=== PATIENT | male | born 1965 | race Caucasian/White ===

== ENCOUNTER → 2025-04-14 | Outpatient (CLI) | payer OTHER, SELFPAY ==
--- NOTE | 2025-04-14 15:53 | MRI_ITS ---
PROCEDURE: SPINE CERVICAL (ROUTINE) 04/14/2025 REASON FOR EXAM: CERVICAL MYELOPATHY TECHNIQUE: Multiplanar and multisequence images were obtained without IV contrast administration. FINDINGS: Normal cervical vertebral body height without compression deformity. No Chiari deformity. Markedly diminished marrow signal throughout the entirety of the C4 and C5 vertebral bodies. Although this could be reactive, the degree of sclerosis or marrow change is striking. C2-3 exhibits mild spinal stenosis with left-sided facet arthrosis contributing to severe left C3 foraminal narrowing. At C3-4 mild canal narrowing and moderate to severe sbma-sioomrt-hyio-right foraminal stenosis. At C4-5 there is severe canal narrowing with cord flattening and questionable early myelomalacia. Severe bilateral neural foraminal narrowing At C5-6 moderate to severe spinal stenosis with cord flattening and severe bilateral neural foraminal narrowing. At C6-7 broad-based protrusion with moderate spinal stenosis abutting the ventral cord. Severe scqd-bizkqih-fhgh-right C7 foraminal stenosis. C7-T1 is unremarkable. MRI/Spine Cervical (Routine) IMPRESSION: 1. Severe canal narrowing at C4-5 with moderate to severe canal narrowing at C5 -6 and moderate spinal stenosis at C6-7. 2. Severe kfjz-scksbos-odzg-right C4, severe bilateral C5, bilateral C6 and sev ere uffc-vpkwlef-ptwp-right C7 foraminal stenosis. 3. Prominent sclerosis involving the C4 and C5 vertebral bodies. Possibly reac tive. No history of primary neoplasm supplied Reading [facility]
== END | disposition home or self-care (01) ==
PROVIDERS: PCP Family Medicine; Referring Provider Orthopaedic Surgery Orthopaedic Surgery of the Spine; Visit Provider Orthopaedic Surgery Orthopaedic Surgery of the Spine
DX: G95.9 Disease of spinal cord, unspecified (principal)
CPT/HCPCS: 72141

== ENCOUNTER 2025-06-09 15:25 | Observation (INO) | payer OTHER, SELFPAY ==
[2025-06-08 16:25] LABS: Magnesium 2.0 mg/dL (1.5-2.2)
[2025-06-08 16:38] LABS: HIV Nonreactive (Nonreactive); Hepatitis C Antibody Nonreactive (Nonreactive)
[2025-06-09] VITALS (13 sets, daily range): BP systolic 105–150; BP diastolic 67–89; PULSE 65–77; RESP 11–18; TEMP 36.1–37; O2SAT 96–100; BMI 35.2
--- NOTE | 2025-06-09 10:04 | PCM.PRE.AN2 ---
ASA Classification* ASA Classification ASA Classification: 2 Assessment & Plan Anesthesia* Anesthesia Assessment Anesthesia Assessment: Discussed sedation and/or anesthesia options, risks, benefits, and alternatives with patient/parents/legal guardian/POA. Questions invited. The patient/parents/legal guardian/POA seems to understand and agrees to proceed with anesthesia plan. Reviewed the physical assessment, medical history, allergy history and patient home medications list prior to surgery/procedure/anesthetic and documented any changes. Performed airway and anesthesia risk assessments. Anesthesia Type Anesthesia Type: General Anesthesia Focused Assessment* Airway Assessment Mouth opens: >3 cm Mallampati Score: III Labs Anesthesia Preop lab: CBC CHEMISTRY Magnesium 2.0 mg/dL (1.5-2.2) 06/08/25 15:12 06/08/25 POC Glucose 139 mg/dL (74-106) H 06/09/25 10:18 06/09/25 COAG Pre-Assessment Diagnosis/Proposed Procedure Planned Operative Procedure(s): (N/A) Anterior Cervical Fusion C4-5 and C5-6 Anesthesia History Anesthesia History - hospitality aide: Anesthesia History - hospitality aide Hx Hospitalization No 05/25/25 13:24 Any Problems With Anesthesia No 05/25/25 13:24 Cholinesterase deficiency No 05/25/25 13:24 You/Your Family Experience No 05/25/25 13:24 fever (hyperthermia) with Relationship Recent Exposure to Contagious Disease Does patient have nerve No 05/25/25 13:24 stimulator Patient instructed to have device shut off --Does patient have Pacemaker or ICD? When Was Last Pacemaker Check QUESTION #4 FULL TEXT: You/Your Family Experience fever (hyperthermia) with Anesthesia Any additional information?: No Last Oral Intake Last Oral intake: Last Oral Intake NPO since Meds taken in AM with sips of water? Meds patient instructed to take am of surgery Any additional information?: No PONV PONV - hospitality aide: PONV - hospitality aide Female No 05/25/25 13:24 HX of Motion Sickness No 05/25/25 13:24 HX of N/V After Surgery No 05/25/25 13:24 Non-Smoker No 05/25/25 13:24 Duration of Surgery greater Yes 05/25/25 13:24 than 60 minutes Number of Risk Factors 1 05/25/25 13:24 PONV Score Low Risk 05/25/25 13:24 Any additional information?: No Height & Weight Height & Weight: Anesthesia: Height & Weight Height 5 ft 9 in 06/08/25 15:34 Weight: 102.058 kg 06/08/25 15:34 Respiratory Assessment Respiratory Assessment - hospitality aide: Respiratory Tract Infection Hx - hospitality aide Hx Respiratory Tract Infection No 05/25/25 13:24 STOP Sleep Apnea STOP Sleep Apnea - hospitality aide: STOP Sleep Apnea - hospitality aide Hx Hypertension Yes: PER PT, CONTROLLED ON 05/25/25 13:24 MEDS Hx Sleep Apnea No 05/25/25 13:24 CPAP BIPAP Do you snore loudly (louder No 05/25/25 13:24 than talking or can be heard Do you often feel tired/ No 05/25/25 13:24 fatigued/ sleepy during daytime? Has anyone observed you stop Yes 05/25/25 13:24 breathing during sleep? STOP Results Positive 05/25/25 13:24 QUESTION #5 FULL TEXT : Do you snore loudly (louder than talking or can be heard through closed doors)? 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 Specify any problems Hx of Preganancy in last 3 N/A 05/25/25 13:24 Months Nurse Filling Out Transfusion MGRIFFITH 05/25/25 13:24 & Questions: Date: 05/25/25 05/25/25 13:24 Time: 13:27 05/25/25 13:24 Patient unable to answer at this time (ie. confused, unrespo Any additional information?: No /Reproduction History /Reproductive History - hospitality aide: /Reproductive Hx- hospitality aide Hx Now No 05/25/25 13:24 Gestational Age (in weeks): EDC: Hx Hx Para Hx Section SAB Any additional information?: No Active Medications Active Medications: Current Medications Generic Name Dose Route Start Last Admin Trade Name Freq PRN Reason Stop Dose Admin Acetaminophen 1,000 mg 06/09/25 11:30 Acetaminophen 500 Mg Tablet PO 06/09/25 11:31 PREOP ONE Dexamethasone Sodium Phosphate 8 mg 06/09/25 11:30 Dexamethasone 10 Mg/Ml Vial IV 06/09/25 11:31 INTRAOP ONE Dexamethasone Sodium Phosphate 4 mg 06/09/25 11:30 Dexamethasone 4 Mg/Ml Vial IV 06/09/25 11:31 POSTOP ONE Cefazolin Sodium 2 gm/ Sodium 110 mls @ 150 mls/hr 06/09/25 11:30 Chloride IV 06/09/25 12:13 INTRAOP ONE Tranexamic Acid 1,000 mg/ 110 mls @ 440 mls/hr 06/09/25 11:30 Sodium Chloride IV 06/09/25 11:44 INTRAOP ONE Tranexamic Acid 1,000 mg/ 110 mls @ 440 mls/hr 06/09/25 11:30 Sodium Chloride IV 06/09/25 11:44 INTRAOP ONE Magnesium Sulfate 1 gm/ 102 mls @ 408 mls/hr 06/09/25 11:30 Dextrose IV 06/09/25 11:44 PREOP ONE Lactated Ringer's 1,000 mls @ 15 mls/hr 06/09/25 10:00 IV .Q48H COUNT INCLUDES THE [facility] Insulin Human Lispro 1 - 6 unit 06/09/25 11:30 Insulin Lispro 100 Unit/Ml Insuln.Pen SC 06/09/25 17:00 Q4H PRN PRN BG>/= 180, SEE PROTOCOL Protocol PFSH Medical History Wears partial dentures Alcohol use Diabetes Arthritis High cholesterol Dietary restriction Smoker Hypertension Cervical stenosis of spine Right shoulder pain Home Medications Medication Instructions Recorded Last Taken Type atenolol 50 mg tablet 50 mg PO QDAY 02/03/25 06/09/25 History lisinopril 10 mg tablet 10 mg PO QDAY 02/03/25 06/07/25 History lovastatin 40 mg tablet 80 mg PO QHS 02/03/25 06/07/25 History meloxicam 15 mg tablet 15 mg PO QDAY 02/03/25 06/07/25 History semaglutide 0.25 mg or 0.5 mg (2 0.5 mg subcut QWEEK 02/03/25 05/29/25 History mg/3 mL) subcutaneous pen injector (Ozempic) methocarbamol 500 mg tablet 500 mg PO TID PRN pain/spasms #30 05/13/25 06/08/25 Rx tabs metformin 500 mg tablet 500 mg PO DAILY 06/09/25 06/07/25 History Allergy/AdvReac Type Severity Reaction Status Date / Time No Known Allergies Allergy Verified 06/09/25 10:19 Surgical History History of colonoscopy History of lumbar laminectomy History of hernia surgery Social History household members: significant other Smoking Status: Current every day smoker tobacco type: cigarettes alcohol intake: current Review of Systems (Anesthesia) ROS Narrative System reviewed and no additional complaints, except as documented.
[2025-06-09] MEDS: Magnesium 1 GM over 15 mins IV (10:33)
[2025-06-09] MEDS: Lactated Ringers 1,000 ML 15 ML IV (10:33)
--- NOTE | 2025-06-09 10:55 | PRE.ANES_ITS ---
ASA Classification* ASA Classification ASA Classification: 2 Assessment & Plan Anesthesia* Anesthesia Assessment Anesthesia Assessment: Discussed sedation and/or anesthesia options, risks, benefits, and alternatives with patient/parents/legal guardian/POA. Questions invited. The patient/parents/legal guardian/POA seems to understand and agrees to proceed with anesthesia plan. Reviewed the physical assessment, medical history, allergy history and patient home medications list prior to surgery/procedure/anesthetic and documented any changes. Performed airway and anesthesia risk assessments. Anesthesia Type Anesthesia Type: General (Intubation with video laryngoscope in consideration of loose upper bridge) History Source History Obtained from:: Patient and Chart Anesthesia Focused Assessment* Temperature: 97.1 F Pulse Rate: 69 Blood Pressure: 147/87 Respiratory Rate: 18 Pulse Ox: 100 Oxygen Delivery Method: Room Air Airway Assessment Mouth opens: >3 cm Mallampati Score: I (Opens well//tonsillar pillars and uvula easily seen) Teeth Condition: Loose and Missing (Loose upper bridge//missing lower dentition) Neck Range of motion (ROM): Limited ROM Labs Anesthesia Preop lab: CBC CHEMISTRY Magnesium 2.0 mg/dL (1.5-2.2) 06/08/25 15:12 06/08/25 COAG Pre-Assessment Diagnosis/Proposed Procedure Planned Operative Procedure(s): (N/A) Anterior Cervical Fusion C4-5 and C5-6 Anesthesia History Anesthesia History - rehabilitation liaison: Anesthesia History - rehabilitation liaison Hx Hospitalization No 05/25/25 13:24 Any Problems With Anesthesia No 05/25/25 13:24 Cholinesterase deficiency No 05/25/25 13:24 You/Your Family Experience No 05/25/25 13:24 fever (hyperthermia) with Relationship Recent Exposure to Contagious No 06/09/25 10:24 Disease Does patient have nerve No 05/25/25 13:24 stimulator Patient instructed to have device shut off --Does patient have Pacemaker No 06/09/25 10:24 or ICD? When Was Last Pacemaker Check QUESTION #4 FULL TEXT: You/Your Family Experience fever (hyperthermia) with Anesthesia Last Oral Intake Last Oral intake: Last Oral Intake NPO since 08:00 06/09/25 10:24 Meds taken in AM with sips of Yes 06/09/25 10:24 water? Meds patient instructed to atenolol 06/09/25 10:24 take am of surgery PONV PONV - rehabilitation liaison: PONV - rehabilitation liaison Female No 05/25/25 13:24 HX of Motion Sickness No 05/25/25 13:24 HX of N/V After Surgery No 05/25/25 13:24 Non-Smoker No 05/25/25 13:24 Duration of Surgery greater Yes 05/25/25 13:24 than 60 minutes Number of Risk Factors 1 05/25/25 13:24 PONV Score Low Risk 05/25/25 13:24 Height & Weight Height & Weight: Anesthesia: Height & Weight Height 5 ft 9 in 06/09/25 10:24 Weight: 108.3 kg 06/09/25 10:24 Body Mass Index (BMI) 35.2 06/09/25 10:24 Respiratory Assessment Respiratory Assessment - rehabilitation liaison: Respiratory Tract Infection Hx - rehabilitation liaison Hx Respiratory Tract Infection No 05/25/25 13:24 STOP Sleep Apnea STOP Sleep Apnea - rehabilitation liaison: STOP Sleep Apnea - rehabilitation liaison Hx Hypertension Yes: PER PT, CONTROLLED ON 05/25/25 13:24 MEDS Hx Sleep Apnea No 05/25/25 13:24 CPAP BIPAP Do you snore loudly (louder No 05/25/25 13:24 than talking or can be heard Do you often feel tired/ No 05/25/25 13:24 fatigued/ sleepy during daytime? Has anyone observed you stop Yes 05/25/25 13:24 breathing during sleep? STOP Results Positive 05/25/25 13:24 QUESTION #5 FULL TEXT : Do you snore loudly (louder than talking or can be heard through closed doors)? 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 Specify any problems Hx of Preganancy in last 3 N/A 05/25/25 13:24 Months Nurse Filling Out Transfusion MGRIFFITH 05/25/25 13:24 & Questions: Date: 05/25/25 05/25/25 13:24 Time: 13:27 05/25/25 13:24 Patient unable to answer at this time (ie. confused, unrespo /Reproduction History /Reproductive History - rehabilitation liaison: /Reproductive Hx- rehabilitation liaison Hx Now No 05/25/25 13:24 Gestational Age (in weeks): EDC: Hx Hx Para Hx Section SAB Active Medications Active Medications: Current Medications Generic Name Dose Route Start Last Admin Trade Name Freq PRN Reason Stop Dose Admin Acetaminophen 1,000 mg 06/09/25 11:30 06/09/25 10:33 Acetaminophen 500 Mg Tablet PO 06/09/25 11:31 1,000 mg PREOP ONE Administration Dexamethasone Sodium Phosphate 8 mg 06/09/25 11:30 Dexamethasone 10 Mg/Ml Vial IV 06/09/25 11:31 INTRAOP ONE Dexamethasone Sodium Phosphate 4 mg 06/09/25 11:30 Dexamethasone 4 Mg/Ml Vial IV 06/09/25 11:31 POSTOP ONE Cefazolin Sodium 2 gm/ Sodium 110 mls @ 150 mls/hr 06/09/25 11:30 Chloride IV 06/09/25 12:13 INTRAOP ONE Tranexamic Acid 1,000 mg/ 110 mls @ 440 mls/hr 06/09/25 11:30 Sodium Chloride IV 06/09/25 11:44 INTRAOP ONE Tranexamic Acid 1,000 mg/ 110 mls @ 440 mls/hr 06/09/25 11:30 Sodium Chloride IV 06/09/25 11:44 INTRAOP ONE Magnesium Sulfate 1 gm/ 102 mls @ 408 mls/hr 06/09/25 11:30 06/09/25 10:33 Dextrose IV 06/09/25 11:44 408 mls/hr PREOP ONE Administration Lactated Ringer's 1,000 mls @ 15 mls/hr 06/09/25 10:00 06/09/25 10:33 IV 15 mls/hr .Q48H SVETLANA Administration Insulin Human Lispro 1 - 6 unit 06/09/25 11:30 Insulin Lispro 100 Unit/Ml Insuln.Pen SC 06/09/25 17:00 Q4H PRN PRN BG>/= 180, SEE PROTOCOL Protocol PFSH Medical History Wears partial dentures Alcohol use Diabetes Arthritis High cholesterol Dietary restriction Smoker Hypertension Cervical stenosis of spine Right shoulder pain Home Medications Medication Instructions Recorded Last Taken Type atenolol 50 mg tablet 50 mg PO QDAY 02/03/2506/09 History lisinopril 10 mg tablet 10 mg PO QDAY 02/03/2506/07 History lovastatin 40 mg tablet 80 mg PO QHS 02/03/25 History meloxicam 15 mg tablet 15 mg PO QDAY 02/03/2506/07 History semaglutide 0.25 mg or 0.5 mg (2 0.5 mg subcut QWEEK 0 02/03/25 05/29/25 History mg/3 mL) subcutaneous pen injector (Ozempic) methocarbamol 500 mg tablet 500 mg PO TID PRN pain/spa sms #30 05/13/25 06/08/25 Rx tabs metformin 500 mg tablet 500 mg PO DAILY 06/09/25 History Allergy/AdvReac Type Severity Reaction Status Date / Time No Known Allergies Allergy Verified 06/09/25 10:19 Surgical History History of colonoscopy History of lumbar laminectomy History of hernia surgery Social History household members: significant other Smoking Status: Current every day smoker alcohol intake: current Review of Systems (Anesthesia) ROS Narrative System reviewed and no additional complaints, except as documented.
--- NOTE | 2025-06-09 11:00 | RAD_ITS ---
PROCEDURE: CERV SPINE 2 OR 3 VIEWS 06/09/2025 REASON FOR EXAM: ERAS, ANTERIOR CERVICAL FUSION C4-5 AND C5-6 TECHNIQUE: CERV SPINE 2 OR 3 VIEWS COMPARISON: 06/10/2025. FINDINGS: Intraoperative fluoroscopy for anterior cervical fusion of C4-5 and C5-6 was performed. See procedure report for full details. RAD/Cerv Spine 2 or 3 Views IMPRESSION: As above. Reading Location: [id number]
--- NOTE | 2025-06-09 12:04 | PCM.HP.BLA ---
History and Physical Date of Admission: 06/09/25 MR#: [id number] Acct: [id number] Name: NINA WEST Rep #: [id number] : 1965 Provider: Dr. Baron Buenrostro MD Age/Sex: 60/M Location: [facility] [place] Status: Signed Intake Vital Signs 04/23/2515:18 Height 5 ft 9 in Weight: 225 lb BMI 33.2 Intake Visit Reasons: cervical spine Chief Complaint: Preop Accompanied by: Is patient in pain?: No Allergies No Known Allergies Allergy (Verified 05/29/25 08:05) Medications Medication Instructions Recorded Confirmed Type atenolol 50 mg tablet 50 mg PO QDAY 02/03/25 05/29/25 History lisinopril 10 mg tablet 10 mg PO QDAY 02/03/25 05/29/25 History lovastatin 40 mg tablet 80 mg PO QHS 02/03/25 05/29/25 History meloxicam 15 mg tablet 15 mg PO QDAY 02/03/25 05/29/25 History semaglutide 0.25 mg or 0.5 mg (2 0.5 mg subcut QWEEK 02/03/25 05/29/25 History mg/3 mL) subcutaneous pen injector (Ozempic) methocarbamol 500 mg tablet 500 mg PO TID PRN pain/spasms #30 05/13/25 05/29/25 Rx tabs PFSH Medical History Wears partial dentures Alcohol use Diabetes Arthritis High cholesterol Dietary restriction Smoker Hypertension Cervical stenosis of spine Right shoulder pain Surgical History History of colonoscopy History of lumbar laminectomy History of hernia surgery Social History household members: significant other Smoking Status: Current every day smoker tobacco type: cigarettes alcohol intake: current HPI cervical spine Details: This documentation accurately reflects the service provided and the decisions made by me, Dr. Baron Buenrostro MD 05/29/25 0800. Part of today’s visit was documented by Migdalia Kaplan RN, acting as scribe. NINA WEST is a 60 year old M here today for preoperative appointment for anterior cervical fusion C4-C5, C5-C6. He states his pain has not been as bad lately as he has been off of work. He takes the Methocarbamol as needed. The patient is a 60-year-old male presenting with cervical spinal stenosis and associated symptoms. The patient reports a history of cervical spinal stenosis diagnosed in 2011, which initially presented with difficulty in buttoning shirts and tying shoes, progressing to an inability to walk, necessitating surgical intervention with a laminectomy. Post-surgery, the patient experienced some improvement, but symptoms have progressively worsened over the years. Currently, the patient experiences neck pain radiating to both shoulders and arms, with associated weakness in both upper extremities, more pronounced on the left side. The patient reports difficulty lifting objects, with pain and aching in the hands, and occasional dropping of items, predominantly with the right hand. The patient has a history of diabetes mellitus, with an A1c level of 6.2 as of May 13, and reports smoking occasionally, particularly when drinking. The patient acknowledges the impact of smoking on healing and plans to abstain from smoking and drinking one week prior to surgery. - Musculoskeletal: Reports neck pain radiating to shoulders and arms, weakness in upper extremities, difficulty lifting objects, and occasional dropping of items. - Neurological: Denies changes in handwriting or balance issues, reports occasional morning imbalance. - Endocrine: Reports diabetes mellitus with A1c of 6.2. - Respiratory: Denies COPD or breathing issues. Attestation: Documentation on this patient encounter was supported using ambient scribe technology/ voice AI technology. The patient consented to recording for the purpose of documenting the encounter. Provider reviewed content of the generated note prior to signature. 04/23/25: NINA WEST is a 60 year old M here today for cervical spine MRI review. Patient would like to go over the MRI results to see what the next step is. He denies any recent injections, or physical therapy. Patient states that he doesn't have any pain today, just feels weakness. He had a laminectomy surgery at [facility] in 2012. Hx of diabetes, last a1c was 5.7. No heart or lung issues. No blood thinners. HPI from 02/26/25: NINA WEST is a 59 year old M here today for cervical spine pain. Patient states the neck has been bothering him for a long time. He thought it was his shoulder acting up but now thinking it is coming from the neck. He notes that he does have cervical stenosis. He denies any numbness/tingling down the arms but does get it down the right leg. He feels like his legs are weak. He denies any balance issues. He states he does have dexterity issues and he has trouble gripping or picking things up. He has had injections in the neck but it has been several years. He denies any physical therapy or surgery. He denies taking any pain medication. Ortho Exam General General: Yes no acute distress Neurologic: Yes alert and Yes oriented x3 Psychologic: Yes reasonable and appropriate Spine SPINE TESTING CERVICAL THORACIC LUMBAR Musculoskeletal Strength 0=absent - 5=normal Details: Examination neck shows midline paraspinal tenderness in lower cervical region. Neurologic evaluation of upper extremity shows 4+ power right management advisor strength, 4- power bilateral biceps, all other muscle power normal shows normal sensations in all dermatomes. Leatha's is positive. Romberg's is positive. Tandem gait shows mild imbalance. There is no hyperreflexia lower extremities. Coding Level of Care Code Off vis,est,level 4 Diagnoses Cervical myelopathy G95.9 Time Spent (min) 35 Assessment and Plan Assessment and Plan (1) Cervical myelopathy: Status: Acute Plan Again reviewed prior cervical x-rays which show C4-5 and C5-6 severe disc height loss with disc degeneration with retrolisthesis both of these levels. C3-4 shows subtle spondylolisthesis but seems stable on flexion-extension views. Reviewed cervical MRI from April 14, 2025 which showed C4-5 severe canal narrowing with severe bilateral neuroforaminal narrowing, C5-6 moderate to severe spinal stenosis with severe bilateral neuroforaminal. C6-7 broad-based disc protrusion which results in moderate spinal stenosis. 1. Cervical spinal stenosis - Surgical intervention planned to address spinal cord compression and improve function. - The surgery will involve a two-level decompression from C4 to C6. - Post-operative care includes wearing a collar, physical therapy, and gradual weaning off the collar. 2. Diabetes mellitus - Maintain good glycemic control with an A1c target below 7.0. - Patient advised to quit smoking to enhance healing post-surgery. - Follow pre-operative instructions, including abstaining from smoking and drinking one week prior to surgery. - Maintain good blood sugar control and monitor A1c levels. - Wear the collar as instructed post-surgery and attend all follow-up appointments. - Begin physical therapy as directed after surgery. Explained imaging findings in detail. Patient has developed cervical myelopathy due to cord compression most severe C4-6. C3-4 and C6-7 also show stenosis but do not show any active movement on flexion-extension views. Discussed natural history of cervical myelopathy which is typically that of progression. I recommend surgical intervention in the form of C4-6 ACDF. Discussed this procedure in detail and explained the risks, benefits and alternatives. The risks of surgery include but are not limited to infection, bleeding, injury to nerves and vessels, hematoma formation, dysphagia, dysphonia, recurrent laryngeal nerve injury, Verna syndrome, DVT, pulmonary embolism, pneumonia, atelectasis, cardiopulmonary event, pseudoarthrosis, hardware failure, adjacent segment degeneration, need for further surgery, nerve root injury, spinal cord injury. Answered all questions to the patient’s satisfaction. Patient understands and agrees to proceed with surgery. Consent was signed.
--- NOTE | 2025-06-09 15:18 | PCM.OPRPT ---
Procedures Musculoskeletal [id number]: Other Procedure See Report Operative Report (Standard) Operative Information Date of Procedure: 06/09/25 Pre-Operative Diagnosis: C4-6 disc degeneration with stenosis, cord compression, myelopathy Post-Operative Diagnosis: Same Surgery/Procedure Performed: C4-6 ACDF bonding molder: Yes Clinical Orthoptist: Kristin Noguera Tasks completed by resident care assistant: Closing, Removing tissue, Implanting device, Hemostasis: Electrocautery and Retracting Type of Anesthesia: General RN Documented Start/Stop Times: Operation Date: 06/09/25 12:00 Case Time Into Pre-Op 06/09/25 09:54 Out of Pre-Op 06/09/25 12:09 Anesthesia Start 06/09/25 12:15 Into Room 06/09/25 12:15 Procedure Start 06/09/25 12:48 Procedure End 06/09/25 15:17 Procedure Start Time: 12:48 Procedure Stop Time: 15:17 Select all DRAINS/GRAFTS/IMPLANTS that apply: Drains Drain details: South , Graft Graft details: Structural allograft corticocancellous strut and Implanted device Implanted device details: Medtronic [place] Elite plate instrumentation Estimated Blood Loss: 30 cc Specimen collected: No Description of surgery: Preoperative diagnosis: C4-6 disc degeneration with stenosis, myelopathy Postoperative diagnosis: Same Name of procedure: C4-6 anterior cervical discectomy and fusion with plate instrumentation - Anterior cervical fusion C4-5, CPT code 59198 - Anterior plate instrumentation C4-6, CPT code 53523/59 - Anterior cervical fusion C5-6, CPT code 13376/51 -C4-5 structural allograft bone with DBX, CPT code 41859 - C5-6 structural allograft bone with DBX, CPT code 01843 Attending surgeon: Baron Buenrostro M.D. Anesthesia: Gen. endotracheal Estimated blood loss: 30 mL Complications: None Instrumentation used: Medtronic [place] Elite plate, LASR corticocancellous block Indications: The patient is a pleasant 60-year-old gentleman who presented with neck pain, progressive difficulty with balance and dexterity. MRI showed multilevel cervical disc degeneration, C4-6 severe stenosis with cord compression. In order to halt the progression of myelopathy, the patient requested surgical treatment. All risks and benefits of the procedure were explained to the patient. The risks include but are not limited to infection, bleeding, injury to nerves and vessels, vertebral artery injury, spinal cord injury, paralysis, vocal cord paralysis, injury to esophagus, pseudoarthrosis, need for further procedures, adjacent segment degeneration. Procedure: The patient was identified in the preoperative suite using unique patient identifiers. Skin was marked consent was taken and all questions were answered. The patient was then brought back to the operative room and a timeout was performed. General endotracheal anesthesia was given. Intraoperative neuro monitoring leads were applied. The patient was carefully positioned supine on a regular OR table. A lateral view with a C-arm was done to identify the level and to define the incision. The anterior neck was then prepped and draped in the usual fashion. A final timeout was then performed. A transverse skin incision was taken to the left of midline. Subcutaneous tissue was then divided with Bovie. Platysma was identified and cut along the incision with scissors. The fascial interval between the sternocleidomastoid and the larynx was developed. Omohyoid was identified and retracted. The esophagus with the larynx was retracted medially to reach the prevertebral fascia. Marker x-ray was performed with bent spinal needle and disc space and levels were confirmed. Longus coli muscle was elevated on both sides at and above and below C4-6 discs. Self-retaining retractors were then placed. Severe large anterior osteophytes were noticed at both levels. There is were removed piecemeal using a rongeur. A long handle knife was then used to perform annulotomy at C4-5. Disc fragments were removed with the pituitary. [place] pins were placed in C4 and C5 for disc distraction. Curettes and bur was utilized to remove cartilage from the endplates. Discectomy was performed laterally up to the uncovertebral joints. Posterior osteophytes were thinned down with the bur and adequate decompression in the central and foraminal areas were performed and PLL was thinned out. Once the disc space was prepared, trials of various sizes were utilized. Thorough irrigation was given. 6 mm LASR cortical cancellous allograft bone large footprint was then fashioned in such a way that concavities were burred out inferiorly and superiorly and half cc of DBX (demineralized bone matrix) was squeezed into the cancellous portion. The graft was then inserted into the C4-5 disc space. The retractors were then repositioned and the procedure was repeated for C5-6 disc with complete discectomy. Graft size was 5 mm at with large footprint at C5-6. The grafts were found to be in good apposition with good pullout strength. A 42 mm Medtronic [place] Elite plate was then contoured to higher lordosis, and fixed to C4-6 with 17 mm screws. A lateral x-ray was then taken to check the length of the screws. Both AP and lateral x-rays showed good positioning of plate and screws. The locking mechanism over the screw heads was then turned. Thorough irrigation was again given. Hemostasis was achieved. A [place] drain was then inserted. Closure was done with 3-0 Vicryl for the platysma and subcutaneous tissue layers and 4-0 Monocryl for the skin. Closure was done around the drain. Steri-Strips were applied and dressing was done with 4 x 4 gauze and Tegaderm. A cervical collar was then applied. The patient was then woken up from anesthesia extubated and taken to PACU in stable condition. From here, the patient will be transitioned to the floor. Intraoperative neuro monitoring was performed throughout this procedure. Motor evoked potentials were run periodically. All potentials remained at baseline throughout the procedure. I was present for the entire surgery and performed the surgery myself. Child Monitor Kristin Noguera PA-C. My physician molding line assistant was a vital part of this case. They were important in appropriate retraction during the case, and protection of soft tissues during the procedure. Their intimate knowledge of the case and my steps aided in safe and expedient completion of the procedure as well as appropriate position of the patient during the surgery. They were also vital in assisting with closure under my direct supervision. Surgical Findings: See operative note Complications Complications: No
--- NOTE | 2025-06-09 15:28 | PCM.POST.ANE ---
Anesthesia: Postop Eval I Current Vital Signs Temperature: 97 F Pulse Rate: 77 Blood Pressure: 121/71 Respiratory Rate: 16 Pulse Ox: 97 Oxygen Delivery Method: Nasal Cannula Oxygen Flow Rate (L/min): 3 Assessment Airway patent: Yes Spontaneous unlabored respirations: Yes Mental status: Awake and Calm nausea: No Vomiting: No Anesthesia Complication: No Fluid Hydration Crystalloid volume administer (ml): 1,000 Total IV fluid infused: 1,000 Progress Note Anesthesia document: Postop Eval 1 completed: Yes
[2025-06-09] MEDS: Cefazolin 2 GM in 0.9% Normal Saline (100mL Bag) 100 ML IV (17:37)
[2025-06-09] MEDS: Ensure Surgery 237 ML LIQUID PO (17:51)
[2025-06-09] MEDS: HYDROcodone Bitartrate/Apap 5/325 Tablet PO (20:16)
--- NOTE | 2025-06-09 20:43 | PCM.CONS.GEN ---
Assessment & Plan Assessment/Plan (1) Type 2 diabetes mellitus: PLAN: Plan #Type 2 diabetes mellitus -Glucose checks and sliding scale insulin -Can resume home metformin on discharge #Hypertension - Continue home antihypertensives, if patient develops soft blood pressure with pain medication may need to hold these to allow room for pain control however presently postoperatively blood pressure 138/89 pulse 66. # C4-6 disc degeneration with stenosis, cord compression, myelopathy - Status post C4-[address] Buenrostro 06/09/2025 -Postoperative/pain management per primary #DVT ppx: Timing and agent at the discretion of primary Jessica Michele MD Time spent in the patient's overall evaluation, decision-making process, review of diagnostic data, adjustment of management, discussion with other providers, nursing and ancillary staff involved in patient's care documentation, 15 Minutes HPI Consult Data Date of Consult: 06/09/25 HPI Narrative Reason for Consultation: Medical management HPI Narrative: NINA WEST, is a 60-year-old male history of hypertension and diabetes presented [facility] 06/09/2025 for C4-6 ACDF secondary to C4-6 disc degeneration with stenosis, cord compression, myelopathy with Dr. Buenrostro. Hospitalist consulted for postoperative medical management. Patient evaluated at bedside. He reports overall feeling well, some pain in the back of his neck but no significant incision pain. Has been up moving around. No new acute complaints [facility] Medical History Wears partial dentures Alcohol use Diabetes Arthritis High cholesterol Dietary restriction Smoker Hypertension Cervical stenosis of spine Right shoulder pain Home Medications Medication Instructions Recorded Last Taken Type atenolol 50 mg tablet 50 mg PO QDAY 02/03/25 06/09/25 History lisinopril 10 mg tablet 10 mg PO QDAY 02/03/25 06/07/25 History lovastatin 40 mg tablet 80 mg PO QHS 02/03/25 06/07/25 History meloxicam 15 mg tablet 15 mg PO QDAY 02/03/25 06/07/25 History semaglutide 0.25 mg or 0.5 mg (2 0.5 mg subcut QWEEK 02/03/25 05/29/25 History mg/3 mL) subcutaneous pen injector (Ozempic) methocarbamol 500 mg tablet 500 mg PO TID PRN pain/spasms #30 05/13/25 06/08/25 Rx tabs metformin 500 mg tablet 500 mg PO DAILY 06/09/25 06/07/25 History Allergy/AdvReac Type Severity Reaction Status Date / Time No Known Allergies Allergy Verified 06/09/25 10:19 Surgical History History of colonoscopy History of lumbar laminectomy History of hernia surgery Social History household members: significant other Smoking Status: Current every day smoker tobacco type: cigarettes alcohol intake: current ROS ROS Narrative Patient with some pain in the back of his neck but otherwise ROS reviewed and is negative Physical Exam Narrative General: Alert, oriented, no apparent distress HEENT: Atraumatic, normocephalic Eyes: extraocular movements grossly intact Neck: Patient in cervical collar Respiratory: normal respiratory effort, no overt wheezes or rhonchi appreciated Cardiovascular: no edema appreciated, regular rate and rhythm GI: nondistended Extremities: Moving all extremities Neuro: No overt focal neurological deficits Psych: Cooperative Lab / Micro Data Labs: Laboratory Results - last 24 hr 06/09/25 10:18: POC Glucose 139 H 06/09/25 15:16: POC Glucose 159 H Micro: Microbiology 06/08/25 15:12 Swab (Method) Nasal Screen MRSA/MSSA - Final Charges/Coding Visit Charges Office Visits / Consults: 47027 OV L2 Est 10min
--- OUTSIDE RECORDS SUMMARY | 2025-06-09 21:29 | XMS RPT_ITS | CCD ---
Author Organization [facility] Inform ion Partnership [facility] Care Team Providers Care Pharmaceutical Sales Specialist Name Role Phone [employer] Unavailable Unavailable NO REFERRING DR Unavailable Unavailable LUCAS TAYLOR Unavailable Unavailable SpoDuarte soto Unavailable Unavailable PROVIDER, UNKNOWN Unavailable Unavailable Duarte Abreu Unavailable Unavailable Cecelia Fox DO Primary Care Provider [phone] Cecelia Fox DO Primary Care Provider Cecelia Fox DO Primary Care Provider [phone] Jason Morocho MD Primary Care Provider RASHAWN PICKERING, DR KAUR Attending Linnea MOROCHO MD, DR KAUR Primary Care Unavailanastacia FOX DO, DR GERARDO Attending Cecelia FOX DO, DR GERARDO Primary Care Unavailsaida MOROCHO MD, DR KAUR Primary Care Physician [phone] RASHAWN PICKERING, DR KAUR Primary Care UnavailSOURAV Watson DO Attending Unavailable RASHAWN PICKERING, DR KAUR Attending Linnea MOROCHO MD, DR KAUR Primary Care UnavailRoby Villa MD Attending Provider Dr. Saleem Christine MD Attending Provider Dr. Baron Buenrostro MD Attending Provider Dr. aJson Morocho MD Primary Care Provider Dr. Jason Morocho MD Referring Provider Dr. Baron Buenrostro MD Referring Provider Kristin Lopes Attending Provider Baron Buenrostro Attending Unavailable Jason Morocho Primary Care Unavailable Rashawn, Jason Referring Unavailable Emmett, Saleem Attending Unavailable Rashawn, Jason Primary Care Unavailable Baron Buenrostro Attending Unavailable Porter, Baron Referring Unavailable Rashawn, Jason Primary Care Unavailable Roby Gore Attending Unavailable Roby Gore Referring Unavailable Rashawn, Jason Primary Care Unavailable Rashawn, Jason Primary Care Unavailable Kristin Noguera Attending Unavailable Rashawn, Jason Referring Unavailable Rashawn, Jason Primary Care Unavailable Baron Buenrostro Attending Unavailable Rashawn, Jason Referring Unavailable Roby Goer Attending Unavailable Emmett, Saleem Attending Unavailable Rashawn, Jason Primary Care Unavailable Buenrostro, Baron Attending Unavailable Buenrostro, Baron Referring Unavailable RASHAWN, JASON Attending Unavailable RASHAWN, JASON Primary Care Unavailable RASHAWN, JASON Attending Unavailable RASHAWN, JASON Primary Care Unavailable RASHAWN, JASON Primary Care Unavailable LE ERIC Attending Unavailable RASHAWN, JASON Primary Care Unavailable RASHAWN, JASON Attending Unavailable RASHAWN, JASON Primary Care Unavailable DON FELDMAN Admitting Unavailable DON FELDMAN Attending Unavailable RASHAWN, JASON Primary Care Unavailable Medications Current Medications Medication Drug Class(es) Dates Sig (Normalized) Sig (Original) acetaminophen 325 mg / HYDROcodone bitartrate 5 mg oral tablet (1 source) Opioid Agonist Start: 11-27-2024 End: 11-30-2024 [place] 325- 5 mg oral tablet Dose = 1 tab(s), Oral, q6h, PRN for pain, May take 1-2 tablets / dose, X 3 day(s), # 12 tab(s), 0 Refill(s), Back pain, 101.7 Start Date: 11/27/24 Stop Date: 11/30/24 Status: Ordered Quantity: 12.0 Unit: tab(s) Repeat number: 1 Indication: Dorsalgia, unspecified [id number] 200 actuat albuterol 0.09 mg/actuat metered dose inhaler (20 sources) beta2-Adrenergic Agonist Start: 10-04-2024 take 2 puff(s) by inhalation every four to six hours albuterol 108 (90 Base) MCG/ACT inhaler TAKE 2 PUFFS (INHALATION) EVERY 4 TO 6 HOURS (SHORTNESS OF BREATH OR WHEEZING) FOR 30 DAYS OR COUGH 10/04/2024 Active Start: 10-28-2020 End: 09-03-2023 albuterol 108 (90 Base) MCG/ ACT inhaler Inhale 2 puffs. 0 10/28/2020 09/03/2023 Discontinued (Therapy completed) atenolol 50 mg oral tablet (20 sources) beta-Adrenergic Desi Start: 09-06-2022 End: 02-19-2025 take 1 tablet by mouth once daily atenolol (Tenormin) 50 MG tablet Take 1 tablet (50 mg) by mouth daily. 90 tablet 1 02/19/2025 Active Blood Glucose Monitoring Suppl (True Metrix Go Glucose Meter) w/Device kit (20 sources) Start: 08-16-2022 Blood Glucose Monitoring Suppl (True Metrix Go Glucose Meter) w/Device kit use as directed 08/16/2022 Active Start: 08-16-2022 Blood Glucose Monitoring Suppl (True Metrix Go Glucose Meter) w/Device kit use as directed 0 08/16/2022 Active lisinopril 10 mg oral tablet (20 sources) Angiotensin Converting Enzyme Inhibitor Start: 03-01-2023 End: 02-19-2025 take 1 tablet by mouth once daily lisinopril 10 MG tablet TAKE 1 TABLET (10 MG) BY MOUTH DAILY. 90 tablet 1 02/19/2025 Active lovastatin 40 mg oral tablet (20 sources) HMG-CoA Reductase Inhibitor Start: 02-03-2025 take 2 tablets by mouth once daily lovastatin (Mevacor) 40 MG tablet TAKE 2 TABLETS BY MOUTH NIGHTLY. 60 tablet 05/13/2025 Active Start: 11-27-2024 lovastatin 40 mg oral tablet Dose : 40 mg = 1 tab(s), Oral, qDay, # 90 tab(s), 0 Refill(s) Start Date: 11/27/24 Status: Ordered Quantity: 90.0 Unit: tab(s) Repeat number: 1 Start: 11-15-2022 End: 10-09-2024 take 2 tablets by mouth at bedtime Lovastatin 40 mg tablet Active 80 mg PO AT BEDTIME February 03, 2025 12:00am meloxicam 15 mg oral tablet (20 sources) Nonsteroidal Anti-inflammatory Drug Start: 03-10-2024 End: 10-01-2024 take 1 tablet by mouth once daily Meloxicam 15 mg tablet Active 15 mg PO daily February 03, 2025 12:00am Start: 03-09-2023 End: 09-06-2023 take 1 tablet by mouth once daily meloxicam (Mobic) 15 MG tablet take 1 tablet by mouth daily 90 tablet 1 09/06/2023 Active Start: 08-28-2022 take 1 tablet by le th in the morning meloxicam (Mobic) 15 MG tablet Take 15 mg by mouth in the morning. 0 08/28/2022 Active metFORMIN hydrochloride 1000 mg oral tablet (20 sources) Biguanide Start: 04-07-2024 End: 02-19-2025 take 1 tablet by mouth once daily at breakfast metFORMIN (Glucophage) 1000 MG tablet Take 1 tablet (1,000 mg) by mouth daily (with breakfast). 90 tablet 1 02/19/2025 Active Start: 10-24-2022 End: 04-07-2024 take 1 tablet by mouth in the morning metFORMIN (Glucophage) 1000 MG tablet Take 1 tablet (1,000 mg) by mouth in the morning and 1 tablet (1,000 mg) in the evening. Take with meals. 120 tablet 1 04/07/2024 Active methocarbamol 500 mg oral tablet (1 source) Muscle Relaxant Start: 05-13-2025 take 1 tablet by mouth three times daily as needed for pain Methocarbamol 500 mg tablet Active 500 mg PO THREE TIMES A DAY as needed for pain/spasms 30 0 May 13, 2025 12:00am Ozempic, 0.25 or 0.5 MG/DOSE, 2 MG/3ML solution pen-injector (1 source) Start: 10-17-2023 inject 0.25 mg by subcutaneous injection every week Ozempic, 0.25 or 0.5 MG/DOSE, 2 MG/3ML solution pen-injector Indications: Type 2 diabetes mellitus without complication, without long-term current use of insulin (CMS/HCC) ([facility]) INJECT 0.25 MG UNDER THE SKIN ONCE WEEKLY 3 mL 0 10/17/2023 Active Semaglutide (3 sources) Start: 02-03-2025 Semaglutide (Ozempic) 0.25 mg or 0.5 mg (2 mg/3 mL) pen injector Active 0.5 mg SC EVERY WEEK February 03, 2025 12:00am semaglutide (Ozempic, 0.25 or 0.5 MG/DOSE,) 2 MG/3ML solution pen-injector (20 sources) Start: 05-29-2025 inject 0.5 mg by subcutaneous injection every week semaglutide (Ozempic, 0.25 or 0.5 MG/DOSE,) 2 MG/3ML solution pen-injector Indications: Type 2 diabetes mellitus without complication, without long-term current use of insulin (HCC) Inject 0.5 mg under the skin 1 (one) time per week. 3 mL 1 05/29/2025 Active Start: 01-30-2025 End: 05-28-2025 inject 0.5 mg by subcutaneous injection every week semaglutide (Ozempic, 0.25 or 0.5 MG/DOSE,) 2 MG/3ML solution pen-injector Indications: Type 2 diabetes mellitus without complication, without long-term current use of insulin (HCC) Inject 0.5 mg under the skin 1 (one) time per week. 3 mL 1 01/30/2025 05/28/2025 Discontinued (Reorder) Start: 01-30-2025 inject 0.5 mg by sub cutaneous injection every week semaglutide (Ozempic, 0.25 or 0.5 MG/DOSE,) 2 MG/3ML solution pen-injector Indications: Type 2 diabetes mellitus without complication, without long-term current use of insulin (HCC) Inject 0.5 mg under the skin 1 (one) time per week. 3 mL 1 01/30/2025 Active Start: 11-03-2024 inject 0.5 mg by sub cutaneous injection every week semaglutide (Ozempic, 0.25 or 0.5 MG/DOSE,) 2 MG/3ML solution pen-injector Indications: Type 2 diabetes mellitus without complication, without long-term current use of insulin (CMS/HCC) (HCC) Inject 0.5 mg under the skin 1 (one) time per week. 3 mL 1 11/03/2024 Active Start: 10-01-2024 inject 0.5 mg by sub cutaneous injection every week semaglutide (Ozempic, 0.25 or 0.5 MG/DOSE,) 2 MG/3ML solution pen-injector Indications: Type 2 diabetes mellitus without complication, without long-term current use of insulin (CMS/HCC) (HCC) Inject 0.5 mg under the skin 1 (one) time per week. 3 mL 1 10/01/2024 Active Start: 09-05-2024 End: 09-30-2024 inject 0.5 mg by subcutaneous injection every week semaglutide (Ozempic, 0.25 or 0.5 MG/DOSE,) 2 MG/3ML solution pen-injector Indications: Type 2 diabetes mellitus without complication, without long-term current use of insulin (CMS/HCC) (HCC) Inject 0.5 mg under the skin 1 (one) time per week. 3 mL 1 09/05/2024 09/30/2024 Discontinued (Reorder) Start: 09-05-2024 inject 0.5 mg by sub cutaneous injection every week semaglutide (Ozempic, 0.25 or 0.5 MG/DOSE,) 2 MG/3ML solution pen-injector Indications: Type 2 diabetes mellitus without complication, without long-term current use of insulin (CMS/HCC) (HCC) Inject 0.5 mg under the skin 1 (one) time per week. 3 mL 1 09/05/2024 Active Start: 07-11-2024 End: 09-04-2024 inject 0.5 mg by subcutaneous injection every week semaglutide (Ozempic, 0.25 or 0.5 MG/DOSE,) 2 MG/3ML solution pen-injector Indications: Type 2 diabetes mellitus without complication, without long-term current use of insulin (CMS/HCC) (HCC) Inject 0.5 mg under the skin 1 (one) time per week. 3 mL 1 07/11/2024 09/04/2024 Discontinued (Reorder) Start: 07-11-2024 inject 0.5 mg by sub cutaneous injection every week semaglutide (Ozempic, 0.25 or 0.5 MG/DOSE,) 2 MG/3ML solution pen-injector Indications: Type 2 diabetes mellitus without complication, without long-term current use of insulin (CMS/HCC) (HCC) Inject 0.5 mg under the skin 1 (one) time per week. 3 mL 1 07/11/2024 Active Start: 06-16-2024 End: 07-11-2024 inject 0.5 mg by subcutaneous injection every week semaglutide (Ozempic, 0.25 or 0.5 MG/DOSE,) 2 MG/3ML solution pen-injector Indications: Type 2 diabetes mellitus without complication, without long-term current use of insulin (CMS/HCC) (HCC) Inject 0.5 mg under the skin 1 (one) time per week. 3 mL 1 06/16/2024 07/11/2024 Discontinued (Reorder) Start: 06-16-2024 inject 0.5 mg by sub cutaneous injection every week semaglutide (Ozempic, 0.25 or 0.5 MG/DOSE,) 2 MG/3ML solution pen-injector Indications: Type 2 diabetes mellitus without complication, without long-term current use of insulin (CMS/HCC) (HCC) Inject 0.5 mg under the skin 1 (one) time per week. 3 mL 1 06/16/2024 Active Start: 05-13-2024 End: 06-14-2024 inject 0.5 mg by subcutaneous injection every week semaglutide (Ozempic, 0.25 or 0.5 MG/DOSE,) 2 MG/3ML solution pen-injector Indications: Type 2 diabetes mellitus without complication, without long-term current use of insulin (CMS/HCC) (HCC) Inject 0.5 mg under the skin 1 (one) time per week. 3 mL 1 05/13/2024 06/14/2024 Discontinued (Reorder) Start: 05-13-2024 inject 0.5 mg by sub cutaneous injection every week semaglutide (Ozempic, 0.25 or 0.5 MG/DOSE,) 2 MG/3ML solution pen-injector Indications: Type 2 diabetes mellitus without complication, without long-term current use of insulin (CMS/HCC) (HCC) Inject 0.5 mg under the skin 1 (one) time per week. 3 mL 1 05/13/2024 Active Start: 03-28-2024 End: 05-13-2024 inject 0.5 mg by subcutaneous injection every week semaglutide (Ozempic, 0.25 or 0.5 MG/DOSE,) 2 MG/3ML solution pen-injector Indications: Type 2 diabetes mellitus without complication, without long-term current use of insulin (CMS/HCC) (HCC) Inject 0.5 mg under the skin 1 (one) time per week. 3 mL 1 03/28/2024 05/13/2024 Discontinued (Reorder) Start: 03-28-2024 inject 0.5 mg by sub cutaneous injection every week semaglutide (Ozempic, 0.25 or 0.5 MG/DOSE,) 2 MG/3ML solution pen-injector Indications: Type 2 diabetes mellitus without complication, without long-term current use of insulin (CMS/HCC) (HCC) Inject 0.5 mg under the skin 1 (one) time per week. 3 mL 1 03/28/2024 Active Start: 02-07-2024 End: 03-28-2024 inject 0.5 mg by subcutaneous injection every week semaglutide (Ozempic, 0.25 or 0.5 MG/DOSE,) 2 MG/3ML solution pen-injector Indications: Type 2 diabetes mellitus without complication, without long-term current use of insulin (CMS/HCC) (HCC) Inject 0.5 mg under the skin 1 (one) time per week. 3 mL 1 02/07/2024 03/28/2024 Discontinued (Reorder) Start: 02-07-2024 inject 0.5 mg by sub cutaneous injection every week semaglutide (Ozempic, 0.25 or 0.5 MG/DOSE,) 2 MG/3ML solution pen-injector Indications: Type 2 diabetes mellitus without complication, without long-term current use of insulin (CMS/HCC) (HCC) Inject 0.5 mg under the skin 1 (one) time per week. 3 mL 1 02/07/2024 Active Start: 01-30-2024 End: 02-07-2024 inject 0.25 mg by subcutaneous injection every week semaglutide (Ozempic, 0.25 or 0.5 MG/DOSE,) 2 MG/3ML solution pen-injector Indications: Type 2 diabetes mellitus without complication, without long-term current use of insulin (CMS/HCC) (HCC) INJECT 0.25 MG UNDER THE SKIN ONCE WEEKLY 3 mL 1 01/30/2024 02/07/2024 Discontinued (Reorder) Start: 01-30-2024 inject 0.25 mg by warren bcutaneous injection every week semaglutide (Ozempic, 0.25 or 0.5 MG/DOSE,) 2 MG/3ML solution pen-injector Indications: Type 2 diabetes mellitus without complication, without long-term current use of insulin (CMS/HCC) ([facility]) INJECT 0.25 MG UNDER THE SKIN ONCE WEEKLY 3 mL 1 01/30/2024 Active Start: 01-22-2024 End: 01-29-2024 inject 0.25 mg by subcutaneous injection every week semaglutide (Ozempic, 0.25 or 0.5 MG/DOSE,) 2 MG/3ML solution pen-injector Indications: Type 2 diabetes mellitus without complication, without long-term current use of insulin (CMS/HCC) ([facility]) INJECT 0.25 MG UNDER THE SKIN ONCE WEEKLY 3 mL 1 01/22/2024 01/29/2024 Discontinued (Reorder) Start: 12-28-2023 inject 0.25 mg by warren bcutaneous injection every week semaglutide (Ozempic, 0.25 or 0.5 MG/DOSE,) 2 MG/3ML solution pen-injector Indications: Type 2 diabetes mellitus without complication, without long-term current use of insulin (CMS/HCC) ([facility]) INJECT 0.25 MG UNDER THE SKIN ONCE WEEKLY 3 mL 0 12/28/2023 Active Start: 12-21-2023 End: 12-28-2023 inject 0.25 mg by subcutaneous injection every week semaglutide (Ozempic, 0.25 or 0.5 MG/DOSE,) 2 MG/3ML solution pen-injector Indications: Type 2 diabetes mellitus without complication, without long-term current use of insulin (CMS/HCC) ([facility]) INJECT 0.25 MG UNDER THE SKIN ONCE WEEKLY 3 mL 0 12/21/2023 12/28/2023 Discontinued (Reorder) Start: 12-21-2023 inject 0.25 mg by warren bcutaneous injection every week semaglutide (Ozempic, 0.25 or 0.5 MG/DOSE,) 2 MG/3ML solution pen-injector Indications: Type 2 diabetes mellitus without complication, without long-term current use of insulin (CMS/HCC) ([facility]) INJECT 0.25 MG UNDER THE SKIN ONCE WEEKLY 3 mL 0 12/21/2023 Active sildenafil 100 mg oral tablet (20 sources) Phosphodiesterase 5 Inhibitor Start: 01-30-2025 take 1 tablet by mouth every twenty-four hours as needed sildenafil (Viagra) 100 MG tablet Take 1 tablet (100 mg) by mouth Daily as needed for erectile dysfunction. 10 tablet 2 01/30/2025 Active Start: 10-22-2024 take 1 tablet by le th every twenty-four hours as needed sildenafil (Viagra) 100 MG tablet Take 1 tablet (100 mg) by mouth Daily as needed for erectile dysfunction. 10 tablet 2 10/22/2024 Active Start: 02-23-2022 End: 11-21-2023 take 1 tablet by mouth every twenty-four hours as needed sildenafil (Viagra) 100 MG tablet Take 1 tablet (100 mg) by mouth Daily as needed for erectile dysfunction. 10 tablet 2 11/21/2023 Active Completed/Discontinued Medications Medication Drug Class(es) Dates Sig (Normalized) Sig (Original) 0.25 MG, 0.5 MG Dose 3 ML semaglutide 0.68 MG/ML Pen Injector [Ozempic] (2 sources) Start: 11-27-2024 inject 0.5 mg by subcutaneous injection every week Ozempic 2 mg/3 mL (0.25 mg or 0.5 mg dose) subcutaneous solution Dose : 0.25 mg =, Subcutaneous, qWeek, rotate injection sites, # 1 EA, 0 Refill(s) Start Date: 11/27/24 Status: Ordered Quantity: 1.0 Unit: EA Repeat number: 1 calcium chloride 0.0014 meq/ml / potassium chloride 0.004 meq/ml / sodium chloride 0.103 meq/ml / sodium lactate 0.028 meq/ml injectable solution (5 sources) Start: 08-05-2024 End: 08-05-2024 take 50 mL intravenously every hour 50 mL/hr, IntraVENous, Continuous, Starting on Sun08/05/24 at 0645, Preprocedure, Upon admission to sameday - please start iv if patient does not have iv access. Start: 01-29-2024 End: 01-29-2024 lactated Ringer's (LR) infus ion cyclobenzaprine hydrochloride 10 mg oral tablet (8 sources) Muscle Relaxant Start: 11-27-2024 End: 05-13-2025 take 1 tablet by mouth three times daily cyclobenzaprine (Flexeril) 10 MG tablet Take 1 tablet (10 mg) by mouth 3 times daily for 7 days. 21 tablet 04/29/2025 05/13/2025 Discontinued (Therapy completed) 0.5 ml dulaglutide 1.5 mg/ml auto-injector (20 sources) GLP-1 Receptor Agonist Start: 04-23-2023 End: 09-05-2023 inject 0.75 mg by subcutaneous injection every week dulaglutide (Trulicity) 0.75 MG/0.5ML solution pen-injector Inject 0.75 mg under the skin 1 (one) time per week. 4 each 3 04/23/2023 09/05/2023 Discontinued Start: 01-29-2023 End: 04-21-2023 inject 0.75 mg by subcutaneous injection every week dulaglutide (Trulicity) 0.75 MG/0.5ML solution pen-injector Inject 0.75 mg under the skin 1 (one) time per week. 4 each 2 02/26/2023 04/21/2023 Discontinued (Reorder) Start: 09-27-2022 End: 01-27-2023 inject 0.75 mg by subcutaneous injection every week dulaglutide (Trulicity) 0.75 MG/0.5ML solution pen-injector Inject 0.75 mg under the skin 1 (one) time per week. 4 each 11 12/27/2022 01/27/2023 Discontinued (Reorder) lidocaine 0.05 mg/mg medicated patch (7 sources) Antiarrhythmic, Amide Local Anesthetic Start: 11-27-2024 End: 05-13-2025 lidocaine (Lidoderm) 5 % patch APPLY 1 PATCH(ES) TOPICAL DAILY REMOVE PATCH AFTER 12 HRS 11/27/2024 05/13/2025 Discontinued (Therapy completed) Start: 01-29-2024 End: 01-29-2024 lidocaine PF (Xylocaine) 2 % injection methylPREDNISolone 4 mg oral tablet (6 sources) Corticosteroid Start: 12-11-2024 End: 05-13-2025 methylPREDNISolone (Medrol Dospak) 4 MG tablets Take as directed on package. 21 tablet 12/11/2024 05/13/2025 Discontinued (Therapy completed) 2 ml ondansetron 2 mg/ml injection (2 sources) Serotonin-3 Receptor Antagonist Start: 08-05-2024 End: 08-05-2024 4 mg, IntraVENous, Once PRN, nausea, vomiting, Starting on Sun08/05/24 at 0638, For 1 dose, Preprocedure 20 ml propofol 10 mg/ml injection (1 source) General Anesthetic Start: 01-29-2024 End: 01-29-2024 Propofol (Diprivan) injection semaglutide (Ozempic) 2 MG/3ML solution pen-injector (1 source) Start: 09-13-2023 End: 10-17-2023 inject 0.25 mg by subcutaneous injection every week semaglutide (Ozempic) 2 MG/3ML solution pen-injector Indications: Type 2 diabetes mellitus without complication, without long-term current use of insulin (CMS/HCC) (HCC) Inject 0.25 mg under the skin 1 (one) time per week. 3 mL 0 09/13/2023 10/17/2023 Discontinued Semaglutide-Weight Management (Wegovy) 0.25 MG/0.5ML solution auto-injector (4 sources) Start: 09-05-2023 End: 09-13-2023 Semaglutide-Weight Management (Wegovy) 0.25 MG/0.5ML solution auto-injector Inject 0.5 mL (0.25 mg) under the skin every 7 days. 2 mL 0 09/05/2023 09/13/2023 Discontinued (Cost of medication) Start: 09-05-2023 Semaglutide-We ight Management (Wegovy) 0.25 MG/0.5ML solution auto-injector Inject 0.5 mL (0.25 mg) under the skin every 7 days. 2 mL 0 09/05/2023 Active 5 ml sodium chloride 9 mg/ml injection (6 sources) Start: 08-05-2024 End: 08-05-2024 10 mL, IntraVENous, Every 12 hours scheduled (2 times per day), First dose on Sun08/05/24 at 0900, Preprocedure Start: 08-05-2024 End: 08-05-2024 take 100 mL intravenously every hour as needed, then take 20 mL intravenously every hour as needed 5-250 mL/hr, IntraVENous, PRN, if patient receiving piggyback infusions and maintenance fluids are not ordered OR KVO fluids to protect IV site / prevent frequent line interruptions/ long duration, Starting on Sun08/05/24 at 0638, Preprocedure, For piggyback infusion, administer at same rate as piggyback for a total of 25 mL. Enter 25 mL into dose field and piggyback rate into rate field of order. If piggyback is infusing at a rate less than 100 mL/hr, enter 25 mL into dose field and 100 mL/hr into rate field of order. For KVO fluids, enter rate of 20 mL/hr or less into rate field of order. Start: 08-05-2024 End: 08-05-2024 take 10 mL intravenously once as needed 10 mL, IntraVENous, PRN, line care, Starting on Sun08/05/24 at 0638, Preprocedure, After every IV line use Problems Active Problems Problem Classification Problem Date Documented Date Episodic/Chronic Diabetes mellitus with complications (1 source) Hyperglycemia due to type 2 diabetes mellitus; Translations: [Type 2 diabetes mellitus with hyperglycemia] 02-23-2023 Chronic Diabetes mellitus without complication (20 sources) Other specified diabetes mellitus without complications; Translations: [Type 2 diabetes mellitus without complication] Onset: 08-04-2017 07-27-2023 Chronic Disorders of lipid metabolism (20 sources) Hypercholesterolemia; Translations: [Pure hypercholesterolemia, unspecified] Onset: 04-20-2015 09-04-2022 Chronic Essential hypertension (20 sources) Hypertensive disorder; Translations: [Essential (primary) hypertension] Onset: 04-20-2015 09-04-2022 Chronic Nutritional deficiencies (2 sources) Vitamin D deficiency, unspecified; Translations: [Vitamin D deficiency, unspecified] Onset: 08-04-2017 Chronic Other nervous system disorders (7 sources) Cervical myelopathy; Translations: [Disease of spinal cord, unspecified] 02-27-2025 Chronic Other nervous system disorders (1 source) Disease of spinal cord, unspecified; Translations: [Disease of spinal cord, unspecified] Onset: 04-21-2025 Chronic Other screening for suspected conditions (not mental disorders or infectious disease) (8 sources) Patient encounter status; Translations: [Encounter for screening for malignant neoplasm of colon] Onset: 05-13-2025 09-03-2023 Episodic Spondylosis; intervertebral disc disorders; other back problems (20 sources) Displacement of cervical intervertebral disc; Translations: [Other cervical disc displacement, unspecified cervical region] Onset: 04-20-2015 09-04-2022 Chronic Spondylosis; intervertebral disc disorders; other back problems (20 sources) Backache; Translations: [Dorsalgia, unspecified] Onset: 11-27-2024 Episodic Thyroid disorders (2 sources) Hypothyroidism, unspecified; Translations: [Hypothyroidism, unspecified] Onset: 08-04-2017 Chronic Unclassified (1 source) Unknown / UNK(Unknown) Onset: 08-10-2017 Unclassified (2 sources) Pure hypercholesterolemia, unspecified; Translations: [Pure hypercholesterolemia, unspecified] Onset: 08-04-2017 Unclassified (7 sources) Spinal stenosis of cervical region; Translations: [M48.02 - Spinal stenosis, cervical region] Unclassified (2 sources) Tingling; Translations: [Tingling] Onset: 01-14-2025 Unclassified (2 sources) Hand Problem; Translations: [Hand Problem] Onset: 01-14-2025 Unclassified (2 sources) Blood Pressure Check; Translations: [Blood Pressure Check] Onset: 01-07-2025 Unclassified (1 source) Low back pain, unspecified; Translations: [Low back pain, unspecified] Onset: 12-11-2024 Past or Other Problems Problem Classification Problem Date Documented Da te Episodic/Chronic Diabetes mellitus without complication (20 sources) Prediabetes; Translations: [Prediabetes] Onset: 10-22-2018 Resolved: 09-03-2023 09-04-2022 Episodic Malaise and fatigue (3 sources) Fatigue; Translations: [Other fatigue] Onset: 08-03-2023 07-27-2023 Episodic Other and unspecified benign neoplasm (20 sources) History of polyp of colon; Translations: [Personal history of colonic polyps] Onset: 06-12-2024 06-12-2024 Episodic Other and unspecified benign neoplasm (2 sources) Personal history of colonic polyps; Translations: [Personal history of colonic polyps] Onset: 06-17-2024 Episodic Other connective tissue disease (8 sources) Nontraumatic complete rupture of rotator cuff of right shoulder; Translations: [Complete rotator cuff tear or rupture of right shoulder, not specified as traumatic] Onset: 12-11-2024 12-11-2024 Episodic Other connective tissue disease (11 sources) Adhesive capsulitis of right shoulder; Translations: [Adhesive capsulitis of right shoulder] Onset: 12-11-2024 12-11-2024 Episodic Other connective tissue disease (2 sources) Complete rotator cuff tear or rupture of right shoulder, not specified as traumatic; Translations: [Complete rotator cuff tear or rupture of right shoulder, not specified as traumatic] Onset: 12-11-2024 Episodic Other connective tissue disease (1 source) Adhesive capsulitis of right shoulder; Translations: [Adhesive capsulitis of right shoulder] Onset: 12-11-2024 Episodic Other nervous system disorders (8 sources) Numbness of lower limb ; Translations: [Anesthesia of skin] Onset: 01-14-2025 01-14-2025 Episodic Other nervous system disorders (8 sources) Numbness of hand; Translations: [Anesthesia of skin] Onset: 01-14-2025 01-14-2025 Episodic Other nervous system disorders (2 sources) Numbness; Translations: [Numbness] Onset: 01-14-2025 Episodic Other non-traumatic joint disorders (8 sources) Pain in right shoulder; Translations: [Right shoulder pain] Onset: 02-03-2025 02-03-2025 Episodic Other non-traumatic joint disorders (2 sources) Shoulder pain; Translations: [Shoulder Pain] Onset: 01-14-2025 Episodic Sprains and strains (20 sources) Sprain of medial collateral ligament of left knee, initial encounter; Translations: [Sprain of medial collateral ligament of knee] Onset: 09-03-2023 09-03-2023 Episodic Unclassified (1 source) LAC ON LEFT ARM Onset: 08-10-2017 Unclassified (1 source) Low back pain, unspecified; Translations: [Low back pain, unspecified] Onset: 12-11-2024 Results Test Name Value Interpretation Reference Range Facility 36on 06-08-2025 36 Rx sent. Follow up a s scheduled. [facility] 36on 05-29-2025 36 Reviewed chart. Refi ll appropriate. RX sent. [facility] 36 Prescription Request : Next scheduled appointment: 06/16/25 Last date of refill on this medication 01/30/25 [facility] Orthopedic Visit Reporton Orthopedic Visit Report [facility] [address] [place] [address] OFFICE VISIT Date of Service: 05/29/25 MR#: [id number] Acct: [id number] Name: NINA WILSON Rep #: [id number] : 1965 Provider: Dr. Baron Buenrostro MD Age/Sex: 60/M Location: [facility] Status: Signed Intake Vital Signs 04/23/25 15:18 Height 5 ft 9 in Weight: 225 lb BMI 33.2 Intake Visit Reasons: cervical spine Chief Complaint: Preop Accompanied by: Is patient in pain?: No Allergies No Known Allergies Allergy (Verified 05/29/25 08:05) Medications ???Medication ???Instructions ???Recorded ???Confirmed ???Type atenolol 50 mg tablet 50 mg PO QDAY 02/03/25 05/29/25 Hi story lisinopril 10 mg tablet 10 mg PO QDAY 02/03/25 05/29/25 Hi story lovastatin 40 mg tablet 80 mg PO QHS 02/03/25 05/29/25 His tory meloxicam 15 mg tablet 15 mg PO QDAY 02/03/25 05/29/25 Hi story semaglutide 0.25 mg or 0.5 mg (2 0.5 mg subcut QWEEK 02/03/2505/29 History mg/3 mL) subcutaneous pen injector (Ozempic) methocarbamol 500 mg tablet 500 mg PO TID PRN pain/spasms #30 05/13/25 05/29/25 Rx tabs PFSH Medical History Wears partial dentures Alcohol use Diabetes Arthritis High cholesterol Dietary restriction Smoker Hypertension Cervical stenosis of spine Right shoulder pain Surgical History History of colonoscopy History of lumbar laminectomy History of hernia surgery Social History household members: significant other Smoking Status: Current every day smoker tobacco type: cigarettes alcohol intake: current HPI cervical spine Details: This documentation accurately reflects the service provided and the decisions made by me, Dr. Baron Buenrostro MD 05/29/25 0800. Part of today???s visit was documented by Migdalia Kaplan RN, acting as scribe. NINA WILSON is a 60 year old M here today for preoperative appointment for anterior cervical fusion C4-C5, C5-C6. He states his pain has not been as bad lately as he has been off of work. He takes the Methocarbamol as needed. The patient is a 60-year-old male presenting with cervical spinal stenosis and associated symptoms. The patient reports a history of cervical spinal stenosis diagnosed in 2011, which initially presented with difficulty in buttoning shirts and tying shoes, progressing to an inability to walk, necessitating surgical intervention with a laminectomy. Post-surgery, the patient experienced some improvement, but symptoms have progressively worsened over the years. Currently, the patient experiences neck pain radiating to both shoulders and arms, with associated weakness in both upper extremities, more pronounced on the left side. The patient reports difficulty lifting objects, with pain and aching in the hands, and occasional dropping of items, predominantly with the right hand. The patient has a history of diabetes mellitus, with an A1c level of 6.2 as of May 13, and reports smoking occasionally, particularly when drinking. The patient acknowledges the impact of smoking on healing and plans to abstain from smoking and drinking one week prior to surgery. - Musculoskeletal: Reports neck pain radiating to shoulders and arms, weakness in upper extremities, difficulty lifting objects, and occasional dropping of items. - Neurological: Denies changes in handwriting or balance issues, reports occasional morning imbalance. - Endocrine: Reports diabetes mellitus with A1c of 6.2. - Respiratory: Denies COPD or breathing issues. Attestation: Documentation on this patient encounter was supported using ambient scribe technology/ voice AI technology. The patient consented to recording for the purpose of documenting the encounter. Provider reviewed content of the generated note prior to signature. 04/23/25: NINA WILSON is a 60 year old M here today for cervical spine MRI review. Patient would like to go over the MRI results to see what the next step is. He denies any recent injections, or physical therapy. Patient states that he doesn't have any pain today, just feels weakness. He had a laminectomy surgery at [facility] in 2012. Hx of diabetes, last a1c was 5.7. No heart or lung issues. No blood thinners. HPI from 02/26/25: NINA IWLSON is a 59 year old M here today for cervical spine pain. Patient states the neck has been bothering him for a long time. He thought it was his shoulder acting up but now thinking it is coming from the neck. He notes that he does have cervical stenosis. He denies any numbness/tingling down the arms but does get it down the right leg. He feels like his legs are weak. He denies any po (more content not included)... [facility] 36on 05-25-2025 36 Noted. Agree with recommendation. [facility] 36 S: Patient spoke walker [facility] nurse regarding congestion. B: Onset of symptoms/concern pt is on a vacation in [place], [place]. Onset these past two days. A: has not been treating the symptoms. R: Directed to Urgent Care. Patient understands care advice. No further needs at this time. Patient instructed to call back with new or worsening symptoms. Reason for Disposition General information question, no triage required and triager able to answer question Protocols used: Information Only Call - No [id number] [facility] 36on 05-13-2025 36 Notified, no further questions. [facility] 36 Rx sent. Follow up a s scheduled. [facility] 36 Prescription Request : LOVASTATIN 40 MG TABLET Last medication check: none Last physical exam: 02/07/24 Next scheduled appointment: 05/13/25 Last date of refill on this medication 10/10/24 ( qty 180 refill 1) [facility] ECG 12 leadon 05-13-2025 [facility] Office Visiton 05-13-2025 Follow-up visit [id number] Nina Wilson 1965 M Date Provider Department Center 05/13/2025 [id number] MOROCHO [facility] Family History Problem Relation Age of Onset No Known Problems Daughter Heart failure Mother Emphysema Mother Arthritis Mother Hypertension Mother No Known Problems Sister No Known Problems Sister Family Status - Relation Status Age at Daughter Alive Mother Sister Alive Sister Alive Level of Service:21262 [place] PERIODIC PREVENTIVE MED EST PATIENT 40-64YRS Reason for Visit and Comments: Forms/questionnaires [708] - Patient is scheduled to undergo surgery on 06/17/25, patient needs surgery clearance forms completed prior [facility] Progress Noteon 05-13-2025 Progress Note Controlled, continue lovastatin 80 mg nightly Normal [facility] Progress Note Controlled, continue metformin 1000 mg daily and Ozempic 0.5 mg weekly. Normal [facility] Progress Note Scheduled for cervic al fusion, PAT being done today. Normal [facility] Progress Note Controlled, continue lisinopril 10 mg daily, atenolol 50 mg daily Normal [facility] Progress Note Uncontrolled, contin ues to have pain, scheduled for surgery anterior cervical fusion Normal [facility] Progress Note 05/13/2025 Nina Wilson (: 1965) is a 60 y.o. male , Established patient, here for evaluation of the following chief complaint(s): Forms/questionnaires (Patient is scheduled to undergo surgery on 06/17/25, patient needs surgery clearance forms completed prior ) ASSESSMENT/PLAN: 1. Annual physical exam 2. Pre-op examination Comments: EKG normal sinus rhythm. Patient will be cleared at low to moderate risk for this moderate risk surgery unless labs are abnormal Orders: - CBC auto differential - ECG 12 lead 3. Herniated cervical disc Assessment & Plan: Scheduled for cervical fusion, PAT being done today. 4. Cervical spinal stenosis Assessment & Plan: Uncontrolled, continues to have pain, scheduled for surgery anterior cervical fusion 5. Primary hypertension Assessment & Plan: Controlled, continue lisinopril 10 mg daily, atenolol 50 mg daily 6. Hypercholesterolemia Assessment & Plan: Controlled, continue lovastatin 80 mg nightly Orders: - Lipid panel 7. Type 2 diabetes mellitus without complication, without long-term current use of insulin (HCC) Assessment & Plan: Controlled, continue metformin 1000 mg daily and Ozempic 0.5 mg weekly. Orders: - Comprehensive metabolic panel - Hemoglobin A1c 8. Screening for prostate cancer - PSA Total (Screening) Follow up in about 6 months (around 11/12/2025). SUBJECTIVE/OBJECTIVE: HPI -Nina comes in today for an annual exam, he needs fasting lab work but he also needs preop clearance for anterior cervical disc fusion. He is having pain down his arms and in his neck his MRI showed a herniated cervical disc and he is scheduled for surgery in May. He also needs follow-up on his diabetes he has not had an A1c for 3 months, he needs fasting blood work for his cholesterol and he is here for follow-up on his hypertension. He says he has no complaints today, see ROS. Review of Systems Constitutional: Negative for activity change, appetite change, chills, fever and unexpected weight change. HENT: Negative for ear pain and sore throat. Respiratory: Negative for shortness of breath. Cardiovascular: Negative for chest pain and palpitations. Gastrointestinal: Negative for abdominal pain, blood in stool, constipation and diarrhea. Genitourinary: Negative for dysuria, frequency, hematuria and urgency. Musculoskeletal: Negative for arthralgias and back pain. Skin: Negative. Neurological: Negative for weakness and numbness. Psychiatric/Behavioral: Negative for dysphoric mood. The patient is not nervous/anxious. Vitals: 05/13/25 1259 BP: 122/71 Pulse: 76 SpO2: 95% Weight: 230 lb (104 kg) Height: 5' 9" (1.753 m) Physical Exam Vitals and nursing note reviewed. Constitutional: General: He is not in acute distress. Appearance: Normal appearance. He is obese. HENT: Right Ear: Tympanic membrane, ear canal and external ear normal. Left Ear: Tympanic membrane, ear canal and external ear normal. Mouth/Throat: Mouth: Mucous membranes are moist. Pharynx: Oropharynx is clear. Eyes: Extraocular Movements: Extraocular movements intact. Conjunctiva/sclera: Conjunctivae normal. Pupils: Pupils are equal, round, and reactive to light. Neck: Thyroid: No thyromegaly. Vascular: No carotid bruit. Cardiovascular: Rate and Rhythm: Normal rate and regular rhythm. Heart sounds: Normal heart sounds. No murmur heard. Pulmonary: Effort: Pulmonary effort is normal. Breath sounds: Normal breath sounds. Abdominal: General: Bowel sounds are normal. Palpations: Abdomen is soft. Tenderness: There is no abdominal tenderness. Musculoskeletal: General: Normal range of motion. Cervical back: Neck supple. Lymphadenopathy: Cervical: No cervical adenopathy. Skin: General: Skin is warm and dry. Neurological: General: No focal deficit present. Mental Status: He is alert and oriented to person, place, and time. Psychiatric: Mood and Affect: Mood normal. An electronic signature was used to authenticate this note. Jason Morocho MD 05/13/2025 1:52 PM [facility] 36on 05-12-2025 36 No, we will not be a ble to do a cortisone injection, they would not want cortisone in his system within 6 weeks of his surgery. Also he is not scheduled for that at that time. He really needs to talk with his surgeon about getting pain meds until he can have his surgery. [facility] 36 Name of caller: Davis nicole Contact phone number: [phone] Relationship to Patient: patient Provider: Dr. Morocho Practice: [facility] Chief Complaint/Reason for Call: Pt states he has surgery scheduled for his neck on 06/17/25 but he is in pain and would like to know if he can get a cortisone shot at his 05/13/25 appt. Pt declined triage and is requesting a call back to discuss. Please advise Best time of day caller can be reached: Any AM Patient advised that office/PCP has 24-48 business hours to return their call: No [place] [address]52on 05-01-2025 36 Called pt and sched him for surgical clearance [place] 82352on 04-30-2025 36 Yes I just reviewed it and it looks like they are recommending's cervical fusion [facility] 36 Name of caller: Davis nicole Contact phone number: [phone] Relationship to Patient: patient Provider: Dr. Morocho Practice: [facility] Chief Complaint/Reason for Call: Patient called in asking if Dr. Morocho had gotten any messages from [facility]. Patient is requesting a call back if Dr. Morocho has heard back from them. Please advise. Best time of day caller can be reached: Any Patient advised that office/PCP has 24-48 business hours to return their call: No [facility] 36on 04-29-2025 36 Prescription Request : cyclobenzaprine (Flexeril) 10 MG tablet Last medication check: none Last physical exam: none Next scheduled appointment: 06/16/25 Last date of refill on this medication 11/27/24 - no qty or refills listed [facility] Orthopedic Visit Reporton Orthopedic Visit Report [facility] [address] [place] [address] [place] [address] OFFICE VISIT Date of Service: 04/23/25 MR#: [id number] Acct: [id number] Name: NINA WILSON Rep #: [id number] : 1965 Provider: GREGOR Bland Age/Sex: 60/M Location: [facility] Status: Signed Intake Vital Signs 02/26/25 15:14 04/23/25 15:18 Height 5 ft 9 in 5 ft 9 in Weight: 228 lb 8 oz 225 lb BMI 33.7 33.2 Intake Visit Reasons: CERVICAL SPINE Chief Complaint: Cervical Spine MRI review Accompanied by: Self Is patient in pain?: No Allergies No Known Allergies Allergy (Unverified 04/23/25 15:21) Medications ???Medication ???Instructions ???Recorded ???Confirmed ???Type atenolol 50 mg tablet 50 mg PO QDAY 02/03/25 04/23/25 Hi story lisinopril 10 mg tablet 10 mg PO QDAY 02/03/25 04/23/25 Hi story lovastatin 40 mg tablet 80 mg PO QHS 02/03/25 04/23/25 His tory meloxicam 15 mg tablet 15 mg PO QDAY 02/03/25 04/23/25 Hi story semaglutide 0.25 mg or 0.5 mg (2 0.5 mg subcut QWEEK 02/03/2504/23 History mg/3 mL) subcutaneous pen injector (Ozempic) Have you fallen in the past year?: No PFSH Medical History Cervical stenosis of spine Right shoulder pain Surgical History History of lumbar laminectomy History of hernia surgery Social History household members: significant other Smoking Status: Current every day smoker alcohol intake: current HPI CERVICAL SPINE Details: This documentation accurately reflects the service provided and the decisions made by , GREGOR Bland 04/23/25 1518. Part of today???s visit was documented by Robert Hall MA, acting as scribe. NINA WILSON is a 60 year old M here today for cervical spine MRI review. Patient would like to go over the MRI results to see what the next step is. He denies any recent injections, or physical therapy. Patient states that he doesn't have any pain today, just feels weakness. He had a laminectomy surgery at [facility] in 2012. Hx of diabetes, last a1c was 5.7. No heart or lung issues. No blood thinners. HPI from 02/26/25: NINA WILSON is a 59 year old M here today for cervical spine pain. Patient states the neck has been bothering him for a long time. He thought it was his shoulder acting up but now thinking it is coming from the neck. He notes that he does have cervical stenosis. He denies any numbness/tingling down the arms but does get it down the right leg. He feels like his legs are weak. He denies any balance issues. He states he does have dexterity issues and he has trouble gripping or picking things up. He has had injections in the neck but it has been several years. He denies any physical therapy or surgery. He denies taking any pain medication. Ortho Exam General General: Yes no acute distress Neurologic: Yes alert and Yes oriented x3 Spine SPINE TESTING CERVICAL THORACIC LUMBAR Musculoskeletal Strength 0=absent - 5=normal Details: Examination neck shows midline paraspinal tenderness in lower cervical region. Neurologic evaluation of upper extremity shows 4+ power right hole digger strength, 4- power bilateral biceps, all other muscle power normal shows normal sensations in all dermatomes. Leatha's is positive. Romberg's is positive. Tandem gait shows mild imbalance. There is no hyperreflexia lower extremities. Coding Level of Care Code Off vis,est,level 3 Diagnoses Cervical myelopathy G95.9 Assessment and Plan Assessment and Plan (1) Cervical myelopathy: Status: Acute Plan Again reviewed prior cervical x-rays which show C4-5 and C5-6 severe disc height loss with disc degeneration with retrolisthesis both of these levels. C3-4 shows subtle spondylolisthesis but seems stable on flexion-extension views. Reviewed cervical MRI from April 14, 2025 which showed C4-5 severe canal narrowing with severe bilateral neuroforaminal narrowing, C5-6 moderate to severe spinal stenosis with severe bilateral neuroforaminal. C6-7 broad-based disc protrusion which results in moderate spinal stenosis. Explained imaging findings in detail. Reviewed the MRI results with Dr. Buenrostro. At this time due to the patient's ongoing neck pain and right sided arm weakness which was seen today on physical examination resulting in decreased strength in the bilateral biceps and triceps discussed options today which includes a C4-6 fusion. The patient also reports that he has been dropping things out of his hand which has made it difficult for him to complete his job. Explained the progressive nature of cervical myelopathy. Explained the C4-6 fusion procedure in detail. (more content not included)... Normal [facility] Magnetic resonance imaging r eportOrdered By: Juan David Salazar on 04-14-2025 Study report [facility] Imaging Services [address] [place], [place] [id number] Spine Cervical (Routine) MR#: [id number] Acct: [id number] Name: NINA WILSON Rep #: [id number] : 1965 M 60 From: Jie Salazar MD PCP: Dr. Jason Morocho MD Status: REG CLI Study:Spine Cervical (Routine) Date of Exam: 04/14/25 Exam# [id number] Ordering Dr: Tristin Buenrostro MD PROCEDURE: SPINE CERVICAL (ROUTINE) 04/14/2025 REASON FOR EXAM: CERVICAL MYELOPATHY TECHNIQUE: Multiplanar and multisequence images were obtained without IV contrast administration. FINDINGS: Normal cervical vertebral body height without compression deformity. No Chiari deformity. Markedly diminished marrow signal throughout the entirety of the C4 and C5 vertebral bodies. Although this could be reactive, the degree of sclerosis or marrow change is striking. C2-3 exhibits mild spinal stenosis with left-sided facet arthrosis contributing to severe left C3 foraminal narrowing. At C3-4 mild canal narrowing and moderate to severe rlmn-lzlwngb-ydjx-right foraminal stenosis. At C4-5 there is severe canal narrowing with cord flattening and questionable early myelomalacia. Severe bilateral neural foraminal narrowing At C5-6 moderate to severe spinal stenosis with cord flattening and severe bilateral neural foraminal narrowing. At C6-7 broad-based protrusion with moderate spinal stenosis abutting the ventral cord. Severe bwlp-hxdlxkr-qgvd-right C7 foraminal stenosis. C7-T1 is unremarkable. MRI/Spine Cervical (Routine) IMPRESSION: 1. Severe canal narrowing at C4-5 with moderate to severe canal narrowing at C5-6 and moderate spinal stenosis at C6-7. 2. Severe zrmv-habngld-lxwv-right C4, severe bilateral C5, bilateral C6 and severe dbwh-gwmwili-qlau-right C7 foraminal stenosis. 3. Prominent sclerosis involving the C4 and C5 vertebral bodies. Possibly reactive. No history of primary neoplasm supplied Reading Location: [facility] CC: Dr. Baron Buenrostro MD; Dr. Jason Morocho MD ~ Airways Control Specialist: Signed [facility] Spine Cervical (Routine)on 0 04-14-2025 Spine Cervical (Routine) [facility] Imaging Services [address] [place] [address] Spine Cervical (Routine) MR#: [id number] Acct: [id number] Name: NINA WILSON Rep #: [id number] : 1965 M 60 From: Juan David Salazar MD PCP: Dr. Jason Morocho MD Status: REG CLI Study: Spine Cervical (Routine) Date of Exam: Exam# [id number] Ordering Dr: Baron Buenrostro MD PROCEDURE: SPINE CERVICAL (ROUTINE) 04/14/2025 REASON FOR EXAM: CERVICAL MYELOPATHY TECHNIQUE: Multiplanar and multisequence images were obtained without IV contrast administration. FINDINGS: Normal cervical vertebral body height without compression deformity. No Chiari deformity. Markedly diminished marrow signal throughout the entirety of the C4 and C5 vertebral bodies. Although this could be reactive, the degree of sclerosis or marrow change is striking. C2-3 exhibits mild spinal stenosis with left-sided facet arthrosis contributing to severe left C3 foraminal narrowing. At C3-4 mild canal narrowing and moderate to severe irsd-vyocmmp-yzsn-right foraminal stenosis. At C4-5 there is severe canal narrowing with cord flattening and questionable early myelomalacia. Severe bilateral neural foraminal narrowing At C5-6 moderate to severe spinal stenosis with cord flattening and severe bilateral neural foraminal narrowing. At C6-7 broad-based protrusion with moderate spinal stenosis abutting the ventral cord. Severe cqnr-wqwuhss-umqf-right C7 foraminal stenosis. C7-T1 is unremarkable. MRI/Spine Cervical (Routine) IMPRESSION: 1. Severe canal narrowing at C4-5 with moderate to severe canal narrowing at C5-6 and moderate spinal stenosis at C6-7. 2. Severe szma-kcilayq-vvqp-right C4, severe bilateral C5, bilateral C6 and severe mmrq-kqsjzjb-eqcy-right C7 foraminal stenosis. 3. Prominent sclerosis involving the C4 and C5 vertebral bodies. Possibly reactive. No history of primary neoplasm supplied Reading Location[facility] CC: Dr. Baron Buenrostro MD; Dr. Jason Morocho MD Airways Control Specialist: Signed [facility] Cerv Spine 4 or 5 Viewson Cerv Spine 4 or 5 Views [facility] Imaging Services [address] [place] [id number] Cerv Spine 4 or 5 Views MR#: [id number] Acct: [id number] Name: NINA WILSON Rep #: [id number] : 1965 M 59 From: Raad chiu MD PCP: Dr. Jason Morocho MD Status: DEP AMB Study: Cerv Spine 4 or 5 Views Date of Exam: 02/26/25 Exam# [id number] Ordering Dr: Nubia Newsome MUSICAL INSTRUMENT MAKER-C PROCEDURE: CERV SPINE 4 OR 5 VIEWS 02/26/2025 REASON FOR EXAM: NECK PAIN, HX CERVICAL STENOSIS, PT CANNOT REMOVE EARRING TECHNIQUE: 4 views of the cervical spine. COMPARISON: None FINDINGS: Straightening of the cervical lordosis. Mild retrolisthesis of C5 on C6. No significant malalignment otherwise in the flexion and extension images. Vertebral body heights are maintained. Multilevel loss of disc spaces most prominent at C5-C6 and C6-C7. Advanced degenerative changes at C5-C6 and C6-C7. No acute fracture or traumatic malalignment. Precervical soft tissue planes are maintained. RAD/Cerv Spine 4 or 5 Views IMPRESSION: No acute fracture or traumatic malalignment. Degenerative changes most prominent at C5-C6 and C6-C7. Reading Location: [facility] CC: MUSICAL INSTRUMENT MAKERAubree Newsome; Dr. Baron Buenrostro MD; Dr. Jason Morocho MD Airways Control Specialist: Signed [facility] Orthopedic Visit Reporton Orthopedic Visit Report [facility] [address] [place] [address] [place] [address] OFFICE VISIT Date of Service: 02/26/25 MR#: [id number] Acct: [id number] Name: NINA WILSON Rep #: [id number] : 1965 Provider: Dr. Baron Buenrostro MD Age/Sex: 59/M Location: [facility] Status: Signed Intake Vital Signs 02/03/25 15:27 02/26/25 15:14 Height 5 ft 9 in 5 ft 9 in Weight: 227 lb 2 oz 228 lb 8 oz BMI 33.5 33.7 Intake Visit Reasons: CERVICAL SPINE Chief Complaint: Cervical Spine Pain Accompanied by: Self Is patient in pain?: Yes Pain scale (1-10): 1 Allergies No Known Allergies Allergy (Unverified 02/26/25 15:14) Medications ???Medication ???Instructions ???Recorded ???Confirmed ???Type atenolol 50 mg tablet 50 mg PO QDAY 02/03/25 02/26/25 Hi story lisinopril 10 mg tablet 10 mg PO QDAY 02/03/25 02/26/25 Hi story lovastatin 40 mg tablet 80 mg PO QHS 02/03/25 02/26/25 His tory meloxicam 15 mg tablet 15 mg PO QDAY 02/03/25 02/26/25 Hi story semaglutide 0.25 mg or 0.5 mg (2 0.5 mg subcut QWEEK 02/03/2502/26 History mg/3 mL) subcutaneous pen injector (Ozempic) [facility] Cervical stenosis of spine Right shoulder pain Surgical History History of lumbar laminectomy History of hernia surgery Social History household members: significant other Smoking Status: Current every day smoker alcohol intake: current HPI CERVICAL SPINE Details: This documentation accurately reflects the service provided and the decisions made by me, Dr. Baron Buenrostro MD 02/26/25 1511. Part of today???s visit was documented by Alyce Mckeon ATC, acting as scribe. NINA WILSON is a 59 year old M here today for cervical spine pain. Patient states the neck has been bothering him for a long time. He thought it was his shoulder acting up but now thinking it is coming from the neck. He notes that he does have cervical stenosis. He denies any numbness/tingling down the arms but does get it down the right leg. He feels like his legs are weak. He denies any balance issues. He states he does have dexterity issues and he has trouble gripping or picking things up. He has had injections in the neck but it has been several years. He denies any physical therapy or surgery. He denies taking any pain medication. Ortho Exam General General: Yes no acute distress Neurologic: Yes alert and Yes oriented x3 Spine SPINE TESTING CERVICAL THORACIC LUMBAR Musculoskeletal Strength 0=absent - 5=normal Details: Examination neck shows midline paraspinal tenderness in lower cervical region. Neurologic evaluation of upper extremity shows 5 x 5 power normal shows normal sensations in all dermatomes. Leatha's is positive. Romberg's is positive. Tandem gait shows mild imbalance. There is no hyperreflexia lower extremities. Coding Level of Care Code Off vis,new,level 4 Diagnoses Cervical myelopathy G95.9 Time Spent (min) 45 Assessment and Plan Assessment and Plan (1) Cervical myelopathy: Status: Acute Orders: Orders Cerv Spine 4 or 5 Views 02/26/25 Nubia Newsome, MUSICAL INSTRUMENT MAKER-C M48.02 - Spinal stenosis, cervical region, M54.2 - Cervicalgia Spine Cervical (Routine) 02/26/25 Dr. Baron Buenrostro MD G95.9 - Disease of spinal cord, unspecified Plan Reviewed x-rays done today in the clinic. These show C4-5 and C5-6 severe disc height loss with disc degeneration with retrolisthesis both of these levels. C3-4 shows subtle spondylolisthesis but seems stable on flexion-extension views. No MRI available. Patient is here for neck pain, difficulty with upper extremities and lower extremity strength with balance difficulties. There was an MRI of stenosis in 2011 but we do not have these images. I did examine the patient today. Patient does drop items from his hands. Patient states his balance isn't that bad. Patient has type 2 daiabtes, it is a lot better now. He was recently diagnosed 2 years ago. Patient is currently on ozempic for this. He states his last A1c was 5.6. I went over the xray results with the patient. I advise the patient to keep his diabetes under control. I recommend he gets an MRI done urgently because of suspicion of cord compression as he is myelopathic clinically. I would like to follow up after the MRI to discuss results. Discussed the natural history of cervical myelopathy which is typically that of progression. If there is compressive spinal cord pathology, surgery may be needed to halt progression of myelopathy. Patient will see me back after MRI is complete. 02/27/25 1012 Date Baron Buenrostro MD (more content not included)... [facility] 36on 02-19-2025 36 Reviewed chart. Refi ll appropriate. RX sent. [facility] 36 Prescription Request : Last medication check: 01/14/25 Last physical exam: 02/07/24 Next scheduled appointment: 06/16/25 Last date of refill on this medication 08/19/24 [facility] 36on 02-11-2025 36 PA approved on 02/04 [facility] Orthopedic Visit Reporton Orthopedic Visit Report [facility] [address] [place] [address] 5 [place] [address] OFFICE VISIT Date of Service: 02/03/25 MR#: [id number] Acct: [id number] Name: NINA WILSON Rep #: [id number] : 1965 Provider: Dr. Roby priest MD Age/Sex: 59/M Location: [facility] Status: Signed Intake Vital Signs 02/03/25 15:27 Height 5 ft 9 in Weight: 227 lb 2 oz BMI 33.5 Intake Visit Reasons: RIGHT SHOULDER Accompanied by: Self Is patient in pain?: Yes Pain scale (1-10): 2 Allergies No Known Allergies Allergy (Unverified 02/03/25 15:28) Medications ???Medication ???Instructions ???Recorded ???Confirmed ???Type atenolol 50 mg tablet 50 mg PO QDAY 02/03/25 02/03/25 Hi story lisinopril 10 mg tablet 10 mg PO QDAY 02/03/25 02/03/25 Hi story lovastatin 40 mg tablet 80 mg PO QHS 02/03/25 02/03/25 His tory meloxicam 15 mg tablet 15 mg PO QDAY 02/03/25 02/03/25 Hi story semaglutide 0.25 mg or 0.5 mg (2 0.5 mg subcut QWEEK 02/03/2502/03 History mg/3 mL) subcutaneous pen injector (Ozempic) Have you fallen in the past year?: No [facility] Medical History (Updated 02/03/25 @ 15:48 by Roby Gore MD) Cervical stenosis of spine Right shoulder pain Surgical History History of lumbar laminectomy History of hernia surgery Social History (Updated 02/03/25 @ 15:31 by Alyce Mendez) household members: significant other Smoking Status: Current every day smoker alcohol intake: current HPI RIGHT SHOULDER Details: This documentation accurately reflects the service provided and the decisions made by me, Dr. Roby Gore MD 02/03/25 0932. Part of today???s visit was documented by [ ], acting as scribe. NINA WILSON is a 59 year old M here today for R shoulder pain. Had C spine stenosis, right leg numb. had back surgery, laminectomy. weakness in the hands. Can't raise the right shoulder. was diagnosed with a right frozen shoulder. 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 shoulder hurts superiorly. no painful now. just worse to lift it. never had C spine surgery despite the stenosis. Supplemental Info xr 4 view R shoulder - nil acute. slight degenerative changes Coding Level of Care Code Off vis,new,level 3 Diagnoses Right shoulder pain M25.511 Assessment and Plan Assessment and Plan (1) Right shoulder pain: Status: Acute Plan: NINA WILSON is a 59 year old M here today for R shoulder pain. Patient has quite a bit of weakness of the shoulder we will go ahead and order an MRI to assess for cuff tears but beyond that I think he really needs to get his neck looked at he has longstanding cervical spine stenosis with weakness of both upper extremities. I asked and made a referral for him to see Dr. Buenrostro from that standpoint. FU with myself after the shoulder MRI. Patient counselled on non-operative and operative means of treating shoulder pain. Conservative options include but not limited to: 1. Rest and Activity Modification: Giving your shoulder time to heal by avoiding movements that cause pain can help. This may involve limiting overhead activities or heavy lifting. 2. Physical Therapy: A physical therapist can guide you through exercises that strengthen the muscles around the shoulder, improve flexibility, and reduce strain on the rotator cuff tendon. 3. Ice and Heat Therapy: Applying ice to the shoulder can help reduce swelling and pain, especially after activity. Heat can be helpful to relax tense muscles and improve blood flow before exercises. 4. Anti-Inflammatory Medications: [id number] medications like ibuprofen or naproxen can help reduce pain and inflammation in the tendon. 5. Corticosteroid Injections: If the pain is more severe, a steroid injection can reduce inflammation in the shoulder and provide relief for a longer period. 6. Platelet-Rich Plasma (PRP) Injection: This treatment involves using your own blood to promote healing in the tendon. The plasma is rich in growth factors that can encourage tissue repair. 7. TENS (Transcutaneous Electrical Nerve Stimulation): This therapy uses a small electrical current to help manage pain and promote healing by stimulating nerves. Orders: Orders Shoulder min 2 Views Today M25.511 - Pain in right shoulder Upper Ext Joint Only(Routine) Today M25.511 - Pain in right shoulder Referrals Orthopedics M48.02 - Spinal stenosis, cervical region Clinical Quality Measures Falls Risk Screening/Assistive Devices Have you fallen in the past year?: No Ortho Exam General General: Yes no acute distress Neurologic: Yes alert and Yes oriented x3 Psychologic: Yes reasonable and appropriate Right Shoulder Skin/Wound: Yes CDI, No ecchymosis, No erythema and No swell (more content not included)... [facility] Shoulder min 2 Viewson 02-03 Shoulder min 2 Views [facility] Imaging Services [address] [place], [place] [id number] Shoulder min 2 Views MR#: [id number] Acct: [id number] Name: NINA WILSON Rep #: [id number] : 1965 M 59 From: Marvel Goyal PCP: Status: DEP AMB Study: Shoulder min 2 Views Date of Exam: 02/03/25 Exam# [id number] Ordering Dr: Roby Gore MD PROCEDURE: SHOULDER MIN 2 VIEWS 02/03/2025 REASON FOR EXAM: CHRONIC PAIN TECHNIQUE: Four view right shoulder COMPARISON: None. RAD/Shoulder min 2 Views IMPRESSION: Mild right acromioclavicular joint degenerative changes are seen at least mild degenerative changes are also noted about the right humeral head greater tuberosity. The right glenohumeral joint demonstrates mild degenerative changes, without significant joint narrowing identified. No acute fracture or dislocation is seen. Reading Location: [address] CC: Dr. Roby Gore MD Airways Control Specialist: Signed [address] 02-02-2025 36 PA Requested 02/02/[address] 01-30-2025 36 Rx sent. Follow up a s scheduled. [facility] 36 Rx sent. Follow up a s scheduled. [facility] 36 Prescription Request : semaglutide (Ozempic, 0.25 or 0.5 MG/DOSE,) 2 MG/3ML solution pen-injector Last medication check: 01/14/25 Last physical exam: 02/07/24 Next scheduled appointment: 06/16/25 Last date of refill on this medication 11/03/[address] 01-15-2025 36 Name of caller: Davis nicole Contact phone number: [phone] Relationship to Patient: patient Provider: Gretchen Practice: [facility] Chief Complaint/Reason for Call: Nina calling about 2 matters: 1) Patient states a nurse yesterday recommended he get his PSA checked, since it has been several years. Patient is requesting a lab order for this. 2) In reference to the orthopedic referral discussed at 01/14/25 visit, patient would like this sent to: [facility], [address] [address] Please advise. Best time of day caller can be reached: any Patient advised that office/PCP has 24-48 business hours to return their call: Yes [facility] 29on 01-14-2025 29 Addended by: LE ERIC on: 01/20/2025 06:04 PM Modules accepted: Level of Service [facility] Office Visiton 01-14-2025 Follow-up visit [id number] Nina Wilson 1965 M Date Provider Department Center 01/14/2025 [id number] ERIC [facility] Family History Problem Relation Age of Onset No Known Problems Daughter Heart failure Mother Emphysema Mother Arthritis Mother Hypertension Mother No Known Problems Sister No Known Problems Sister Family Status - Relation Status Age at Daughter Alive Mother Sister Alive Sister Alive Level of Service:24668 [place] OFFICE/OUTPATIENT ESTABLISHED SF MDM 10 MIN Reason for Visit and Comments: Shoulder Pain [394508] Spinal Stenosis [771] Numbness [75] - Right leg Tingling [624301] - Right leg Hand Problem [231] [facility] Progress Noteon 01-14-2025 Progress Note Only near the thumb. No significant grasp weakness, no thenar wasting. Suspect a tendinitis or mild carpal tunnel. Negative spurlings - so I do not suspect cervical radiculopathy. If worsens, consider NCT. [facility] Progress Note Hx of lumbar laminectomy. No weakness or pain. Negative straight leg raise bilaterally. Suspect L4-L5 nerve impingement. Recommend following up if worsens - next step would be physical therapy- orthospine. [facility] Progress Note 01/14/2025 Nina Matos Katie (: 1965) is a 59 y.o. male , Established patient, here for evaluation of the following chief complaint(s): Shoulder Pain, Spinal Stenosis, Numbness (Right leg), Tingling (Right leg), and Hand Problem ASSESSMENT/PLAN: 1. Adhesive capsulitis of right shoulder Assessment & Plan: Recommend patient continue physical therapy- Patient to see who is in network for orthopedic doctor for further evaluation and treatment. 2. Numbness of right anterior thigh Assessment & Plan: Hx of lumbar laminectomy. No weakness or pain. Negative straight leg raise bilaterally. Suspect L4-L5 nerve impingement. Recommend following up if worsens - next step would be physical therapy- orthospine. 3. Numbness of right hand Assessment & Plan: Only near the thumb. No significant grasp weakness, no thenar wasting. Suspect a tendinitis or mild carpal tunnel. Negative spurlings - so I do not suspect cervical radiculopathy. If worsens, consider NCT. Follow up in about 6 months (around 07/14/2025). SUBJECTIVE/OBJECTIVE: SHERIDAN Wilson (: 1965) is a 59 y.o. male , Established patient, here for the evaluation of the following chief complaint(s): Shoulder Pain, Spinal Stenosis, Numbness (Right leg), Tingling (Right leg), and Hand Problem Lumbar back surgery 2014?, states that he does not have any back pain but sometimes numbness in the right leg/thigh. Seems to be more consistent recently. No leg weakness. No change in bowel or bladder. Does have some issues with enlarged prostate- but no changes. Right shoulder- Right arm weakness, unable to raise right arm above shoulder, was dx with "frozen shoulder" he was given steroids and started physical therapy for it. He does not think the steroids helped any. He also went to physical therapy for 5 times and did not think it was really helping so he stopped. He thinks that his shoulder symptoms are from his neck, reports he has history of cervical stenosis. He denies any neck pain but has limited range of motion with his neck. He has some numbness in his right hand around his thumb and wrist. Reports his grasp is slightly weaker Prior to Admission medications Medication Sig Start Date End Date Taking? Authorizing Provider albuterol 108 (90 Base) MCG/ACT inhaler TAKE 2 PUFFS (INHALATION) EVERY 4 TO 6 HOURS (SHORTNESS OF BREATH OR WHEEZING) FOR 30 DAYS OR COUGH 10/04/24 Yes Historical Provider, atenolol (Tenormin) 50 MG tablet Take 1 tablet (50 mg) by mouth daily. 10/10/24 Yes Jason Morocho MD metFORMIN (Glucophage) 1000 MG tablet Take 1 tablet (1,000 mg) by mouth daily (with breakfast). 06/10/24 Yes Jason Morocho MD True Metrix Blood Glucose Test test strip use 1 TEST STRIP to TEST BLOOD SUGAR once daily 09/12/22 Yes Historical Provider, TRUEplus Lancets 28G misc TEST ONCE DAILY 08/16/22 Yes Historical Provider, Blood Glucose Monitoring Suppl (True Metrix Go Glucose Meter) w/Device kit use as directed 08/16/22 Historical Provider, cyclobenzaprine (Flexeril) 10 MG tablet TAKE 1 TABLET BY MOUTH 3 TIMES A DAY FOR 7 DAYS 11/27/24 Historical Provider, lidocaine (Lidoderm) 5 % patch APPLY 1 PATCH(ES) TOPICAL DAILY REMOVE PATCH AFTER 12 HRS 11/27/24 Historical Provider, lisinopril 10 MG tablet Take 1 tablet (10 mg) by mouth daily. 08/19/24 LEXII Coates CNP lovastatin (Mevacor) 40 MG tablet Take 2 tablets (80 mg) by mouth Nightly. 10/10/24 Jason Morocho MD meloxicam (Mobic) 15 MG tablet Take 1 tablet (15 mg) by mouth daily. 10/01/24 LEXII Coates CNP methylPREDNISolone (Medrol Dospak) 4 MG tablets Take as directed on package. Patient not taking: Reported on 01/14/2025 12/11/24 Jason Morocho MD semaglutide (Ozempic, 0.25 or 0.5 MG/DOSE,) 2 MG/3ML solution pen-injector Inject 0.5 mg under the skin 1 (one) time per week. Patient not taking: Reported on 01/14/2025 11/03/24 LEXII Mcneil CNP sildenafil (Viagra) 100 MG tablet Take 1 tablet (100 mg) by mouth Daily as needed for erectile dysfunction. 10/22/24 LEXII Mcneil CNP Review of Systems Constitutional: Negative for activity change, appetite change, fatigue and fever. Respiratory: Negative. Cardiovascular: Negative. Gastrointestinal: Negative. Genitourinary: Positive for frequency. Negative for difficulty urinating, dysuria and flank pain. Musculoskeletal: Positive for neck stiffness. Negative for back pain, gait problem and neck pain. Neurological: Positive for weakness (right arm and hand) and numbness (right anterolateral thigh). Vitals: 01/14/25 1530 BP: 129/77 Pulse: 64 Resp: 18 Temp: 37 ?C (98.6 ?F) TempSrc: Infrared SpO2: 98% Weight: 226 lb 3.2 oz (103 kg) Physical Exam Constitutional: General: He is not in acute distress. Appearance: Normal appearance. He is not ill-appearing. HENT: Head: Normocephalic and atraumatic. Neck: Vascular: No saavedra (more content not included)... [facility] Progress Note Patient was identifi ed by name and Date of . [facility] 36on 01-07-2025 36 Spoke to patient, no questions. [facility] 36 Blood pressure is ok ay, continue current medications. [facility] 36 Nina came in for a BP check, readings were 144/78 pulse 66 and 134/80 pulse 70. [facility] Progress Noteon 01-07-2025 Progress Note [address] [facility] [id number] Patient arrived for nurse visit today and was verified by name and . Supervising provider for clinic visit Dr. Morocho is taking atenolol and lisinopril for hypertension with excellent compliance and no side effects Shortness of breath no Medication compliance yes Medication Reconciliation yes BP Medication taken prior to visit yes at what time 4:30am B/P Reading taken automatic Home Monitoring yes Patient advised if follow up is needed, outreach will occur in 48 hours [facility] 36on 12-12-2024 36 [place] per Nina. Will pick and shovel man order Sunday. [facility] 36 Which [facility] on is he going to? [place] [address] Name of caller: Davis bonnie Contact phone number: [phone] Relationship to Patient: patient Provider: Dr. Morocho Practice: [facility] Chief Complaint/Reason for Call: The patient is calling in stating he has an appointment on Sunday12/16/2024 for PT at [facility]. The patient states he would like to pick and shovel man the order today. Please advise. Best time of day caller can be reached: Any Patient advised that office/PCP has 24-48 business hours to return their call: No [facility] AMB POC HEMOGLOBIN [id number] d By: Renetta Thapa on 12-11-2024 HbA1c (Bld) [Mass fraction] 5.6 % - 5.7 % [facility] HbA1c (Bld) [Mass fraction]O rdered By: Renetta Thapa on 12-11-2024 [facility] Office Visiton 12-11-2024 Follow-up visit [id number] KatieDanielNina L 1965 M Date Provider Department Center 12/11/2024 [id number] MOROCHO [facility] Family History Problem Relation Age of Onset No Known Problems Daughter Heart failure Mother Emphysema Mother Arthritis Mother Hypertension Mother No Known Problems Sister No Known Problems Sister Family Status - Relation Status Age at Daughter Alive Mother Sister Alive Sister Alive Level of Service:55181 [place] OFFICE/OUTPATIENT ESTABLISHED MOD MDM 30 MIN Reason for Visit and Comments: Diabetes [34] Follow-up [355077] - 6 month Health Maintenance [872] - Pcv 20 vaccine- refuse Flu vaccine- refuse Covid vaccine- not done Dental exam- done at [facility] 06/2024 Pain [136] - Starts in back and around to front right side [facility] Progress Noteon 12-11-2024 Progress Note Blood pressure was initially elevated, recheck was still high but slightly improved continue lisinopril 10 mg daily and atenolol 50 mg daily and follow-up in 1 week for blood pressure check. [facility] Progress Note Unremarkable exam, w e will send in a Medrol Dosepak to see if that helps. He is to continue his meloxicam and his Flexeril as needed. [facility] Progress Note Controlled, continue lovastatin 40 mg 2 nightly. [facility] Progress Note Controlled, A1c toda y is 5.6 we will have him stop the Ozempic and see how he does with diet and keeping his weight off. Continue metformin 1000 mg daily [facility] Progress Note Recommend physical therapy most likely this is too old for Ortho to be able to do any surgery, we will send him to Ortho if physical therapy seems to help. [facility] Progress Note Recommend that he ge t into some physical therapy he will check with his insurance to see if they will cover it. [facility] Progress Note 12/11/2024 Nina Wilson (: 1965) is a 59 y.o. male , Established patient, here for evaluation of the following chief complaint(s): Diabetes, Follow-up (6 month), Health Maintenance (Pcv 20 vaccine- refuse/Flu vaccine- refuse/Covid vaccine- not done/Dental exam- done at [facility] 06/2024), and Pain (Starts in back and around to front right side ) ASSESSMENT/PLAN: 1. Type 2 diabetes mellitus without complication, without long-term current use of insulin ([facility]) ([facility]) Assessment & Plan: Controlled, A1c today is 5.6 we will have him stop the Ozempic and see how he does with diet and keeping his weight off. Continue metformin 1000 mg daily Orders: - AMB POC HEMOGLOBIN A1C 2. Hypercholesterolemia Assessment & Plan: Controlled, continue lovastatin 40 mg 2 nightly. 3. Primary hypertension Assessment & Plan: Blood pressure was initially elevated, recheck was still high but slightly improved continue lisinopril 10 mg daily and atenolol 50 mg daily and follow-up in 1 week for blood pressure check. 4. Acute right-sided low back pain without sciatica Assessment & Plan: Unremarkable exam, we will send in a Medrol Dosepak to see if that helps. He is to continue his meloxicam and his Flexeril as needed. 5. Nontraumatic complete tear of right rotator cuff Assessment & Plan: Recommend physical therapy most likely this is too old for Ortho to be able to do any surgery, we will send him to Ortho if physical therapy seems to help. 6. Adhesive capsulitis of right shoulder Assessment & Plan: Recommend that he get into some physical therapy he will check with his insurance to see if they will cover it. Follow up in about 6 months (around 06/10/2025). SUBJECTIVE/OBJECTIVE: [facility] comes in today for 6-month follow-up on his diabetes, hypercholesterolemia and hypertension and his blood pressure is a little elevated today. We will check that prior to discharge. We will do an A1c today his last A1c was 5.5 this is down from 12 2 years ago. He is wondering about getting off of Ozempic since the cost is pretty significant. Is also complaining of some acute right back pain said this started a couple of weeks ago he was seen in the emergency room they did a CT scan because they thought it might have been a kidney stone and that was negative. He says the pain radiates around his right side into his right groin and he states he does not have any bulging like a hernia. He has had hernia repair on both sides in the past. He also has decreased range of motion of his right shoulder he said this has been an ongoing issue for the last 3 or 4 years he can only raise it about three quarters [address] up and cannot even get it to shoulder height. Review of Systems Constitutional: Negative for activity change, appetite change, chills, fever and unexpected weight change. HENT: Negative for ear pain and sore throat. Respiratory: Negative for shortness of breath. Cardiovascular: Negative for chest pain and palpitations. Gastrointestinal: Negative for abdominal pain, blood in stool, constipation and diarrhea. Genitourinary: Negative for dysuria, frequency, hematuria and urgency. Musculoskeletal: Negative for arthralgias and back pain. Skin: Negative. Neurological: Negative for weakness and numbness. Psychiatric/Behavioral: Negative for dysphoric mood. The patient is not nervous/anxious. Vitals: 12/11/24 1510 12/11/24 1547 BP: (!) 158/81 (!) 152/80 Pulse: 72 SpO2: 95% Weight: 220 lb 9.6 oz (100 kg) Height: 5' 9" (1.753 m) Physical Exam Vitals and nursing note reviewed. Constitutional: General: He is not in acute distress. Appearance: Normal appearance. HENT: Right Ear: Tympanic membrane, ear canal and external ear normal. Left Ear: Tympanic membrane, ear canal and external ear normal. Mouth/Throat: Mouth: Mucous membranes are moist. Pharynx: Oropharynx is clear. Eyes: Extraocular Movements: Extraocular movements intact. Conjunctiva/sclera: Conjunctivae normal. Pupils: Pupils are equal, round, and reactive to light. Neck: Thyroid: No thyromegaly. Vascular: No carotid bruit. Cardiovascular: Rate and Rhythm: Normal rate and regular rhythm. Heart sounds: Normal heart sounds. No murmur heard. Pulmonary: Effort: Pulmonary effort is normal. Breath sounds: Normal breath sounds. Abdominal: General: Bowel sounds are normal. Palpations: Abdomen is soft. Tenderness: There is no abdominal tenderness. Musculoskeletal: General: Normal range of motion. Cervical back: Neck supple. Comments: Back is straight with normal range of motion, he has no lower extremity symptoms. No loss of bowel or bladder control. Right shoulder he has decreased range of motion to about 30 degrees, he is unable to hold it at 90 degrees with passive range of motion getting it there. Lymphadenopathy: Cervical: No cervical adenopathy. Skin: General: Skin is warm an (more content not included)... Normal [facility] Progress Note Patient verified by last name and date of . [facility] 36on 12-05-2024 36 lm to pre-visit plan for appointment with Dr Morocho on 12/11/23 3pm. Please ask patient to arrive 15 minutes early with Photo ID, insurance card Fasting: no Put call through to office for pvp [facility] .Auto Diffon 11-27-2024 Basophil, Absolute 0.1 10 3/mcL Normal 0.0-0.2 [facility] Comment on above: Performed By: #### M DW, GFR, BMP, CBC, ANEU, ADIFF #### [address] [address] Basophils/100 WBC (Bld) 1.1 % Normal 0.0-2.5 [facility] Comment on above: Performed By: #### M DW, GFR, BMP, CBC, ANEU, ADIFF #### [address] [address] Eosinophil, Absolute 0.2 10 3/mcL Normal 0.0-0.[address] [facility] Comment on above: Performed By: #### M DW, GFR, BMP, CBC, ANEU, ADIFF #### [address] [address] Eosinophils/100 WBC (Bld) 2.4 % Normal 0.0-7.0 [facility] Comment on above: Performed By: #### M DW, GFR, BMP, CBC, ANEU, ADIFF #### [address] [address] Lymphocyte, Absolute 2.1 10 3/mcL Normal 0.9-4.[address] [facility] Comment on above: Performed By: #### M DW, GFR, BMP, CBC, ANEU, ADIFF #### [address] [address] Lymphocytes/100 WBC (Bld) 28.2 % Normal 20.0-40.0 [facility] Comment on above: Performed By: #### M DW, GFR, BMP, CBC, ANEU, ADIFF #### [address] [address] Monocyte, Absolute 0.8 10 3/mcL Normal 0.1-1.4 [facility] Comment on above: Performed By: #### M DW, GFR, BMP, CBC, ANEU, ADIFF #### [address] [address] Monocytes/100 WBC (Bld) 9.9 % Normal 2.0-13.0 [facility] Comment on above: Performed By: #### M DW, GFR, BMP, CBC, ANEU, ADIFF #### [address] [address] Neutrophils/100 WBC (Bld) 58.4 % Normal 50.0-75.0 [facility] Comment on above: Performed By: #### M DW, GFR, BMP, CBC, ANEU, ADIFF #### [address] [address] .GFRon 11-27-2024 GFR 107 ml/min/1.73sqm Normal [facility] Comment on above: Result Comment: GFR Population mean for , Non- Americans Ages 20-29 = 116 mL/min/1.73 sq.m. Ages 30-39 = 107 mL/min/1.73 sq.m. Ages 40-49 = 99 mL/min/1.73 sq.m. Ages 50-59 = 93 mL/min/1.73 sq.m. Ages 60-69 = 85 mL/min/1.73 sq.m. Ages 70+ = 75 mL/min/1.73 sq.m. Chronic Kidney Disease: Less than 60 mL/min/1.73 square meters End Stage Renal Disease: Less than 15 mL/min/1.73 square meters Performed By: #### M DW, GFR, BMP, CBC, ANEU, ADIFF #### [place] [id number] GFR Non- 88 ml/min/1.73sqm Normal [facility] Comment on above: Result Comment: GFR Population mean for , Non- Americans Ages 20-29 = 116 mL/min/1.73 sq.m. Ages 30-39 = 107 mL/min/1.73 sq.m. Ages 40-49 = 99 mL/min/1.73 sq.m. Ages 50-59 = 93 mL/min/1.73 sq.m. Ages 60-69 = 85 mL/min/1.73 sq.m. Ages 70+ = 75 mL/min/1.73 sq.m. Chronic Kidney Disease: Less than 60 mL/min/1.73 square meters End Stage Renal Disease: Less than 15 mL/min/1.73 square meters Performed By: #### M DW, GFR, BMP, CBC, ANEU, ADIFF #### [address] [address] .MDWon 11-27-2024 Monocyte Distribution Width 17.45 Normal 0.00-20.00 [facility] Comment on above: Result Comment: For ED adult patients suspected of sepsis, MDW<=20.0 does not rule out sepsis or risk of sepsis Performed By: #### M DW, GFR, BMP, CBC, ANEU, ADIFF #### [address] [address] .NEUABSon 11-27-2024 Neutrophil, Absolute 4.5 10 3/mcL Normal 2.3-8.[address] [facility] Comment on above: Performed By: #### M DW, GFR, BMP, CBC, ANEU, ADIFF #### [place] [address] 36on 11-27-2024 36 Okay, thank you [facility] 36 Name of caller: Davis Wilson Contact phone number: [phone] Relationship to Patient: patient Provider: Dr. Morocho Practice: [facility] Chief Complaint/Reason for Call: Patient would like to inform Dr. Morocho he is going to the Emergency Department at [facility] in [place]. FYI, thank you Best time of day caller can be reached: Any Patient advised that office/PCP has 24-48 business hours to return their call: Yes [facility] 36 S: Patient spoke wit [facility] nurse regarding kidney pain. B: Onset of symptoms/concern: x 2 days A: Patient reports constant right flank pain, describes as dull and a sharp pain which worsens with movement, pain radiates to right groin, denies hematuria, dysuria or fever. R: 2nd level triage- spoke with Dr. Morocho who advises ED, patient notified, verbalized understanding, states he will check his insurance coverage first regarding what is in network. Reason for Disposition Pain radiates into groin, scrotum Protocols used: Flank [id number] [facility] BMPon 11-27-2024 BUN/Creatinine Ratio 27 ratio Normal 7-27 [facility] Comment on above: Performed By: #### M DW, GFR, BMP, CBC, ANEU, ADIFF #### [place] [address] [place], [place] [address] Calcium [Mass/Vol] 10.2 mg/dL Normal 8.4-10.2 [facility] Comment on above: Performed By: #### M DW, GFR, BMP, CBC, ANEU, ADIFF #### [place] [address] [place], [place] [address] Chloride [Moles/Vol] 103 mmol/L Normal 98-107 [facility] Comment on above: Performed By: #### M DW, GFR, BMP, CBC, ANEU, ADIFF #### [place] [address] [place], [place] [address] CO2 [Moles/Vol] 25 mmol/L Normal 23-31 [facility] Comment on above: Performed By: #### M DW, GFR, BMP, CBC, ANEU, ADIFF #### [address] [address] Creatinine [Mass/Vol] 0.88 mg/dL Normal 0.70-1.30 [facility] Comment on above: Result Comment: Test ing performed on Siemens Dimension EXL analyzer using a modified kinetic Merari technique. Performed By: #### M DW, GFR, BMP, CBC, ANEU, ADIFF #### [address] [address] Electrolyte Balance 10.0 mEq/L Normal 4.0-15.0 [facility] Comment on above: Performed By: #### M DW, GFR, BMP, CBC, ANEU, ADIFF #### [address] [address] Glucose [Mass/Vol] 114 mg/dL Normal 80-115 [facility] Comment on above: Performed By: #### M DW, GFR, BMP, CBC, ANEU, ADIFF #### [address] [address] Potassium [Moles/Vol] 4.2 mmol/L Normal 3.5-5.1 [facility] Comment on above: Performed By: #### M DW, GFR, BMP, CBC, ANEU, ADIFF #### [address] [address] Sodium [Moles/Vol] 138 mmol/L Normal 136-145 [facility] Comment on above: Performed By: #### M DW, GFR, BMP, CBC, ANEU, ADIFF #### [address] [address] Urea nitrogen [Mass/Vol] 24 mg/dL High 7-18 [facility] Comment on above: Performed By: #### M DW, GFR, BMP, CBC, ANEU, ADIFF #### [address] [address] CBCon 11-27-2024 Erythrocyte distribution width (RBC) [Ratio] 12.8 % Normal 11.5-15.5 [facility] Comment on above: Performed By: #### M DW, GFR, BMP, CBC, ANEU, ADIFF #### [address] [address] Hematocrit (Bld) [Volume fraction] 43.5 % Normal 40.0-52.0 [facility] Comment on above: Performed By: #### M DW, GFR, BMP, CBC, ANEU, ADIFF #### [address] [address] Hgb 14.9 G/dL Normal 13.0-17.5 [facility] Comment on above: Performed By: #### M DW, GFR, BMP, CBC, ANEU, ADIFF #### [address] [address] MCH (RBC) [Entitic mass] 32.1 pg Normal 27.0-33.0 [facility] Comment on above: Performed By: #### M DW, GFR, BMP, CBC, ANEU, ADIFF #### [address] [address] MCHC 34.2 G/dL Normal 32.0-36.0 [facility] Comment on above: Performed By: #### M DW, GFR, BMP, CBC, ANEU, ADIFF #### [address] [address] MCV (RBC) [Entitic vol] 93.9 fL Normal 81.0-100.0 [facility] Comment on above: Performed By: #### M DW, GFR, BMP, CBC, ANEU, ADIFF #### [address] [address] Platelet 169 10 3/mcL Normal 150-450 [facility] Comment on above: Performed By: #### M DW, GFR, BMP, CBC, ANEU, ADIFF #### [address] [address] Platelet mean volume (Bld) [Entitic vol] 8.1 fL Normal 6.4-10.5 [facility] Comment on above: Performed By: #### M DW, GFR, BMP, CBC, ANEU, ADIFF #### [facility] [address] [place], [place] [address] RBC 4.64 10 6/mcL Normal 4.50-6.00 [facility] Comment on above: Performed By: #### M DW, GFR, BMP, CBC, ANEU, ADIFF #### [facility] [address] [place], [place] [address] WBC 7.6 10 3/mcL Normal 4.5-10.8 [facility] Comment on above: Performed By: #### M DW, GFR, BMP, CBC, ANEU, ADIFF #### [facility] [address] [place], [place] [address] CT ABDOMEN/PELVIS W/O CONTRA STon 11-27-2024 CT ABDOMEN/PELVIS W/O CONTRAST ORIGINAL EXAMINATION: CT OF THE ABDOMEN AND PELVIS WITHOUT CONTRAST11/27/2024 12:[address] ABDOMEN/PELVIS WITHOUT CONTRAST TECHNIQUE: CT of the abdomen and pelvis was performed without the administration of intravenous contrast. Multiplanar reformatted images are provided for review. Automated exposure control, iterative reconstruction, and/or weight based adjustment of the mA/kV was utilized to reduce the radiation dose to as low as reasonably achievable. COMPARISON: None Available HISTORY: ORDERING SYSTEM PROVIDED HISTORY: Reason for Exam: RIGHT flank pain X3 DAYS RIGHT flank pain FINDINGS: Varying degrees of multilevel degenerative changes of the spine.Grade 1 anterolisthesis of L1 on L2. Mild retrolisthesis L2 on L3. Bilateral SI joint and hip degenerative changes. The visualized lung bases are unremarkable. Small hiatal hernia. Otherwise the esophagus stomach, and duodenum are unremarkable. The liver and spleen are partially imaged. Few scattered hepatic and splenic calcified granulomas. Fatty infiltration of the liver is suspected. A 2.8 cm right adrenal nodule is present. 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 Right midpole renal cyst is present. Punctate right midpole 2 mm stone seen. Nonobstructive 8 mm left renal midpole calculus. No hydronephrosis. The urinary bladder and other solid pelvic organs are grossly unremarkable. Diffuse mild to moderate colonic diverticula without diverticulitis. The appendix courses laterally and superiorly and is grossly normal. Mild arthrosclerotic calcifications of the aorta and other major arteries.No adenopathy, free intraperitoneal air or fluid. Small fat containing umbilical hernia. No additional contributory findings. IMPRESSION: No acute process within the abdomen or pelvis. No explanation for patient's symptoms seen. Nonobstructive nephrolithiasis left greater than right. Diffuse [id number] colonic diverticula without diverticulitis. I have personally reviewed the images of this examination and agree with the resident's findings and interpretation. Interpreted by: Nicole Thomason MD Preliminary Report By: Rock Ortega Electronically signed By Nicole Thomason MD Dictated Date: 11/27/2024 12:42:49 PM Prelim Date: 11/27/2024 1:14:40 PM Sign Date: 11/27/2024 1:14:40 PM Ordering Provider: SOURAV SCHAFFER [facility] LABORATORYOrdered By: Alyssa Beckham on 11-27-2024 Appearance (U) Clear (11/27/24 12:12 PM) Normal Clear AO Auto Urine SS Bilirubin Ql (U) Negative (11/27/24 12:12 PM) Normal Negative AO Auto Urine SS Color (U) Yellow (11/27/24 12:12 PM) Normal AO Auto Urine SS Glucose Test strip (U) [Mass/Vol] Negative Normal Negative AO Auto Urine SS Hemoglobin Auto test strip (U) [Mass/Vol] Negative (11/27/24 12:12 PM) Normal Negative AO Auto Urine SS Ketones Ql (U) Negative Normal Negative AO Auto Ur ine SS UA Leuk Est Negative (11/27/24 12:12 PM) Normal Negative AO Auto Urine SS UA Nitrite Negative (11/27/24 12:12 PM) Normal Negative AO Auto Urine SS UA pH 5.5 (11/27/24 12:12 PM) Normal 5.0 - 8.0 AO Auto Urine SS UA Protein Negative Normal Negative AO Auto Urine SS UA Spec Grav >=1.030 *ABN* (11/27/24 12:12 PM) Invalid Interpretation Code 1.015-1.025 AO Auto Urine SS UA Specimen Type Clean Catch (11/27/24 12:12 PM) Normal AO Auto Urine SS UA Urobilinogen 0.2 E.U./dL Normal 0.2-1.0 AO Auto Urine SS LABORATORYOrdered By: SYSTEM SYSTEM on 11-27-2024 Basophils (Bld) [#/Vol] 0.1 103/mcL Normal 0.0 - 0.2 10^3/mcL AO Workflow SS Basophils/100 WBC (Bld) 1.1 % Normal 0.0 - 2.5 % AO Workflow SS Calcium [Mass/Vol] 10.2 mg/dL Normal 8.4 - 10. 2 mg/dL AO ADM SS Chloride [Moles/Vol] 103 mmol/L Normal 98 - 10 7 mmol/L AO ADM SS CO2 [Moles/Vol] 25 mmol/L Normal 23 - 31 mmol/L AO ADM SS Creatinine [Mass/Vol] 0.88 mg/dL Normal 0.70 - 1.30 mg/dL AO ADM SS Comment on above: Interpretive Data: T esting performed on Antidot Dimension EXL analyzer using a modified kinetic Merari technique. Electrolyte Balance 10.0 mEq/L Normal 4.0 - 15 .0 mEq/L AO ADM SS Eosinophil, Absolute 0.2 103/mcL Normal 0.0 - 0 .7 10^3/mcL AO Workflow SS Eosinophils/100 WBC (Bld) 2.4 % Normal 0.0 - 7.0 % AO Workflow SS Erythrocyte distribution width (RBC) [Ratio] 12.8 % Normal 11.5 - 15.5 % AO Workflow SS GFR/1.73 sq M.predicted among blacks MDRD (S/P/Bld) [Vol rate/Area] 107 ml/min/1.73sqm Invalid Interpretation Code AO Chemistry S Comment on above: Interpretive Data: GFR Population mean for , Non- Americans Ages 20-29 = 116 mL/min/1.73 sq.m. Ages 30-39 = 107 mL/min/1.73 sq.m. Ages 40-49 = 99 mL/min/1.73 sq.m. Ages 50-59 = 93 mL/min/1.73 sq.m. Ages 60-69 = 85 mL/min/1.73 sq.m. Ages 70+ = 75 mL/min/1.73 sq.m. Chronic Kidney Disease: Less than 60 mL/min/1.73 square meters End Stage Renal Disease: Less than 15 mL/min/1.73 square meters GFR/1.73 sq M.predicted among non-blacks MDRD (S/P/Bld) [Vol rate/Area] 88 ml/min/1.73sqm Invalid Interpretation Code AO Chemistry S Comment on above: Interpretive Data: GFR Population mean for , Non- Americans Ages 20-29 = 116 mL/min/1.73 sq.m. Ages 30-39 = 107 mL/min/1.73 sq.m. Ages 40-49 = 99 mL/min/1.73 sq.m. Ages 50-59 = 93 mL/min/1.73 sq.m. Ages 60-69 = 85 mL/min/1.73 sq.m. Ages 70+ = 75 mL/min/1.73 sq.m. Chronic Kidney Disease: Less than 60 mL/min/1.73 square meters End Stage Renal Disease: Less than 15 mL/min/1.73 square meters Glucose [Mass/Vol] 114 mg/dL Normal 80 - 115 mg/dL AO ADM SS Hematocrit (Bld) [Volume fraction] 43.5 % Normal 40.0 - 52.0 % AO Workflow SS Hemoglobin (Bld) [Mass/Vol] 14.9 G/dL Normal 13.0 - 17.5 G/dL AO Workflow SS Lymphocytes (Bld) [#/Vol] 2.1 103/mcL Normal 0.9 - 4.3 10^3/mcL AO Workflow SS Lymphocytes/100 WBC (Bld) 28.2 % Normal 20.0 - 40.0 % AO Workflow SS MCH (RBC) [Entitic mass] 32.1 pg Normal 27.0 - 33.0 pg AO Workflow SS MCHC 34.2 G/dL Normal 32.0 - 36.0 G/dL AO Workflow SS MCV (RBC) [Entitic vol] 93.9 fL Normal 81.0 - 100.0 fL AO Workflow SS Monocyte distribution width Auto (Bld) [Entitic vol] 17.45 1 Normal 0.00 - 20.00 AO Workflow SS Comment on above: Result Comment: For ED adult patients suspected of sepsis, MDW<=20.0 does not rule out sepsis or risk of sepsis Monocytes (Bld) [#/Vol] 0.8 103/mcL Normal 0.1 - 1.4 10^3/mcL AO Workflow SS Monocytes/100 WBC (Bld) 9.9 % Normal 2.0 - 13.0 % AO Workflow SS Neutrophils (Bld) [#/Vol] 4.5 103/mcL Normal 2.3 - 8.1 10^3/mcL AO Workflow SS Neutrophils/100 WBC (Bld) 58.4 % Normal 50.0 - 75.0 % AO Workflow SS Platelet mean volume (Bld) [Entitic vol] 8.1 fL Normal 6.4 - 10.5 fL AO Workflow SS Platelets (Bld) [#/Vol] 169 103/mcL Normal 150 - 450 10^3/mcL AO Workflow SS Potassium [Moles/Vol] 4.2 mmol/L Normal 3.5 - 5.1 mmol/L AO ADM SS RBC (Bld) [#/Vol] 4.64 106/mcL Normal 4.50 - 6.0 0 10^6/mcL AO Workflow SS Sodium [Moles/Vol] 138 mmol/L Normal 136 - 145 mmol/L AO ADM SS Urea nitrogen [Mass/Vol] 24 mg/dL High 7 - 18 mg/dL AO ADM SS Urea nitrogen/Creatinine [Mass ratio] 27 ratio Normal 7 - 27 ratio AO ADM SS WBC (Bld) [#/Vol] 7.6 103/mcL Normal 4.5 - 10.8 10^3/mcL AO Workflow SS UAon 11-27-2024 Color (U) Yellow Normal [facility] Comment on above: Performed By: #### U A #### [address] [address] Glucose (U) [Mass/Vol] Negative Normal Negative [facility] Comment on above: Performed By: #### U A #### [address] [address] Ketones Ql (U) Negative Normal Negative [facility] Comment on above: Performed By: #### U A #### [address] [address] UA Appear Clear Normal Clear [facility] Comment on above: Performed By: #### U A #### [address] [address] UA Blood Negative Normal Negative [facility] Comment on above: Performed By: #### U A #### [address] [address] UA Leuk Est Negative Normal Negative [facility] Comment on above: Performed By: #### U A #### [place] [address] UA Nitrite Negative Normal Negative [facility] Comment on above: Performed By: #### U A #### [place] [address] UA pH 5.5 Normal 5.0 - 8.0 [facility] Comment on above: Performed By: #### U A #### [place] [address] UA Protein Negative Normal Negative [facility] Comment on above: Performed By: #### U A #### [place] [address] UA Spec Grav >=1.030 Abnormal 1.015-1.025 [facility] Comment on above: Performed By: #### U A #### [place] [address] UA Specimen Type Clean Catch Normal [facility] Comment on above: Performed By: #### U A #### [place] [address] UA Urobilinogen 0.2 E.U./dL Normal 0.2-1.0 [facility] Comment on above: Performed By: #### U A #### [place] [address] Urobilinogen (U) [Mass/Vol] Negative Normal Negative [facility] Comment on above: Performed By: #### U A #### [place] [address] 36on 11-03-2024 36 Rx sent. Follow up a s scheduled. [facility] 36 Prescription Request : Last medication check: 06/10/24 Last physical exam: 02/07/24 Next scheduled appointment: 12/11/24 Last date of refill on this medication 10/01/24 3ml 1 refill [facility] 36on 10-22-2024 36 Rx sent. Follow up a s scheduled. [facility] 36 Refill of Sildenafil to [facility] Prescription Request: Last medication check: 06-10-24 Last physical exam: 02-07-24 Next scheduled appointment: 12-11-24 Last date of refill on this medication 11-21-23 [facility] 36on 10-10-2024 36 Refill not due at th is time. [facility] 36 Prescription Request : Last medication check: 06/10/24 Last physical exam: 02/07/24 Next scheduled appointment: 12/11/24 Last date of refill on this medication 06/18/24 90 day 1 refill [place] [address] 08/05/24 90 day 1 ref ill Sent to [facility] Message sent to [place] [id number] Prescription Request : Last date of refill on this medication 08/19/24 90 day 1 refill Sent to [facility] Message sent to Nina [place] [address]on 10-01-2024 36 Prescription Request : Last medication check: 06/10/24 Last physical exam: 02/07/24 Next scheduled appointment: 12/11/24 Last date of refill on this medication all 3 scripts sent 08/04/24, 08/19/24, 09/05/24 to [facility] 90 day and 1 refill (ozempic 09/05/24 3ml 1 refill) [facility] 36on 09-05-2024 36 Reviewed chart. Refi ll appropriate. RX sent. [place] [address] Duplicate please refuse. [place] [address] Prescription Request : Last medication check: 06/10/2024 Last physical exam: 02/07/2024 Next scheduled appointment: 12/11/2024 Last date of refill on this medication: 07/11/2024 [place] [address]on 09-01-2024 36 Spoke to Pharmacist at [facility], states they will give him 30 day supplies with refills for now, will fill next refill for him, called patient and left a detailed message with information. [facility] 36 Then have them give him 30 tablets with 2 refills [facility] 36 Spoke to [facility] in [place], pharmacy sales assistant states that they do have the prescription although his Insurance is not allowing a 90 day supply, from what it looks like on their end, insurance is only allowing 30 day supplies. [facility] 36 Can we call the pharmacy and see if they have the prescription [place] [address] Was sent in on 08/05/2024 for 90 days w/1 refill [facility] 36on 08-19-2024 36 Duplicate please refuse. [place] [address] Reviewed chart. Refi ll appropriate. RX sent. [facility] 36 Prescription Request : Last medication check: 06/10/24 Last physical exam: 02/07/24 Next scheduled appointment: 12/11/24 Last date of refill on this medication 05/05/24 90 and 1 refill [facility] 36on 08-07-2024 36 Called Mr. Wilson to inform him of results from recent colonoscopy. Left an appropriate voicemail. Prior piecemeal TVA from the cecum of large size without evidence of any recurrence. Same with additional hepatic flexure polyp. 1 small polyp was seen in the cecum and was a TA. I recommend that we do surveillance follow up colonoscopy in 3 years now and he was agreeable at time of procedure. Final Diagnosis COLON, CECUM, "POLYP X1": - TUBULAR ADENOMA at 1045 Clinical Information History of colonic polyps Gross Description Received in formalin labeled "polyp x 1, cecum" are five osorio-pink tissue fragments ranging in size from 0.2-0.4 cm. The specimen is entirely submitted in a single cassette. Department of Surgery [facility] 36on 08-05-2024 36 Prescription Request : Last medication check: 06/10/2024 Last physical exam: 02/07/2024 Next scheduled appointment: 12/11/2024 Last date of refill on this medication: 04/22/2024 [facility] - Chemistry and C hemistry - challengeon 08-05-2024 Glucose [Mass/Vol] 110 mg/dL High 70 - 100 mg/dL [facility] Glucose [Mass/Vol] 115 mg/dL High 70 - 100 mg/dL [facility] No Panel Informationon 08-05 Interpretation and review of laboratory results Abnormal [facility] Performed by: [facility], [address] [place] [address] CLIA ID: [id number] [facility] Interpretation and review of laboratory results Abnormal [facility] Performed by: [facility], [address] [place] [address] CLIA ID: [id number] [facility] Nursing Noteon 08-05-2024 Nursing Note Pt discharged home v ia wheelchair accompanied by RN/volunteer. Pt has had all their belongings returned to them at discharge Normal [facility] Nursing Note Reviewed discharge instructions with patient and daughter, Maryann. Understanding verbalized. Normal [facility] Nursing Note Fingerstick blood warren gar 110. Normal [facility] Nursing Note Pt recieved from ENDOSCOPY to phase 2 via cart with COMSEC MANAGER in attendance, pt has spontaneous respirations,pt place on monitor with alarms on, will continue to monitor [address] 08-04-2024 36 Prescription Request : Last medication check: 06/10/2024 Last physical exam: 02/07/2024 Next scheduled appointment: 12/11/2024 Last date of refill on this medication: 03/10/[address] 07-22-2024 36 Our office spoke walker rolon the patient to remind them of their colonoscopy appointment . The patient is scheduled with Dr. Feldman on 08/05/2024 with arrival time of 6:30 at [facility]. Verified that the patient has the prep information and all questions were answered. [address] 07-11-2024 36 Reviewed chart. Refi ll appropriate. RX sent. 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 Hortense feverish, nasal congestion with clear drainage at time. Yellow productive cough, Chest congestion, shortness of breath with climbing stairs, constant wheezing, increased cough and wheeze with laying down. Denies - chills, dizziness, earache, headache COVID tested 06/24/24 neg. R: Pt declined appointment tomorrow, needs to get back to work, wants to be seen today". Offered POD schedule, pt declines, states "I will just go to Urgent Care". Home care advise given for Cough. Patient understands care advice. No further needs at this time. Patient instructed to call back with new or worsening symptoms. Reason for Disposition Wheezing is present Protocols used: [id number] [facility] 36on 06-18-2024 36 Recent Visits Date Type Provider Dept 06/10/24 Office Visit [facility] 02/07/24 Office Visit MD [facility] 09/03/23 Office Visit Jason Morocho MD [facility] Showing recent visits within past 365 days and meeting all other requirements Future Appointments No visits were found meeting these conditions. Showing future appointments within next 90 days and meeting all other requirements Requested Prescriptions Pending Prescriptions Disp Refills atenolol (Tenormin) 50 MG tablet [Pharmacy Med Name: ATENOLOL 50 MG TABLET] 90 tablet 1 Sig: take 1 tablet by mouth once daily Provider: Jason Morocho MD Overdue for visit: No If yes - patient scheduled? N/A Most recent labs completed in chart? Yes Verified pharmacy: yes Verified day(s) supplied: yes Verified refill(s) needed (previous prescription showing no refills in chart): Yes Have you received any controlled medications from any other provider? N/A [facility] 36on 06-16-2024 36 Reviewed chart. Refi ll appropriate. RX sent. [facility] 36 Prescription Request : Last medication check: 09/03/2023 Last physical exam: 02/07/2024 Next scheduled appointment: 12/11/24 Last date of refill on this medication: 05/13/24 [place] [address]on 06-12-2024 36 Notified and gave Nina their number to schedule. Normal [facility] 36 Order entered Normal [facility] 36 Name of caller: Davis nicole Contact phone number: [phone] Relationship to Patient: patient Provider: Practice: [facility] Chief Complaint/Reason for Call: Patient calling and needs an order for his 6 month follow up colonoscopy. Please advise. Best time of day caller can be reached: any Patient advised that office/PCP has 24-48 business hours to return their call: no Normal [facility] AMB POC HEMOGLOBIN A1Con HbA1c (Bld) [Mass fraction] 5.5 % - 5.7 % [facility] HbA1c (Bld) [Mass fraction]o n 06-10-2024 [facility] Office Visiton 06-10-2024 Follow-up visit [id number] Nina Wilson 1965 M Date Provider Department Center 06/10/2024 [id number]-OSEVEOJASON MOR[facility] Family History Problem Relation Age of Onset No Known Problems Daughter Heart failure Mother Emphysema Mother Arthritis Mother Hypertension Mother No Known Problems Sister No Known Problems Sister Family Status - Relation Status Age at Daughter Alive Mother Sister Alive Sister Alive Level of Service:33074 [place] OFFICE/OUTPATIENT ESTABLISHED MOD MDM 30 MIN Reason for Visit and Comments: Diabetes [34] Follow-up [188328] - 3 month Health Maintenance [872] - Eye exam- not done pt will sched Normal [facility] Progress Noteon 06-10-2024 Progress Note Controlled, continue lovastatin 80 mg nightly. Normal [facility] Progress Note Controlled, today's A1c was 5.5, continue Ozempic at 0.5 mg weekly and will have him decrease his metformin to 1 a day and follow-up in 6 months. Normal [facility] Progress Note Controlled, continue lisinopril 10 mg daily and atenolol 50 mg daily [facility] Progress Note 06/10/2024 Nina Wilson (: 1965) is a 59 y.o. male , Established patient, here for evaluation of the following chief complaint(s): Diabetes, Follow-up (3 month), and Health Maintenance (Eye exam- not done pt will sched) ASSESSMENT/PLAN: 1. Type 2 diabetes mellitus without complication, without long-term current use of insulin ([facility]) ([facility]) Assessment & Plan: Controlled, today's A1c was 5.5, continue Ozempic at 0.5 mg weekly and will have him decrease his metformin to 1 a day and follow-up in 6 months. Orders: - AMB POC HEMOGLOBIN A1C 2. Hypercholesterolemia Assessment & Plan: Controlled, continue lovastatin 80 mg nightly. 3. Primary hypertension Assessment & Plan: Controlled, continue lisinopril 10 mg daily and atenolol 50 mg daily Follow up in about 6 months (around 12/11/2024). SUBJECTIVE/OBJECTIVE: SHERIDAN Duque comes in today for a 6-month follow-up on his diabetes, needs an A1c today and he brings in blood sugars that are fantastic. He has lost 30 pounds since the last time we saw him and he has completely cut out sugar from his diet. Also here for follow-up on his hypertension and his blood pressure looks great today and his hypercholesterolemia which was excellent the last time we checked his numbers. Review of Systems Constitutional: Negative for activity change, appetite change, chills, fever and unexpected weight change. HENT: Negative for ear pain and sore throat. Respiratory: Negative for shortness of breath. Cardiovascular: Negative for chest pain and palpitations. Gastrointestinal: Negative for abdominal pain, blood in stool, constipation and diarrhea. Genitourinary: Negative for dysuria, frequency, hematuria and urgency. Musculoskeletal: Negative for arthralgias and back pain. Skin: Negative. Neurological: Negative for weakness and numbness. Psychiatric/Behavioral: Negative for dysphoric mood. The patient is not nervous/anxious. Vitals: 06/10/24 1504 BP: 134/82 Pulse: 73 SpO2: 95% Weight: 239 lb 3.2 oz (109 kg) Height: 5' 9" (1.753 m) Physical Exam Vitals and nursing note reviewed. Constitutional: General: He is not in acute distress. Appearance: Normal appearance. HENT: Right Ear: Tympanic membrane, ear canal and external ear normal. Left Ear: Tympanic membrane, ear canal and external ear normal. Mouth/Throat: Mouth: Mucous membranes are moist. Pharynx: Oropharynx is clear. Eyes: Extraocular Movements: Extraocular movements intact. Conjunctiva/sclera: Conjunctivae normal. Pupils: Pupils are equal, round, and reactive to light. Neck: Thyroid: No thyromegaly. Vascular: No carotid bruit. Cardiovascular: Rate and Rhythm: Normal rate and regular rhythm. Heart sounds: Normal heart sounds. No murmur heard. Pulmonary: Effort: Pulmonary effort is normal. Breath sounds: Normal breath sounds. Abdominal: General: Bowel sounds are normal. Palpations: Abdomen is soft. Tenderness: There is no abdominal tenderness. Musculoskeletal: General: Normal range of motion. Cervical back: Neck supple. Lymphadenopathy: Cervical: No cervical adenopathy. Skin: General: Skin is warm and dry. Neurological: General: No focal deficit present. Mental Status: He is alert and oriented to person, place, and time. Psychiatric: Mood and Affect: Mood normal. An electronic signature was used to authenticate this note. Jason Morocho MD 06/10/2024 3:49 PM Normal [facility] Progress Note Patient verified by last name and date of . Normal [facility] .GFRon 02-09-2024 GFR >60 Normal [facility] ([place]) Comment on above: Result Comment: GFR Population mean for , Non- Americans Ages 20-29 = 116 mL/min/1.73 sq.m. Ages 30-39 = 107 mL/min/1.73 sq.m. Ages 40-49 = 99 mL/min/1.73 sq.m. Ages 50-59 = 93 mL/min/1.73 sq.m. Ages 60-69 = 85 mL/min/1.73 sq.m. Ages 70+ = 75 mL/min/1.73 sq.m. Chronic Kidney Disease: Less than 60 mL/min/1.73 square meters End Stage Renal Disease: Less than 15 mL/min/1.73 square meters Performed By: #### A 1C, ANEU, ADIFF, BMP, B12, GFR, CBC, VIDH, TSH #### [place] [address] GFR Non- >60 Normal [facility] ([place]) Comment on above: Result Comment: GFR Population mean for , Non- Americans Ages 20-29 = 116 mL/min/1.73 sq.m. Ages 30-39 = 107 mL/min/1.73 sq.m. Ages 40-49 = 99 mL/min/1.73 sq.m. Ages 50-59 = 93 mL/min/1.73 sq.m. Ages 60-69 = 85 mL/min/1.73 sq.m. Ages 70+ = 75 mL/min/1.73 sq.m. Chronic Kidney Disease: Less than 60 mL/min/1.73 square meters End Stage Renal Disease: Less than 15 mL/min/1.73 square meters Performed By: #### A 1C, ANEU, ADIFF, BMP, B12, GFR, CBC, VIDH, TSH #### [address] [address] A1Con 02-09-2024 HbA1c (Bld) [Mass fraction] 7.7 % High 4.0-6.0 [facility] ([place]) Comment on above: Performed By: #### A 1C, ANEU, ADIFF, BMP, B12, GFR, CBC, VIDH, TSH #### [address] [address] CMPon 02-09-2024 Albumin Level 4.2 G/dL Normal 3.2-4.8 [facility] ([place]) Comment on above: Performed By: #### G FR, A1C, CMP, LIPID, PSA #### [address] [address] Albumin/Globulin [Mass ratio] 1.3 {ratio} Normal 0.9-1.6 [facility] ([place]) Comment on above: Performed By: #### G FR, A1C, CMP, LIPID, PSA #### [address] [address] ALP [Catalytic activity/Vol] 54 U/L Normal 38-126 [facility] ([place]) Comment on above: Performed By: #### G FR, A1C, CMP, LIPID, PSA #### [address] [address] ALT [Catalytic activity/Vol] 58 U/L High 12-55 [facility] ([place]) Comment on above: Performed By: #### G FR, A1C, CMP, LIPID, PSA #### [address] [address] AST [Catalytic activity/Vol] 42 U/L High 8-34 [facility] ([place]) Comment on above: Performed By: #### G FR, A1C, CMP, LIPID, PSA #### [address] [address] Bili Total 0.50 mg/dL Normal 0.20-1.20 [facility] ([place]) Comment on above: Result Comment: Use of this assay is not recommended for patients undergoing treatment with eltrombopag due to the potential for falsely elevated results. Performed By: #### G FR, A1C, CMP, LIPID, PSA #### [place] [id number] BUN/Creatinine Ratio 25.3 ratio High 10.0-22.0 [facility] ([place]) Comment on above: Performed By: #### G FR, A1C, CMP, LIPID, PSA #### [address] [address] Calcium [Mass/Vol] 10.2 mg/dL Normal 8.7-10.4 [facility] ([place]) Comment on above: Performed By: #### G FR, A1C, CMP, LIPID, PSA #### [address] [address] Chloride [Moles/Vol] 105 mmol/L Normal 98-110 [facility] ([place]) Comment on above: Performed By: #### G FR, A1C, CMP, LIPID, PSA #### [address] [address] CO2 [Moles/Vol] 26 mmol/L Normal 22-32 [facility] ([place]) Comment on above: Performed By: #### G FR, A1C, CMP, LIPID, PSA #### [address] [address] Creatinine [Mass/Vol] 0.75 mg/dL Normal 0.60-1.40 [facility] ([place]) Comment on above: Performed By: #### G FR, A1C, CMP, LIPID, PSA #### [address] [address] Electrolyte Balance 5.0 mEq/L Normal 4.0-15.0 [facility] ([place]) Comment on above: Performed By: #### G FR, A1C, CMP, LIPID, PSA #### [address] [address] Globulin 3.3 G/dL Normal 1.5-3.8 [facility] ([place]) Comment on above: Performed By: #### G FR, A1C, CMP, LIPID, PSA #### [address] [address] Glucose [Mass/Vol] 167 mg/dL High 82-115 [facility] ([place]) Comment on above: Performed By: #### G FR, A1C, CMP, LIPID, PSA #### [address] [address] Potassium [Moles/Vol] 4.8 mmol/L Normal 3.5-5.0 [facility] ([place]) Comment on above: Performed By: #### G FR, A1C, CMP, LIPID, PSA #### [address] [address] Sodium [Moles/Vol] 136 mmol/L Normal 136-145 [facility] ([place]) Comment on above: Performed By: #### G FR, A1C, CMP, LIPID, PSA #### [address] [address] Total Protein 7.5 G/dL Normal 5.7-8.2 [facility] ([place]) Comment on above: Result Comment: No te - New Reference Range in effect 20 Performed By: #### G FR, A1C, CMP, LIPID, PSA #### [address] [address] Urea nitrogen [Mass/Vol] 19.0 mg/dL Normal 8.0-22.0 [facility] ([place]) Comment on above: Performed By: #### G FR, A1C, CMP, LIPID, PSA #### [address] [address] LIPIDon 02-09-2024 Cholesterol [Mass/Vol] 85 mg/dL Normal 50-199 [facility] ([place]) Comment on above: Result Comment: Chol esterol Reference Interval: Less than 200 Desirable 200-239 Borderline high risk 240 and above High risk Performed By: #### A 1C, ANEU, ADIFF, BMP, B12, GFR, CBC, VIDH, TSH #### [address] [address] Cholesterol in HDL [Mass/Vol] 31 mg/dL Low 40-59 [facility] ([place]) Comment on above: Performed By: #### A 1C, ANEU, ADIFF, BMP, B12, GFR, CBC, VIDH, TSH #### [address] [address] Cholesterol in LDL [Mass/Vol] 16 mg/dL Normal 0-129 [facility] ([place]) Comment on above: Performed By: #### A 1C, ANEU, ADIFF, BMP, B12, GFR, CBC, VIDH, TSH #### [address] [address] Triglyceride [Mass/Vol] 189 mg/dL High 3-149 [facility] ([place]) Comment on above: Performed By: #### A 1C, ANEU, ADIFF, BMP, B12, GFR, CBC, VIDH, TSH #### [address] [address] MALBRon 02-09-2024 U Creatinine 137.6 mg/dL Normal [facility] ([place]) Comment on above: Performed By: #### A 1C, ANEU, ADIFF, BMP, B12, GFR, CBC, VIDH, TSH #### [address] [address] U Microalb 8232 mcg/dL Normal [facility] ([place]) Comment on above: Performed By: #### A 1C, ANEU, ADIFF, BMP, B12, GFR, CBC, VIDH, TSH #### [address] [address] U Ratio Alb/Cre 59.8 mcg/mg High 0.0-16.9 [facility] ([place]) Comment on above: Performed By: #### A 1C, ANEU, ADIFF, BMP, B12, GFR, CBC, VIDH, TSH #### [address] [address] PSAon 02-09-2024 Prostate Specific Antigen 4.46 ng/mL High 0.02-4.00 [facility] ([place]) Comment on above: Result Comment: Sherita ent results determined by assays using different manufacturers for methods may not be comparable. Performed By: #### A 1C, ANEU, ADIFF, BMP, B12, GFR, CBC, VIDH, TSH #### [place] [address] Laboratory - Chemistry and C hemistry - challengeon 01-29-2024 Glucose [Mass/Vol] 151 mg/dL High 70 - 100 mg/dL [facility] [employer] Glucose [Mass/Vol] 185 mg/dL High 70 - 100 mg/dL [facility] [employer] No Panel Informationon 01-28 Interpretation and review of laboratory results Abnormal [facility] [employer] Performed by: [facility], [address] [place] [address] CLIA ID: [id number] [facility] [employer] [facility] [employer] Interpretation and review of laboratory results Abnormal [facility] [employer] Performed by: [facility], [address] [place] [address] CLIA ID: [id number] [facility] [employer] [facility] Radiology Study observation (narrative) [facility] [employer] Radiology Study observation (narrative) [facility] [employer] .Auto Diffon 08-03-2023 Basophil, Absolute 0.1 10 3/mcL Normal 0.0-0.3 [facility] ([place]) Comment on above: Performed By: #### A 1C, ANEU, ADIFF, BMP, B12, GFR, CBC, VIDH, TSH #### [address] [address] Basophils/100 WBC (Bld) 0.8 % Normal 0.0-2.5 [facility] ([place]) Comment on above: Performed By: #### A 1C, ANEU, ADIFF, BMP, B12, GFR, CBC, VIDH, TSH #### [address] [address] Eosinophil, Absolute 0.2 10 3/mcL Normal 0.0-0.7 [facility] ([place]) Comment on above: Performed By: #### A 1C, ANEU, ADIFF, BMP, B12, GFR, CBC, VIDH, TSH #### [address] [address] Eosinophils/100 WBC (Bld) 2.8 % Normal 0.0-6.0 [facility] ([place]) Comment on above: Performed By: #### A 1C, ANEU, ADIFF, BMP, B12, GFR, CBC, VIDH, TSH #### [address] [address] Lymphocyte, Absolute 2.5 10 3/mcL Normal 0.9-4.3 [facility] ([place]) Comment on above: Performed By: #### A 1C, ANEU, ADIFF, BMP, B12, GFR, CBC, VIDH, TSH #### [address] [address] Lymphocytes/100 WBC (Bld) 33.2 % Normal 20.0-40.0 [facility] ([place]) Comment on above: Performed By: #### A 1C, ANEU, ADIFF, BMP, B12, GFR, CBC, VIDH, TSH #### [address] [address] Monocyte, Absolute 0.6 10 3/mcL Normal 0.1-1.4 [facility] ([place]) Comment on above: Performed By: #### A 1C, ANEU, ADIFF, BMP, B12, GFR, CBC, VIDH, TSH #### [address] [address] Monocytes/100 WBC (Bld) 7.9 % Normal 2.0-13.0 [facility] ([place]) Comment on above: Performed By: #### A 1C, ANEU, ADIFF, BMP, B12, GFR, CBC, VIDH, TSH #### [address] [address] Neutrophils/100 WBC (Bld) 55.3 % Normal 50.0-75.0 [facility] ([place]) Comment on above: Performed By: #### A 1C, ANEU, ADIFF, BMP, B12, GFR, CBC, VIDH, TSH #### [address] [address] .GFRon 08-03-2023 GFR >60 Normal [facility] ([place]) Comment on above: Result Comment: GFR Population mean for , Non- Americans Ages 20-29 = 116 mL/min/1.73 sq.m. Ages 30-39 = 107 mL/min/1.73 sq.m. Ages 40-49 = 99 mL/min/1.73 sq.m. Ages 50-59 = 93 mL/min/1.73 sq.m. Ages 60-69 = 85 mL/min/1.73 sq.m. Ages 70+ = 75 mL/min/1.73 sq.m. Chronic Kidney Disease: Less than 60 mL/min/1.73 square meters End Stage Renal Disease: Less than 15 mL/min/1.73 square meters Performed By: #### A 1C, ANEU, ADIFF, BMP, B12, GFR, CBC, VIDH, TSH #### [place] [id number] GFR Non- >60 Normal [facility] ([place]) Comment on above: Result Comment: GFR Population mean for , Non- Americans Ages 20-29 = 116 mL/min/1.73 sq.m. Ages 30-39 = 107 mL/min/1.73 sq.m. Ages 40-49 = 99 mL/min/1.73 sq.m. Ages 50-59 = 93 mL/min/1.73 sq.m. Ages 60-69 = 85 mL/min/1.73 sq.m. Ages 70+ = 75 mL/min/1.73 sq.m. Chronic Kidney Disease: Less than 60 mL/min/1.73 square meters End Stage Renal Disease: Less than 15 mL/min/1.73 square meters Performed By: #### A 1C, ANEU, ADIFF, BMP, B12, GFR, CBC, VIDH, TSH #### [address] [address] .NEUABSon 08-03-2023 Neutrophil, Absolute 4.2 10 3/mcL Normal 2.3-8.1 [facility] ([place]) Comment on above: Performed By: #### A 1C, ANEU, ADIFF, BMP, B12, GFR, CBC, VIDH, TSH #### [address] [address] A1Con 08-03-2023 HbA1c (Bld) [Mass fraction] 8.3 % High 4.0-6.0 [facility] ([place]) Comment on above: Performed By: #### A 1C, ANEU, ADIFF, BMP, B12, GFR, CBC, VIDH, TSH #### [address] [address] B12on 08-03-2023 Cobalamin (Vitamin B12) [Mass/Vol] 413 pg/mL Normal 211-911 [facility] ([place]) Comment on above: Performed By: #### A 1C, ANEU, ADIFF, BMP, B12, GFR, CBC, VIDH, TSH #### [address] [address] BMPon 08-03-2023 BUN/Creatinine Ratio 19.4 ratio Normal 10.0-22.0 [facility] ([place]) Comment on above: Performed By: #### A 1C, ANEU, ADIFF, BMP, B12, GFR, CBC, VIDH, TSH #### [address] [address] Calcium [Mass/Vol] 9.3 mg/dL Normal 8.7-10.4 [facility] ([place]) Comment on above: Performed By: #### A 1C, ANEU, ADIFF, BMP, B12, GFR, CBC, VIDH, TSH #### [address] [address] Chloride [Moles/Vol] 103 mmol/L Normal 98-110 [facility] ([place]) Comment on above: Performed By: #### A 1C, ANEU, ADIFF, BMP, B12, GFR, CBC, VIDH, TSH #### [address] [address] CO2 [Moles/Vol] 28 mmol/L Normal 22-32 [facility] ([place]) Comment on above: Performed By: #### A 1C, ANEU, ADIFF, BMP, B12, GFR, CBC, VIDH, TSH #### [address] [address] Creatinine [Mass/Vol] 0.67 mg/dL Normal 0.60-1.40 [facility] ([place]) Comment on above: Performed By: #### A 1C, ANEU, ADIFF, BMP, B12, GFR, CBC, VIDH, TSH #### [address] [address] Electrolyte Balance 7.0 mEq/L Normal 4.0-15.0 [facility] ([place]) Comment on above: Performed By: #### A 1C, ANEU, ADIFF, BMP, B12, GFR, CBC, VIDH, TSH #### [place] [id number] Glucose [Mass/Vol] 193 mg/dL High 82-115 [facility] ([place]) Comment on above: Performed By: #### A 1C, ANEU, ADIFF, BMP, B12, GFR, CBC, VIDH, TSH #### [place] [id number] Potassium [Moles/Vol] 4.9 mmol/L Normal 3.5-5.0 [facility] ([place] Comment on above: Performed By: #### A 1C, ANEU, ADIFF, BMP, B12, GFR, CBC, VIDH, TSH #### [place] [id number] Sodium [Moles/Vol] 138 mmol/L Normal 136-145 [facility] ([place] Comment on above: Performed By: #### A 1C, ANEU, ADIFF, BMP, B12, GFR, CBC, VIDH, TSH #### [address] [id number] Urea nitrogen [Mass/Vol] 13.0 mg/dL Normal 8.0-22.0 [facility] ([place] Comment on above: Performed By: #### A 1C, ANEU, ADIFF, BMP, B12, GFR, CBC, VIDH, TSH #### [address] [address] CBCon 08-03-2023 Erythrocyte distribution width (RBC) [Ratio] 12.6 % Normal 11.5-15.5 [facility] ([place] Comment on above: Performed By: #### A 1C, ANEU, ADIFF, BMP, B12, GFR, CBC, VIDH, TSH #### [place] [address] Hematocrit (Bld) [Volume fraction] 45.6 % Normal 40.0-52.0 [facility] ([place] Comment on above: Performed By: #### A 1C, ANEU, ADIFF, BMP, B12, GFR, CBC, VIDH, TSH #### [place] [address] Hgb 15.4 G/dL Normal 13.0-17.5 [facility] ([place] Comment on above: Performed By: #### A 1C, ANEU, ADIFF, BMP, B12, GFR, CBC, VIDH, TSH #### [place] [address] MCH (RBC) [Entitic mass] 31.9 pg Normal 27.0-33.0 [facility] ([place] Comment on above: Performed By: #### A 1C, ANEU, ADIFF, BMP, B12, GFR, CBC, VIDH, TSH #### [place] [address] MCHC 33.7 G/dL Normal 32.0-36.0 [facility] ([place] Comment on above: Performed By: #### A 1C, ANEU, ADIFF, BMP, B12, GFR, CBC, VIDH, TSH #### [place] [address] MCV (RBC) [Entitic vol] 94.9 fL Normal 81.0-100.0 [facility] ([place] Comment on above: Performed By: #### A 1C, ANEU, ADIFF, BMP, B12, GFR, CBC, VIDH, TSH #### [place] [address] Platelet 191 10 3/mcL Normal 150-450 [facility] ([place] Comment on above: Performed By: #### A 1C, ANEU, ADIFF, BMP, B12, GFR, CBC, VIDH, TSH #### [place] [address] Platelet mean volume (Bld) [Entitic vol] 9.3 fL Normal 6.4-10.5 [facility] ([place] Comment on above: Performed By: #### A 1C, ANEU, ADIFF, BMP, B12, GFR, CBC, VIDH, TSH #### [place] [address] RBC 4.81 10 6/mcL Normal 4.50-6.00 [facility] [place] Comment on above: Performed By: #### A 1C, ANEU, ADIFF, BMP, B12, GFR, CBC, VIDH, TSH #### [place] [address] WBC 7.7 10 3/mcL Normal 4.5-10.8 [facility] ([place] Comment on above: Performed By: #### A 1C, ANEU, ADIFF, BMP, B12, GFR, CBC, VIDH, TSH #### [place] [address] TSHon 08-03-2023 TSH 2.938 mIU/mL Normal 0.550-4.780 [facility] ([place] Comment on above: Result Comment: No te - New Reference Range in effect 20 Performed By: #### A 1C, ANEU, ADIFF, BMP, B12, GFR, CBC, VIDH, TSH #### [place] [address] VIDHon 08-03-2023 Vit. D 25-Hydroxy 23.2 ng/mL Normal [facility] ([place] Comment on above: Result Comment: Inte rpretive Values Based on Total 25(OH)D: Severe Deficiency <20 ng/mL Mild to Moderate Deficiency 20-30 ng/mL Opt[employer] Levels 30-100 ng/mL Toxicity Possible >100 ng/mL Performed By: #### A 1C, ANEU, ADIFF, BMP, B12, GFR, CBC, VIDH, TSH #### [place] [address] Basic metabolic 1998 panelon 02-23-2023 Anion gap [Moles/Vol] 7 mmol/L 3 - 13 mmol/L [facility] Calcium [Mass/Vol] 9.0 mg/dL 8.4 - 10. 4 mg/dL [facility] [employer] Chloride [Moles/Vol] 104 mmol/L 98 - 10 7 mmol/L [facility] [employer] CO2 [Moles/Vol] 27 mmol/L 22 - 30 mmol/L [facility] [employer] Creatinine [Mass/Vol] 0.68 mg/dL 0.66 - 1.25 mg/dL [facility] GFR/1.73 sq M.predicted MDRD (S/P/Bld) [Vol rate/Area] - PINF [facility] Comment on above: Calculation based on the Chronic Kidney Disease Epidemiology Collaboration (CKD-EPI) equation refit without adjustment for race Glucose [Mass/Vol] 167 mg/dL High 70 - 100 mg/dL [facility] [employer] Potassium [Moles/Vol] 4.1 mmol/L 3.5 - 5.1 mmol/L [facility] Sodium [Moles/Vol] 138 mmol/L 135 - 145 mmol/L [facility] Urea nitrogen [Mass/Vol] 11 mg/dL 9 - 20 mg/dL [facility] [employer] HbA1c (Bld) [Mass fraction]o n 02-23-2023 Average glucose Estimated from glycated hemoglobin (Bld) [Mass/Vol] 194 mg/dL [facility] HbA1c (Bld) [Mass/Vol] 8.4 % High NINF - 5.7 % [facility] Comment on above: Normal less than 5.7 % Prediabetes 5.7% to 6.4% Diabetes 6.5% or higher --HgbA1C levels may not be accurate in patients who have renal disease, received recent blood transfusions, are anemic, or who have dyshemoglobinemia. Lipid 1996 panelon 3 Cholesterol [Mass/Vol] 92 mg/dL NINF - 200 mg/dL [facility] Cholesterol in HDL [Mass/Vol] 34 mg/dL Low 40 - 60 mg/dL [facility] Cholesterol in LDL [Mass/Vol] 36 mg/dL 0 - <100 [facility] Cholesterol.total/Ch olesterol in HDL [Mass ratio] 3 {ratio} [facility] Comment on above: Ref Range: < 3 Low Risk for CHD 3-6 Mod Risk for CHD > 6 High Risk for CHD Triglyceride [Mass/Vol] 109 mg/dL NINF - 150 mg/dL [facility] [employer] Microalbumin/Creatinine rati o panel (U)on 02-23-2023 Albumin DL <= 20 mg/L (U) [Mass/Vol] 158.9 mg/L High 0.0 - 29.9 mg/L [facility] [employer] Albumin/Creatinine DL <= 20 mg/L (U) [Mass ratio] 112.1 mg/g High 0.0 - 29.9 mg/g [facility] [employer] CREATININE, URINE 141.8 mg/dL No Range [facility] [employer] Interpretation and review of laboratory results Abnormal [facility] Microalbumin concentrations <30 are considered normal, 30-300 are considered microalbuminuria (or risk of diabetic nephropathy), and >300 are considered clinical albuminuria (clinical nephropathy). Diabetes Care,27, Supplement 1, E31-43, 2004 [facility] [employer] No Panel Informationon 02-23 Interpretation and review of laboratory results Abnormal [facility] [employer] FOREARM 2 VIEWSon 08-10-2017 FOREARM 2 VIEWS Performed at [facility] APPROVED BY: ROSANGELA VERA MD FOREARM 2 VIEWS: Indication: laceration, concern for foreign body Limitation to the exam: None. Technique: AP and lateral views of the left forearm were obtained. Findings: There is focal lucency and irregularity of the soft tissue along the distal dorsal ulnar aspect of the forearm compatible with reported laceration. There is a punctate radiodensity superficially along the distal dorsal ulnar aspect of the laceration, likely representing minor dust particle. No other foreign bodies identified. There is no evidence of acute fracture, malalignment or bone lesion. The joint spaces and articular surfaces are within normal. Bone mineralization appears normal. IMPRESSION: Soft tissue injury/laceration along the distal dorsal ulnar aspect of the forearm. Punctate radiodensity superficially along the distal dorsal ulnar aspect of the laceration, likely representing minor dust particle. No other foreign body identified. Normal [facility] Vital Signs Date Time Vital Sign Value Performing Clinician Facility 05-13-2025 12:59-0400 Body height 175.3 cm Jason Morocho MD Work Phone: [facility] 05-13-2025 12:59-0400 Body mass index (BMI) [Ratio] 33.97 kg/m2 Jason Morocho MD Work Phone: [facility] 05-13-2025 12:59-0400 Body weight 104.33 kg Jason Morocho MD Work Phone: [facility] 05-13-2025 12:59-0400 Diastolic blood pressure 71 mm[Hg] Jason Morocho MD Work Phone: [facility] 05-13-2025 12:59-0400 Heart rate 76 /min Jason Morocho MD Work Phone: [facility] 05-13-2025 12:59-0400 SaO2% (BldA) [Mass fraction] 95 % Jason Morocho MD Work Phone: [facility] 05-13-2025 12:59-0400 Systolic blood pressure 122 mm[Hg] Jason Morocho MD Work Phone: [facility] 04-23-2025 15:18-0400 Body height 175.[address] Jason Morocho MD Work Phone: [facility] 04-23-2025 15:18-0400 Body mass index (BMI) [Ratio] 33.2 kg/m2 Dr. Jason Morocho MD Work Phone: [facility] 04-23-2025 15:18-0400 Body weight 102.[address] Jason Morocho MD Work Phone: [facility] 02-26-2025 15:14-0400 Body height 175.[address] Jason Morocho MD Work Phone: [facility] 02-26-2025 15:14-0400 Body mass index (BMI) [Ratio] 33.7 kg/m2 Dr. Jason Morocho MD Work Phone: [facility] 02-26-2025 15:14-0400 Body weight 103.[address] Jason Morocho MD Work Phone: [facility] 02-03-2025 15:27-0400 Body mass index (BMI) [Ratio] 33.5 kg/m2 Dr. Jason Morocho MD Work Phone: [facility] 02-03-2025 15:27-0400 Body weight 103.[address] Jason Morocho MD Work Phone: [facility] 01-14-2025 15:30-0500 Body mass index (BMI) [Ratio] 33.4 kg/m2 Le Bridenthal TELEPHONE MECHANIC - CLINICAL SUPPORT TECH Work Phone: [facility] [employer] 01-14-2025 15:30-0500 Body temperature 98.6 [degF] Le Bridenthal TELEPHONE MECHANIC - CLINICAL SUPPORT TECH Work Phone: [facility] [employer] 01-14-2025 15:30-0500 Body weight 102.6 kg Le Bridenthal TELEPHONE MECHANIC - CLINICAL SUPPORT TECH Work Phone: [facility] [employer] 01-14-2025 15:30-0500 Diastolic blood pressure 77 mm[Hg] Le Bridenthal TELEPHONE MECHANIC - CLINICAL SUPPORT TECH Work Phone: [facility] [employer] 01-14-2025 15:30-0500 Heart rate 64 /min Le Bridenthal TELEPHONE MECHANIC - CLINICAL SUPPORT TECH Work Phone: [facility] [employer] 01-14-2025 15:30-0500 Respiratory rate 18 /min Le Bridenthal TELEPHONE MECHANIC - CLINICAL SUPPORT TECH Work Phone: [facility] [employer] 01-14-2025 15:30-0500 SaO2% (BldA) [Mass fraction] 98 % Le Bridenthal TELEPHONE MECHANIC - CLINICAL SUPPORT TECH Work Phone: [facility] [employer] 01-14-2025 15:30-0500 Systolic blood pressure 129 mm[Hg] Le Bridenthal TELEPHONE MECHANIC - CLINICAL SUPPORT TECH Work Phone: [facility] [employer] 12-11-2024 15:47-0500 Diastolic blood pressure 80 mm[Hg] Jason Morocho MD Work Phone: [facility] [employer] 12-11-2024 15:47-0500 Systolic blood pressure 152 mm[Hg] Jason Morocho MD Work Phone: [facility] [employer] 12-11-2024 15:10-0500 Body height 175.3 cm Jason Morocho MD Work Phone: [facility] [employer] 12-11-2024 15:10-0500 Body mass index (BMI) [Ratio] 32.58 kg/m2 Jason Morocho MD Work Phone: [facility] [employer] 12-11-2024 15:10-0500 Body weight 100.06 kg Jason Morocho MD Work Phone: [facility] [employer] 12-11-2024 15:10-0500 Heart rate 72 /min Jason Morocho MD Work Phone: [facility] [employer] 12-11-2024 15:10-0500 SaO2% (BldA) [Mass fraction] 95 % Jason Morocho MD Work Phone: [facility] [employer] 11-27-2024 12:52-0500 Diastolic Blood Pressure Non-Invasive 94 mm[Hg] SOURAV SCHAFFER DO [facility] 11-27-2024 12:52-0500 Heart rate 65 /min SOURAV SCHAFFER DO [facility] 11-27-2024 12:52-0500 Respiratory rate 16 /min SOURAV SCHAFFER DO [facility] 11-27-2024 12:52-0500 Systolic Blood Pressure Non-Invasive 138 mm[Hg] SOURAV SCHAFFER DO [facility] 11-27-2024 11:10-0500 Body temperature 97.88 [degF] SOURAV SCHAFFER DO [facility] 11-27-2024 11:10-0500 Body weight 101.7 kg SOURAV SCHAFFER DO [facility] 11-27-2024 11:10-0500 Diastolic Blood Pressure Non-Invasive 94 mm[Hg] SOURAV SCHAFFER DO [facility] 11-27-2024 11:10-0500 Heart rate 79 /min SOURAV SCHAFFER DO [facility] 11-27-2024 11:10-0500 Respiratory rate 16 /min SOURAV SCHAFFER DO [facility] 11-27-2024 11:10-0500 Systolic Blood Pressure Non-Invasive 173 mm[Hg] SOURAV SCHAFFER DO [facility] 08-05-2024 08:40-0400 Heart rate 75 /min Don Feldman MD Work Phone: [employer] 08-05-2024 08:40-0400 SaO2% (BldA) [Mass fraction] 95 % Don Feldman MD Work Phone: [employer] 08-05-2024 08:35-0400 Diastolic blood pressure 75 mm[Hg] Don Feldman MD Work Phone: [employer] 08-05-2024 08:35-0400 Respiratory rate 18 /min Don Feldman MD Work Phone: [employer] 08-05-2024 08:35-0400 Systolic blood pressure 137 mm[Hg] Don Feldman MD Work Phone: [employer] 08-05-2024 08:05-0400 Body temperature 97.2 [degF] Don Feldman MD Work Phone: [employer] 08-05-2024 06:45-0400 Body mass index (BMI) [Ratio] 33.82 kg/m2 Don Feldman MD Work Phone: [employer] 08-05-2024 06:45-0400 Body weight 103.87 kg Don Feldman MD Work Phone: [employer] 06-10-2024 15:04-0400 Body height 175.3 cm Jason Morocho MD Work Phone: [employer] 06-10-2024 15:04-0400 Body mass index (BMI) [Ratio] 35.32 kg/m2 Jason Morocho MD Work Phone: [employer] 06-10-2024 15:04-0400 Body weight 108.5 kg Jason Morocho MD Work Phone: [employer] 06-10-2024 15:04-0400 Diastolic blood pressure 82 mm[Hg] Jason Morocho MD Work Phone: [employer] 06-10-2024 15:04-0400 Heart rate 73 /min Jason Morocho MD Work Phone: [employer] 06-10-2024 15:04-0400 SaO2% (BldA) [Mass fraction] 95 % Jason Morocho MD Work Phone: [employer] 06-10-2024 15:04-0400 Systolic blood pressure 134 mm[Hg] Jason Morocho MD Work Phone: [facility] [employer] 02-07-2024 15:04-0400 Diastolic blood pressure 85 mm[Hg] Jason Morocho MD Work Phone: [employer] 02-07-2024 15:04-0400 Heart rate 84 /min Jason Morocho MD Work Phone: [employer] 02-07-2024 15:04-0400 Systolic blood pressure 148 mm[Hg] Jason Morocho MD Work Phone: [employer] 02-07-2024 14:28-0400 Body height 175.3 cm Jason Morocho MD Work Phone: [employer] 02-07-2024 14:28-0400 Body mass index (BMI) [Ratio] 40.26 kg/m2 Jason Morocho MD Work Phone: [employer] 02-07-2024 14:28-0400 Body weight 123.65 kg Jason Morocho MD Work Phone: [employer] 02-07-2024 14:28-0400 SaO2% (BldA) [Mass fraction] 94 % Jason Morocho MD Work Phone: [employer] 01-29-2024 10:45-0400 Diastolic blood pressure 94 mm[Hg] Don Feldman MD Work Phone: [employer] 01-29-2024 10:45-0400 Heart rate 80 /min Don Feldman MD Work Phone: [employer] 01-29-2024 10:45-0400 Respiratory rate 16 /min Don Feldman MD Work Phone: [employer] 01-29-2024 10:45-0400 SaO2% (BldA) [Mass fraction] 97 % Don Feldman MD Work Phone: [employer] 01-29-2024 10:45-0400 Systolic blood pressure 135 mm[Hg] Don Feldman MD Work Phone: [employer] 01-29-2024 10:25-0400 Body temperature 97 [degF] Don Feldman MD Work Phone: [employer] 01-29-2024 08:44-0400 Body mass index (BMI) [Ratio] 41.64 kg/m2 Don Feldman MD Work Phone: [employer] 01-29-2024 08:44-0400 Body weight 127.91 kg Don Feldman MD Work Phone: [employer] 09-03-2023 10:16-0400 Body height 175.3 cm Jason Morocho MD Work Phone: [employer] 09-03-2023 10:16-0400 Body mass index (BMI) [Ratio] 41.56 kg/m2 Jason Morocho MD Work Phone: [employer] 09-03-2023 10:16-0400 Body weight 127.64 kg Jason Morocho MD Work Phone: [employer] 09-03-2023 10:16-0400 Diastolic blood pressure 84 mm[Hg] Jason Morocho MD Work Phone: [facility] 09-03-2023 10:16-0400 Heart rate 79 /min Jason Morocho MD Work Phone: [facility] 09-03-2023 10:16-0400 SaO2% (BldA) [Mass fraction] 93 % Jason Morocho MD Work Phone: [facility] 09-03-2023 10:16-0400 Systolic blood pressure 132 mm[Hg] Jason Morocho MD Work Phone: [facility] Encounters Encounter Date Encounter Type Care Provider Facility Start: 06-09-2025 ambulatory Jason Morocho Facility :[facility] Start: 06-08-2025 Encounter for other preprocedural examination Baron Buenrostro [facility] Start: 05-29-2025 End: 05-29-[address] Baron Buenrostro MD -[facility] Work Phone: Start: 05-29-2025 End: 05-29-[address] Jason Morocho MD Work Phone: -[facility] Start: 05-28-2025 End: 05-29-2025 Refnatty Medina APRN - CLINICAL SUPPORT TECH Work Phone: [facility] Comment on above: Type 2 diabetes nguyen itus without complication, without long- term current use of insulin ([facility]) Start: 05-13-2025 End: 05-13-2025 Patient encounter procedure Jason Morocho MD Work Phone: [facility] Work Phone: Start: 05-13-2025 End: 05-13-2025 Periodic preventive med est patient 40-64yrs Jason Morocho MD Work Phone: [facility] Comment on above: Annual physical exam (Primary Dx); Pre-op examination; Herniated cervical disc; Cervical spinal stenosis; Primary hypertension; Hypercholesterolemia; Type 2 diabetes mellitus without complication, without long-term current use of insulin (HCC); Screening for prostate cancer Start: 05-13-2025 End: 05-13-2025 Preprocedural examination done Jason Morocho MD Work Phone: [facility] Start: 05-13-2025 End: 05-13-2025 [facility] Start: 05-13-2025 End: 05-13-2025 Encounter for general adult medical examination without abnormal findings [facility] Start: 05-13-2025 End: 05-13-2025 Encounter for other preprocedural examination [facility] Start: 04-29-2025 End: 04-29-2025 Refill Jason Morocho MD Work Phone: [facility] Start: 04-23-2025 End: 04-23-2025 Patient encounter procedure Kristin BUNDY -[facility] Work Phone: Start: 04-23-2025 End: 04-23-[address] Jason Morocho MD Work Phone: [facility] Work Phone: Start: 04-14-2025 End: 04-14-[address] Jason Morocho MD Work Phone: [facility] Work Phone: Start: 04-14-2025 End: 04-14-[address] Baron Buenrostro MD -[facility] Work Phone: Start: 04-14-2025 End: 04-14-2025 ambulatory Baron Buenrostro Facility:[facility] Start: 03-09-2025 ambulatory Roby Gore Facility :[facility] Start: 02-26-2025 End: 02-26-[address] Barno Buenrostro MD -[facility] Work Phone: Start: 02-26-2025 End: 02-26-2025 ambulatory Baron Buenrostro Facility:[facility] Start: 02-19-2025 End: 02-19-2025 Refill Le Skipenthal TELEPHONE MECHANIC - CLINICAL SUPPORT TECH Work Phone: [facility] Start: 02-03-2025 End: 02-03-[address] Roby Gore MD -[facility] Work Phone: Start: 02-03-2025 End: 02-03-2025 ambulatory Roby Gore Facility:[facility] Start: 01-14-2025 End: 01-14-2025 [facility] Start: 01-14-2025 End: 01-14-2025 Office outpatient visit 10 minutes Le [place]identhal TELEPHONE MECHANIC - CLINICAL SUPPORT TECH Work Phone: [facility] Comment on above: Adhesive capsulitis of right shoulder (Primary Dx); Numbness of right anterior thigh; Numbness of right hand Start: 01-14-2025 End: 01-14-2025 Office outpatient visit 25 minutes Le Bridenthal TELEPHONE MECHANIC - CLINICAL SUPPORT TECH Work Phone: [facility] Comment on above: Adhesive capsulitis of right shoulder (Primary Dx); Numbness of right anterior thigh; Numbness of right hand Start: 01-07-2025 End: 01-07-2025 ambulatory [facility] Start: 12-16-2024 End: 12-31-[address] JASON MOROCHO MD Facility:[facility] Start: 12-16-2024 End: 12-31-[address] JASON MOROCHO MD [facility] Start: 12-11-2024 End: 12-11-2024 ambulatory [facility] Start: 12-11-2024 End: 12-11-2024 Office outpatient visit 25 minutes Jason Morocho MD Work Phone: [facility] Comment on above: Type 2 diabetes nguyen itus without complication, without long- term current use of insulin ([facility]/HCC) (HCC) (Primary Dx); Hypercholesterolemia; Primary hypertension; Acute right-sided low back pain without sciatica; Nontraumatic complete tear of right rotator cuff; Adhesive capsulitis of right shoulder Start: 11-27-2024 End: 11-27-2024 ambulatory Colleen Haskins RN [facility] Start: 11-27-2024 End: 11-27-2024 Patient encounter procedure Colleen Haskins RN [facility] Start: 11-27-2024 End: 11-27-2024 Emergency department patient visit SOURAV SCHAFFER DO [facility] Start: 10-09-2024 End: 10-10-2024 Refill Jason Morocho MD Work Phone: [facility] Start: 09-30-2024 End: 10-01-2024 Refill Le Bridenthal TELEPHONE MECHANIC - CLINICAL SUPPORT TECH Work Phone: [facility] Comment on above: Type 2 diabetes nguyen itus without complication, without long- term current use of insulin ([facility]) ([facility]) Start: 09-04-2024 End: 09-05-2024 Refill Le Bridenthal TELEPHONE MECHANIC - CLINICAL SUPPORT TECH Work Phone: [facility] Comment on above: Type 2 diabetes nguyen itus without complication, without long- term current use of insulin ([facility]) ([facility]) Start: 08-18-2024 End: 08-19-2024 Refill Le Bridenthal TELEPHONE MECHANIC - CLINICAL SUPPORT TECH Work Phone: [facility] Start: 08-07-2024 End: 08-07-2024 Telephone encounter Don Feldman MD Work Phone: [facility] General Surgery Start: 08-05-2024 End: 08-05-2024 ambulatory DON FELDMAN [facility] Start: 08-05-2024 End: 08-05-2024 Subsequent hospital visit by physician Don Feldman MD Work Phone: [facility] End[facility] Comment on above: Hx of colonic polyp Start: 08-03-2024 End: 08-04-2024 Refill Jason Morocho MD Work Phone: [facility] Start: 07-22-2024 End: 07-22-2024 Telephone encounter Don Feldman MD Work Phone: [facility] General Surgery Start: 07-11-2024 End: 07-11-2024 Refill Lenino Harmonal TELEPHONE MECHANIC - CLINICAL SUPPORT TECH Work Phone: [facility] Comment on above: Type 2 diabetes nguyen itus without complication, without long- term current use of insulin ([facility]/HCC) ([facility]) Start: 06-25-2024 End: 06-25-2024 ambulatory Jodee Whitten RN [facility] Clinical Communication Start: 06-25-2024 End: 06-25-2024 Patient encounter procedure Jodee Whitten RN [facility] Clinical Communication Start: 06-18-2024 End: 06-18-2024 Refill Jason Morocho MD Work Phone: [facility] Start: 06-14-2024 End: 06-16-2024 Refill Le Eric TELEPHONE MECHANIC - CLINICAL SUPPORT TECH Work Phone: [facility] Comment on above: Type 2 diabetes nguyen itus without complication, without long- term current use of insulin (CMS/HCC) ([facility]) Start: 06-12-2024 End: 06-12-2024 Admission to same day surgery center Arnold Carrillo TELEPHONE MECHANIC - CLINICAL SUPPORT TECH Work Phone: [facility] Surgery Comment on above: Hx of colonic polyp (Primary Dx) Start: 06-12-2024 End: 06-12-2024 ambulatory Arnold Carrillo TELEPHONE MECHANIC - CLINICAL SUPPORT TECH Work Phone: [facility] Surgery Start: 06-10-2024 End: 06-10-2024 Office outpatient visit 25 minutes Jason Morocho MD Work Phone: [facility] Comment on above: Type 2 diabetes nguyen itus without complication, without long- term current use of insulin (CMS/HCC) ([facility]) (Primary Dx); Hypercholesterolemia; Primary hypertension Start: 06-10-2024 End: 06-10-2024 ambulatory JASON MOROCHO [facility] Start: 05-13-2024 End: 05-13-2024 Refill Jason Morocho MD Work Phone: [facility] Comment on above: Type 2 diabetes nguyen itus without complication, without long- term current use of insulin (CMS/HCC) ([facility]) Start: 04-22-2024 Refill Jason Morocho MD Work Phone: [facility] Start: 04-07-2024 Refill Jason Morocho MD Work Phone: [facility] Start: 03-28-2024 Refill Jason Morocho MD Work Phone: [facility] Comment on above: Type 2 diabetes nguyen itus without complication, without long- term current use of insulin (CMS/HCC) ([facility]) Start: 02-24-2024 Refill Jason Morocho MD Work Phone: [facility] Start: 02-09-2024 End: 02-10-[address] JASON MOROCHO MD Facility:A Start: 02-07-2024 End: 02-07-2024 Patient encounter procedure Jason Morocho MD Work Phone: [facility] Work Phone: Start: 02-07-2024 End: 02-07-2024 Periodic preventive med est patient 40-64yrs Jason Morocho MD Work Phone: [facility] Comment on above: Annual physical exam (Primary Dx); Type 2 diabetes mellitus without complication, without long-term current use of insulin (CMS/HCC) ([facility]); Primary hypertension; Hypercholesterolemia; Screening for prostate cancer Start: 02-01-2024 Telephone encounter Don villagran MD Work Phone: [facility] General Surgery Start: 01-29-2024 End: 01-29-2024 Anesthesia consultation No Anesthesiologist - Sbgonzales/Leela PICKERING Work Phone: [facility] Endoscopy Start: 01-29-2024 End: 01-29-2024 Subsequent hospital visit by physician Don Feldman MD Work Phone: [facility] Endoscopy Comment on above: Screening for malign ant neoplasm of colon Start: 12-28-2023 Refill Jason Morocho MD Work Phone: [facility] Comment on above: Type 2 diabetes nguyen itus without complication, without long- term current use of insulin ([facility]) ([facility]) Start: 12-26-2023 Refill Cecelia richardson DO Work Phone: [facility] Start: 10-16-2023 Refill Le fenton TELEPHONE MECHANIC - CLINICAL SUPPORT TECH Work Phone: [facility] Comment on above: Type 2 diabetes nguyen itus without complication, without long- term current use of insulin ([facility]) ([facility]) Start: 10-08-2023 Telephone encounter Jason Jhaveri MD Work Phone: [facility] Clinical Communication Comment on above: Release of Informati on (semaglutide (Ozempic) 2 MG/3ML solution pen-injector ) Start: 09-13-2023 Telephone encounter Max Sanchez APRN - JAVA J2EE LEAD Work Phone: [facility] Comment on above: Colon Cancer Screeni ng; Colonoscopy (Surveillance program) Start: 09-06-2023 Refill Jason Morocho MD Work Phone: [facility] Medicine Start: 09-05-2023 Telephone encounter Jason Jhaveri MD Work Phone: [facility] Comment on above: other (Requesting We govy Rx ) Start: 09-03-2023 End: 09-03-2023 Office outpatient visit 25 minutes Jason Morocho MD Work Phone: [facility] Medicine Comment on above: Primary hypertension (Primary Dx); Type 2 diabetes mellitus without complication, without long-term current use of insulin (CMS/HCC) (HCC); Hypercholesterolemia; Sprain of medial collateral ligament of left knee, initial encounter; Screening for colon cancer Start: 08-20-2023 Refill Cecelia richardson DO Work Phone: [facility] Medicine Start: 08-09-2023 Telephone encounter Cecelia Fox DO Work Phone: [facility] Comment on above: Other (Message to Dc ovider- Lab results ) Start: 08-07-2023 Telephone encounter Cecelia Fox DO Work Phone: [facility] Comment on above: Results (Labs) Start: 08-03-2023 End: 08-08-[address] CECELIA FOX DO Facility:A Start: 07-26-2023 ambulatory Sue Del Cid RN [facility] Start: 07-26-2023 Patient encounter procedure Sue Del Cid RN [facility] Comment on above: Other fatigue (Prima ry Dx); Type 2 diabetes mellitus without complication, without long-term current use of insulin (CMS/HCC) (HCC) Start: 04-21-2023 Refill Cecelia richardson DO Work Phone: [facility] Medicine Start: 02-26-2023 Refill Cecelia richardson DO Work Phone: [facility] Medicine Comment on above: Results Start: 02-23-2023 End: 02-23-2023 ambulatory Cecelia Fox DO Work Phone: [facility] Laboratory Comment on above: Type 2 diabetes nguyen itus with hyperglycemia (CMS/HCC) (HCC) (Primary Dx) Start: 02-13-2023 Refill Renu salcedo MD Work Phone: [facility] Family Medicine Start: 02-08-2023 Refill Renu salcedo MD Work Phone: [facility] Start: 01-27-2023 Refill Cecelia M Pe ters DO Work Phone: [facility] Start: 12-26-2022 Refill Cecelia M Pe ters DO Work Phone: [facility] Start: 11-28-2022 Refill Cecelia M Pe ters DO Work Phone: [facility] Start: 08-10-2017 End: 08-10-2017 Ambulatory [facility] Start: 08-10-2017 End: 08-10-2017 Emergency department patient visit [facility] Facility:[facility] Start: 08-04-2017 Ambulatory [facility] Procedures Date Procedure Procedure Detail Performing Clinician Start: 05-13-2025 Ecg routine ecg w/le ast 12 lds w/i&r Jason Morocho MD Work Phone: Start: 05-13-2025 Lipid 1996 panel - S candy or Plasma Digna Adam TELEPHONE MECHANIC - CLINICAL SUPPORT TECH Work Phone: Start: 04-14-2025 MRI of cervical spine Jay Jay Morocho MD Work Phone: Start: 02-26-2025 X-ray of cervical spine Dr. Jason Morocho MD Work Phone: Start: 02-03-2025 Plain X-ray of shoulder Dr. Jason Morocho MD Work Phone: Start: 12-11-2024 Hemoglobin glycosyla janelle a1c Jason Morocho MD Work Phone: Start: 12-11-2024 Adult depression scr eening assessment Jason Morocho MD Work Phone: Start: 08-05-2024 Glucose quantitative blood xcpt reagent strip Don Feldman MD Work Phone: Start: 08-05-2024 Glucose quantitative blood xcpt reagent strip Don Feldman MD Work Phone: Start: 08-05-2024 Colonoscopy Don espinoza MD Work Phone: Start: 06-10-2024 Hemoglobin glycosyla janelle a1c Jason Morocho MD Work Phone: Start: 02-09-2024 Lipid 1996 panel - S candy or Plasma Jason Morocho MD Work Phone: Start: 02-06-2024 Adult depression scr eening assessment Jason Morocho MD Work Phone: Start: 01-29-2024 Glucose quantitative blood xcpt reagent strip Don Feldman MD Work Phone: Start: 01-29-2024 Glucose quantitative blood xcpt reagent strip Don Feldman MD Work Phone: Start: 01-29-2024 Colonoscopy Don espinoza MD Work Phone: Start: 02-23-2023 Basic metabolic pane l calcium total Cecelia Fox DO Work Phone: Start: 02-23-2023 Lipid panel Cecelia Fox DO Work Phone: Start: 02-23-2023 Lipid 1996 panel - S candy or Plasma Cecelia Fox DO Work Phone: Start: 10-19-2021 Lipid 1996 panel - S candy or Plasma Cecelia Fox DO Work Phone: Start: 11-09-2020 Colonoscopy Sue Coffman Plan of Treatment Date Care Activity Detail Author Start: 2038 RSV Immunization for Adults (1 - 1-dose 75+ series) RSV Immunization for Adults (1 - 1-dose 75+ series) [facility] Start: 01-28-2034 Screening for malignant neoplasm of colon [facility] Start: 11-09-2030 Screening for malignant neoplasm of colon [facility] Start: 05-13-2026 Diabetes: Estimated Glomerular Filtration Rate for Kidney Health Diabetes: Estimated Glomerular Filtration Rate for [facility] [employer] Start: 05-13-2026 Hemoglobin A1c measurement Diabetes: Hemoglobin A1C [facility] Start: 05-13-2026 Lipid panel Lipid Panel [facility] Start: 12-11-2025 COVID-19 Vaccine ( season) COVID-19 Vaccine ( season) [facility] Comment on above: Postponed from 07/20/2024 (Patient Refus ed) Start: 12-11-2025 Depression Screening Depression Screening [facility] Start: 12-11-2025 Hemoglobin A1c measurement Diabetes: Hemoglobin A1C [facility] Start: 12-11-2025 Pneumococcal Vaccine: 50+ Years (1 of 2 - PCV) Pneumococcal Vaccine: 50+ Years (1 of 2 - PCV) [facility] Comment on above: Postponed from 1982 (Patient Refus ed) Start: 07-21-2025 End: 07-21-2025 Patient encounter procedure 07/21/2025 3:15 PM EDT Office Visit [address] [id number] Jason Morocho MD [address] [place] [address] [id number] [facility] Start: 07-20-2025 Influenza vaccination [facility] Start: 07-08-2025 Glaucoma screening Diabetes: Retinopathy Screening [facility] Start: 06-19-2025 Preventive dental service Diabetes: Dental Exam [facility] Start: 06-16-2025 End: 06-16-2025 Patient encounter procedure 06/16/2025 3:00 PM EDT Office [address] [place] [address] Jason Morocho MD [address] [place] [address] [address] [facility] Start: 06-10-2025 Hemoglobin A1c measurement Diabetes: Hemoglobin A1C [facility] Start: 05-18-2025 Influenza vaccination Influenza Vaccine (#1) [facility] Comment on above: Postponed from 07/20/2024 (Patient Refus ed) Start: 05-13-2025 End: 05-13-2026 CBC W Auto Differential panel - Blood CBC auto differential Lab Routine Pre-op examination Expected: 05/13/2025 (Approximate), Expires: 05/13/2026 [facility] [employer] Comment on above: Expected: 05/13/2025 (Approximate), Expi res: 05/13/2026 Start: 05-13-2025 End: 05-13-2026 Comprehensive metabolic 1998 panel - Serum or Plasma Comprehensive metabolic panel Lab Routine Type 2 diabetes mellitus without complication, without long-term current use of insulin (HCC) Expected: 05/13/2025 (Approximate), Expires: 05/13/2026 [facility] Work Phone: Comment on above: Expected: 05/13/2025 (Approximate), Expi res: 05/13/2026 Start: 05-13-2025 End: 05-13-2026 Hemoglobin A1c measurement Hemoglobin A1c Lab Routine Type 2 diabetes mellitus without complication, without long-term current use of insulin (HCC) Expected: 05/13/2025 (Approximate), Expires: 05/13/2026 [facility] Comment on above: Expected: 05/13/2025 (Approximate), Expi res: 05/13/2026 Start: 05-13-2025 End: 05-13-2026 Lipid 1996 panel - Serum or Plasma Lipid panel Lab Routine Hypercholesterolemia Expected: 05/13/2025 (Approximate), Expires: 05/13/2026 [facility] Comment on above: Expected: 05/13/2025 (Approximate), Expi res: 05/13/2026 Start: 05-13-2025 End: 05-13-2026 PSA Total (Screening) PSA Total (Screening) Lab Routine Screening for prostate cancer Expected: 05/13/2025 (Approximate), Expires: 05/13/2026 [facility] Comment on above: Expected: 05/13/2025 (Approximate), Expi res: 05/13/2026 Start: 02-08-2025 Hemoglobin A1c measurement Diabetes: Hemoglobin A1C [facility] Start: 02-08-2025 Lipid panel Lipid Panel [facility] Start: 02-06-2025 Diabetic foot examination Diabetes: Foot Exam [facility] Start: 02-05-2025 COVID-19 Vaccine (1 - 2023-24 season) COVID-19 Vaccine (2022-24 season) [facility] Comment on above: Postponed from 07/20/2023 (Patient Refus ed) Start: 02-05-2025 Depression Screening Depression Screening [facility] Start: 02-05-2025 DTaP/Tdap/Td Vaccines (1 - Tdap) DTaP/Tdap/Td Vaccines (1 - Tdap) [facility] Comment on above: Postponed from 1982 (Patient Refus ed) Start: 02-05-2025 HIV screening HIV Screening [facility] Comment on above: Postponed from 1963 (Patient Refus ed) Start: 02-05-2025 Pneumococcal Vaccine: Pediatrics (0 to 5 Years) and At-Risk Patients (6 to 64 Years) (1 of 2 - PCV) Pneumococcal Vaccine: Pediatrics (0 to 5 Years) and At-Risk Patients (6 to 64 Years) (1 of 2 - PCV) [facility] Comment on above: Postponed from 1969 (Patient Refus ed) Start: 02-05-2025 RSV Immunization aged 60 or older (1 - 1-dose 60+ series) RSV Immunization aged 60 or older (1 - 1-dose 60+ series) [facility] Comment on above: Postponed from 2023 (Patient Refus ed) Start: 02-05-2025 Zoster Vaccines (1 of 2) Zoster Vaccines (1 of 2) [facility] Comment on above: Postponed from 2013 (Patient Refus ed) Start: 02-03-2025 Patient referral [facility] Work Phone: Start: 02-02-2025 Screening for malignant neoplasm of colon [facility] Start: 12-25-2024 End: 12-25-2024 Clinical Support 12/25/2024 3:30 PM EST Clinical Support [place] [address] [place] [address] [facility] Start: 12-11-2024 End: 12-11-2024 Patient encounter procedure [facility] Medical [facility] Start: 09-04-2024 Preventive dental service Diabetes: Dental Exam [facility] Start: 08-30-2024 Glaucoma screening Diabetes: Retinopathy Screening [facility] Start: 08-05-2024 End: 08-05-2024 Admission to same day surgery center 08/05/2024 7:30 AM EDT - 08/05/2024 8:00 AM EDT Surgery [facility] Endoscopy [address] [place] [phone] Don Feldman MD [address] [facility] [address] [place], [place] [id number] COLONOSCOPY [98576 (CPT )] [facility] Endoscopy Comment on above: COLONOSCOPY [23091 (CPT )] Start: 08-05-2024 End: 08-05-2024 Anesthesia consultation 08/05/2024 7:30 AM EDT Anesthesia Event [facility] Endoscopy [address] [place] [phone] Jonathan Gillespie, TELEPHONE MECHANIC - COMSEC MANAGER [address] [place] [address] [facility] Endoscopy Start: 08-05-2024 Subsequent hospital visit by physician 08/05/2024 7:30 AM EDT Hospital Encounter [facility] Endoscopy [address] [place] [address] Don Feldman MD [address] [facility] [address] [place], [place] [id number] [facility] Endoscopy Start: 08-05-2024 End: 08-05-2024 Colonoscopy flx dx w/collj spec when pfrmd [facility] Gastroenterology Start: 08-03-2024 Hemoglobin A1c measurement Diabetes: Hemoglobin A1C [facility] Start: 07-31-2024 Screening for malignant neoplasm of colon [facility] Start: 07-20-2024 COVID-19 Vaccine ( season) COVID-19 Vaccine ( season) [facility] Start: 07-20-2024 COVID-19 Vaccine ( season) COVID-19 Vaccine ( season) [facility] Start: 07-20-2024 Influenza vaccination [facility] Start: 06-10-2024 End: 06-10-2024 Patient encounter procedure 06/10/2024 3:15 PM EDT Office Visit [address] [place] [address] Jason Morocho MD [address] [place] [address] [address] [facility] Start: 05-18-2024 Influenza vaccination Influenza Vaccine (#1) [facility] Comment on above: Postponed from 07/20/2023 (Patient Refus ed) Start: 05-07-2024 End: 05-07-2024 Patient encounter procedure 05/07/2024 2:30 PM EDT Office Visit [address] [place] [address] Jason Morocho MD [address] [place] [address] [facility] Start: 02-24-2024 Diabetes: Estimated Glomerular Filtration Rate for Kidney Health Diabetes: Estimated Glomerular Filtration Rate for [facility] Start: 02-24-2024 Diabetes: Urine Albumin-Creatinine Ratio for [facility] Diabetes: Urine Albumin-Creatinine Ratio for [facility] Start: 02-24-2024 Hemoglobin A1c measurement Diabetes: Hemoglobin A1C [facility] Start: 02-24-2024 Lipid panel Lipid Panel [facility] Start: 02-24-2024 Urine screening for protein Diabetes: Urine Protein Screening [facility] Start: 02-14-2024 End: 02-14-2024 Clinical Support 02/14/2024 3:00 PM EDT Clinical Support [address] [place] [address] [facility] Start: 02-07-2024 End: 02-07-2024 Patient encounter procedure 02/07/2024 2:45 PM EDT Office Visit [address] [place] [address] Jason Morocho MD [address] [place] [address], [place] [address] [facility] Family Medicine Start: 02-07-2024 End: 02-05-2025 Comprehensive metabolic 1998 panel - Serum or Plasma Comprehensive metabolic panel Lab Routine Type 2 diabetes mellitus without complication, without long-term current use of insulin (CMS/HCC) (HCC) Expected: 02/07/2024 (Approximate), Expires: 02/05/2025 [facility] Comment on above: Expected: 02/07/2024 (Approximate), Expi res: 02/05/2025 Start: 02-07-2024 End: 02-05-2025 Hemoglobin A1c measurement Hemoglobin A1c Lab Routine Type 2 diabetes mellitus without complication, without long-term current use of insulin (CMS/HCC) (HCC) Expected: 02/07/2024 (Approximate), Expires: 02/05/2025 [facility] Comment on above: Expected: 02/07/2024 (Approximate), Expi res: 02/05/2025 Start: 02-07-2024 End: 02-05-2025 Lipid 1996 panel - Serum or Plasma Lipid panel Lab Routine Hypercholesterolemia Expected: 02/07/2024 (Approximate), Expires: 02/05/2025 [facility] Work Phone: Comment on above: Expected: 02/07/2024 (Approximate), Expi res: 02/05/2025 Start: 02-07-2024 End: 02-05-2025 Microalbumin/Creatin ine panel in random Urine Microalbumin / creatinine urine ratio Lab Routine Type 2 diabetes mellitus without complication, without long-term current use of insulin (CMS/HCC) (HCC) Expected: 02/07/2024 (Approximate), Expires: 02/05/2025 [facility] Comment on above: Expected: 02/07/2024 (Approximate), Expi res: 02/05/2025 Start: 02-07-2024 End: 02-05-2025 PSA Total (Screening) PSA Total (Screening) Lab Routine Screening for prostate cancer Expected: 02/07/2024 (Approximate), Expires: 02/05/2025 [facility] Comment on above: Expected: 02/07/2024 (Approximate), Expi res: 02/05/2025 Start: 01-29-2024 End: 01-29-2024 Admission to same day surgery center 01/29/2024 9:30 AM EDT - 01/29/2024 10:30 AM EDT Surgery [facility] Endoscopy [address] [place] [address] Don Feldman MD [address] [facility] [address] [place] [address] COLONOSCOPY [13271 (CPT )] [facility] Endoscopy Comment on above: COLONOSCOPY [70120 (CPT )] Start: 01-29-2024 Subsequent hospital visit by physician 01/29/2024 9:30 AM EDT Hospital Encounter [facility] Endoscopy [address] [place] [address] Don Feldman MD [address] [facility] [address] [place] [address] [facility] Endoscopy Start: 01-29-2024 End: 01-29-2024 Colonoscopy flx dx w/collj spec when pfrmd [facility] Gastroenterology Start: 12-05-2023 End: 12-05-2023 Patient encounter procedure 12/05/2023 7:00 AM EST Office Visit [facility] Medicine [address] [place] [address] [place] [address] Jason Morocho MD [address] [place] [address] [place] [address] [facility] Medicine Start: 08-30-2023 Glaucoma screening Diabetes: Retinopathy Screening [facility] Start: 08-24-2023 End: 08-24-2023 Patient encounter procedure 08/24/2023 11:00 AM EDT Office Visit [facility] Medicine [address] [place] [address] Cecelia Fox DO [address] [place] [address] [facility] Family Medicine Start: 07-27-2023 End: 07-27-2024 25-hydroxyvitamin D3 [Mass/volume] in Serum or Plasma Vitamin D Deficiency Screening (Vit D 25) Lab Routine Other fatigue Expected: 07/27/2023 (Approximate), Expires: 07/27/2024 [facility] Comment on above: Expected: 07/27/2023 (Approximate), Expi res: 07/27/2024 Start: 07-27-2023 End: 07-27-2024 Basic metabolic 1998 panel - Serum or Plasma Basic metabolic panel Lab Routine Other fatigue Expected: 07/27/2023 (Approximate), Expires: 07/27/2024 [facility] Comment on above: Expected: 07/27/2023 (Approximate), Expi res: 07/27/2024 Start: 07-27-2023 End: 07-27-2024 CBC panel - Blood by Automated count CBC Lab Routine Other fatigue Expected: 07/27/2023 (Approximate), Expires: 07/27/2024 [facility] Comment on above: Expected: 07/27/2023 (Approximate), Expi res: 07/27/2024 Start: 07-27-2023 End: 07-27-2024 Cobalamin (Vitamin B12) [Mass/volume] in Serum or Plasma Vitamin B12 Lab Routine Other fatigue Expected: 07/27/2023 (Approximate), Expires: 07/27/2024 [facility] Work Phone: Comment on above: Expected: 07/27/2023 (Approximate), Expi res: 07/27/2024 Start: 07-27-2023 End: 07-27-2024 Hemoglobin A1c measurement Hemoglobin A1c Lab Routine Other fatigue Type 2 diabetes mellitus without complication, without long-term current use of insulin ([facility]/HCC) (HCC) Expected: 07/27/2023 (Approximate), Expires: 07/27/2024 [facility] Comment on above: Expected: 07/27/2023 (Approximate), Expi res: 07/27/2024 Start: 07-27-2023 End: 07-27-2024 Thyrotropin [Units/volume] in Serum or Plasma TSH Lab Routine Other fatigue Expected: 07/27/2023 (Approximate), Expires: 07/27/2024 [facility] Comment on above: Expected: 07/27/2023 (Approximate), Expi res: 07/27/2024 Start: 07-20-2023 Influenza vaccination [facility] Start: 06-26-2023 End: 06-26-2023 Patient encounter procedure 06/26/2023 4:00 PM EDT Office Visit [facility] Medicine [address] [place] [id number] Cecelia Fox DO [address] [place] [address] [facility] Start: 05-25-2023 Hemoglobin A1c measurement Diabetes: Hemoglobin A1C [facility] Start: 2023 Hepatitis B Vaccines (1 of 3 - Risk 3-dose series) Hepatitis B Vaccines (1 of 3 - Risk 3-dose series) [facility] Start: 2023 RSV Immunization aged 60 or older (1 - 1-dose 60+ series) RSV Immunization aged 60 or older (1 - 1-dose 60+ series) [facility] Start: 11-21-2022 Hemoglobin A1c measurement Diabetes: Hemoglobin A1C [facility] Start: 10-19-2022 Lipid panel Lipid Panel [facility] Start: 07-20-2022 Influenza vaccination Influenza Vaccine (#1) [facility] Start: 2013 Zoster Vaccines (1 of 2) Zoster Vaccines (1 of 2) [facility] Start: 1982 DTaP/Tdap/Td Vaccines (1 - Tdap) DTaP/Tdap/Td Vaccines (1 - Tdap) [facility] Start: 1982 Pneumococcal Vaccine: 50+ Years (1 of 2 - PCV) Pneumococcal Vaccine: 50+ Years (1 of 2 - PCV) [facility] Start: 1982 Urine screening for protein Diabetes: Urine Protein Screening [facility] Start: 1975 Depression Screening Depression Screening [facility] Start: 1973 Diabetic foot examination Diabetes: Foot Exam [facility] Start: 1973 Glaucoma screening Diabetes: Retinopathy Screening [facility] Start: 1973 Preventive dental service Diabetes: Dental Exam [facility] Start: 1969 Pneumococcal Vaccine: Pediatrics (0 to 5 Years) and At-Risk Patients (6 to 64 Years) (1 - PCV) Pneumococcal Vaccine: Pediatrics (0 to 5 Years) and At-Risk Patients (6 to 64 Years) (1 - PCV) [facility] Start: 1969 Pneumococcal Vaccine: Pediatrics (0 to 5 Years) and At-Risk Patients (6 to 64 Years) (1 of 2 - PCV) Pneumococcal Vaccine: Pediatrics (0 to 5 Years) and At-Risk Patients (6 to 64 Years) (1 of 2 - PCV) [facility] Start: 1966 MMR Vaccines (1 of 1 - Standard series) MMR Vaccines (1 of 1 - Standard series) [facility] Start: 1965 COVID-19 Vaccine (#1) COVID-19 Vaccine (#1) [facility] Start: 1965 Hepatitis B Vaccines (1 of 3 - 3-dose series) Hepatitis B Vaccines (1 of 3 - 3-dose series) [facility] Start: 1965 HIV screening HIV Screening [facility] Start: 1965 Screening for malignant neoplasm of colon [facility] Colonoscopy flx dx w/collj spec when pfrmd COLONOSCOPY Hx of colonic polyp [facility]ology MR Lower Extremity Joint [facility] OUTSIDE PROCEDURE SCAN OUTSIDE PROCEDURE SCAN Procedures Ordered: 02/23/2023 [facility] Comment on above: Ordered: 02/23/2023 Patient referral [facility] Work Phone: Tissue exam [facility] [employer] Work Phone: Comment on above: Release Upon Ordering for 1 Occurrences starting 01/29/2024 Tissue exam [facility] [employer] Work Phone: Comment on above: Release Upon Ordering for 1 Occurrences starting 08/05/2024 Payers Date Payer Category Payer Unknown [id number] 2025 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 [employer] [id number] 2023 Unknown [id number] 2022 Unknown 1965 Unknown [id number]. 2.627 1965 Unknown [id number]. 2.627 1965 Unknown [id number]. 2.627 1965 Unknown [id number]. 2.627 Unknown [id number] Unknown [id number]. 2.462 Unknown [id number] [id number]. 2.462 Unknown [id number] 2.16.840.1.215001.3.579. 2.462 Unknown [id number] 2.16.840.1.479190.3.579. 2.462 Unknown [id number] [id number]. 2.462 Unknown [id number] 2.16.840.1.001435.3.579. 2.462 Unknown [id number] [id number]. 2.462 Unknown [id number] [id number]. 2.462 Unknown [id number]. 2.462 Social History Date Type Detail Facility Start: 09-03-2023 End: 05-25-2025 Tobacco smoking status TNIS Smokes tobacco daily [facility] History of tobacco use Cigarette Smoker [facility] Start: 10-31-2022 End: 09-03-2023 Alcohol intake Current non-drinker of alcohol (finding) [facility] Start: 1965 Sex Assigned At Not on file [facility] Start: 10-21-2022 End: 02-23-2023 Exposure to SARS-CoV-2 (event) Not sure [facility] Start: 10-31-2022 End: 12-05-2024 History of Social function [facility] Start: 10-31-2022 End: 12-05-2024 Tobacco use panel [facility] Start: 09-03-2023 End: 01-14-2025 Tobacco use and exposure Smokeless tobacco non-user [facility] Start: 09-03-2023 Tobacco Comment About a pack every 2 weeks [facility] Start: 01-29-2024 End: 05-13-2025 Alcohol intake Current drinker of alcohol (finding) [facility] Start: 01-29-2024 Alcohol Comment occasionally [facility] Start: 02-06-2024 End: 01-14-2025 Tobacco smoking status TNIS Occasional tobacco smoker [facility] How often to you hav e a drink containing alcohol? 2-3 time sa week [facility] How many standard dr inks containing alcohol do you have on a typical day? 1 or 2 [facility] How often do you hav e 6 or more drinks on 1 occasion? Never [facility] How hard is it for y ou to pay for the very basics like food, housing, medical care, and heating Not hard at all [facility] In the past 12 month s, was there a time when you were not able to pay the mortgage or rent on time? No [facility] Start: 10-19-2021 End: 06-19-2022 Sex Male (finding) [facility] Tobacco smoking status [facility] Start: 1965 Sex Assigned At [facility] Do you belong to any clubs or organizations such as hoahaoism groups, unions, fraternal or athletic groups, or school groups? Yes [facility] Are you now , , , , never or living with a partner? [facility] How many standard dr inks containing alcohol do you have on a typical day? 3 or 4 [facility] How often do you hav e 6 or more drinks on 1 occasion? Weekly [facility] Do you feel stress - tense, restless, nervous, or anxious, or unable to sleep at night because your mind is troubled all the time - these days [OSQ] Not at all [facility] (I/We) worried wheth er (my/our) food would run out before (I/we) got money to buy more. Never true [facility] Medical Equipment Procedure Code Equipment Code Equipment Origin al Text Equipment Identifier Dates [id number] Start: 08-16-2022 TEST ONCE DAILY [id number] Start: 08-16-2022 Functional Status Date Assessment Result Facility 11-27-2024 Functional Status Independent [facility] 11-27-2024 Functional Status Environmental Safety Implemented Adequate room lighting, Bed in low position, Call device within reach [facility] 11-27-2024 Functional Status Standard Safet y ID band on, Call device within reach, Bed in low position, Wheels locked, Phone within reach [facility] Mental Status Date Assessment Result Facility 11-27-2024 Mental Status Orientation Oriented x 4 [facility] 11-27-2024 Mental Status [facility] Clinical Notes 11-29-2022 to 05-29-2025 Telephone Encounter - LEXII Coates CNP - 05/29/2025 1:46 PM EDTTelephone Encounter - LEXII Coates CNP - 05/29/2025 1:46 PM EDT Note Date & Type Note Facility 05-29-2025 Telephone encount er Note Reviewed chart. Refill appropriate. RX sent. [facility] 05-29-2025 Miscellaneous Notes Formattin g of this note might be different from the original. Reviewed chart. Refill appropriate. RX sent. Prescription Request: Next scheduled appointment: 06/16/25 Last date of refill on this medication 01/30/25 documented in this encounter [facility] 05-29-2025 Telephone encount er Note Prescription Request: Next scheduled appointment: 06/16/25 Last date of refill on this medication 01/30/25 [facility] 05-13-2025 Evaluation + Plan note Associ ated Problem(s): Hypercholesterolemia Controlled, continue lovastatin 80 mg nightly [facility] 05-13-2025 Evaluation + Plan note Associ ated Problem(s): Type 2 diabetes mellitus without complication, without long-term current use of insulin (HCC) Controlled, continue metformin 1000 mg daily and Ozempic 0.5 mg weekly. [facility] 05-13-2025 Miscellaneous Notes Associate d Problem(s): Hypercholesterolemia Controlled, continue lovastatin 80 mg nightly Associated Problem(s): Type 2 diabetes mellitus without complication, without long-term current use of insulin (HCC) Controlled, continue metformin 1000 mg daily and Ozempic 0.5 mg weekly. Associated Problem(s): Herniated cervical disc Scheduled for cervical fusion, PAT being done today. Associated Problem(s): Hypertension Controlled, continue lisinopril 10 mg daily, atenolol 50 mg daily Associated Problem(s): Cervical spinal stenosis Uncontrolled, continues to have pain, scheduled for surgery anterior cervical fusion documented in this encounter [facility] 05-13-2025 Evaluation + Plan note Associ ated Problem(s): Herniated cervical disc Scheduled for cervical fusion, PAT being done today. [facility] 05-13-2025 Evaluation + Plan note Associ ated Problem(s): Hypertension Controlled, continue lisinopril 10 mg daily, atenolol 50 mg daily [facility] 05-13-2025 Evaluation + Plan note Associ ated Problem(s): Cervical spinal stenosis Uncontrolled, continues to have pain, scheduled for surgery anterior cervical fusion [facility] 05-13-2025 History of Presen t illness Narrative Images from the original note were not included. 05/13/2025 Nina Wilson (: 1965) is a 60 y.o. male , Established patient, here for evaluation of the following chief complaint(s): Forms/questionnaires (Patient is scheduled to undergo surgery on 06/17/25, patient needs surgery clearance forms completed prior ) ASSESSMENT/PLAN: 1. Annual physical exam 2. Pre-op examination Comments: EKG normal sinus rhythm. Patient will be cleared at low to moderate risk for this moderate risk surgery unless labs are abnormal Orders: - CBC auto differential - ECG 12 lead 3. Herniated cervical disc Assessment & Plan: Scheduled for cervical fusion, PAT being done today. 4. Cervical spinal stenosis Assessment & Plan: Uncontrolled, continues to have pain, scheduled for surgery anterior cervical fusion 5. Primary hypertension Assessment & Plan: Controlled, continue lisinopril 10 mg daily, atenolol 50 mg daily 6. Hypercholesterolemia Assessment & Plan: Controlled, continue lovastatin 80 mg nightly Orders: - Lipid panel 7. Type 2 diabetes mellitus without complication, without long-term current use of insulin (HCC) Assessment & Plan: Controlled, continue metformin 1000 mg daily and Ozempic 0.5 mg weekly. Orders: - Comprehensive metabolic panel - Hemoglobin A1c 8. Screening for prostate cancer - PSA Total (Screening) Follow up in about 6 months (around 11/12/2025). SUBJECTIVE/OBJECTIVE: SHERIDAN Duque comes in today for an annual exam, he needs fasting lab work but he also needs preop clearance for anterior cervical disc fusion. He is having pain down his arms and in his neck his MRI showed a herniated cervical disc and he is scheduled for surgery in May. He also needs follow-up on his diabetes he has not had an A1c for 3 months, he needs fasting blood work for his cholesterol and he is here for follow-up on his hypertension. He says he has no complaints today, see ROS. Review of Systems Constitutional: Negative for activity change, appetite change, chills, fever and unexpected weight change. HENT: Negative for ear pain and sore throat. Respiratory: Negative for shortness of breath. Cardiovascular: Negative for chest pain and palpitations. Gastrointestinal: Negative for abdominal pain, blood in stool, constipation and diarrhea. Genitourinary: Negative for dysuria, frequency, hematuria and urgency. Musculoskeletal: Negative for arthralgias and back pain. Skin: Negative. Neurological: Negative for weakness and numbness. Psychiatric/Behavioral: Negative for dysphoric mood. The patient is not nervous/anxious. Vitals: 05/13/25 1259 BP: 122/71 Pulse: 76 SpO2: 95% Weight: 230 lb (104 kg) Height: 5' 9" (1.753 m) Physical Exam Vitals and nursing note reviewed. Constitutional: General: He is not in acute distress. Appearance: Normal appearance. He is obese. HENT: Right Ear: Tympanic membrane, ear canal and external ear normal. Left Ear: Tympanic membrane, ear canal and external ear normal. Mouth/Throat: Mouth: Mucous membranes are moist. Pharynx: Oropharynx is clear. Eyes: Extraocular Movements: Extraocular movements intact. Conjunctiva/sclera: Conjunctivae normal. Pupils: Pupils are equal, round, and reactive to light. Neck: Thyroid: No thyromegaly. Vascular: No carotid bruit. Cardiovascular: Rate and Rhythm: Normal rate and regular rhythm. Heart sounds: Normal heart sounds. No murmur heard. Pulmonary: Effort: Pulmonary effort is normal. Breath sounds: Normal breath sounds. Abdominal: General: Bowel sounds are normal. Palpations: Abdomen is soft. Tenderness: There is no abdominal tenderness. Musculoskeletal: General: Normal range of motion. Cervical back: Neck supple. Lymphadenopathy: Cervical: No cervical adenopathy. Skin: General: Skin is warm and dry. Neurological: General: No focal deficit present. Mental Status: He is alert and oriented to person, place, and time. Psychiatric: Mood and Affect: Mood normal. An electronic signature was used to authenticate this note. Jason Morocho MD 05/13/2025 1:52 PM documented in this encounter [facility] 04-29-2025 Telephone encount er Note Prescription Request: cyclobenzaprine (Flexeril) 10 MG tablet Last medication check: none Last physical exam: none Next scheduled appointment: 06/16/25 Last date of refill on this medication 11/27/24 - no qty or refills listed [facility] 04-29-2025 Miscellaneous Notes Formattin g of this note might be different from the original. Prescription Request: cyclobenzaprine (Flexeril) 10 MG tablet Last medication check: none Last physical exam: none Next scheduled appointment: 06/16/25 Last date of refill on this medication 11/27/24 - no qty or refills listed documented in this encounter [facility] 02-19-2025 Telephone encount er Note Reviewed chart. Refill appropriate. RX sent. [facility] 02-19-2025 Miscellaneous Notes Formattin g of this note might be different from the original. Reviewed chart. Refill appropriate. RX sent. Prescription Request: Last medication check: 01/14/25 Last physical exam: 02/07/24 Next scheduled appointment: 06/16/25 Last date of refill on this medication 08/19/24 documented in this encounter [facility] 02-19-2025 Telephone encount er Note Prescription Request: Last medication check: 01/14/25 Last physical exam: 02/07/24 Next scheduled appointment: 06/16/25 Last date of refill on this medication 08/19/24 [facility] 02-03-2025 Evaluation note Diagnosis Onset Date Resolution Right shoulder pain acute February 03, 2025 3:24pm Cervical myelopathy acute February 26, 2025 3:05pm [facility] Work Phone: 1(780) 652-988503-18-2025 Evaluation note* Diagnosis Onset Date Resolution Status Admit Date Right shoulder pain acute February 03, 2025 3:24pm Cervical myelopathy acute February 26, 2025 3:05pm Cervical myelopathy acute April 23, 2025 3:13pm [facility] Work Phone: 1(992) 931-746502-27-2025 NoteMessage released to patient as written. Patient's further questions if applicable: Referral placed. Psa ordered Were all questions from office addressed or relayed to the patient from encounter: [facility]02-27-2025 LEXII Boyle CNP [facility] Clinical Support Staff7 minutes ago (11:41 AM) Referral placed. Psa ordered Left a message to return call.[facility]02-26-2025 Evaluation + Plan note* Assessment & Plan Note - LEXII Coates CNP - 01/14/2025 5:19 PM ESTAssociated Problem(s): Numbness of right hand Only near the thumb. No significant grasp weakness, no thenar wasting. Suspect a tendinitis or mildcarpal tunnel. Negative spurlings - so I do not suspect cervical radiculopathy. If worsens, consider NCT. [id number] Miscellaneous Notes* Assessment & Plan Note - LEXII Coates CNP - 01/14/2025 5:19 PM ESTAssociated Problem(s): Numbness of right hand Only near the thumb. No significant grasp weakness, no thenar wasting. Suspect a tendinitis or mildcarpal tunnel. Negative spurlings - so I do not suspect cervical radiculopathy. If worsens, consider NCT. * Assessment & Plan Note - LEXII Coates CNP - 01/14/2025 4:52 PM ESTAssociated Problem(s): Numbness of right anterior thigh Hx of lumbar laminectomy. No weakness or pain. Negative straight leg raise bilaterally. Suspect L4-L5 nerve impingement. Recommend following up if worsens - next step would be physical therapy- orthospine. * Assessment & Plan Note - LEXII Coates CNP - 01/14/2025 4:49 PM ESTAssociated Problem(s): Adhesive capsulitis of right shoulder Recommend patient continue physical therapy- Patient to see who is in network for orthopedic doctorfor further evaluation and treatment. documented in this [facility]02-26-2025 Miscellaneous Notes* Assessment & Plan Note - LEXII Coates CNP - 01/14/2025 5:19 PM ESTAssociated Problem(s): Numbness of right hand Only near the thumb. No significant grasp weakness, no thenar wasting. Suspect a tendinitis or mildcarpal tunnel. Negative spurlings - so I do not suspect cervical radiculopathy. If worsens, consider NCT. * Assessment & Plan Note - LEXII Coates CNP - 01/14/2025 4:52 PM ESTAssociated Problem(s): Numbness of right anterior thigh Hx of lumbar laminectomy. No weakness or pain. Negative straight leg raise bilaterally. Suspect L4-L5 nerve impingement. Recommend following up if worsens - next step would be physical therapy- orthospine. * Assessment & Plan Note - LEXII Coates CNP - 01/14/2025 4:49 PM ESTAssociated Problem(s): Adhesive capsulitis of right shoulder Recommend patient continue physical therapy- Patient to see who is in network for orthopedic doctorfor further evaluation and treatment. * Addendum Note - LEXII Coates CNP - 01/14/2025 3:00 PM EST Addended by: LE ERIC on: 01/20/2025 06:04 PM Modules accepted: Level of Service documented in this [facility]02-26-2025 Evaluation + Plan note* Assessment & Plan Note - LEXII Coates CNP - 01/14/2025 4:52 PM ESTAssociated Problem(s): Numbness of right anterior thigh Hx of lumbar laminectomy. No weakness or pain. Negative straight leg raise bilaterally. Suspect L4-L5 nerve impingement. Recommend following up if worsens - next step would be physical therapy- orthospine. [id number] Evaluation + Plan note* Assessment & Plan Note - LEXII Coates CNP - 01/14/2025 4:49 PM ESTAssociated Problem(s): Adhesive capsulitis of right shoulder Recommend patient continue physical therapy- Patient to see who is in network for orthopedic doctorfor further evaluation and treatment. [id number] NoteRecommend patient continue physical therapy- Patient to see who is in network for orthopedic doctor for further evaluation and treatment.[facility]02-26-2025 History of Present illness Narrative* Sarah Garay - 01/14/2025 3:00 PM EST Patient was identified by name and Date of . * Le Eric, TELEPHONE MECHANIC - CLINICAL SUPPORT TECH - 01/14/2025 3:00 PM EST Images from the original note were not included. 01/14/2025 Nina Wilson (: 1965) is a 59 y.o. male , Established patient, here for evaluation of the following chief complaint(s): Shoulder Pain, Spinal Stenosis, Numbness (Right leg), Tingling (Right leg), and Hand Problem ASSESSMENT/PLAN: 1. Adhesive capsulitis of right shoulder Assessment & Plan: Recommend patient continue physical therapy- Patient to see who is in network for orthopedic doctorfor further evaluation and treatment. 2. Numbness of right anterior thigh Assessment & Plan: Hx of lumbar laminectomy. No weakness or pain. Negative straight leg raise bilaterally. Suspect L4-L5 nerve impingement. Recommend following up if worsens - next step would be physical therapy- orthospine. 3. Numbness of right hand Assessment & Plan: Only near the thumb. No significant grasp weakness, no thenar wasting. Suspect a tendinitis or mildcarpal tunnel. Negative spurlings - so I do not suspect cervical radiculopathy. If worsens, consider NCT. Follow up in about 6 months (around 07/14/2025). SUBJECTIVE/OBJECTIVE: HPI - Nina Wilson (: 1965) is a 59 y.o. male , Established patient, here for the evaluation of the following chief complaint(s): Shoulder Pain, Spinal Stenosis, Numbness (Right leg), Tingling (Right leg), and Hand Problem Lumbar back surgery 2015?, states that he does not have any back pain but sometimes numbness in theright leg/thigh. Seems to be more consistent recently. No leg weakness. No change in bowel or bladder. Does have some issues with enlarged prostate- but no changes. Right shoulder- Right arm weakness, unable to raise right arm above shoulder, was dx with "frozen shoulder" he was given steroids and started physical therapy for it. He does not think the steroids helped any. He also went to physical therapy for 5 times and did not think it was really helping so he stopped. He thinks that his shoulder symptoms are from his neck, reports he has history of cervical stenosis. He denies any neck pain but has limited range of motion with his neck. He has some numbness in his right hand around his thumb and wrist. Reports his grasp is slightly weaker Prior to Admission medications Medication Sig Start Date End Date Taking? Authorizing Provider albuterol 108 (90 Base) MCG/ACT inhaler TAKE 2 PUFFS (INHALATION) EVERY 4 TO 6 HOURS (SHORTNESS OF BREATH OR WHEEZING) FOR 30 DAYS OR COUGH 10/04/24 Yes Historical Provider, atenolol (Tenormin) 50 MG tablet Take 1 tablet (50 mg) by mouth daily. 10/10/24 Yes Jason Morocho MD metFORMIN (Glucophage) 1000 MG tablet Take 1 tablet (1,000 mg) by mouth daily (with breakfast). 06/10/24 Yes Jason Morocho MD True Metrix Blood Glucose Test test strip use 1 TEST STRIP to TEST BLOOD SUGAR once daily 09/12/22 Yes Historical Provider, TRUEplus Lancets 28G misc TEST ONCE DAILY 08/16/22 Yes Historical Provider, Blood Glucose Monitoring Suppl (True Metrix Go Glucose Meter) w/Device kit use as directed 08/16/22 Historical Provider, cyclobenzaprine (Flexeril) 10 MG tablet TAKE 1 TABLET BY MOUTH 3 TIMES A DAY FOR 7 DAYS 11/27/24 Historical Provider, lidocaine (Lidoderm) 5 % patch APPLY 1 PATCH(ES) TOPICAL DAILY REMOVE PATCH AFTER 12 HRS 11/27/24 Historical Provider, lisinopril 10 MG tablet Take 1 tablet (10 mg) by mouth daily. 08/19/24 LEXII Coates CNP lovastatin (Mevacor) 40 MG tablet Take 2 tablets (80 mg) by mouth Nightly. 10/10/24 Jason Morocho MD meloxicam (Mobic) 15 MG tablet Take 1 tablet (15 mg) by mouth daily. 10/01/24 LEXII Coates CNP methylPREDNISolone (Medrol Dospak) 4 MG tablets Take as directed on package. Patient not taking: Reported on 01/14/2025 12/11/24 Jason Morocho MD semaglutide (Ozempic, 0.25 or 0.5 MG/DOSE,) 2 MG/3ML solution pen-injector Inject 0.5 mg under the skin 1 (one) time per week. Patient not taking: Reported on 01/14/2025 11/03/24 LEXII Mcneil CNP sildenafil (Viagra) 100 MG tablet Take 1 tablet (100 mg) by mouth Daily as needed for erectile dysfunction. 10/22/24 LEXII Mcneil CNP Review of Systems Constitutional: Negative for activity change, appetite change, fatigue and fever. Respiratory: Negative. Cardiovascular: Negative. Gastrointestinal: Negative. Genitourinary: Positive for frequency. Negative for difficulty urinating, dysuria and flank pain. Musculoskeletal: Positive for neck stiffness. Negative for back pain, gait problem and neck pain. Neurological: Positive for weakness (right arm and hand) and numbness (right anterolateral thigh). Vitals: 01/14/25 1530 BP: 129/77 Pulse: 64 Resp: 18 Temp: 37 C (98.6 F) TempSrc: Infrared SpO2: 98% Weight: 226 lb 3.2 oz (103 kg) Physical Exam Constitutional: General: He is not in acute distress. Appearance: Normal appearance. He is not ill-appearing. HENT: Head: Normocephalic and atraumatic. Neck: Vascular: No carotid bruit. Comments: Negative spurlings. Cardiovascular: Rate and Rhythm: Normal rate and regular rhythm. Pulses: Normal pulses. Heart sounds: Normal heart sounds. Pulmonary: Effort: Pulmonary effort is normal. Breath sounds: Normal breath sounds. Musculoskeletal: Right shoulder: No swelling, effusion or bony tenderness. Decreased range of motion. Normal strength. Left shoulder: No swelling, tenderness or bony tenderness. Decreased range of motion (very slight decreased rom. no pain). Normal strength. Right wrist: No swelling, effusion, lacerations, bony tenderness, snuff box tenderness or crepitus.Normal range of motion. Left wrist: Normal. Cervical back: Neck supple. No pain with movement, spinous process tenderness or muscular tenderness. Decreased range of motion. Lumbar back: No spasms, tenderness or bony tenderness. Decreased range of motion. Negative right straight leg raise test and negative left straight leg raise test. Back: Left upper leg: Normal. Right lower leg: No edema. Left lower leg: No edema. Comments: Unable to lift right arm above shoulder height. Minimal external rotation. Slight decreased internal rotation. Right shoulder higher than left - very slight decreased grasp in right hand. Negative tinels and nikolai Lymphadenopathy: Cervical: No cervical adenopathy. Skin: General: Skin is warm and dry. Neurological: Mental Status: He is alert and oriented to person, place, and time. An electronic signature was used to authenticate this note. LEXII Piña CNP 01/14/2025 5:20 PM documented in this [facility]02-26-2025 History of Present illness Narrative* Sarah Garay - 01/14/2025 3:00 PM EST Patient was identified by name and Date of . * LEXII Coates CNP - 01/14/2025 3:00 PM EST Images from the original note were not included. 01/14/2025 Nina Wilson (: 1965) is a 59 y.o. male , Established patient, here for evaluation of the following chief complaint(s): Shoulder Pain, Spinal Stenosis, Numbness (Right leg), Tingling (Right leg), and Hand Problem ASSESSMENT/PLAN: 1. Adhesive capsulitis of right shoulder Assessment & Plan: Recommend patient continue physical therapy- Patient to see who is in network for orthopedic doctorfor further evaluation and treatment. 2. Numbness of right anterior thigh Assessment & Plan: Hx of lumbar laminectomy. No weakness or pain. Negative straight leg raise bilaterally. Suspect L4-L5 nerve impingement. Recommend following up if worsens - next step would be physical therapy- orthospine. 3. Numbness of right hand Assessment & Plan: Only near the thumb. No significant grasp weakness, no thenar wasting. Suspect a tendinitis or mildcarpal tunnel. Negative spurlings - so I do not suspect cervical radiculopathy. If worsens, consider NCT. Follow up in about 6 months (around 07/14/2025). SUBJECTIVE/OBJECTIVE: HPI - Nina Wilson (: 1965) is a 59 y.o. male , Established patient, here for the evaluation of the following chief complaint(s): Shoulder Pain, Spinal Stenosis, Numbness (Right leg), Tingling (Right leg), and Hand Problem Lumbar back surgery 2014?, states that he does not have any back pain but sometimes numbness in theright leg/thigh. Seems to be more consistent recently. No leg weakness. No change in bowel or bladder. Does have some issues with enlarged prostate- but no changes. Right shoulder- Right arm weakness, unable to raise right arm above shoulder, was dx with "frozen shoulder" he was given steroids and started physical therapy for it. He does not think the steroids helped any. He also went to physical therapy for 5 times and did not think it was really helping so he stopped. He thinks that his shoulder symptoms are from his neck, reports he has history of cervical stenosis. He denies any neck pain but has limited range of motion with his neck. He has some numbness in his right hand around his thumb and wrist. Reports his grasp is slightly weaker Prior to Admission medications Medication Sig Start Date End Date Taking? Authorizing Provider albuterol 108 (90 Base) MCG/ACT inhaler TAKE 2 PUFFS (INHALATION) EVERY 4 TO 6 HOURS (SHORTNESS OF BREATH OR WHEEZING) FOR 30 DAYS OR COUGH 10/04/24 Yes Historical Provider, atenolol (Tenormin) 50 MG tablet Take 1 tablet (50 mg) by mouth daily. 10/10/24 Yes Jason Morocho MD metFORMIN (Glucophage) 1000 MG tablet Take 1 tablet (1,000 mg) by mouth daily (with breakfast). 06/10/24 Yes Jason Morocho MD True Metrix Blood Glucose Test test strip use 1 TEST STRIP to TEST BLOOD SUGAR once daily 09/12/22 Yes Historical Provider, TRUEplus Lancets 28G misc TEST ONCE DAILY 08/16/22 Yes Historical Provider, Blood Glucose Monitoring Suppl (True Metrix Go Glucose Meter) w/Device kit use as directed 08/16/22 Historical Provider, cyclobenzaprine (Flexeril) 10 MG tablet TAKE 1 TABLET BY MOUTH 3 TIMES A DAY FOR 7 DAYS 11/27/24 Historical Provider, lidocaine (Lidoderm) 5 % patch APPLY 1 PATCH(ES) TOPICAL DAILY REMOVE PATCH AFTER 12 HRS 11/27/24 Historical Provider, lisinopril 10 MG tablet Take 1 tablet (10 mg) by mouth daily. 08/19/24 LEXII Coates CNP lovastatin (Mevacor) 40 MG tablet Take 2 tablets (80 mg) by mouth Nightly. 10/10/24 Jason Morocho MD meloxicam (Mobic) 15 MG tablet Take 1 tablet (15 mg) by mouth daily. 10/01/24 LEXII Coates CNP methylPREDNISolone (Medrol Dospak) 4 MG tablets Take as directed on package. Patient not taking: Reported on 01/14/2025 12/11/24 Jason Morocho MD semaglutide (Ozempic, 0.25 or 0.5 MG/DOSE,) 2 MG/3ML solution pen-injector Inject 0.5 mg under the skin 1 (one) time per week. Patient not taking: Reported on 01/14/2025 11/03/24 LEXII Mcneil CNP sildenafil (Viagra) 100 MG tablet Take 1 tablet (100 mg) by mouth Daily as needed for erectile dysfunction. 10/22/24 LEXII Mcneil CNP Review of Systems Constitutional: Negative for activity change, appetite change, fatigue and fever. Respiratory: Negative. Cardiovascular: Negative. Gastrointestinal: Negative. Genitourinary: Positive for frequency. Negative for difficulty urinating, dysuria and flank pain. Musculoskeletal: Positive for neck stiffness. Negative for back pain, gait problem and neck pain. Neurological: Positive for weakness (right arm and hand) and numbness (right anterolateral thigh). Vitals: 01/14/25 1530 BP: 129/77 Pulse: 64 Resp: 18 Temp: 37 C (98.6 F) TempSrc: Infrared SpO2: 98% Weight: 226 lb 3.2 oz (103 kg) Physical Exam Constitutional: General: He is not in acute distress. Appearance: Normal appearance. He is not ill-appearing. HENT: Head: Normocephalic and atraumatic. Neck: Vascular: No carotid bruit. Comments: Negative spurlings. Cardiovascular: Rate and Rhythm: Normal rate and regular rhythm. Pulses: Normal pulses. Heart sounds: Normal heart sounds. Pulmonary: Effort: Pulmonary effort is normal. Breath sounds: Normal breath sounds. Musculoskeletal: Right shoulder: No swelling, effusion or bony tenderness. Decreased range of motion. Normal strength. Left shoulder: No swelling, tenderness or bony tenderness. Decreased range of motion (very slight decreased rom. no pain). Normal strength. Right wrist: No swelling, effusion, lacerations, bony tenderness, snuff box tenderness or crepitus.Normal range of motion. Left wrist: Normal. Cervical back: Neck supple. No pain with movement, spinous process tenderness or muscular tenderness. Decreased range of motion. Lumbar back: No spasms, tenderness or bony tenderness. Decreased range of motion. Negative right straight leg raise test and negative left straight leg raise test. Back: Left upper leg: Normal. Right lower leg: No edema. Left lower leg: No edema. Comments: Unable to lift right arm above shoulder height. Minimal external rotation. Slight decreased internal rotation. Right shoulder higher than left - very slight decreased grasp in right hand. Negative tinels and nikolai Lymphadenopathy: Cervical: No cervical adenopathy. Skin: General: Skin is warm and dry. Neurological: Mental Status: He is alert and oriented to person, place, and time. An electronic signature was used to authenticate this note. LEXII Piña CNP 01/14/2025 5:20 PM documented in this [facility]02-26-2025 Instructions* Patient Instructions* LEXII Coates CNP - 01/14/2025 3:00 PM EST Look and see who is in network for clinical pharmacy specialist for shoulder. Let us know if you need a referral. Continue to do the exercises that the physical therapist gave you. documented in this [facility]02-26-2025 Instructions* Patient Instructions* LEXII Coates CNP - 01/14/2025 3:00 PM EST Look and see who is in network for clinical pharmacy specialist for shoulder. Let us know if you need a referral. Continue to do the exercises that the physical therapist gave you. documented in this encounterSTuscarawas [id number] Note* Addendum Note - LEXII Coates CNP - 01/14/2025 3:00 PM ESTAddended by: LE ERIC on: 01/20/2025 06:04 PM Modules accepted: Level of Service [facility] [id number] NoteLook and see who is in network for clinical pharmacy specialist for shoulder. Let us know if you need a referral. Continue to do the exercises that the physical therapist gave you.[facility]01-24-2025 NoteReferral placed. Thank you. [id number] [place] [address] P: [facility]01-24-2025 NoteI do not see a PT referral in chart.[facility]01-23-2025 Evaluation + Plan note* Assessment & Plan Note - Jason Morocho MD - 12/11/2024 3:51 PM EST Associated Problem(s): Hypertension Blood pressure was initially elevated, recheck was still high but slightly improved continue lisinopril 10 mg daily and atenolol 50 mg daily and follow-up in 1 week for blood pressure check. [facility] [id number] Miscellaneous Notes* Assessment & Plan Note - Jason Morocho MD - 12/11/2024 3:51 PM ESTAssociated Problem(s): Hypertension Blood pressure was initially elevated, recheck was still high but slightly improved continue lisinopril 10 mg daily and atenolol 50 mg daily and follow-up in 1 week for blood pressure check. * Assessment & Plan Note - Jason Morocho MD - 12/11/2024 3:40 PM EST Associated Problem(s): Back pain Unremarkable exam, we will send in a Medrol Dosepak to see if that helps. He is to continue his meloxicam and his Flexeril as needed. * Assessment & Plan Note - Jason Morocho MD - 12/11/2024 3:39 PM EST Associated Problem(s): Hypercholesterolemia Controlled, continue lovastatin 40 mg 2 nightly. * Assessment & Plan Note - Jason Morocho MD - 12/11/2024 3:39 PM EST Associated Problem(s): Type 2 diabetes mellitus without complication, without long-term current useof insulin ([facility]) ([facility]) Controlled, A1c today is 5.6 we will have him stop the Ozempic and see how he does with diet and keeping his weight off. Continue metformin 1000 mg daily * Assessment & Plan Note - Jason Morocho MD - 12/11/2024 3:39 PM EST Associated Problem(s): Nontraumatic complete tear of right rotator cuff Recommend physical therapy most likely this is too old for Ortho to be able to do any surgery, we will send him to Ortho if physical therapy seems to help. * Assessment & Plan Note - Jason Morocho MD - 12/11/2024 3:38 PM EST Associated Problem(s): Adhesive capsulitis of right shoulder Recommend that he get into some physical therapy he will check with his insurance to see if they will cover it. documented in this [facility]01-23-2025 Evaluation + Plan note* Assessment & Plan Note - Jason Morocho MD - 12/11/2024 3:40 PM EST Associated Problem(s): Back pain Unremarkable exam, we will send in a Medrol Dosepak to see if that helps. He is to continue his meloxicam and his Flexeril as needed. [facility] [id number] Evaluation + Plan note* Assessment & Plan Note - Jason Morocho MD - 12/11/2024 3:39 PM ESTAssociated Problem(s): Hypercholesterolemia Controlled, continue lovastatin 40 mg 2 nightly. [facility] [id number] Evaluation + Plan note* Assessment & Plan Note - Jason Morocho MD - 12/11/2024 3:39 PM ESTAssociated Problem(s): Type 2 diabetes mellitus without complication, without long-term current useof insulin ([facility]) ([facility]) Controlled, A1c today is 5.6 we will have him stop the Ozempic and see how he does with diet and keeping his weight off. Continue metformin 1000 mg daily [facility] [id number] Evaluation + Plan note* Assessment & Plan Note - Jason Morocho MD - 12/11/2024 3:39 PM ESTAssociated Problem(s): Nontraumatic complete tear of right rotator cuff Recommend physical therapy most likely this is too old for Ortho to be able to do any surgery, we will send him to Ortho if physical therapy seems to help. [facility] [id number] Evaluation + Plan note* Assessment & Plan Note - Jason Morocho MD - 12/11/2024 3:38 PM ESTAssociated Problem(s): Adhesive capsulitis of right shoulder Recommend that he get into some physical therapy he will check with his insurance to see if they will cover it. [facility]01-23-2025 History of Present illness Narrative* Ashia Spangler MA - 12/11/2024 3:00 PM EST Patient verified by last name and date of . * Jason Morohco MD - 12/11/2024 3:00 PM EST Images from the original note were not included. 12/11/2024 Nina Wilson (: 1965) is a 59 y.o. male , Established patient, here for evaluation of the following chief complaint(s): Diabetes, Follow-up (6 month), Health Maintenance (Pcv 20 vaccine- refuse/Flu vaccine- refuse/Covidvaccine- not done/Dental exam- done at [facility] 06/2024), and Pain (Starts in back and around to front right side ) ASSESSMENT/PLAN: 1. Type 2 diabetes mellitus without complication, without long-term current use of insulin ([facility]) ([facility]) Assessment & Plan: Controlled, A1c today is 5.6 we will have him stop the Ozempic and see how he does with diet and keeping his weight off. Continue metformin 1000 mg daily Orders: - AMB POC HEMOGLOBIN A1C 2. Hypercholesterolemia Assessment & Plan: Controlled, continue lovastatin 40 mg 2 nightly. 3. Primary hypertension Assessment & Plan: Blood pressure was initially elevated, recheck was still high but slightly improved continue lisinopril 10 mg daily and atenolol 50 mg daily and follow-up in 1 week for blood pressure check. 4. Acute right-sided low back pain without sciatica Assessment & Plan: Unremarkable exam, we will send in a Medrol Dosepak to see if that helps. He is to continue his meloxicam and his Flexeril as needed. 5. Nontraumatic complete tear of right rotator cuff Assessment & Plan: Recommend physical therapy most likely this is too old for Ortho to be able to do any surgery, we will send him to Ortho if physical therapy seems to help. 6. Adhesive capsulitis of right shoulder Assessment & Plan: Recommend that he get into some physical therapy he will check with his insurance to see if they will cover it. Follow up in about 6 months (around 06/10/2025). SUBJECTIVE/OBJECTIVE: SHERIDAN Duque comes in today for 6-month follow-up on his diabetes, hypercholesterolemia and hypertension and his blood pressure is a little elevated today. We will check that prior to discharge. We will do an A1c today his last A1c was 5.5 this is down from 12 2 years ago. He is wondering about getting off of Ozempic since the cost is pretty significant. Is also complaining of some acute right back pain said this started a couple of weeks ago he was seen in the emergency room they did a CT scan because they thought it might have been a kidney stone and that was negative. He says the pain radiates around his right side into his right groin and he states he does not have any bulging like a hernia. He has had hernia repair on both sides in the past. He also has decreased range of motion of his right shoulder he said this has been an ongoing issue for the last 3 or 4 years he can only raise it about three [address] up and cannot even get it to shoulder height. Review of Systems Constitutional: Negative for activity change, appetite change, chills, fever and unexpected weight change. HENT: Negative for ear pain and sore throat. Respiratory: Negative for shortness of breath. Cardiovascular: Negative for chest pain and palpitations. Gastrointestinal: Negative for abdominal pain, blood in stool, constipation and diarrhea. Genitourinary: Negative for dysuria, frequency, hematuria and urgency. Musculoskeletal: Negative for arthralgias and back pain. Skin: Negative. Neurological: Negative for weakness and numbness. Psychiatric/Behavioral: Negative for dysphoric mood. The patient is not nervous/anxious. Vitals: 12/11/24 1510 12/11/24 1547 BP: (!) 158/81 (!) 152/80 Pulse: 72 SpO2: 95% Weight: 220 lb 9.6 oz (100 kg) Height: 5' 9" (1.753 m) Physical Exam Vitals and nursing note reviewed. Constitutional: General: He is not in acute distress. Appearance: Normal appearance. HENT: Right Ear: Tympanic membrane, ear canal and external ear normal. Left Ear: Tympanic membrane, ear canal and external ear normal. Mouth/Throat: Mouth: Mucous membranes are moist. Pharynx: Oropharynx is clear. Eyes: Extraocular Movements: Extraocular movements intact. Conjunctiva/sclera: Conjunctivae normal. Pupils: Pupils are equal, round, and reactive to light. Neck: Thyroid: No thyromegaly. Vascular: No carotid bruit. Cardiovascular: Rate and Rhythm: Normal rate and regular rhythm. Heart sounds: Normal heart sounds. No murmur heard. Pulmonary: Effort: Pulmonary effort is normal. Breath sounds: Normal breath sounds. Abdominal: General: Bowel sounds are normal. Palpations: Abdomen is soft. Tenderness: There is no abdominal tenderness. Musculoskeletal: General: Normal range of motion. Cervical back: Neck supple. Comments: Back is straight with normal range of motion, he has no lower extremity symptoms. No lossof bowel or bladder control. Right shoulder he has decreased range of motion to about 30 degrees, he is unable to hold it at 90 degrees with passive range of motion getting it there. Lymphadenopathy: Cervical: No cervical adenopathy. Skin: General: Skin is warm and dry. Neurological: General: No focal deficit present. Mental Status: He is alert and oriented to person, place, and time. Psychiatric: Mood and Affect: Mood normal. An electronic signature was used to authenticate this note. Jason Morocho MD 12/11/2024 3:51 PM documented in this [facility]01-09-2025 Hospital Discharge instructions Patient Education 11/27/2024 13:56:31 Back and Neck Pain, General General Neck and Back Pain Both neck and back pain are usually caused by injury to the muscles or ligaments of the spine. Sometimes the disks that separate each bone of the spine may cause pain by pressing on a nearby nerve. Back and neck pain may appear after a sudden twisting or bending force (such as in a car accident), or sometimes after a simple awkward movement. In either case, muscle spasm is often present and adds to the pain. Acute neck and back pain usually gets better in 1 to 2 weeks. Pain related to disk disease, arthritis in the spinal joints or spinal stenosis (narrowing of the spinal canal) can become chronic and last for months or years. Back and neck pain are common problems. Most people feel better in 1 or 2 weeks, and most of the rest in 1 to 2 months. Most people can remain active. People have and describe pain differently. Pain can be sharp, stabbing, shooting, aching, cramping, or burning Movement, standing, bending, lifting, sitting, or walking may worsen the pain Pain can be localized to one spot or area, or it can be more generalized Pain can spread or radiate upwards, downwards, to the front, or go down your arms Muscle spasm may occur. Most of the time mechanical problems with the muscles or spine cause the pain. it is usually causedby an injury, whether known or not, to the muscles or ligaments. While illnesses can cause back pain, it is usually not caused by a serious illness. Pain is usually related to physical activity, whether sports, exercise, work, or normal activity. Sometimes it can occur without an identifiable cause. This can happen simply by stretching or moving wrong, without noting pain at the time. Other causes include: Overexertion, lifting, pushing, pulling incorrectly or too aggressively. Sudden twisting, bending or stretching from an accident (car or fall), or accidental movement. Poor posture Poor conditioning, lack of regular exercise Spinal disc disease or arthritis Stress , or illness like appendicitis, bladder or kidney infection, pelvic infections Home care For neck pain: Use a comfortable pillow that supports the head and keeps the spine in a neutral position. The position of the head should not be tilted forward or backward. When in bed, try to find a position of comfort. A firm mattress is best. Try lying flat on your back with pillows under your knees. You can also try lying on your side with your knees bent up towardsyour chest and a pillow between your knees. At first, do not try to stretch out the sore spots. If there is a strain, it is not like the good soreness you get after exercising without an injury. In this case, stretching may make it worse. Don't sit for long periods, as in long car rides or other travel. This puts more stress on the lower back than standing or walking. During the first 24 to 72 hours after an injury, apply an ice pack to the painful area for 20 minutes and then remove it for 20 minutes over a period of 60 to 90 minutes or several times a day. You can alternate ice and heat therapies. Talk with your healthcare provider about the best treatment for your back or neck pain. As a safety precaution, do not use a heating pad at bedtime. Sleepingwith a heating pad can lead to skin reveles or tissue damage. Therapeutic massage can help relax the back and neck muscles without stretching them. Be aware of safe lifting methods and do not lift anything over 15 pounds until all the pain is gone. Medicines Talk to your healthcare provider before using medicine, especially if you have other medical problems or are taking other medicines. You may use [id number] medicine to control pain, unless another pain medicine was prescribed.If you have chronic conditions like diabetes, liver or kidney disease, stomach ulcers, gastrointestinal bleeding, or are taking blood thinner medicines. Be careful if you are given pain medicines, narcotics, or medicine for muscle spasm. They can causedrowsiness, and can affect your coordination, reflexes, and judgment. Do not drive or operate heavyAIShiKickservy. Follow-up care Follow up with your healthcare provider, or as advised. Physical therapy or further tests may be needed. If X-rays were taken, you will be notified of any new findings that may affect your care. Call 911 Call 911 if any of the following occur: Trouble breathing Confusion Very drowsy or trouble awakening Fainting or loss of consciousness Rapid or very slow heart rate Loss of bowel or bladder control When to seek medical advice Call your healthcare provider right away if any of these occur: Pain becomes worse or spreads into your arms or legs Weakness, numbness or pain in one or both arms or legs Numbness in the groin area Difficulty walking Fever of 100.4 F (38 C) or higher, or as directed by your healthcare provider [id number] [employer]. [address] [place] [address]. All rights reserved. This information is not intended as a substitute for professional medical care. Always follow yourhealthcare professional's instructions. Follow Up Care 11/27/2024 11:06:48 With:JASON MOROCHO MD Address: [address] [place], [place] [id number]- When:2-4 days [facility] 01-09-2025 Note Discharge Instructions Thank you for allowing [place] to assist you with your healthcare needs. The following is importantdischarge information regarding your hospital visit. Diagnosis from Today's Visit Back pain What to Do Next Instructions from Your Care Team Discharge Return to Work, School, or Sports - Ordered -- 11/27/24, 11/28/24, May return to: work, 11/27/24 13:56:00 EST Post Acute Orders No qualifying data available. You Need to Schedule the Following Appointments Follow Up with JASON MOROCHO MD When:Within 2-4 days Where:[address] [place] [address]- Allergies No Known Medication Allergies Medications Please ask your primary doctor or pharmacist before taking any other medication not listed, including over the counter drugs, herbal medications, vitamins and or supplements as they may interact withyour home medications. What How Much When Why Instructions Last Dose New acetaminophen-hydrocodone ([place] 325- 5 mg oral tablet) 1 tab(s) by mouth Every 6 hours as needed for for pain Back pain Duration: 3 Days May take 1-2 tablets / dose Printed Prescription New cyclobenzaprine (cyclobenzaprine 10 mg oral tablet) 1 tab(s) by mouth Three (3) times a day Duration: 7 Days Printed Prescription New lidocaine topical (Lidoderm 5% topical film) 1 patch(es) Topical Once a day remove patches after 12 hours Printed Prescription Unchanged atenolol (atenolol 50 mg oral tablet) 1 tab(s) by mouth Once a day Unchanged lisinopril (lisinopril 10 mg oral tablet) 1 tab(s) by mouth Every day Unchanged lovastatin (lovastatin 40 mg oral tablet) 1 tab(s) by mouth Once a day Unchanged metFORMIN (metFORMIN 1000 mg oral tablet (IR)) 1 tab(s) by mouth Two (2) times a day Unchanged semaglutide (Ozempic 2 mg/ 3 mL (0.25 mg or 0.5 mg dose) subcutaneous solution) 0.25 Milligram Subcutaneous Every week rotate injection sites Unchanged sildenafil (sildenafil 100 mg oral tablet) 1 tab(s) by mouth Once a day as needed for as needed for erectile dysfunction Please take this list to your next doctor s visit. Bring all medications you take, including over the counter medications, herbals and other supplements with you to your doctor s visit. Patients and families are reminded to discard old lists and to update any records with all medication providers or retail pharmacies. Medication Leaflets cyclobenzaprine (carlos steele) Palmira Rea What is the most important information I should know about cyclobenzaprine? You should not use cyclobenzaprine if you have a thyroid disorder, heart block, congestive heart failure, a heart rhythm disorder, or you have recently had a heart attack. Do not use cyclobenzaprine if you have taken an MAO inhibitor in the past 14 days, such as isocarboxazid, linezolid, phenelzine, rasagiline, selegiline, or tranylcypromine. What is cyclobenzaprine? Cyclobenzaprine is a muscle relaxant. It works by blocking nerve impulses (or pain sensations) thatare sent to your brain. Cyclobenzaprine is used together with rest and physical therapy to relieve muscle spasms caused by painful conditions such as an injury. Cyclobenzaprine may also be used for purposes not listed in this medication guide. What should I discuss with my healthcare provider before taking cyclobenzaprine? You should not use cyclobenzaprine if you are allergic to it, or if you have: a thyroid disorder; heart block, heart rhythm disorder, congestive heart failure; or if you have recently had a heart attack. Cyclobenzaprine is not approved for use by anyone younger than 15 years old. Do not use cyclobenzaprine if you have taken an MAO inhibitor in the past 14 days. A dangerous druginteraction could occur. MAO inhibitors include isocarboxazid, linezolid, phenelzine, rasagiline, selegiline, and tranylcypromine. Some medicines can interact with cyclobenzaprine and cause a serious condition called serotonin syndrome. Be sure your doctor knows if you also take stimulant medicine, opioid medicine, herbal products, or medicine for depression, mental illness, Parkinson's disease, migraine headaches, serious infections, or prevention of nausea and vomiting. Ask your doctor before making any changes in how or when you take your medications. Tell your doctor if you have ever had: liver disease; glaucoma; enlarged prostate; or problems with urination. It is not known whether this medicine will harm an unborn baby. Tell your doctor if you are or plan to become . It may not be safe to breast-feed while using this medicine. Ask your doctor about any risk. Older adults may be more sensitive to the effects of this medicine. How should I take cyclobenzaprine? Follow all directions on your prescription label and read all medication guides or instruction sheets. Your doctor may occasionally change your dose. Use the medicine exactly as directed. Cyclobenzaprine is usually taken once daily for only 2 or 3 weeks. Follow your doctor's dosing instructions very carefully. Swallow the capsule whole and do not crush, chew, break, or open it. Take the medicine at the same time each day. Call your doctor if your symptoms do not improve after 3 weeks, or if they get worse. Store at room temperature away from moisture, heat, and light. What happens if I miss a dose? Take the medicine as soon as you can, but skip the missed dose if it is almost time for your next dose. Do not take two doses at one time. What happens if I overdose? Seek emergency medical attention or call the Poison Help line at . An overdose of cyclobenzaprine can be fatal. Overdose symptoms may include severe drowsiness, vomiting, fast heartbeats, tremors, agitation, or hallucinations. What should I avoid while taking cyclobenzaprine? Avoid driving or hazardous activity until you know how this medicine will affect you. Your reactions could be impaired. Avoid drinking alcohol. Dangerous side effects could occur. What are the possible side effects of cyclobenzaprine? Get emergency medical help if you have signs of an allergic reaction: hives; difficult breathing; swelling of your face, lips, tongue, or throat. Stop using cyclobenzaprine and call your doctor at once if you have: fast or irregular heartbeats; chest pain or pressure, pain spreading to your jaw or shoulder; or sudden numbness or weakness (especially on one side of the body), slurred speech, balance problems. Seek medical attention right away if you have symptoms of serotonin syndrome, such as: agitation, hallucinations, fever, sweating, shivering, fast heart rate, muscle stiffness, twitching, loss of coordination, nausea, vomiting, or diarrhea. Serious side effects may be more likely in older adults. Common side effects may include: drowsiness, tiredness; headache, dizziness; dry mouth; or upset stomach, nausea, constipation. This is not a complete list of side effects and others may occur. Call your doctor for medical advice about side effects. You may report side effects to FDA at 4-831-CDD-0233. What other drugs will affect cyclobenzaprine? Using cyclobenzaprine with other drugs that make you drowsy can worsen this effect. Ask your doctorbefore using opioid medication, a sleeping pill, a muscle relaxer, or medicine for anxiety or seizures. Tell your doctor about all your other medicines, especially: bupropion (Zyban, for smoking cessation); meperidine; tramadol; verapamil; cold or allergy medicine that contains an antihistamine (Benadryl and others); medicine to treat Parkinson's disease; medicine to treat excess stomach acid, stomach ulcer, motion sickness, or irritable bowel syndrome; medicine to treat overactive bladder; or bronchodilator asthma medication. This list is not complete. Other drugs may affect cyclobenzaprine, including prescription and icri-xde-rinffpa medicines, vitamins, and herbal products. Not all possible drug interactions are listed here. Where can I get more information? Your pharmacist can provide more information about cyclobenzaprine. Remember, keep this and all other medicines out of the reach of children, never share your medicines with others, and use this medication only for the indication prescribed. Every effort has been made to ensure that the information provided by [employer]. [employer]') is accurate, up-to-date, and complete, but no guarantee is made to that effect. Drug information contained herein may be time sensitive. [employer] information has been compiled for use by healthcare practitioners and consumers in the [place] and therefore [employer] does not warrant that uses outside of the [place] are appropriate, unless specifically indicated otherwise. [employer]'s drug information does not endorse drugs, diagnose patients or recommend therapy. [facility] drug information isan informational resource designed to assist licensed healthcare practitioners in caring for their p atients and/or to serve consumers viewing this service as a supplement to, and not a substitute for, the expertise, skill, knowledge and judgment of healthcare practitioners. The absence of a warningfor a given drug or drug combination in no way should be construed to indicate that the drug or drug combination is safe, effective or appropriate for any given patient. [employer] does not assume any responsibility for any aspect of healthcare administered with the aid of information [employer] provides. The information contained herein is not intended to cover all possible uses, directions, precautions, warnings, drug interactions, allergic reactions, or adverse effects. If you have questions about the drugs you are taking, check with your doctor, nurse or pharmacist. Copyright 4304-1047 [facility] [place]. Version: 7.01. Revision Date: 06/22/2023. lidocaine topical (LYE gómez roa TOP i tammi) AneCream, Bactine, Glydo, Lidoderm, LidoRx, Medi-Quik Hershey, RadiaGuard, RectiCare, Regenecare MEJIA Hershey, Solarcaine Cool Aloe What is the most important information I should know about lidocaine topical? An overdose of numbing medicine can cause fatal side effects if too much of the medicine is absorbed through your skin. Do not use large amounts of lidocaine topical, or cover treated skin areas with a bandage or plastic wrap without medical advice. Keep both used and unused lidocaine skin patches out of the reach of children or pets. The amount of lidocaine in the skin patches could be harmful to a child or pet who accidentally sucks on or swallows the patch. What is lidocaine topical? Lidocaine is a local anesthetic (numbing medication). There are many brands and forms of lidocaine available. Not all brands are listed on this leaflet. Lidocaine topical (for use on the skin) is used to reduce pain or discomfort caused by skin irritations such as sunburn, insect bites, poison severo, poison oak, poison sumac, and minor cuts, scratches,or reveles. Lidocaine topical is also used to treat rectal discomfort caused by hemorrhoids. Lidocaine intradermal device can be used in minor medical procedures such as venipuncture or peripheral intravenous cannulation. Lidocaine topical may also be used for purposes not listed in this medication guide. What should I discuss with my healthcare provider before using lidocaine topical? You should not use lidocaine topical if you are allergic to any type of numbing medicine. Fatal overdoses have occurred when numbing medicines were used without the advice of a medical doctor (such as during a cosmetic procedure like laser hair removal). However, overdose has also occurred in women treated with a numbing medicine before having a mammography. Be aware that many cosmetic procedures are performed without a medical doctor present. Tell your doctor if you have ever had: a blood cell disorder called methemoglobinemia (in you or a family member); liver disease; or if you take a heart rhythm medicine. Tell your doctor if you are or . If you apply lidocaine topical to your chest, avoid areas that may come into contact with the baby's mouth. How should I use lidocaine topical? Use this medicine exactly as directed on the label, or as it has been prescribed by your doctor. Donot apply this medicine in larger amounts than recommended. Improper use of lidocaine topical may result in . Lidocaine topical comes in many different forms (gel, spray, cream, lotion, ointment, liquid, skin patch, and others). Do not take by mouth. Topical medicine is for use only on the skin. If this medicine gets in your eyes, nose, mouth, rectum, or vagina, rinse with water. Read and carefully follow any Instructions for Use provided with your medicine. Ask your doctor or pharmacist if you do not understand these instructions. Use the smallest amount of medicine needed to numb the skin or relieve pain. Your body may absorb too much of this medicine if you use too much, if you apply it over large skin areas, or if you applyheat, bandages, or plastic wrap to treated skin areas. Skin that is cut or irritated may also absorb more topical medication than healthy skin. Do not apply this medicine to swollen skin areas or deep puncture wounds. Avoid using the medicine on skin that is raw or blistered, such as a severe burn or abrasion. Do not cover treated skin unless your doctor has told you to. Lidocaine topical may be applied with your finger tips or a cotton swab. Lidocaine intradermal device is applied by a healthcare provider. Store at room temperature away from moisture and heat. Keep both used and unused lidocaine topical skin patches out of the reach of children or pets. The amount of lidocaine in the skin patches could be harmful to a child or pet who accidentally sucks onor swallows the patch. Seek emergency medical attention if this happens. What happens if I miss a dose? Since lidocaine topical is used when needed, you may not be on a dosing schedule. Skip any missed dose if it's almost time for your next dose. Do not use two doses at one time. What happens if I overdose? Seek emergency medical attention or call the Poison Help line at . An overdose of numbing medicine can cause fatal side effects if too much of the medicine is absorbed through your skinand into your blood. Overdose symptoms may include uneven heartbeats, seizure (convulsions), slowed breathing, coma, or respiratory failure (breathing stops). Lidocaine applied to the skin is not likely to cause an overdose unless you apply more than the recommended dose. What should I avoid while using lidocaine topical? Avoid touching the sticky side of a lidocaine skin patch while applying it. Avoid accidentally injuring treated skin areas while they are numb. Avoid coming into contact with very hot or very cold surfaces. What are the possible side effects of lidocaine topical? Get emergency medical help if you have signs of an allergic reaction: hives; difficulty breathing; swelling of your face, lips, tongue, or throat. Call your doctor at once if you have: severe headache or vomiting; severe burning, stinging, or irritation where the medicine was applied; swelling or redness; sudden dizziness or drowsiness after medicine is applied; confusion, problems with speech or vision, ringing in your ears; or unusual sensations of temperature. Common side effects include: mild irritation where the medication is applied; or numbness in places where the medicine is accidentally applied. This is not a complete list of side effects and others may occur. Call your doctor for medical advice about side effects. You may report side effects to FDA at 7-108-GYP-7852. What other drugs will affect lidocaine topical? Medicine used on the skin is not likely to be affected by other drugs you use. But many drugs can interact with each other. Tell each of your health care providers about all medicines you use, including prescription and wgsi-zfw-gzgvxup medicines, vitamins, and herbal products. Where can I get more information? Your pharmacist can provide more information about lidocaine topical. Remember, keep this and all other medicines out of the reach of children, never share your medicines with others, and use this medication only for the indication prescribed. Every effort has been made to ensure that the information provided by [employer]') is accurate, up-to-date, and complete, but no guarantee is made to that effect. Drug information contained herein may be time sensitive. [employer] information has been compiled for use by healthcare practitioners and consumers in the [place] and therefore [employer] does not warrant that uses outside of the [place] are appropriate, unless specifically indicated otherwise. [facility] drug information does not endorse drugs, diagnose patients or recommend therapy. [facility] drug information isan informational resource designed to assist licensed healthcare practitioners in caring for their p atients and/or to serve consumers viewing this service as a supplement to, and not a substitute for, the expertise, skill, knowledge and judgment of healthcare practitioners. The absence of a warningfor a given drug or drug combination in no way should be construed to indicate that the drug or drug combination is safe, effective or appropriate for any given patient. [employer] does not assume any responsibility for any aspect of healthcare administered with the aid of information [employer]oc[employer] provides. The information contained herein is not intended to cover all possible uses, directions, precautions, warnings, drug interactions, allergic reactions, or adverse effects. If you have questions about the drugs you are taking, check with your doctor, nurse or pharmacist. Copyright 8207-6491 [employer]. Version: .. Revision Date: 08/08/2023. acetaminophen and hydrocodone (a SEET a MIN oh fen and huy droe KOE done) Verdrocet What is the most important information I should know about acetaminophen and hydrocodone? MISUSE OF OPIOID MEDICINE CAN CAUSE ADDICTION, OVERDOSE, OR . Keep the medication in a place where others cannot get to it. Taking opioid medicine during may cause life-threatening withdrawal symptoms in the . Fatal side effects can occur if you use opioid medicine with alcohol, or with other drugs that cause drowsiness or slow your breathing. Stop taking this medicine and call your doctor right away if you have skin redness or a rash that spreads and causes blistering and peeling. What is acetaminophen and hydrocodone? Acetaminophen and hydrocodone is a combination medicine used to relieve moderate to severe pain. Acetaminophen and hydrocodone contains an opioid medicine, and may be habit-forming. Acetaminophen and hydrocodone may also be used for purposes not listed in this medication guide. What should I discuss with my healthcare provider before taking acetaminophen and hydrocodone? You should not use this medicine if you are allergic to acetaminophen or hydrocodone, or if you have: severe asthma or breathing problems; or a blockage in your stomach or intestines. Tell your doctor if you have ever had: breathing problems, sleep apnea (breathing stops during sleep); liver disease; a drug or alcohol addiction; kidney disease; a head injury or seizures; urination problems; or problems with your thyroid, pancreas, or gallbladder. If you use opioid medicine while you are , your baby could become dependent on the drug. This can cause life-threatening withdrawal symptoms in the baby after it is born. Babies born dependent on opioids may need medical treatment for several weeks. Ask a doctor before using opioid medicine if you are . Tell your doctor if you notice severe drowsiness or slow breathing in the nursing baby. How should I take acetaminophen and hydrocodone? Follow all directions on your prescription label. Never take this medicine in larger amounts, or for longer than prescribed. An overdose can damage your liver or cause . Tell your doctor if you feel an increased urge to use more of this medicine. Never share this medicine with another person, especially someone with a history of drug abuse or addiction. MISUSE CAN CAUSE ADDICTION, OVERDOSE, OR . Keep the medicine in a place where others cannot get to it. Selling or giving away this medicine is against the law. Measure liquid medicine carefully. Use the dosing syringe provided, or use a medicine dose-measuring device (not a kitchen spoon). If you need surgery or medical tests, tell the doctor ahead of time that you are using this medicine. You should not stop using this medicine suddenly. Follow your doctor's instructions about tapering your dose. Store at room temperature away from moisture and heat. Keep track of your medicine. You should be aware if anyone is using it improperly or without a prescription. Do not keep leftover opioid medication. Just one dose can cause in someone using this medicine accidentally or improperly. Ask your pharmacist where to locate a drug take-back disposal program.If there is no take-back program, flush the unused medicine down the toilet. What happens if I miss a dose? Since this medicine is used for pain, you are not likely to miss a dose. Skip any missed dose if itis almost time for your next dose. Do not use two doses at one time. What happens if I overdose? Seek emergency medical attention or call the Poison Help line at . An overdose of this medicine can be fatal, especially in a child or other person using the medicine without a prescription. Overdose symptoms may include nausea, vomiting, sweating, severe drowsiness, pinpoint pupils, slow breathing, or no breathing. Your doctor may recommend you get naloxone (a medicine to reverse an opioid overdose) and keep it with you at all times. A person caring for you can give the naloxone if you stop breathing or don't wake up. Your caregiver must still get emergency medical help and may need to perform CPR (cardiopulmonary resuscitation) on you while waiting for help to arrive. Anyone can buy naloxone from a pharmacy or local health department. Make sure any person caring foryou knows where you keep naloxone and how to use it. What should I avoid while taking acetaminophen and hydrocodone? Avoid driving or operating machinery until you know how this medicine will affect you. Dizziness ordrowsiness can cause falls, accidents, or severe injuries. Do not drink alcohol. Dangerous side effects or could occur. Ask a doctor or pharmacist before using any other medicine that may contain acetaminophen (sometimes abbreviated as APAP). Taking certain medications together can lead to a fatal overdose. What are the possible side effects of acetaminophen and hydrocodone? Get emergency medical help if you have signs of an allergic reaction: hives; difficulty breathing; swelling of your face, lips, tongue, or throat. Opioid medicine can slow or stop your breathing, and may occur. A person caring for you should give naloxone and/or seek emergency medical attention if you have slow breathing with long pauses,blue colored lips, or if you are hard to wake up. In rare cases, acetaminophen may cause a severe skin reaction that can be fatal. This could occur even if you have taken acetaminophen in the past and had no reaction. Stop taking this medicine and call your doctor right away if you have skin redness or a rash that spreads and causes blistering andpeeling. Call your doctor at once if you have: noisy breathing, sighing, shallow breathing, breathing that stops; a light-headed feeling, like you might pass out; liver problems--nausea, upper stomach pain, tiredness, loss of appetite, dark urine, anushka-colored stools, jaundice (yellowing of the skin or eyes); low cortisol levels-- nausea, vomiting, loss of appetite, dizziness, worsening tiredness or weakness; o high levels of serotonin in the body--agitation, hallucinations, fever, sweating, shivering, fast heart rate, muscle stiffness, twitching, loss of coordination, nausea, vomiting, diarrhea. Serious breathing problems may be more likely in older adults and in those who are debilitated or have wasting syndrome or chronic breathing disorders. Common side effects include: dizziness, drowsiness, feeling tired; nausea, vomiting, stomach pain; constipation; or headache. This is not a complete list of side effects and others may occur. Call your doctor for medical advice about side effects. You may report side effects to FDA at 2-943-ZWR-7797. What other drugs will affect acetaminophen and hydrocodone? You may have breathing problems or withdrawal symptoms if you start or stop taking certain other medicines. Tell your doctor if you also use an antibiotic, antifungal medication, heart or blood pressure medication, seizure medication, or medicine to treat HIV or hepatitis C. Opioid medication can interact with many other drugs and cause dangerous side effects or . Be sure your doctor knows if you also use: cold or allergy medicines, bronchodilator asthma/COPD medication, or a diuretic ('water pill'); medicines for motion sickness, irritable bowel syndrome, or overactive bladder; other opioids--opioid pain medicine or prescription cough medicine; a sedative like Valium--diazepam, alprazolam, lorazepam, Xanax, Klonopin, Versed, and others; drugs that make you sleepy or slow your breathing--a sleeping pill, muscle relaxer, medicine to treat mood disorders or mental illness; drugs that affect serotonin levels in your body--a stimulant, or medicine for depression, Parkinson's disease, migraine headaches, serious infections, or nausea and vomiting. This list is not complete. Other drugs may affect acetaminophen and hydrocodone, including prescription and uvlz-hvr-egswhmf medicines, vitamins, and herbal products. Not all possible interactions are listed here. Where can I get more information? Your doctor or pharmacist can provide more information about acetaminophen and hydrocodone. Remember, keep this and all other medicines out of the reach of children, never share your medicines with others, and use this medication only for the indication prescribed. Every effort has been made to ensure that the information provided by [employer]. ('[employer]') is accurate, up-to-date, and complete, but no guarantee is made to that effect. Drug information contained herein may be time sensitive. Voc[employer] information has been compiled for use by healthcare practitioners and consumers in the [place] and therefore [employer] does not warrant that uses outside of the [place] are appropriate, unless specifically indicated otherwise. [facility] drug information does not endorse drugs, diagnose patients or recommend therapy. [facility] drug information isan informational resource designed to assist licensed healthcare practitioners in caring for their p atients and/or to serve consumers viewing this service as a supplement to, and not a substitute for, the expertise, skill, knowledge and judgment of healthcare practitioners. The absence of a warningfor a given drug or drug combination in no way should be construed to indicate that the drug or drug combination is safe, effective or appropriate for any given patient. [employer] does not assume any responsibility for any aspect of healthcare administered with the aid of information [employer] provides. The information contained herein is not intended to cover all possible uses, directions, precautions, warnings, drug interactions, allergic reactions, or adverse effects. If you have questions about the drugs you are taking, check with your doctor, nurse or pharmacist. Copyright 4107-7805 [employer]. Version: 19.02. Revision Date: 02/26/2024. Education Materials General Neck and Back Pain Both neck and back pain are usually caused by injury to the muscles or ligaments of the spine. Sometimes the disks that separate each bone of the spine may cause pain by pressing on a nearby nerve. Back and neck pain may appear after a sudden twisting or bending force (such as in a car accident), or sometimes after a simple awkward movement. In either case, muscle spasm is often present and adds to the pain. Acute neck and back pain usually gets better in 1 to 2 weeks. Pain related to disk disease, arthritis in the spinal joints or spinal stenosis (narrowing of the spinal canal) can become chronic and last for months or years. Back and neck pain are common problems. Most people feel better in 1 or 2 weeks, and most of the rest in 1 to 2 months. Most people can remain active. People have and describe pain differently. Pain can be sharp, stabbing, shooting, aching, cramping, or burning Movement, standing, bending, lifting, sitting, or walking may worsen the pain Pain can be localized to one spot or area, or it can be more generalized Pain can spread or radiate upwards, downwards, to the front, or go down your arms Muscle spasm may occur. Most of the time mechanical problems with the muscles or spine cause the pain. it is usually causedby an injury, whether known or not, to the muscles or ligaments. While illnesses can cause back pain, it is usually not caused by a serious illness. Pain is usually related to physical activity, whether sports, exercise, work, or normal activity. Sometimes it can occur without an identifiable cause. This can happen simply by stretching or moving wrong, without noting pain at the time. Other causes include: Overexertion, lifting, pushing, pulling incorrectly or too aggressively. Sudden twisting, bending or stretching from an accident (car or fall), or accidental movement. Poor posture Poor conditioning, lack of regular exercise Spinal disc disease or arthritis Stress , or illness like appendicitis, bladder or kidney infection, pelvic infections Home care For neck pain: Use a comfortable pillow that supports the head and keeps the spine in a neutral position. The position of the head should not be tilted forward or backward. When in bed, try to find a position of comfort. A firm mattress is best. Try lying flat on your back with pillows under your knees. You can also try lying on your side with your knees bent up towardsyour chest and a pillow between your knees. At first, do not try to stretch out the sore spots. If there is a strain, it is not like the good soreness you get after exercising without an injury. In this case, stretching may make it worse. Don't sit for long periods, as in long car rides or other travel. This puts more stress on the lower back than standing or walking. During the first 24 to 72 hours after an injury, apply an ice pack to the painful area for 20 minutes and then remove it for 20 minutes over a period of 60 to 90 minutes or several times a day. You can alternate ice and heat therapies. Talk with your healthcare provider about the best treatment for your back or neck pain. As a safety precaution, do not use a heating pad at bedtime. Sleepingwith a heating pad can lead to skin reveles or tissue damage. Therapeutic massage can help relax the back and neck muscles without stretching them. Be aware of safe lifting methods and do not lift anything over 15 pounds until all the pain is gone. Medicines Talk to your healthcare provider before using medicine, especially if you have other medical problems or are taking other medicines. You may use fxtr-aiy-bxrshid medicine to control pain, unless another pain medicine was prescribed.If you have chronic conditions like diabetes, liver or kidney disease, stomach ulcers, gastrointestinal bleeding, or are taking blood thinner medicines. Be careful if you are given pain medicines, narcotics, or medicine for muscle spasm. They can causedrowsiness, and can affect your coordination, reflexes, and judgment. Do not drive or operate heavyCinemaKi. Follow-up care Follow up with your healthcare provider, or as advised. Physical therapy or further tests may be needed. If X-rays were taken, you will be notified of any new findings that may affect your care. Call 911 Call 911 if any of the following occur: Trouble breathing Confusion Very drowsy or trouble awakening Fainting or loss of consciousness Rapid or very slow heart rate Loss of bowel or bladder control When to seek medical advice Call your healthcare provider right away if any of these occur: Pain becomes worse or spreads into your arms or legs Weakness, numbness or pain in one or both arms or legs Numbness in the groin area Difficulty walking Fever of 100.4 F (38 C) or higher, or as directed by your healthcare provider [id number] [employer]. [address] [place] [address], [place] [address]. All rights reserved. This information is not intended as a substitute for professional medical care. Always follow yourhealthcare professional's instructions. Additional Information VACCINATE! IT SAVES LIVES! Members of the community who have not yet received the COVID-19 vaccine and would like to receive it can visit one of [facility] vaccine clinics. There are many vaccine clinic locations within the [facility]. For locations and available times, please visit www.gettheshot.coronavirus.[place].gov/. It is important to note that some COVID mobile vaccine clinics are held outdoors and may be canceled in rainy or stormy conditions. To learn more about pediatric vaccinations (ages 5-11), we invite you to visit the [facility] webpage. [email or web address] learn more about the COVID-19 vaccine, we invite you to visit the CDC website for a list of frequently asked questions. https://www.cdc.gov/coronavirus/2019-ncov/vaccines/faq.html [facility] Patient Portal Access Instructions: Stay connected with your healthcare team and access your personal medical information anytime with the [facility] Patient Portal. If you would like a full copy of your medical records please contact the [facility] Medical Records Department Sunday through Sunday between 8a.m. and 4:30p.m. Please follow the directions below to access the portal: 1.Access the email account you provided upon registration to the [facility].2.Look for an invitation email from [facility].3.Open the email and access the invitation link: Accept Invitation to [facility]4.Fill in the required guaman to create your account. Sign into [email or web address] with your username and password that you created in the above steps to stay up to date. You can then view a summary of results, a summary of your visits, and the ability to download your summaries to your computer or send the information securely to a physician. Remember that your healthcare information is confidential, so carefully consider who you will allow to register on the [facility] Patient Portal for access to your information. You can also access the [facility] Patient Portal on the [employer]. Simply click on "Health Records" under "HealthData" and then click on the [facility] logo. HOW TO SAFELY DISPOSE OF PRESCRIPTION MEDICATIONS Please use one of the following methods to safely dispose of your unused medications. 1.Use a drug disposal kit: the drug disposal pouch allows you to safely discard your old and unuseddrugs. Ask your nurse to give you one when you are discharged.2.Visit a local take-back location: Many local pharmacies and police departments have programs that collect old and unwanted prescriptiondrugs. Call your local pharmacy or go to [email or web address] to find one close to you.3.Make use of household items: Use cat litter or old coffee grounds to dispose medications if other options arenot available. Mix your drugs with these household products, seal them in an airtight container andthrow it into the garbage. Call [facility]: [phone] to be sure your drugs can be disposed of in this way. Some medicines may require a different approach.4.Never flush your medications down the toilet. IF YOU HAVE BEEN PRESCRIBED AN OPIOIDS FOR PAIN If you have been prescribed an opioid (such as hydrocodone, oxycodone or morphine), it is critical to understand the possible side effects and risks of opioid pain medications. Even when taken as directed, opioids can have several side effects including: Tolerance, meaning you might need to take more of a medication for the same pain relief. Nausea, vomiting and/or constipation. Sleepiness, dizziness, dry mouth, confusion, depression or itching. Physical dependence, meaning you have withdrawal symptoms when a medication is stopped ? this can develop within a few days. KNOW YOUR RESPONSIBILITIES It is important to know exactly how much and how often to take the opioid pain medications you are prescribed. Never take opioids in higher amounts or more often than prescribed. Do not combine opioids with alcohol or other drugs that cause drowsiness, such as benzodiazepines, also known as benzos,including diazepam and alprazolam, muscle relaxants or sleep aids. Never sell or share prescriptionopioids. This is illegal. Store opioids in a secure place and out of reach of others (including children, family, friends and visitors). The last page(s) of this document has been signed and retained as a CHART COPY Signatures Patient Education Materials Back and Neck Pain, General Medication Leaflets cyclobenzaprine, lidocaine topical, acetaminophen and hydrocodone My discharge plan and instructions have been reviewed and explained to me and I,NINA WILSON understand my current condition and have read and understand these discharge instructions. I have received a written copy of the plan/instructions. If I have questions, I am aware that I should contact my doctor. 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 Multiplanar reformatted images are provided for review. Automated exposure control, iterative reconstruction, and/or weight based adjustment of the mA/kV was utilized to reduce the radiation dose to as low as reasonably achievable. COMPARISON: None Available HISTORY: ORDERING SYSTEM PROVIDED HISTORY: Reason for Exam: RIGHT flank pain X3 DAYS RIGHT flank pain FINDINGS: Varying degrees of multilevel degenerative changes of the spine.Grade 1 anterolisthesis of L1 on L2. Mild retrolisthesis L2 on L3. Bilateral SI joint and hip degenerative changes. The visualized lung bases are unremarkable. Small hiatal hernia. Otherwise the esophagus stomach, and duodenum are unremarkable. The liver and spleen are partially imaged. Few scattered hepatic and splenic calcified granulomas. Fatty infiltration of the liver is suspected. A 2.8 cm right adrenal nodule is present. 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 Right midpole renal cyst is present. Punctate right midpole 2 mm stone seen. Nonobstructive 8 mm left renal midpole calculus. No hydronephrosis. The urinary bladder and other solid pelvic organs are grossly unremarkable. Diffuse mild to moderate colonic diverticula without diverticulitis. The appendix courses laterally and superiorly and is grossly normal. Mild arthrosclerotic calcifications of the aorta and other major arteries.No adenopathy, free intraperitoneal air or fluid. Small fat containing umbilical hernia. No additional contributory findings. IMPRESSION: No acute process within the abdomen or pelvis. No explanation for patient's symptoms seen. Nonobstructive nephrolithiasis left greater than right. Diffuse myhx-cf-cbaitjsz colonic diverticula without diverticulitis. I have personally reviewed the images of this examination and agree with the resident's findings and interpretation. Interpreted by: Nicole Thomason MD Preliminary Report By: Rock Ortega Electronically signed By Nicole Thomason MD Dictated Date: 11/27/2024 12:42:49 PM Prelim Date: 11/27/2024 1:14:40 PM Sign Date: 11/27/2024 1:14:40 PM Ordering Provider: [facility]01-09-2025 Telephone encounter Note* Telephone Encounter - Colleen Haskins RN - 11/27/2024 9:52 AM EST S: Patient spoke with [facility] nurse regarding kidney pain. B: Onset of symptoms/concern: x 2 days A: Patient reports constant right flank pain, describes as dull and a sharp pain which worsens withmovement, pain radiates to right groin, denies hematuria, dysuria or fever. R: 2nd level triage- spoke with Dr. Morocho who advises ED, patient notified, verbalized understanding, states he will check his insurance coverage first regarding what is in network. Reason for Disposition Pain radiates into groin, scrotum Protocols used: Flank Lufn-[id number]-GG [facility] [id number] Miscellaneous Notes* Telephone Encounter - Colleen Haskins RN - 11/27/2024 9:52 AM EST S: Patient spoke with [facility] nurse regarding kidney pain. B: Onset of symptoms/concern: x 2 days A: Patient reports constant right flank pain, describes as dull and a sharp pain which worsens withmovement, pain radiates to right groin, denies hematuria, dysuria or fever. R: 2nd level triage- spoke with Dr. Morocho who advises ED, patient notified, verbalized understanding, states he will check his insurance coverage first regarding what is in network. Reason for Disposition Pain radiates into groin, scrotum Protocols used: Flank Eyum-[id number]-BB documented in this [facility]11-22-2024 Telephone encounter Note* Telephone Encounter - Ashia Spangler MA - 10/10/2024 7:08 AM EST Prescription Request: Last medication check: 06/10/24 Last physical exam: 02/07/24 Next scheduled appointment: 12/11/24 Last date of refill on this medication 06/18/24 90 day 1 refill [place] [id number] Miscellaneous Notes* Telephone Encounter - Ashia Spangler MA - 10/10/2024 7:08 AM EST Prescription Request: Last medication check: 06/10/24 Last physical exam: 02/07/24 Next scheduled appointment: 12/11/24 Last date of refill on this medication 06/18/24 90 day 1 refill documented in this [place] [id number] Telephone encounter Note* Telephone Encounter - Ashia Spangler MA - 10/10/2024 7:06 AM EST 08/05/24 90 day 1 refill Sent to [facility] [employer] Message sent to Nina [id number] Miscellaneous Notes* Telephone Encounter - Ashia Spangler MA - 10/10/2024 7:06 AM EST 08/05/24 90 day 1 refill Sent to [employer] Message sent to Nina documented in this [facility]11-13-2024 Telephone encounter Note* Telephone Encounter - Ashia Spangler MA - 10/01/2024 6:47 AM EST Prescription Request: Last medication check: 06/10/24 Last physical exam: 02/07/24 Next scheduled appointment: 12/11/24 Last date of refill on this medication all 3 scripts sent 08/04/24, 08/19/24, 09/05/24 [facility] 1 refill (ozempic 09/05/24 3ml 1 refill) [id number] Miscellaneous Notes* Telephone Encounter - Ashia Spangler MA - 10/01/2024 6:47 AM EST Prescription Request: Last medication check: 06/10/24 Last physical exam: 02/07/24 Next scheduled appointment: 12/11/24 Last date of refill on this medication all 3 scripts sent 08/04/24, 08/19/24, 09/05/24 to [facility] day and 1 refill (ozempic 09/05/24 3ml 1 refill) documented in this [facility]10-18-2024 Telephone encounter Note* Telephone Encounter - LEXII Coates CNP - 09/05/2024 7:57 AM EDT Reviewed chart. Refill appropriate. RX sent. [id number] Miscellaneous Notes* Telephone Encounter - LEXII Coates CNP - 09/05/2024 7:57 AM EDT Reviewed chart. Refill appropriate. RX sent. * Telephone Encounter - Lucero Travis MA - 09/05/2024 6:36 AM EDT Prescription Request: Last medication check: 06/10/2024 Last physical exam: 02/07/2024 Next scheduled appointment: 12/11/2024 Last date of refill on this medication: 07/11/2024 documented in this [id number] Telephone encounter Note* Telephone Encounter - Lucero Travis MA - 09/05/2024 6:36 AM EDT Prescription Request: Last medication check: 06/10/2024 Last physical exam: 02/07/2024 Next scheduled appointment: 12/11/2024 Last date of refill on this medication: 07/11/2024 [id number] Telephone encounter Note* Telephone Encounter - LEXII Coates CNP - 08/19/2024 9:51 AM EDT Reviewed chart. Refill appropriate. RX sent. [id number] Miscellaneous Notes* Telephone Encounter - LEXII Coates CNP - 08/19/2024 9:51 AM EDT Reviewed chart. Refill appropriate. RX sent. * Telephone Encounter - Ashia Spangler MA - 08/19/2024 7:52 AM EDT Prescription Request: Last medication check: 06/10/24 Last physical exam: 02/07/24 Next scheduled appointment: 12/11/24 Last date of refill on this medication 05/05/24 90 and 1 refill [facility] [id number] Telephone encounter Note* Telephone Encounter - Ashia Spangler MA - 08/19/2024 7:52 AM EDT Prescription Request: Last medication check: 06/10/24 Last physical exam: 02/07/24 Next scheduled appointment: 12/11/24 Last date of refill on this medication 05/05/24 90 and 1 refill [id number] Telephone encounter Note* Telephone Encounter - Don Feldman MD - 08/07/2024 2:23 PM EDT Called Mr. Wilson to inform him of results from recent colonoscopy. Left an appropriate voicemail. Prior piecemeal TVA from the cecum of large size without evidence of any recurrence. Same with additional hepatic flexure polyp. 1 small polyp was seen in the cecum and was a TA. I recommend that we do surveillance follow up colonoscopy in 3 years now and he was agreeable at time of procedure. Final Diagnosis COLON, CECUM, "POLYP X1": - TUBULAR ADENOMA at 1046 Clinical Information History of colonic polyps Gross Description Received in formalin labeled "polyp x 1, cecum" are five osorio-pink tissue fragments ranging in size from 0.2-0.4 cm. The specimen is entirely submitted in a single cassette. Department of Surgery [employer] Work Phone: [phone] 957-669409-19-2024 Miscellaneous Notes* Telephone Encounter - Don Feldman MD - 08/07/2024 2:23 PM EDT Called Mr. Wilson to inform him of results from recent colonoscopy. Left an appropriate voicemail. Prior piecemeal TVA from the cecum of large size without evidence of any recurrence. Same with additional hepatic flexure polyp. 1 small polyp was seen in the cecum and was a TA. I recommend that we do surveillance follow up colonoscopy in 3 years now and he was agreeable at time of procedure. Final Diagnosis COLON, CECUM, "POLYP X1": - TUBULAR ADENOMA at 1045 Clinical Information History of colonic polyps Gross Description Received in formalin labeled "polyp x 1, cecum" are five osorio-pink tissue fragments ranging in size from 0.2-0.4 cm. The specimen is entirely submitted in a single cassette. Department of Surgery documented in this [facility]09-17-2024 Telephone encounter Note* Telephone Encounter - Lucero Travis MA - 08/05/2024 2:32 PM EDT Prescription Request: Last medication check: 06/10/2024 Last physical exam: 02/07/2024 Next scheduled appointment: 12/11/2024 Last date of refill on this medication: 04/22/2024 [id number] Miscellaneous Notes* Telephone Encounter - Lucero Travis MA - 08/05/2024 2:32 PM EDT Prescription Request: Last medication check: 06/10/2024 Last physical exam: 02/07/2024 Next scheduled appointment: 12/11/2024 Last date of refill on this medication: 04/22/2024 documented in this [facility]09-17-2024 Note* Perioperative Nursing Note - Yolanda Barron RN - 08/05/2024 8:44 AM EDT Pt discharged home via wheelchair accompanied by RN/volunteer. Pt has had all their belongings returned to them at discharge [facility] [id number] Note* Perioperative Nursing Note - Yolanda Barron RN - 08/05/2024 8:44 AM EDT Pt discharged home via wheelchair accompanied by RN/volunteer. Pt has had all their belongings returned to them at discharge [facility] [id number] Miscellaneous Notes* Perioperative Nursing Note - Yolanda Barron RN - 08/05/2024 8:44 AM EDT Pt discharged home via wheelchair accompanied by RN/volunteer. Pt has had all their belongings returned to them at discharge * Perioperative Nursing Note - Yolanda Barron RN - 08/05/2024 8:31 AM EDT Reviewed discharge instructions with patient and daughter, Maryann. Understanding verbalized. * Perioperative Nursing Note - Yolanda Barron RN - 08/05/2024 8:11 AM EDT Fingerstick blood sugar 110. * Perioperative Nursing Note - Yolanda Barron RN - 08/05/2024 8:05 AM EDT Pt recieved from ENDOSCOPY to phase 2 via cart with COMSEC MANAGER in attendance, pt has spontaneous respirations,pt place on monitor with alarms on, will continue to monitor * Op Note - Don Feldman MD - 08/05/2024 7:19 AM ED[facility] Name: Nina Wilson Procedure Date: 08/05/2024 7:19 AM Gender: Male Date of : 1965 Age: 59 Admit Type: Outpatient Note Status: Finalized Endoscopist: Don Feldman MD, Procedure: Colonoscopy Indications: Surveillance: Personal history of piecemeal removal of adenoma on last colonoscopy 6 months ago Findings: Medium-mouthed and small-mouthed diverticula were found in the entire colon. A less than 5 mm polyp was found in the cecum. The polyp was sessile. The polyp was removed with a cold biopsy forceps. Resection and retrieval were complete. Verification of patient identification for the specimen was done. Estimated blood loss was minimal. The terminal ileum appeared normal. The prior polypectomy sites were healed without evidence of mucosal change. No residual disease identified. Recommendation: - Patient has a contact number available for emergencies. The signs and symptoms of potential delayed complications were discussed with the patient. Return to normal activities tomorrow. Written discharge instructions were provided to the patient. - Resume previous diet. - Continue present medications. - Repeat colonoscopy in 3 years for surveillance based on pathology results. Referring MD: Jason Morohco Medicines: Monitored Anesthesia Care Procedure: Pre-Anesthesia Assessment: - Prior to the procedure, a History and Physical was performed, and patient medications and allergies were reviewed. The patient's tolerance of previous anesthesia was also reviewed. The risks and benefits of the procedure and the sedation options and risks were discussed with the patient. All questions were answered, and informed consent was obtained. Prior Anticoagulants: The patient has taken no anticoagulant or antiplatelet agents. ASA Grade Assessment: II - A patient with mild systemic disease. After reviewing the risks and benefits, the patient was deemed in satisfactory condition to undergo the procedure. - The anesthesia plan was to use monitored anesthesia care (MAC). After I obtained informed consent, the scope was passed under direct vision. Throughout the procedure, the patient's blood pressure, pulse, and oxygen saturations were monitored continuously. The Colonoscope was introduced through the anus and advanced to the cecum, identified by appendiceal orifice and ileocecal valve. The colonoscopy was performed without difficulty. The patient tolerated the procedure well. The quality of the bowel preparation was adequate to identify polyps. The terminal ileum, ileocecal valve, appendiceal orifice, and rectum were photographed. Complications: No immediate complications. Procedure Code(s): --- Professional --- 06678, Colonoscopy, flexible; with biopsy, single or multiple --- Technical --- 06203, Colonoscopy, flexible; with biopsy, single or multiple Diagnosis Code(s): --- Professional --- Z86.010, Personal history of colonic polyps Z09, Encounter for follow-up examination after completed treatment for conditions other than malignant neoplasm --- Technical --- Z86.010, Personal history of colonic polyps Z09, Encounter for follow-up examination after completed treatment for conditions other than malignant neoplasm CPT copyright 2021 [employer]. All rights reserved. The codes documented in this report are preliminary and upon senior games technician review may be revised to meet current compliance requirements. Attending Participation: I personally performed the entire procedure. Don Fedlman MD 08/05/2024 8:08:03 AM Number of Addenda: 0 Note Initiated On: 08/05/2024 7:19 AM documented in this encounterSTuscarawas [id number] Note* Perioperative Nursing Note - Yolanda Barron RN - 08/05/2024 8:31 AM EDT Reviewed discharge instructions with patient and daughter, Maryann. Understanding verbalized. [id number]* Perioperative Nursing Note - Yolanda Barron RN - 08/05/2024 8:31 AM EDT Reviewed discharge instructions with patient and daughter, Maryann. Understanding verbalized. [place] [id number] NotePatient: Nina Wilson Procedure Summary Date: 08/05/24 Room / Location: [place] [id number] / [facility] Gastroenterology Anesthesia Start: 727 Anesthesia Stop: 805 Procedure: COLONOSCOPY Diagnosis: Hx of colonic polyp (Hx of colonic polyp) Providers: Don Feldman MD Responsible Provider: Leigh Anesthesiologist Myrtle Marie/MD Leela Anesthesia Type: general, TIVA ASA Status: 2 Anesthesia Type: general, TIVA Vitals Value Taken Time BP 104/76 08/05/24 0812 Temp 36.2 ?C (97.2 ?F) 08/05/24 0805 Pulse 81 08/05/24 0818 Resp 18 08/05/24 0805 SpO2 96 % 08/05/24 0818 Vitals shown include unfiled device data. Anesthesia Post Evaluation Patient location during evaluation: PACU Patient participation: complete - patient participated Level of consciousness: awake and alert Pain management: satisfactory to patient Airway patency: patent Dental Injury: no Cardiovascular status: acceptable, blood pressure returned to baseline and hemodynamically stable Respiratory status: acceptable and spontaneous ventilation Hydration status: euvolemic Nausea/Vomiting: controlled No notable events documented. Patient can be discharged once all PACU criteria has been met.[facility] [id number] NotePatient: Nina Wilson Procedure Summary Date: 08/05/24 Room / Location: [facility] / [facility] Gastroenterology Anesthesia Start: 727 Anesthesia Stop: 805 Procedure: COLONOSCOPY Diagnosis: Hx of colonic polyp (Hx of colonic polyp) Providers: Don Feldman MD Responsible Provider: Leigh Anesthesiologist - Cynthia/MD Leela Anesthesia Type: general, TIVA ASA Status: 2 Anesthesia Type: general, TIVA Vitals Value Taken Time BP 104/76 08/05/24 0812 Temp 36.2 ?C (97.2 ?F) 08/05/24 0805 Pulse 81 08/05/24 0818 Resp 18 08/05/24 0805 SpO2 96 % 08/05/24 0818 Vitals shown include unfiled device data. Anesthesia Post Evaluation Patient location during evaluation: PACU Patient participation: complete - patient participated Level of consciousness: awake and alert Pain management: satisfactory to patient Airway patency: patent Two or more strategies used to mitigate risk of obstructive sleep apnea Cardiovascular status: acceptable and hemodynamically stable Respiratory status: acceptable Hydration status: acceptable No notable events documented. MIPS #[phone] PONV Patient did not receive an inhalational anesthetic (XX430) MIPS # 424 Perioperative Temperature Management Anesthesia time was less than 60 minutes (4256F) MIPS #477 Multimodal Pain Management Not emergent case Patient was not administered multimodal pain management (G2149) Patient reports no pain in PACU (G2149) MIPS #404 Anesthesiology Smoking Abstinence The patient is a current smoker (G9642) (e.g. cigarette, cigar, pipe, e-cigarette/vaping/marijuana) The patient underwent an elective surgery or procedure requiring anesthesia (G9643) The patient received preop smoking cessation instructions prior to the day of surgery or procedure by , DREAD doctor of naprapathy proxy staff (G9497) The patient did not smoke the day of the procedure (G9644) I completed my handoff to the receiving clinician during which we: 1. Identified the patient 2. Identified the responsible provider 3. Reviewed the pertinent medical history 4. Discussed the surgical course 5. Reviewed intra-op anesthesia management and issues during anesthesia 6. Set expectations for post-procedure period 7. Allowed opportunity for questions and acknowledgement of understanding.[facility]09-17-2024 Note* Perioperative Nursing Note - Yolanda Barron RN - 08/05/2024 8:11 AM EDT Fingerstick blood sugar 110. [id number] Note* Perioperative Nursing Note - Yolanda Barron RN - 08/05/2024 8:11 AM EDT Fingerstick blood sugar 110. [facility] [id number] Note* Perioperative Nursing Note - Yolanda Barron RN - 08/05/2024 8:05 AM EDT Pt recieved from ENDOSCOPY to phase 2 via cart with COMSEC MANAGER in attendance, pt has spontaneous respirations,pt place on monitor with alarms on, will continue to monitor [address] [id number] Note* Perioperative Nursing Note - Yolanda Barron RN - 08/05/2024 8:05 AM EDT Pt recieved from ENDOSCOPY to phase 2 via cart with COMSEC MANAGER in attendance, pt has spontaneous respirations,pt place on monitor with alarms on, will continue to monitor [employer] [id number] History and physical note* Don Feldman MD - 08/05/2024 7:23 AM EDT Images from the original note were not included. Endoscopy History and Physical HPI: Nina Wilson is a 59 y.o. male who presents with history of large piecemeal polypectomy in 01/2024,here for repeat surveillance of 6 month duration. Patient had 1 large cecal polyp requiring lift and polypectomy with clip placement. He also had another at the hepatic flexure. The cecal polyp was aTVA. The hepatic flexure polyp was a tubular adenoma. He has lost about 50lbs on Ozempic since we last saw him and his A1c is greatly controlled now. No new complaints. PMHx: Past Medical History: Diagnosis Date Arthritis Cervical disc disease Cervical stenosis of spine Diabetes mellitus (HCC) Hypertension Mixed hyperlipidemia Obesity Plantar fasciitis PSHx: Past Surgical History: Procedure Laterality Date COLONOSCOPY 07/13/2014 COLONOSCOPY 01/29/2024 Performed by Don Feldman MD at [facility] ENDOSCOPY COLONOSCOPY N/A 08/05/2024 Performed by Don Feldman MD at [facility] ENDOSCOPY COLONOSCOPY W/ BIOPSIES 01/29/2024 Performed by Don Feldman MD at [facility] ENDOSCOPY COLONOSCOPY W/ BIOPSIES AND POLYPECTOMY N/A 01/29/2024 Performed by Don Feldman MD at [facility] ENDOSCOPY HERNIA REPAIR Bilateral LUMBAR FUSION 2015 VASECTOMY PFMHx: Family History Problem Relation Name Age of Onset No Known Problems Daughter Heart failure Mother Eryn Emphysema Mother Eryn Arthritis Mother Eryn Hypertension Mother Eryn No Known Problems Sister No Known Problems Sister ALL: No Known Allergies MEDS: @MEDCMED@ SOCIAL Hx: Social History Socioeconomic History Marital status: Spouse name: Not on file Number of children: Not on file Years of education: Not on file Highest education level: Not on file Occupational History Not on file Tobacco Use Smoking status: Some Days Current packs/day: 0.25 Average packs/day: 0.3 packs/day for 15.0 years (3.8 ttl pk-yrs) Types: Cigarettes Smokeless tobacco: Never Tobacco comments: About a pack every 2 weeks Vaping Use Vaping status: Never Used Substance and Sexual Activity Alcohol use: Yes Alcohol/week: 2.0 standard drinks of alcohol Types: 2 Standard drinks or equivalent per week Comment: occasionally Drug use: Never Sexual activity: Yes Partners: Female Other Topics Concern Not on file Social History Narrative Not on file Social Determinants of Health Financial Resource Strain: Low Risk (02/06/2024) Overall Financial Resource Strain (CARDIA) Difficulty of Paying Living Expenses: Not hard at all Food Insecurity: Not on file Transportation Needs: No Transportation Needs (02/06/2024) PRAPARE - Transportation Lack of Transportation (Medical): No Lack of Transportation (Non-Medical): No Physical Activity: Inactive (02/06/2024) Exercise Vital Sign Days of Exercise per Week: 0 days Minutes of Exercise per Session: 0 min Stress: Not on file Social Connections: Not on file Intimate Partner Violence: Not on file Housing Stability: Low Risk (02/06/2024) Housing Stability Vital Sign Unable to Pay for Housing in the Last Year: No Number of Places Lived in the Last Year: 1 Unstable Housing in the Last Year: No Review of Systems: I personally reviewed the patient intake form with the patient. The ROS is negative except for whatis listed in HPI. Physical Examination: BP (!) 154/94 (BP Location: Left arm, Patient Position: Sitting) Pulse 90 Temp 36.4 C (97.5 F) (Temporal) Resp 18 Wt 229 lb (104 kg) SpO2 96% BMI 33.82 kg/m He stands @FLOWAMB(11)@ tall with a weight of @FLOWAMB(14)@ , resulting in a BMI of Body mass indexis 33.82 kg/m .. General: The patient is awake, alert, and oriented, and is in no apparent distress. Normal affect. Head and Neck: Normocephalic and atraumatic. Normal ROM Cardiac: Regular rate and rhythm, patient on monitor Respiratory: No respiratory distress. Equal chest rise. Good inspiratory effort. Abdomen: soft, non-tender, non-distended, no masses or organomegaly Extremities: Ambulatory without assistance. Neurological: Intact sensation in 4 extremities, no focal deficits notes. Skin: No rashes or lesions noted. Warm and dry. Rectal: Not done. Hernia: no hernias found on exam Assessment and Plan Patient Active Problem List Diagnosis Date Noted Type 2 diabetes mellitus without complication, without long-term current use of insulin (CMS/HCC) (HCC) 09/03/2023 Sprain of medial collateral ligament of left knee 09/03/2023 Hx of colonic polyp 06/12/2024 Hypertension 04/20/2015 Herniated cervical disc 04/20/2015 Hypercholesterolemia 04/20/2015 Plan: 59 y.o. male who presents with need for high risk surveillance, 6 mo duration from recent piecemealpolypectomy Will perform colonoscopy today Patient counseled on risks, benefits, and alternatives of treatment plan at length. Patient states an understanding and willingness to proceed with plan. [employer] Phone: [phone] 814-618709-17-2024 NoteEndoscopy History and Physical HPI: Nina Wilson is a 59 y.o. male who presents with history of large piecemeal polypectomy in 01/2024, here for repeat surveillance of 6 month duration. Patient had 1 large cecal polyp requiring lift and polypectomy with clip placement. He also had another at the hepatic flexure. The cecal polyp was a TVA. The hepatic flexure polyp was a tubular adenoma. He has lost about 50lbs on Ozempic since we last saw him and his A1c is greatly controlled now. No new complaints. PMHx: Past Medical History: Diagnosis Date Arthritis Cervical disc disease Cervical stenosis of spine Diabetes mellitus (HCC) Hypertension Mixed hyperlipidemia Obesity Plantar fasciitis PSHx: Past Surgical History: Procedure Laterality Date COLONOSCOPY 07/13/2014 COLONOSCOPY 01/29/2024 Performed by Don Feldman MD at [facility] ENDOSCOPY COLONOSCOPY N/A 08/05/2024 Performed by Don Feldman MD at [facility] ENDOSCOPY COLONOSCOPY W/ BIOPSIES 01/29/2024 Performed by Don Feldman MD at [facility] ENDOSCOPY COLONOSCOPY W/ BIOPSIES AND POLYPECTOMY N/A 01/29/2024 Performed by Don Feldman MD at [facility] ENDOSCOPY HERNIA REPAIR Bilateral LUMBAR FUSION 2015 VASECTOMY PFMHx: Family History Problem Relation Name Age of Onset No Known Problems Daughter Heart failure Mother Eryn Emphysema Mother Eryn Arthritis Mother Eryn Hypertension Mother Eryn No Known Problems Sister No Known Problems Sister ALL: No Known Allergies MEDS: @MEDCMED@ SOCIAL Hx: Social History Socioeconomic History Marital status: Spouse name: Not on file Number of children: Not on file Years of education: Not on file Highest education level: Not on file Occupational History Not on file Tobacco Use Smoking status: Some Days Current packs/day: 0.25 Average packs/day: 0.3 packs/day for 15.0 years (3.8 ttl pk-yrs) Types: Cigarettes Smokeless tobacco: Never Tobacco comments: About a pack every 2 weeks Vaping Use Vaping status: Never Used Substance and Sexual Activity Alcohol use: Yes Alcohol/week: 2.0 standard drinks of alcohol Types: 2 Standard drinks or equivalent per week Comment: occasionally Drug use: Never Sexual activity: Yes Partners: Female Other Topics Concern Not on file Social History Narrative Not on file Social Determinants of Health Financial Resource Strain: Low Risk (02/06/2024) Overall Financial Resource Strain (CARDIA) Difficulty of Paying Living Expenses: Not hard at all Food Insecurity: Not on file Transportation Needs: No Transportation Needs (02/06/2024) PRAPARE - Transportation Lack of Transportation (Medical): No Lack of Transportation (Non-Medical): No Physical Activity: Inactive (02/06/2024) Exercise Vital Sign Days of Exercise per Week: 0 days Minutes of Exercise per Session: 0 min Stress: Not on file Social Connections: Not on file Intimate Partner Violence: Not on file Housing Stability: Low Risk (02/06/2024) Housing Stability Vital Sign Unable to Pay for Housing in the Last Year: No Number of Places Lived in the Last Year: 1 Unstable Housing in the Last Year: No Review of Systems: I personally reviewed the patient intake form with the patient. The ROS is negative except for what is listed in HPI. Physical Examination: BP (!) 154/94 (BP Location: Left arm, Patient Position: Sitting) Pulse 90 Temp 36.4 ?C (97.5 ?F) (Temporal) Resp 18 Wt 229 lb (104 kg) SpO2 96% BMI 33.82 kg/m? He stands @FLOWAMB(11)@ tall with a weight of @FLOWAMB(14)@ , resulting in a BMI of Body mass index is 33.82 kg/m?.. General: The patient is awake, alert, and oriented, and is in no apparent distress. Normal affect. Head and Neck: Normocephalic and atraumatic. Normal ROM Cardiac: Regular rate and rhythm, patient on monitor Respiratory: No respiratory distress. Equal chest rise. Good inspiratory effort. Abdomen: soft, non-tender, non-distended, no masses or organomegaly Extremities: Ambulatory without assistance. Neurological: Intact sensation in 4 extremities, no focal deficits notes. Skin: No rashes or lesions noted. Warm and dry. Rectal: Not done. Hernia: no hernias found on exam Assessment and Plan Patient Active Problem List Diagnosis Date Noted Type 2 diabetes mellitus without complication, without long-term current use of insulin (CMS/HCC) (HCC) 09/03/2023 Sprain of medial collateral ligament of left knee 09/03/2023 Hx of colonic polyp 06/12/2024 Hypertension 04/20/2015 Herniated cervical disc 04/20/2015 Hypercholesterolemia 04/20/2015 Plan: 59 y.o. male who presents with need for high risk surveillance, 6 mo duration from recent piecemeal polypectomy Will perform colonoscopy today Patient counseled on risks, benefits, and alternatives of treatment plan at length. Patient states an understanding and willingness to proceed with plan. Electronically signed by Don Feldman MD on (more content not included)...[facility]09-17-2024 History and physical note* Don Feldman MD - 08/05/2024 7:23 AM EDT Images from the original note were not included. Endoscopy History and Physical HPI: Nina Wilson is a 59 y.o. male who presents with history of large piecemeal polypectomy in 01/2024,here for repeat surveillance of 6 month duration. Patient had 1 large cecal polyp requiring lift and polypectomy with clip placement. He also had another at the hepatic flexure. The cecal polyp was aTVA. The hepatic flexure polyp was a tubular adenoma. He has lost about 50lbs on Ozempic since we last saw him and his A1c is greatly controlled now. No new complaints. PMHx: Past Medical History: Diagnosis Date Arthritis Cervical disc disease Cervical stenosis of spine Diabetes mellitus (HCC) Hypertension Mixed hyperlipidemia Obesity Plantar fasciitis PSHx: Past Surgical History: Procedure Laterality Date COLONOSCOPY 07/13/2014 COLONOSCOPY 01/29/2024 Performed by Don Feldman MD at [facility] ENDOSCOPY COLONOSCOPY N/A 08/05/2024 Performed by Don Feldman MD at [facility] ENDOSCOPY COLONOSCOPY W/ BIOPSIES 01/29/2024 Performed by Don Feldman MD at [facility] ENDOSCOPY COLONOSCOPY W/ BIOPSIES AND POLYPECTOMY N/A 01/29/2024 Performed by Don Feldman MD at [facility] ENDOSCOPY HERNIA REPAIR Bilateral LUMBAR FUSION 2015 VASECTOMY PFMHx: Family History Problem Relation Name Age of Onset No Known Problems Daughter Heart failure Mother Eryn Emphysema Mother Eryn Arthritis Mother Eryn Hypertension Mother Eryn No Known Problems Sister No Known Problems Sister ALL: No Known Allergies MEDS: @MEDCMED@ SOCIAL Hx: Social History Socioeconomic History Marital status: Spouse name: Not on file Number of children: Not on file Years of education: Not on file Highest education level: Not on file Occupational History Not on file Tobacco Use Smoking status: Some Days Current packs/day: 0.25 Average packs/day: 0.3 packs/day for 15.0 years (3.8 ttl pk-yrs) Types: Cigarettes Smokeless tobacco: Never Tobacco comments: About a pack every 2 weeks Vaping Use Vaping status: Never Used Substance and Sexual Activity Alcohol use: Yes Alcohol/week: 2.0 standard drinks of alcohol Types: 2 Standard drinks or equivalent per week Comment: occasionally Drug use: Never Sexual activity: Yes Partners: Female Other Topics Concern Not on file Social History Narrative Not on file Social Determinants of Health Financial Resource Strain: Low Risk (02/06/2024) Overall Financial Resource Strain (CARDIA) Difficulty of Paying Living Expenses: Not hard at all Food Insecurity: Not on file Transportation Needs: No Transportation Needs (02/06/2024) PRAPARE - Transportation Lack of Transportation (Medical): No Lack of Transportation (Non-Medical): No Physical Activity: Inactive (02/06/2024) Exercise Vital Sign Days of Exercise per Week: 0 days Minutes of Exercise per Session: 0 min Stress: Not on file Social Connections: Not on file Intimate Partner Violence: Not on file Housing Stability: Low Risk (02/06/2024) Housing Stability Vital Sign Unable to Pay for Housing in the Last Year: No Number of Places Lived in the Last Year: 1 Unstable Housing in the Last Year: No Review of Systems: I personally reviewed the patient intake form with the patient. The ROS is negative except for whatis listed in HPI. Physical Examination: BP (!) 154/94 (BP Location: Left arm, Patient Position: Sitting) Pulse 90 Temp 36.4 C (97.5 F) (Temporal) Resp 18 Wt 229 lb (104 kg) SpO2 96% BMI 33.82 kg/m He stands @FLOWAMB(11)@ tall with a weight of @FLOWAMB(14)@ , resulting in a BMI of Body mass indexis 33.82 kg/m .. General: The patient is awake, alert, and oriented, and is in no apparent distress. Normal affect. Head and Neck: Normocephalic and atraumatic. Normal ROM Cardiac: Regular rate and rhythm, patient on monitor Respiratory: No respiratory distress. Equal chest rise. Good inspiratory effort. Abdomen: soft, non-tender, non-distended, no masses or organomegaly Extremities: Ambulatory without assistance. Neurological: Intact sensation in 4 extremities, no focal deficits notes. Skin: No rashes or lesions noted. Warm and dry. Rectal: Not done. Hernia: no hernias found on exam Assessment and Plan Patient Active Problem List Diagnosis Date Noted Type 2 diabetes mellitus without complication, without long-term current use of insulin ([facility]) (HCC) 09/03/2023 Sprain of medial collateral ligament of left knee 09/03/2023 Hx of colonic polyp 06/12/2024 Hypertension 04/20/2015 Herniated cervical disc 04/20/2015 Hypercholesterolemia 04/20/2015 Plan: 59 y.o. male who presents with need for high risk surveillance, 6 mo duration from recent piecemealpolypectomy Will perform colonoscopy today Patient counseled on risks, benefits, and alternatives of treatment plan at length. Patient states an understanding and willingness to proceed with plan. documented in this [facility]09-17-2024 Note* Op Note - Don Feldman MD - 08/05/2024 7:19 AM EDT [facility] Name[facility] Nina [facility] Procedure Date: 08/05/2024 7:19 AM Gender: Male Date of : 1965 Age: 59 Admit Type: Outpatient Note Status: Finalized Endoscopist: Don Feldman MD, Procedure: Colonoscopy Indications: Surveillance: Personal history of piecemeal removal of adenoma on last colonoscopy 6 months ago Findings: Medium-mouthed and small-mouthed diverticula were found in the entire colon. A less than 5 mm polyp was found in the cecum. The polyp was sessile. The polyp was removed with a cold biopsy forceps. Resection and retrieval were complete. Verification of patient identification for the specimen was done. Estimated blood loss was minimal. The terminal ileum appeared normal. The prior polypectomy sites were healed without evidence of mucosal change. No residual disease identified. Recommendation: - Patient has a contact number available for emergencies. The signs and symptoms of potential delayed complications were discussed with the patient. Return to normal activities tomorrow. Written discharge instructions were provided to the patient. - Resume previous diet. - Continue present medications. - Repeat colonoscopy in 3 years for surveillance based on pathology results. Referring MD: Jason Morocho Medicines: Monitored Anesthesia Care Procedure: Pre-Anesthesia Assessment: - Prior to the procedure, a History and Physical was performed, and patient medications and allergies were reviewed. The patient's tolerance of previous anesthesia was also reviewed. The risks and benefits of the procedure and the sedation options and risks were discussed with the patient. All questions were answered, and informed consent was obtained. Prior Anticoagulants: The patient has taken no anticoagulant or antiplatelet agents. ASA Grade Assessment: II - A patient with mild systemic disease. After reviewing the risks and benefits, the patient was deemed in satisfactory condition to undergo the procedure. - The anesthesia plan was to use monitored anesthesia care (MAC). After I obtained informed consent, the scope was passed under direct vision. Throughout the procedure, the patient's blood pressure, pulse, and oxygen saturations were monitored continuously. The Colonoscope was introduced through the anus and advanced to the cecum, identified by appendiceal orifice and ileocecal valve. The colonoscopy was performed without difficulty. The patient tolerated the procedure well. The quality of the bowel preparation was adequate to identify polyps. The terminal ileum, ileocecal valve, appendiceal orifice, and rectum were photographed. Complications: No immediate complications. Procedure Code(s): --- Professional --- 67014, Colonoscopy, flexible; with biopsy, single or multiple --- Technical --- 97684, Colonoscopy, flexible; with biopsy, single or multiple Diagnosis Code(s): --- Professional --- Z86.010, Personal history of colonic polyps Z09, Encounter for follow-up examination after completed treatment for conditions other than malignant neoplasm --- Technical --- Z86.010, Personal history of colonic polyps Z09, Encounter for follow-up examination after completed treatment for conditions other than malignant neoplasm CPT copyright 2021 [employer]. All rights reserved. The codes documented in this report are preliminary and upon senior games technician review may be revised to meet current compliance requirements. Attending Participation: I personally performed the entire procedure. Don Feldman MD 08/05/2024 8:08:03 AM Number of Addenda: 0 Note Initiated On: 08/05/2024 7:19 AM [employer] [id number] Note* Op Note - Don Feldman MD - 08/05/2024 7:19 AM [facility] Name: Nina Wilson Procedure Date: 08/05/2024 7:19 AM Gender: Male Date of : 1965 Age: 59 Admit Type: Outpatient Note Status: Finalized Endoscopist: Don Feldman MD, Procedure: Colonoscopy Indications: Surveillance: Personal history of piecemeal removal of adenoma on last colonoscopy 6 months ago Findings: Medium-mouthed and small-mouthed diverticula were found in the entire colon. A less than 5 mm polyp was found in the cecum. The polyp was sessile. The polyp was removed with a cold biopsy forceps. Resection and retrieval were complete. Verification of patient identification for the specimen was done. Estimated blood loss was minimal. The terminal ileum appeared normal. The prior polypectomy sites were healed without evidence of mucosal change. No residual disease identified. Recommendation: - Patient has a contact number available for emergencies. The signs and symptoms of potential delayed complications were discussed with the patient. Return to normal activities tomorrow. Written discharge instructions were provided to the patient. - Resume previous diet. - Continue present medications. - Repeat colonoscopy in 3 years for surveillance based on pathology results. Referring MD: Jason Morocho Medicines: Monitored Anesthesia Care Procedure: Pre-Anesthesia Assessment: - Prior to the procedure, a History and Physical was performed, and patient medications and allergies were reviewed. The patient's tolerance of previous anesthesia was also reviewed. The risks and benefits of the procedure and the sedation options and risks were discussed with the patient. All questions were answered, and informed consent was obtained. Prior Anticoagulants: The patient has taken no anticoagulant or antiplatelet agents. ASA Grade Assessment: II - A patient with mild systemic disease. After reviewing the risks and benefits, the patient was deemed in satisfactory condition to undergo the procedure. - The anesthesia plan was to use monitored anesthesia care (MAC). After I obtained informed consent, the scope was passed under direct vision. Throughout the procedure, the patient's blood pressure, pulse, and oxygen saturations were monitored continuously. The Colonoscope was introduced through the anus and advanced to the cecum, identified by appendiceal orifice and ileocecal valve. The colonoscopy was performed without difficulty. The patient tolerated the procedure well. The quality of the bowel preparation was adequate to identify polyps. The terminal ileum, ileocecal valve, appendiceal orifice, and rectum were photographed. Complications: No immediate complications. Procedure Code(s): --- Professional --- 21729, Colonoscopy, flexible; with biopsy, single or multiple --- Technical --- 08238, Colonoscopy, flexible; with biopsy, single or multiple Diagnosis Code(s): --- Professional --- Z86.010, Personal history of colonic polyps Z09, Encounter for follow-up examination after completed treatment for conditions other than malignant neoplasm --- Technical --- Z86.010, Personal history of colonic polyps Z09, Encounter for follow-up examination after completed treatment for conditions other than malignant neoplasm CPT copyright 2021 [employer]. All rights reserved. The codes documented in this report are preliminary and upon senior games technician review may be revised to meet current compliance requirements. Attending Participation: I personally performed the entire procedure. Don Feldman MD 08/05/2024 8:08:03 AM Number of Addenda: 0 Note Initiated On: 08/05/2024 7:19 AM [facility]09[facility]17-[facility] Name: Nina Wilson Procedure Date: 08/05/2024 7:19 AM Gender: Male Date of : 1965 Age: 59 Admit Type: Outpatient Note Status: Finalized Endoscopist: Don Feldman MD, Procedure: Colonoscopy Indications: Surveillance: Personal history of piecemeal removal of adenoma on last colonoscopy 6 months ago Findings: Medium-mouthed and small-mouthed diverticula were found in the entire colon. A less than 5 mm polyp was found in the cecum. The polyp was sessile. The polyp was removed with a cold biopsy forceps. Resection and retrieval were complete. Verification of patient identification for the specimen was done. Estimated blood loss was minimal. The terminal ileum appeared normal. The prior polypectomy sites were healed without evidence of mucosal change. No residual disease identified. Recommendation: - Patient has a contact number available for emergencies. The signs and symptoms of potential delayed complications were discussed with the patient. Return to normal activities tomorrow. Written discharge instructions were provided to the patient. - Resume previous diet. - Continue present medications. - Repeat colonoscopy in 3 years for surveillance based on pathology results. Referring MD: Jason Morocho Medicines: Monitored Anesthesia Care Procedure: Pre-Anesthesia Assessment: - Prior to the procedure, a History and Physical was performed, and patient medications and allergies were reviewed. The patient's tolerance of previous anesthesia was also reviewed. The risks and benefits of the procedure and the sedation options and risks were discussed with the patient. All questions were answered, and informed consent was obtained. Prior Anticoagulants: The patient has taken no anticoagulant or antiplatelet agents. ASA Grade Assessment: II - A patient with mild systemic disease. After reviewing the risks and benefits, the patient was deemed in satisfactory condition to undergo the procedure. - The anesthesia plan was to use monitored anesthesia care (MAC). After I obtained informed consent, the scope was passed under direct vision. Throughout the procedure, the patient's blood pressure, pulse, and oxygen saturations were monitored continuously. The Colonoscope was introduced through the anus and advanced to the cecum, identified by appendiceal orifice and ileocecal valve. The colonoscopy was performed without difficulty. The patient tolerated the procedure well. The quality of the bowel preparation was adequate to identify polyps. The terminal ileum, ileocecal valve, appendiceal orifice, and rectum were photographed. Complications: No immediate complications. Procedure Code(s): --- Professional --- 85848, Colonoscopy, flexible; with biopsy, single or multiple --- Technical --- 85192, Colonoscopy, flexible; with biopsy, single or multiple Diagnosis Code(s): --- Professional --- Z86.010, Personal history of colonic polyps Z09, Encounter for follow-up examination after completed treatment for conditions other than malignant neoplasm --- Technical --- Z86.010, Personal history of colonic polyps Z09, Encounter for follow-up examination after completed treatment for conditions other than malignant neoplasm CPT copyright 2021 [employer]. All rights reserved. The codes documented in this report are preliminary and upon senior games technician review may be revised to meet current compliance requirements. Attending Participation: I personally performed the entire procedure. Don Feldman MD 08/05/2024 8:08:03 AM Number of Addenda: 0 Note Initiated On: 08/05/2024 7:19 [facility] [id number] Note Patient: Nina Wilson Procedure Information Date/Time: 08/05/24 0730 Procedure: COLONOSCOPY - Please schedule for 30 mins Location: [place] [id number] / [facility] Gastroenterology Providers: Don Feldman MD Relevant Problems No relevant active problems Past Medical History: Past Medical History: No date: Arthritis No date: Cervical disc disease No date: Cervical stenosis of spine No date: Diabetes mellitus (HCC) No date: Hypertension No date: Mixed hyperlipidemia No date: Obesity No date: Plantar fasciitis Past Surgical History: Past Surgical History: 07/13/2014: COLONOSCOPY 01/29/2024: COLONOSCOPY Comment: Performed by Don Feldman MD at [facility] ENDOSCOPY 01/29/2024: COLONOSCOPY W/ BIOPSIES Comment: Performed by Don Feldman MD at [facility] ENDOSCOPY 01/29/2024: COLONOSCOPY W/ BIOPSIES AND POLYPECTOMY; N/A Comment: Performed by Don Feldman MD at [facility] ENDOSCOPY No date: HERNIA REPAIR; Bilateral 2015: LUMBAR FUSION No date: VASECTOMY Social History: TOBACCO: reports that he has been smoking cigarettes. He has a 3.8 pack-year smoking history. He has never used smokeless tobacco. ETOH: reports current alcohol use of about 2.0 standard drinks of alcohol per week. Social History Substance and Sexual Activity Drug Use Never Family History: Family History Problem Relation Name Age of Onset No Known Problems Daughter Heart failure Mother Eryn Emphysema Mother Eryn Arthritis Mother Eryn Hypertension Mother Eryn No Known Problems Sister No Known Problems Sister Screening: unknown Clinical information reviewed: Tobacco Allergies Meds Med Hx Surg Hx Fam Hx Soc Hx Physical Exam Airway Mallampati: II TM distance: >3 FB Neck ROM: full Mouth Open: normalendotracheal tube not in place Cardiovascular Dental dentition normal Pulmonary Abdominal Anesthesia Plan patient is NPO appropriate Any family history or previous problems with anesthesia no ASA 2 general and TIVA Any family history or previous problems with anesthesia no The patient is a current smoker. Patient was previously instructed to abstain from smoking on day of procedure. Patient did not smoke on day of procedure. Anesthetic plan and risks discussed with patient. NICOLE Screening Labs: Lab Results Component Value Date WBC 7.60 10/19/2021 HGB 15.2 10/19/2021 MCV 94.1 10/19/2021 Lab Results Component Value Date NA 136 02/09/2024 K 4.8 02/09/2024 CL 105 02/09/2024 CO2 26 02/09/2024 BUN 19 02/09/2024 CREATININE 0.75 02/09/2024 GLUCOSE 167 (A) 02/09/2024 CALCIUM 10.2 02/09/2024 PROT 7.5 02/09/2024 ALKPHOS 54 02/09/2024 AST 42 02/09/2024 ALT 58 (A) 02/09/2024 EGFR 02/09/2024 Comment: >60 No echocardiogram results found for the past 14 days No results found for this or any previous visit. Equipment [facility]s: [id number] Telephone encounter Note* Telephone Encounter - Lucero Travis MA - 08/04/2024 7:47 AM EDT Prescription Request: Last medication check: 06/10/2024 Last physical exam: 02/07/2024 Next scheduled appointment: 12/11/2024 Last date of refill on this medication: 03/10/2024 [place] [id number] Miscellaneous Notes* Telephone Encounter - Lucero Travis MA - 08/04/2024 7:47 AM EDT Prescription Request: Last medication check: 06/10/2024 Last physical exam: 02/07/2024 Next scheduled appointment: 12/11/2024 Last date of refill on this medication: 03/10/2024 documented in this encounterSTuscarawas [id number] Telephone encounter Note* Telephone Encounter - Lulu King - 07/22/2024 2:07 PM EDT Our office spoke with the patient to remind them of their colonoscopy appointment . The patient is scheduled with Dr. Feldman on 08/05/2024 with arrival time of 6:30 at [facility]. Verified that the patient has the prep information and all questions were answered. [place] [id number] Miscellaneous Notes* Telephone Encounter - Lulu King - 07/22/2024 2:07 PM EDT Our office spoke with the patient to remind them of their colonoscopy appointment . The patient is scheduled with Dr. Feldman on 08/05/2024 with arrival time of 6:30 at [facility]. Verified that the patient has the prep information and all questions were answered. documented in this [place] [id number] Telephone encounter Note* Telephone Encounter - LEXII Coates CNP - 07/11/2024 11:27 AM EDT Reviewed chart. Refill appropriate. RX sent. [id number] Miscellaneous Notes* Telephone Encounter - LEXII Coates CNP - 07/11/2024 11:27 AM EDT Reviewed chart. Refill appropriate. RX sent. * Telephone Encounter - Ashia Spangler MA - 07/11/2024 11:23 AM EDT Prescription Request: Last medication check: 06/10/24 Last physical exam: 02/07/24 Next scheduled appointment: 12/11/24 Last date of refill on this medication 06/16/24 documented in this [place] [id number] Telephone encounter Note* Telephone Encounter - Ashia Spangler MA - 07/11/2024 11:23 AM EDT Prescription Request: Last medication check: 06/10/24 Last physical exam: 02/07/24 Next scheduled appointment: 12/11/24 Last date of refill on this medication 06/16/24 [place] [id number] Telephone encounter Note* Telephone Encounter - Jodee Whitten RN - 06/25/2024 8:09 AM EDT S: Patient spoke with [facility] nurse regarding Sore throat, stuffy nose, mucus yellow B: Onset of symptoms/concern a week A: Pt endorses constant sore throat, pain increased with swallowing, able to swallow. Hortense feverish, nasal congestion with clear drainage at time. Yellow productive cough, Chest congestion, shortness of breath with climbing stairs, constant wheezing, increased cough and wheeze with laying down. Denies - chills, dizziness, earache, headache COVID tested 06/24/24 neg. R: Pt declined appointment tomorrow, "needs to get back to work, wants to be seen today". Offered POD schedule, pt declines, states "I will just go to Urgent Care". Home care advise given for Cough. Patient understands care advice. No further needs at this time. Patient instructed to call back withnew or worsening symptoms. Reason for Disposition Wheezing is present Protocols used: [id number] [facility] [id number] Miscellaneous Notes* Telephone Encounter - Jodee Whitten RN - 06/25/2024 8:09 AM EDT S: Patient spoke with [facility] nurse regarding Sore throat, stuffy nose, mucus yellow B: Onset of symptoms/concern a week A: Pt endorses constant sore throat, pain increased with swallowing, able to swallow. Hortense feverish, nasal congestion with clear drainage at time. Yellow productive cough, Chest congestion, shortness of breath with climbing stairs, constant wheezing, increased cough and wheeze with laying down. Denies - chills, dizziness, earache, headache COVID tested 06/24/24 neg. R: Pt declined appointment tomorrow, "needs to get back to work, wants to be seen today". Offered POD schedule, pt declines, states "I will just go to Urgent Care". Home care advise given for Cough. Patient understands care advice. No further needs at this time. Patient instructed to call back withnew or worsening symptoms. Reason for Disposition Wheezing is present Protocols used: [id number] documented in this [facility]07-31-2024 Telephone encounter Note* Telephone Encounter - Mirian Thomas MA - 06/18/2024 10:38 AM EDT Recent Visits Date Type Provider Dept 06/10/24 [facility] 02/07/24 Office Visit MD [facility] 09/03/23 Office Visit MD [facility] Showing recent visits within past 365 days and meeting all other requirements Future Appointments No visits were found meeting these conditions. Showing future appointments within next 90 days and meeting all other requirements Requested Prescriptions Pending Prescriptions Disp Refills atenolol (Tenormin) 50 MG tablet [Pharmacy Med Name: ATENOLOL 50 MG TABLET] 90 tablet 1 Sig: take 1 tablet by mouth once daily Provider: Jason Morocho MD Overdue for visit: No If yes - patient scheduled? N/A Most recent labs completed in chart? Yes Verified pharmacy: yes Verified day(s) supplied: yes Verified refill(s) needed (previous prescription showing no refills in chart): Yes Have you received any controlled medications from any other provider? N/A T [facility] [id number] Miscellaneous Notes* Telephone Encounter - Mirian Thomas MA - 06/18/2024 10:38 AM EDT Recent Visits Date Type Provider Dept 06/10/24 Office Visit MD [facility] 02/07/24 Office Visit MD [facility] 09/03/23 Office Visit MD [facility] Showing recent visits within past 365 days and meeting all other requirements Future Appointments No visits were found meeting these conditions. Showing future appointments within next 90 days and meeting all other requirements Requested Prescriptions Pending Prescriptions Disp Refills atenolol (Tenormin) 50 MG tablet [Pharmacy Med Name: ATENOLOL 50 MG TABLET] 90 tablet 1 Sig: take 1 tablet by mouth once daily Provider: Jason Morocho MD Overdue for visit: No If yes - patient scheduled? N/A Most recent labs completed in chart? Yes Verified pharmacy: yes Verified day(s) supplied: yes Verified refill(s) needed (previous prescription showing no refills in chart): Yes Have you received any controlled medications from any other provider? N/A documented in this [facility]07-29-2024 Telephone encounter Note* Telephone Encounter - LEXII Coates CNP - 06/16/2024 4:41 PM EDT Reviewed chart. Refill appropriate. RX sent. [facility] [id number] Miscellaneous Notes* Telephone Encounter - LEXII Coates CNP - 06/16/2024 4:41 PM EDT Reviewed chart. Refill appropriate. RX sent. * Telephone Encounter - Renetta Thapa MA - 06/16/2024 11:24 AM EDT Prescription Request: Last medication check: 09/03/2023 Last physical exam: 02/07/2024 Next scheduled appointment: 12/11/24 Last date of refill on this medication: 05/13/24 documented in this [place] [id number] Telephone encounter Note* Telephone Encounter - Renetta Thapa MA - 06/16/2024 11:24 AM EDT Prescription Request: Last medication check: 09/03/2023 Last physical exam: 02/07/2024 Next scheduled appointment: 12/11/24 Last date of refill on this medication: 05/13/24 [place] [id number] Evaluation + Plan note* Assessment & Plan Note - Jason Morocho MD - 06/10/2024 3:49 PM EDTAssociated Problem(s): Hypercholesterolemia Controlled, continue lovastatin 80 mg nightly. [facility] [id number] Miscellaneous Notes* Assessment & Plan Note - Jason Morocho MD - 06/10/2024 3:49 PM EDTAssociated Problem(s): Hypercholesterolemia Controlled, continue lovastatin 80 mg nightly. * Assessment & Plan Note - Jason Morocho MD - 06/10/2024 3:47 PM EDT Associated Problem(s): Type 2 diabetes mellitus without complication, without long-term current useof insulin ([facility]/HCC) ([facility]) Controlled, today's A1c was 5.5, continue Ozempic at 0.5 mg weekly and will have him decrease his metformin to 1 a day and follow-up in 6 months. * Assessment & Plan Note - Jason Morocho MD - 06/10/2024 3:46 PM EDT Associated Problem(s): Hypertension Controlled, continue lisinopril 10 mg daily and atenolol 50 mg daily documented in this [facility]07-23-2024 Evaluation + Plan note* Assessment & Plan Note - Jason Morocho MD - 06/10/2024 3:47 PM EDT Associated Problem(s): Type 2 diabetes mellitus without complication, without long-term current useof insulin (CMS/HCC) ([facility]) Controlled, today's A1c was 5.5, continue Ozempic at 0.5 mg weekly and will have him decrease his metformin to 1 a day and follow-up in 6 months. [facility] [id number] Evaluation + Plan note* Assessment & Plan Note - Jason Morocho MD - 06/10/2024 3:46 PM EDTAssociated Problem(s): Hypertension Controlled, continue lisinopril 10 mg daily and atenolol 50 mg daily [facility] [id number] History of Present illness Narrative* Ashia Spangler MA - 06/10/2024 3:15 PM EDT Patient verified by last name and date of . * Jason Morocho MD - 06/10/2024 3:15 PM EDT Images from the original note were not included. 06/10/2024 Nina Wilson (: 1965) is a 59 y.o. male , Established patient, here for evaluation of the following chief complaint(s): Diabetes, Follow-up (3 month), and Health Maintenance (Eye exam- not done pt will sched) ASSESSMENT/PLAN: 1. Type 2 diabetes mellitus without complication, without long-term current use of insulin ([facility]) ([facility]) Assessment & Plan: Controlled, today's A1c was 5.5, continue Ozempic at 0.5 mg weekly and will have him decrease his metformin to 1 a day and follow-up in 6 months. Orders: - AMB POC HEMOGLOBIN A1C 2. Hypercholesterolemia Assessment & Plan: Controlled, continue lovastatin 80 mg nightly. 3. Primary hypertension Assessment & Plan: Controlled, continue lisinopril 10 mg daily and atenolol 50 mg daily Follow up in about 6 months (around 12/11/2024). SUBJECTIVE/OBJECTIVE: HPI -Nina comes in today for a 6-month follow-up on his diabetes, needs an A1c today and he brings in blood sugars that are fantastic. He has lost 30 pounds since the last time we saw him and he has completely cut out sugar from his diet. Also here for follow-up on his hypertension and his blood pressure looks great today and his hypercholesterolemia which was excellent the last time we checked his numbers. Review of Systems Constitutional: Negative for activity change, appetite change, chills, fever and unexpected weight change. HENT: Negative for ear pain and sore throat. Respiratory: Negative for shortness of breath. Cardiovascular: Negative for chest pain and palpitations. Gastrointestinal: Negative for abdominal pain, blood in stool, constipation and diarrhea. Genitourinary: Negative for dysuria, frequency, hematuria and urgency. Musculoskeletal: Negative for arthralgias and back pain. Skin: Negative. Neurological: Negative for weakness and numbness. Psychiatric/Behavioral: Negative for dysphoric mood. The patient is not nervous/anxious. Vitals: 06/10/24 1504 BP: 134/82 Pulse: 73 SpO2: 95% Weight: 239 lb 3.2 oz (109 kg) Height: 5' 9" (1.753 m) Physical Exam Vitals and nursing note reviewed. Constitutional: General: He is not in acute distress. Appearance: Normal appearance. HENT: Right Ear: Tympanic membrane, ear canal and external ear normal. Left Ear: Tympanic membrane, ear canal and external ear normal. Mouth/Throat: Mouth: Mucous membranes are moist. Pharynx: Oropharynx is clear. Eyes: Extraocular Movements: Extraocular movements intact. Conjunctiva/sclera: Conjunctivae normal. Pupils: Pupils are equal, round, and reactive to light. Neck: Thyroid: No thyromegaly. Vascular: No carotid bruit. Cardiovascular: Rate and Rhythm: Normal rate and regular rhythm. Heart sounds: Normal heart sounds. No murmur heard. Pulmonary: Effort: Pulmonary effort is normal. Breath sounds: Normal breath sounds. Abdominal: General: Bowel sounds are normal. Palpations: Abdomen is soft. Tenderness: There is no abdominal tenderness. Musculoskeletal: General: Normal range of motion. Cervical back: Neck supple. Lymphadenopathy: Cervical: No cervical adenopathy. Skin: General: Skin is warm and dry. Neurological: General: No focal deficit present. Mental Status: He is alert and oriented to person, place, and time. Psychiatric: Mood and Affect: Mood normal. An electronic signature was used to authenticate this note. Jason Morocho MD 06/10/2024 3:49 PM documented in this [facility]06-25-2024 Telephone encounter Note* Telephone Encounter - LEXII Coates CNP - 05/13/2024 4:20 PM EDT Reviewed chart. Refill appropriate. RX sent. [facility] [id number] Miscellaneous Notes* Telephone Encounter - LEXII Coates CNP - 05/13/2024 4:20 PM EDT Reviewed chart. Refill appropriate. RX sent. * Telephone Encounter - Renetta Thapa MA - 05/13/2024 4:04 PM EDT Prescription Request: Last medication check: 09/03/2023 Last physical exam: 02/07/2024 Next scheduled appointment: 06/10/2024 Last date of refill on this medication: 03/28/24 documented in this [facility]06-25-2024 Telephone encounter Note* Telephone Encounter - Renetta Thapa MA - 05/13/2024 4:04 PM EDT Prescription Request: Last medication check: 09/03/2023 Last physical exam: 02/07/2024 Next scheduled appointment: 06/10/2024 Last date of refill on this medication: 03/28/24 [id number] Telephone encounter Note* Telephone Encounter - Lucero Travis MA - 04/22/2024 11:31 AM EDT Prescription Request: Last medication check: 09/03/2023 Last physical exam: 02/07/2024 Next scheduled appointment: 05/07/2024 Last date of refill on this medication: 10/29/2023 [facility] [id number] Miscellaneous Notes* Telephone Encounter - Lucero Travis MA - 04/22/2024 11:31 AM EDT Prescription Request: Last medication check: 09/03/2023 Last physical exam: 02/07/2024 Next scheduled appointment: 05/07/2024 Last date of refill on this medication: 10/29/2023 documented in this [facility]05-20-2024 Telephone encounter Note* Telephone Encounter - Renetta Thapa MA - 04/07/2024 2:15 PM EDT Duplicate request. [facility] [id number] Miscellaneous Notes* Telephone Encounter - Renetta Thapa MA - 04/07/2024 2:15 PM EDT Duplicate request. documented in this [facility]05-10-2024 Telephone encounter Note* Telephone Encounter - Sarah Garay - 03/28/2024 12:23 PM EDT Prescription Request: Last medication check: 09/03/23 Last physical exam: 02/07/24 Next scheduled appointment: 05/07/24 Last date of refill on this medication 02/07/24 [facility] [id number] Miscellaneous Notes* Telephone Encounter - Sarah Garay - 03/28/2024 12:23 PM EDT Prescription Request: Last medication check: 09/03/23 Last physical exam: 02/07/24 Next scheduled appointment: 05/07/24 Last date of refill on this medication 02/07/24 documented in this [place] [id number] Telephone encounter Note* Telephone Encounter - LEXII Coates CNP - 02/25/2024 12:01 PM EDT Reviewed chart. Refill appropriate. RX sent. [facility] [id number] Miscellaneous Notes* Telephone Encounter - LEXII Coates CNP - 02/25/2024 12:01 PM EDT Reviewed chart. Refill appropriate. RX sent. * Telephone Encounter - Paloma Hernandez - 02/25/2024 11:28 AM EDT Prescription Request: Last medication check: 09-03-23 Last physical exam: 02-07-24 Next scheduled appointment: 05-07-24 Last date of refill on this medication 12-07-23 documented in this [facility]04-08-2024 Telephone encounter Note* Telephone Encounter - Paloma Hernandez - 02/25/2024 11:28 AM EDT Prescription Request: Last medication check: 09-03-23 Last physical exam: 02-07-24 Next scheduled appointment: 05-07-24 Last date of refill on this medication 12-07-23 [facility] [id number] Evaluation + Plan note* Assessment & Plan Note - Jason Morocho MD - 02/07/2024 3:56 PM EDTAssociated Problem(s): Hypercholesterolemia Controlled, continue lovastatin 80 mg at night. [facility] [id number] Evaluation + Plan note* Assessment & Plan Note - Jason Morocho MD - 02/07/2024 3:56 PM EDTAssociated Problem(s): Type 2 diabetes mellitus without complication, without long-term current useof insulin (CMS/HCC) ([facility]) Uncontrolled, will get repeat lab work he is to continue his metformin 1000 mg twice a day and we will increase his Ozempic to 0.5 mg a week. He says he has trouble getting his Ozempic from [facility] they are always on backorder so we will give him a prescription to take with him and he can shop around. [facility] [id number] Miscellaneous Notes* Assessment & Plan Note - Jason Morocho MD - 02/07/2024 3:56 PM EDTAssociated Problem(s): Hypercholesterolemia Controlled, continue lovastatin 80 mg at night. * Assessment & Plan Note - Jason Morocho MD - 02/07/2024 3:56 PM EDT Associated Problem(s): Type 2 diabetes mellitus without complication, without long-term current useof insulin (CMS/HCC) ([facility]) Uncontrolled, will get repeat lab work he is to continue his metformin 1000 mg twice a day and we will increase his Ozempic to 0.5 mg a week. He says he has trouble getting his Ozempic from [facility] they are always on backorder so we will give him a prescription to take with him and he can shop around. * Assessment & Plan Note - Jason Morocho MD - 02/07/2024 3:55 PM EDT Associated Problem(s): Hypertension Blood pressure was initially elevated, recheck was improved but still elevated we will have him follow-up in 1 week for blood pressure check and adjust his medications accordingly. He is to continue his atenolol 50 mg daily and losartan 10 mg daily documented in this [facility]03-21-2024 Miscellaneous Notes* Assessment & Plan Note - Jason Morocho MD - 02/07/2024 3:56 PM EDT Associated Problem(s): Hypercholesterolemia Controlled, continue lovastatin 80 mg at night. * Assessment & Plan Note - Jaosn Morocho MD - 02/07/2024 3:56 PM EDT Associated Problem(s): Type 2 diabetes mellitus without complication, without long-term current useof insulin ([facility]) ([facility]) Uncontrolled, will get repeat lab work he is to continue his metformin 1000 mg twice a day and we will increase his Ozempic to 0.5 mg a week. He says he has trouble getting his Ozempic from [facility] they are always on backorder so we will give him a prescription to take with him and he can shop around. * Assessment & Plan Note - Jason Morocho MD - 02/07/2024 3:55 PM EDT Associated Problem(s): Hypertension Blood pressure was initially elevated, recheck was improved but still elevated we will have him follow-up in 1 week for blood pressure check and adjust his medications accordingly. He is to continue his atenolol 50 mg daily and losartan 10 mg daily * Addendum Note - Jason Morocho MD - 02/07/2024 2:45 PM EDTAddended by: JASON MOROCHO on: 02/11/2024 12:54 PM Modules accepted: Level of Service documented in this [facility]03-21-2024 Evaluation + Plan note* Assessment & Plan Note - Jasno Morocho MD - 02/07/2024 3:55 PM EDT Associated Problem(s): Hypertension Blood pressure was initially elevated, recheck was improved but still elevated we will have him follow-up in 1 week for blood pressure check and adjust his medications accordingly. He is to continue his atenolol 50 mg daily and losartan 10 mg daily [facility] [id number] History of Present illness Narrative* Ashia Spangler MA - 02/07/2024 2:45 PM EDT Patient verified by last name and date of . * Jason Morocho MD - 02/07/2024 2:45 PM EDT Images from the original note were not included. 02/07/2024 Nina Wilson (: 1965) is a 58 y.o. male , Established patient, here for evaluation of the following chief complaint(s): Annual Exam (Pt is having a hard time getting Ozempic and wonders what he should do), Blood Work, and Health Maintenance (Mmr vaccine- done as a child/Hiv and hep c screening- refused/Pcv 20, tdap, shingles, rsv, flu covid vaccines- all refused/Dental exam- done a month ago at [facility] will send for record) ASSESSMENT/PLAN: 1. Annual physical exam 2. Type 2 diabetes mellitus without complication, without long-term current use of insulin ([facility]) ([facility]) Assessment & Plan: Uncontrolled, will get repeat lab work he is to continue his metformin 1000 mg twice a day and we will increase his Ozempic to 0.5 mg a week. He says he has trouble getting his Ozempic from [facility] they are always on backorder so we will give him a prescription to take with him and he can shop around. Orders: - Comprehensive metabolic panel - Microalbumin / creatinine urine ratio - Hemoglobin A1c - Diabetes Foot Exam - semaglutide (Ozempic, 0.25 or 0.5 MG/DOSE,) 2 MG/3ML solution pen-injector; Inject 0.5 mg under the skin 1 (one) time per week., Starting [facility] 02/07/2024, Print 3. Primary hypertension Assessment & Plan: Blood pressure was initially elevated, recheck was improved but still elevated we will have him follow-up in 1 week for blood pressure check and adjust his medications accordingly. He is to continue his atenolol 50 mg daily and losartan 10 mg daily 4. Hypercholesterolemia Assessment & Plan: Controlled, continue lovastatin 80 mg at night. Orders: - Lipid panel 5. Screening for prostate cancer - PSA Total (Screening) Follow up in about 3 months (around 05/09/2024). SUBJECTIVE/OBJECTIVE: [facility] -Nina comes in today for an annual exam, he is also here for follow-up on his diabetes and hedid not bring any blood sugar numbers but he brings his glucometer and shows me some numbers that are too high, will get repeat lab work today. Blood pressure is initially elevated, will recheck that prior to discharge and he needs blood work for his cholesterol. Review of Systems Constitutional: Negative for activity change, appetite change, chills, fever and unexpected weight change. HENT: Negative for ear pain and sore throat. Respiratory: Negative for shortness of breath. Cardiovascular: Negative for chest pain and palpitations. Gastrointestinal: Negative for abdominal pain, blood in stool, constipation and diarrhea. Genitourinary: Negative for dysuria, frequency, hematuria and urgency. Musculoskeletal: Negative for arthralgias and back pain. Skin: Negative. Neurological: Negative for weakness and numbness. Psychiatric/Behavioral: Negative for dysphoric mood. The patient is not nervous/anxious. Vitals: 02/07/24 1428 02/07/24 1504 BP: (!) 163/93 (!) 148/85 Pulse: 88 84 SpO2: 94% Weight: 272 lb 9.6 oz (124 kg) Height: 5' 9" (1.753 m) Physical Exam Vitals and nursing note reviewed. Constitutional: General: He is not in acute distress. Appearance: Normal appearance. He is obese. HENT: Right Ear: Tympanic membrane, ear canal and external ear normal. Left Ear: Tympanic membrane, ear canal and external ear normal. Mouth/Throat: Mouth: Mucous membranes are moist. Pharynx: Oropharynx is clear. Eyes: Extraocular Movements: Extraocular movements intact. Conjunctiva/sclera: Conjunctivae normal. Pupils: Pupils are equal, round, and reactive to light. Neck: Thyroid: No thyromegaly. Vascular: No carotid bruit. Cardiovascular: Rate and Rhythm: Normal rate and regular rhythm. Heart sounds: Normal heart sounds. No murmur heard. Pulmonary: Effort: Pulmonary effort is normal. Breath sounds: Normal breath sounds. Abdominal: General: Bowel sounds are normal. Palpations: Abdomen is soft. Tenderness: There is no abdominal tenderness. Comments: Morbidly obese Musculoskeletal: General: Normal range of motion. Cervical back: Neck supple. Lymphadenopathy: Cervical: No cervical adenopathy. Skin: General: Skin is warm and dry. Neurological: General: No focal deficit present. Mental Status: He is alert and oriented to person, place, and time. Psychiatric: Mood and Affect: Mood normal. An electronic signature was used to authenticate this note. Jason Morocho MD 02/07/2024 3:57 PM documented in this [facility]03-21-2024 History of Present illness Narrative* Ashia Spangler MA - 02/07/2024 2:45 PM EDT Patient verified by last name and date of . * Jason Morocho MD - 02/07/2024 2:45 PM EDT Images from the original note were not included. 02/07/2024 Nina Wilson (: 1965) is a 58 y.o. male , Established patient, here for evaluation of the following chief complaint(s): Annual Exam (Pt is having a hard time getting Ozempic and wonders what he should do), Blood Work, and Health Maintenance (Mmr vaccine- done as a child/Hiv and hep c screening- refused/Pcv 20, tdap, shingles, rsv, flu covid vaccines- all refused/Dental exam- done a month ago at [facility] send for record) ASSESSMENT/PLAN: 1. Annual physical exam 2. Type 2 diabetes mellitus without complication, without long-term current use of insulin ([facility]) ([facility]) Assessment & Plan: Uncontrolled, will get repeat lab work he is to continue his metformin 1000 mg twice a day and we will increase his Ozempic to 0.5 mg a week. He says he has trouble getting his Ozempic from [facility] they are always on backorder so we will give him a prescription to take with him and he can shop around. Orders: - Comprehensive metabolic panel - Microalbumin / creatinine urine ratio - Hemoglobin A1c - Diabetes Foot Exam - semaglutide (Ozempic, 0.25 or 0.5 MG/DOSE,) 2 MG/3ML solution pen-injector; Inject 0.5 mg under the skin 1 (one) time per week., Starting [facility] 02/07/2024, Print 3. Primary hypertension Assessment & Plan: Blood pressure was initially elevated, recheck was improved but still elevated we will have him follow-up in 1 week for blood pressure check and adjust his medications accordingly. He is to continue his atenolol 50 mg daily and losartan 10 mg daily 4. Hypercholesterolemia Assessment & Plan: Controlled, continue lovastatin 80 mg at night. Orders: - Lipid panel 5. Screening for prostate cancer - PSA Total (Screening) Follow up in about 3 months (around 05/09/2024). SUBJECTIVE/OBJECTIVE: HPI -Nina comes in today for an annual exam, he is also here for follow-up on his diabetes and hedid not bring any blood sugar numbers but he brings his glucometer and shows me some numbers that are too high, will get repeat lab work today. Blood pressure is initially elevated, will recheck that prior to discharge and he needs blood work for his cholesterol. Review of Systems Constitutional: Negative for activity change, appetite change, chills, fever and unexpected weight change. HENT: Negative for ear pain and sore throat. Respiratory: Negative for shortness of breath. Cardiovascular: Negative for chest pain and palpitations. Gastrointestinal: Negative for abdominal pain, blood in stool, constipation and diarrhea. Genitourinary: Negative for dysuria, frequency, hematuria and urgency. Musculoskeletal: Negative for arthralgias and back pain. Skin: Negative. Neurological: Negative for weakness and numbness. Psychiatric/Behavioral: Negative for dysphoric mood. The patient is not nervous/anxious. Vitals: 02/07/24 1428 02/07/24 1504 BP: (!) 163/93 (!) 148/85 Pulse: 88 84 SpO2: 94% Weight: 272 lb 9.6 oz (124 kg) Height: 5' 9" (1.753 m) Physical Exam Vitals and nursing note reviewed. Constitutional: General: He is not in acute distress. Appearance: Normal appearance. He is obese. HENT: Right Ear: Tympanic membrane, ear canal and external ear normal. Left Ear: Tympanic membrane, ear canal and external ear normal. Mouth/Throat: Mouth: Mucous membranes are moist. Pharynx: Oropharynx is clear. Eyes: Extraocular Movements: Extraocular movements intact. Conjunctiva/sclera: Conjunctivae normal. Pupils: Pupils are equal, round, and reactive to light. Neck: Thyroid: No thyromegaly. Vascular: No carotid bruit. Cardiovascular: Rate and Rhythm: Normal rate and regular rhythm. Heart sounds: Normal heart sounds. No murmur heard. Pulmonary: Effort: Pulmonary effort is normal. Breath sounds: Normal breath sounds. Abdominal: General: Bowel sounds are normal. Palpations: Abdomen is soft. Tenderness: There is no abdominal tenderness. Comments: Morbidly obese Musculoskeletal: General: Normal range of motion. Cervical back: Neck supple. Lymphadenopathy: Cervical: No cervical adenopathy. Skin: General: Skin is warm and dry. Neurological: General: No focal deficit present. Mental Status: He is alert and oriented to person, place, and time. Psychiatric: Mood and Affect: Mood normal. An electronic signature was used to authenticate this note. Jason Morocho MD 02/11/2024 12:54 PM documented in this encounterSTuscarawas [id number] Note* Addendum Note - Jason Morocho MD - 02/07/2024 2:45 PM EDTAddended by: JASON MOROCHO on: 02/11/2024 12:54 PM Modules accepted: Level of Service [facility] [id number] Telephone encounter Note* Telephone Encounter - Don Feldman MD - 02/01/2024 2:51 PM EDT Called Mr. Wilson today to discuss his pathology results from recent colonoscopy. I found large polyps and even had to piecemeal resect one in the cecal area after lifting the polyp with injection and using a hot snare. It was probably 2- 3cm as a sessile carpet like polyp and for that reason alone, Irecommend a 6 month interval colonoscopy for surveillance. The pathology from it showed a tubulovillous adenoma. There was another large polyp at the hepatic flexure that pathology showed was a tubular adenoma. This was not as large but still impressive. I explained these findings and my recommendation for 6 month follow up to the patient and they demonstrated understanding. I will put him in fora recall in 6 months through our office. Final Diagnosis A. COLON, CECUM, "POLYP": - TUBULOVILLOUS ADENOMA B. COLON, HEPATIC FLEXURE, "POLYP": - TUBULAR ADENOMA at 1033 Clinical Information Screening for malignant neoplasm of colon - Z12.11 [ICD-10-CM] Gross Description A. Received in formalin labeled "cecal polyp" are numerous osorio-brown nodular fragments 0.1-1.3 cm. The specimen is submitted entirely in two cassettes. B. Received in formalin labeled "hepatic flexure polyp" are multiple red-osorio soft tissue fragments 0.1-0.9 cm in greatest dimension which are submitted in one cassette. Department of Surgery [facility] Phone: [phone] 302-112503-15-2024 Miscellaneous Notes* Telephone Encounter - Dno Feldman MD - 02/01/2024 2:51 PM EDT Called Mr. Wilson today to discuss his pathology results from recent colonoscopy. I found large polyps and even had to piecemeal resect one in the cecal area after lifting the polyp with injection and using a hot snare. It was probably 2- 3cm as a sessile carpet like polyp and for that reason alone, Irecommend a 6 month interval colonoscopy for surveillance. The pathology from it showed a tubulovillous adenoma. There was another large polyp at the hepatic flexure that pathology showed was a tubular adenoma. This was not as large but still impressive. I explained these findings and my recommendation for 6 month follow up to the patient and they demonstrated understanding. I will put him in fora recall in 6 months through our office. Final Diagnosis A. COLON, CECUM, "POLYP": - TUBULOVILLOUS ADENOMA B. COLON, HEPATIC FLEXURE, "POLYP": - TUBULAR ADENOMA at 1033 Clinical Information Screening for malignant neoplasm of colon - Z12.11 [ICD-10-CM] Gross Description A. Received in formalin labeled "cecal polyp" are numerous osorio-brown nodular fragments 0.1-1.3 cm. The specimen is submitted entirely in two cassettes. B. Received in formalin labeled "hepatic flexure polyp" are multiple red-osorio soft tissue fragments 0.1-0.9 cm in greatest dimension which are submitted in one cassette. Department of Surgery documented in this encounterSTuscarawas [id number] Note* Addendum Note - LEXII Brownlee CRNA - 01/31/2024 12:27 PM EDT Addendum created 01/31/24 1227 by LEXII Brownlee CRNA Attestation recorded in Intraprocedure, Intraprocedure Attestations filed [facility] [id number] Miscellaneous Notes* Addendum Note - LEXII Brownlee CRNA - 01/31/2024 12:27 PM EDT Addendum created 01/31/24 1227 by LEXII Brownlee CRNA Attestation recorded in Intraprocedure, Intraprocedure Attestations filed * Anesthesia Discharge Note - LEXII Brownlee CRNA - 01/29/2024 10:26 AM EDT Patient: Nina Wilson Procedure Summary Date: 01/29/24 Room / Location: [place] [address] / [facility] Gastroenterology Anesthesia Start: 916 Anesthesia Stop: 1024 Procedure: COLONOSCOPY with possible biopsy / polypectomy/ coagulation/ electrocautery/ endotracheal intubation/ anesthesia Diagnosis: Screening for malignant neoplasm of colon (screening) Providers: Don Feldman MD Responsible Provider: Anesthesia Type: TIVA ASA Status: 3 Anesthesia Type: TIVA Vitals Value Taken Time BP 126/95 01/29/24 1024 Temp 36.4 C (97.6 F) 01/29/24 1024 Pulse 93 01/29/24 1024 Resp 16 01/29/24 1024 SpO2 97 % 01/29/24 1024 Anesthesia Post Evaluation Patient location during evaluation: PACU Patient participation: complete - patient participated Level of consciousness: awake and alert Pain management: satisfactory to patient Airway patency: patent Dental Injury: no Cardiovascular status: acceptable, blood pressure returned to baseline and hemodynamically stable Respiratory status: acceptable and spontaneous ventilation Hydration status: euvolemic Nausea/Vomiting: controlled No notable events documented. Patient can be discharged once all PACU criteria has been met. documented in this encounterSTuscarawas [id number] Procedure anesthesia Narrative* Procedure Summary Procedure Name Responsible Anesthesiologist Anesthesia Start Time Anesthesia Stop Time COLONOSCOPY with possible biopsy / polypectomy/ coagulation/ electrocautery/ endotracheal intubation/ anesthesia No Anesthesiologist - Cynthia/MD Leela 01/29/24 0917 01/29/24 1025 Events Date Time Event Comment 01/29/2024 0910 AN Preop Started 0911 0917 An Start 0917 In Room 0917 An Start Data 0917 Start Auxiliary O2 0920 An Induction The patient was reevaluated immediately before moderate or deep sedation use and before anesthesia induction. 1022 an stop data 1022 Out of Room 1025 An Stop Meds Name Total lidocaine PF (Xylocaine-MPF) local injec tion 2 % 100 mg propofol (Diprivan) injection 10 mg/mL 1 ,300 mg lactated Ringer's (LR) infusion 950 mL * Agents Name O2 * Blood No blood administrations on file. Lines, Drains, and Airways Type Details Placement Removal Peripheral IV Placement Date: 01/17 01/12; Placement Time: 0848; Catheter Size: 20 G; Orientation: Posterior, Right; Location: Hand; Site Prep: Alcohol; Technique: Anatomical landmarks; Inserted by: ED,RN; Insertion Attempts: 1; Removal Date: 01/29/24; Removal Time: 1051 01/29/24 0848 by Bushra Manrique RN 01/29/24 1051 by Sidra Vega RN documented in this encounter [facility] [id number] Note* Perioperative Nursing Note - Sidra Vega RN - 01/29/2024 10:35 AM EDT Pt sitting up in bed and provided with beverage. Tolerating well. Pt denies pain, nausea, and dizziness. Family at bedside. [facility] [id number] Note* Perioperative Nursing Note - Sidra Vega RN - 01/29/2024 10:35 AM EDT Pt sitting up in bed and provided with beverage. Tolerating well. Pt denies pain, nausea, and dizziness. Family at bedside. [id number] Miscellaneous Notes* Perioperative Nursing Note - Sidra Vega RN - 01/29/2024 10:35 AM EDT Pt sitting up in bed and provided with beverage. Tolerating well. Pt denies pain, nausea, and dizziness. Family at bedside. * Perioperative Nursing Note - Sidra Vega RN - 01/29/2024 10:24 AM EDT Pt recieved from ENDOSCOPY to phase 2 via cart with COMSEC MANAGER in attendance, pt has spontaneous respirations,pt place on monitor with alarms on, will continue to monitor * Op Note - Don Feldman MD - 01/29/2024 7:36 AM EDT [facility] Name[facility] Nina Wilson Procedure Date: 01/29/2024 7:36 AM Gender: Male Date of : 1965 Age: 58 Admit Type: Outpatient Note Status: Finalized Endoscopist: Don Feldman MD, Procedure: Colonoscopy Indications: Screening for colorectal malignant neoplasm Findings: A 25 mm polyp was found in the cecum. The polyp was sessile. Area was successfully injected with 5 mL Eleview for a lift polypectomy. The polyp was removed with a hot snare. Resection and retrieval were complete but this was done in a Piecemeal fashion. To prevent bleeding after the polypectomy, three hemostatic clips were successfully placed. There was no bleeding at the end of the procedure. The terminal ileum appeared normal. A 15 mm polyp was found in the hepatic flexure. The polyp was sessile. The polyp was removed with a hot snare. Resection and retrieval were complete. Verification of patient identification for the specimen was done. Estimated blood loss was minimal. A less than 5 mm polyp was found in the cecum. The polyp was sessile. The polyp was removed with a cold biopsy forceps. Resection and retrieval were complete. Verification of patient identification for the specimen was done. Estimated blood loss was minimal. These small polyps were directly adjacent to the large cecal polyp. Multiple medium-mouthed diverticula were found in the sigmoid colon. The exam was otherwise without abnormality on direct and retroflexion views. Recommendation: - Patient has a contact number available for emergencies. The signs and symptoms of potential delayed complications were discussed with the patient. Return to normal activities tomorrow. Written discharge instructions were provided to the patient. - Resume previous diet. - Continue present medications. - Repeat colonoscopy in 6 months for surveillance based on pathology results. Referring MD: Jason Morocho MD Medicines: Monitored Anesthesia Care Procedure: Pre-Anesthesia Assessment: - Prior to the procedure, a History and Physical was performed, and patient medications and allergies were reviewed. The patient's tolerance of previous anesthesia was also reviewed. The risks and benefits of the procedure and the sedation options and risks were discussed with the patient. All questions were answered, and informed consent was obtained. Prior Anticoagulants: The patient has taken no anticoagulant or antiplatelet agents. ASA Grade Assessment: II - A patient with mild systemic disease. After reviewing the risks and benefits, the patient was deemed in satisfactory condition to undergo the procedure. - The anesthesia plan was to use monitored anesthesia care (MAC). After I obtained informed consent, the scope was passed under direct vision. Throughout the procedure, the patient's blood pressure, pulse, and oxygen saturations were monitored continuously. The Colonoscope was introduced through the anus and advanced to the cecum, identified by appendiceal orifice and ileocecal valve. The colonoscopy was performed without difficulty. The patient tolerated the procedure well. The quality of the bowel preparation was good. The terminal ileum, ileocecal valve, appendiceal orifice, and rectum were photographed. Complications: No immediate complications. Procedure Code(s): --- Professional --- 19285, Colonoscopy, flexible; with removal of tumor(s), polyp(s), or other lesion(s) by snare technique 33910, 59, Colonoscopy, flexible; with biopsy, single or multiple 00516, Colonoscopy, flexible; with directed submucosal injection(s), any substance --- Technical --- 60082, Colonoscopy, flexible; with removal of tumor(s), polyp(s), or other lesion(s) by snare technique 60386, 59, Colonoscopy, flexible; with biopsy, single or multiple 41523, Colonoscopy, flexible; with directed submucosal injection(s), any substance Diagnosis Code(s): --- Professional --- Z12.11, Encounter for screening for malignant neoplasm of colon --- Technical --- Z12.11, Encounter for screening for malignant neoplasm of colon CPT copyright 2021 [employer]. All rights reserved. The codes documented in this report are preliminary and upon senior games technician review may be revised to meet current compliance requirements. Attending Participation: I personally performed the entire procedure. Don Feldman MD 01/29/2024 10:34:58 AM Number of Addenda: 0 Note Initiated On: 01/29/2024 7:36 AM documented in this [facility]03-12-2024 Note* Anesthesia Discharge Note - Parish Cabrera APRN - COMSEC MANAGER - 01/29/2024 10:26 AM EDT Patient: Nina Wilson Procedure Summary Date: 01/29/24 Room / Location: [place] [address] / [facility] Gastroenterology Anesthesia Start: 916 Anesthesia Stop: 1024 Procedure: COLONOSCOPY with possible biopsy / polypectomy/ coagulation/ electrocautery/ endotracheal intubation/ anesthesia Diagnosis: Screening for malignant neoplasm of colon (screening) Providers: Don Feldman MD Responsible Provider: Anesthesia Type: TIVA ASA Status: 3 Anesthesia Type: TIVA Vitals Value Taken Time BP 126/95 01/29/24 1024 Temp 36.4 C (97.6 F) 01/29/24 1024 Pulse 93 01/29/24 1024 Resp 16 01/29/24 1024 SpO2 97 % 01/29/24 1024 Anesthesia Post Evaluation Patient location during evaluation: PACU Patient participation: complete - patient participated Level of consciousness: awake and alert Pain management: satisfactory to patient Airway patency: patent Dental Injury: no Cardiovascular status: acceptable, blood pressure returned to baseline and hemodynamically stable Respiratory status: acceptable and spontaneous ventilation Hydration status: euvolemic Nausea/Vomiting: controlled No notable events documented. Patient can be discharged once all PACU criteria has been met. [facility] [id number] Anesthesiology Postoperative evaluation and management note* Anesthesia Postprocedure Evaluation - LEXII Brownlee CRNA - 01/29/2024 10:26 AM EDT Patient: Nina Wilson Procedure Summary Date: 01/29/24 Room / Location: [facility] / [facility] Gastroenterology Anesthesia Start: 916 Anesthesia Stop: 1024 Procedure: COLONOSCOPY with possible biopsy / polypectomy/ coagulation/ electrocautery/ endotracheal intubation/ anesthesia Diagnosis: Screening for malignant neoplasm of colon (screening) Providers: Don Feldman MD Responsible Provider: Anesthesia Type: TIVA ASA Status: 3 Anesthesia Type: TIVA Vitals Value Taken Time BP 126/95 01/29/24 1024 Temp 36.4 C (97.6 F) 01/29/24 1024 Pulse 93 01/29/24 1024 Resp 16 01/29/24 1024 SpO2 97 % 01/29/24 1024 Anesthesia Post Evaluation Patient location during evaluation: PACU Patient participation: complete - patient participated Level of consciousness: awake and alert Pain management: satisfactory to patient Multimodal analgesia pain management approach Airway patency: patent Two or more strategies used to mitigate risk of obstructive sleep apnea Cardiovascular status: acceptable and hemodynamically stable Respiratory status: acceptable Hydration status: acceptable No notable events documented. MIPS #430 PONV Patient did not receive an inhalational anesthetic (XX430) MIPS # 424 Perioperative Temperature Management Anesthesia time was 60 minutes or longer (4255F) Anesthesai administered was General (inhalational or TIVA) or Neuraxial block (X0424) At least one body temperature greater than 95.8F/35.5C achieved within the 30 mins immediately prior to or the 15 minutes immediately following anesthesia end time (G9771) MIPS #477 Multimodal Pain Management Not emergent case Patient was not administered multimodal pain management (G2149) Patient reports no pain in PACU (G2149) MIPS #404 Anesthesiology Smoking Abstinence The patient is a current smoker (G9642) (e.g. cigarette, cigar, pipe, e-cigarette/vaping/marijuana) The patient underwent an elective surgery or procedure requiring anesthesia (G9643) The patient received preop smoking cessation instructions prior to the day of surgery or procedure by , APC doctor of naprapathy proxy staff (G9497) The patient did not smoke the day of the procedure (G9644) I completed my handoff to the receiving clinician during which we: 1. Identified the patient 2. Identified the responsible provider 3. Reviewed the pertinent medical history 4. Discussed the surgical course 5. Reviewed intra-op anesthesia management and issues during anesthesia 6. Set expectations for post-procedure period 7. Allowed opportunity for questions and acknowledgement of understanding. [employer] Phone: 1(787) 355-155503-12-2024 Surgical operation note* Anesthesia Postprocedure Evaluation - LEXII Brownlee CRNA - 01/29/2024 10:26 AM EDT Patient: Nina Wilson Procedure Summary Date: 01/29/24 Room / Location: [facility] / [facility] Gastroenterology Anesthesia Start: 916 Anesthesia Stop: 1024 Procedure: COLONOSCOPY with possible biopsy / polypectomy/ coagulation/ electrocautery/ endotracheal intubation/ anesthesia Diagnosis: Screening for malignant neoplasm of colon (screening) Providers: Don Feldman MD Responsible Provider: Anesthesia Type: TIVA ASA Status: 3 Anesthesia Type: TIVA Vitals Value Taken Time BP 126/95 01/29/24 1024 Temp 36.4 C (97.6 F) 01/29/24 1024 Pulse 93 01/29/24 1024 Resp 16 01/29/24 1024 SpO2 97 % 01/29/24 1024 Anesthesia Post Evaluation Patient location during evaluation: PACU Patient participation: complete - patient participated Level of consciousness: awake and alert Pain management: satisfactory to patient Multimodal analgesia pain management approach Airway patency: patent Two or more strategies used to mitigate risk of obstructive sleep apnea Cardiovascular status: acceptable and hemodynamically stable Respiratory status: acceptable Hydration status: acceptable No notable events documented. MIPS #430 PONV Patient did not receive an inhalational anesthetic (XX430) MIPS # 424 Perioperative Temperature Management Anesthesia time was 60 minutes or longer (4255F) Anesthesai administered was General (inhalational or TIVA) or Neuraxial block (X0424) At least one body temperature greater than 95.8F/35.5C achieved within the 30 mins immediately prior to or the 15 minutes immediately following anesthesia end time (G9771) MIPS #477 Multimodal Pain Management Not emergent case Patient was not administered multimodal pain management (G2149) Patient reports no pain in PACU (G2149) MIPS #404 Anesthesiology Smoking Abstinence The patient is a current smoker (G9642) (e.g. cigarette, cigar, pipe, e-cigarette/vaping/marijuana) The patient underwent an elective surgery or procedure requiring anesthesia (G9643) The patient received preop smoking cessation instructions prior to the day of surgery or procedure by , APC doctor of naprapathy proxy staff (G9497) The patient did not smoke the day of the procedure (G9644) I completed my handoff to the receiving clinician during which we: 1. Identified the patient 2. Identified the responsible provider 3. Reviewed the pertinent medical history 4. Discussed the surgical course 5. Reviewed intra-op anesthesia management and issues during anesthesia 6. Set expectations for post-procedure period 7. Allowed opportunity for questions and acknowledgement of understanding. * Anesthesia Preprocedure Evaluation - LEXII Brownlee CRNA - 01/29/2024 9:10 AM EDT Patient: Nina Wilson Procedure Information Date/Time: 01/29/2430 Procedure: COLONOSCOPY with possible biopsy / polypectomy/ coagulation/ electrocautery/ endotracheal intubation/ anesthesia - 60 minutes for colon Location: [facility] [place] [facility] / [facility] Gastroenterology Providers: Don Feldman MD Relevant Problems Cardio (+) Hypercholesterolemia (+) Hypertension Endo (+) Type 2 diabetes mellitus without complication, without long-term current use of insulin (CMS/HCC) (HCC) Past Medical History: Past Medical History: No date: Cervical disc disease No date: Cervical stenosis of spine No date: Diabetes mellitus (HCC) No date: Hypertension No date: Mixed hyperlipidemia No date: Plantar fasciitis Past Surgical History: Past Surgical History: 07/13/2014: COLONOSCOPY 01/29/2024: COLONOSCOPY; N/A Comment: Performed by Don Feldman MD at [facility] ENDOSCOPY No date: HERNIA REPAIR; Bilateral 2015: LUMBAR FUSION Social History: TOBACCO: reports that he has been smoking cigarettes. He has been smoking an average of 0.3 packs per day. He has never used smokeless tobacco. ETOH: reports current alcohol use. Social History Substance and Sexual Activity Drug Use Never Family History: Family History Problem Relation Name Age of Onset No Known Problems Daughter Heart failure Mother Emphysema Mother No Known Problems Sister No Known Problems Sister Screening: unknown Clinical information reviewed: Tobacco Allergies Meds Med Hx Surg Hx Fam Hx Soc Hx Physical Exam Airway Mallampati: III TM distance: >3 FB Neck ROM: full Mouth Open: normalendotracheal tube not in place Cardiovascular Dental dentition normal Pulmonary Abdominal Anesthesia Plan patient is NPO appropriate Any family history or previous problems with anesthesia no ASA 3 TIVA Any family history or previous problems with anesthesia no The patient is a current smoker. Patient was previously instructed to abstain from smoking on day of procedure. Patient did not smoke on day of procedure. NICOLE Screening Labs: Lab Results Component Value Date WBC 7.60 10/19/2021 HGB 15.2 10/19/2021 MCV 94.1 10/19/2021 Lab Results Component Value Date NA 138 02/23/2023 K 4.1 02/23/2023 CL 104 02/23/2023 CO2 27 02/23/2023 BUN 11 02/23/2023 CREATININE 0.68 02/23/2023 GLUCOSE 167 (H) 02/23/2023 CALCIUM 9.0 02/23/2023 PROT 6.9 08/16/2022 AST 28 08/16/2022 EGFR >90.0 02/23/2023 No echocardiogram results found for the past 14 days No results found for this or any previous visit. documented in this [facility]03-12-2024 Note* Perioperative Nursing Note - Sidra Vega RN - 01/29/2024 10:24 AM EDT Pt recieved from ENDOSCOPY to phase 2 via cart with COMSEC MANAGER in attendance, pt has spontaneous respirations,pt place on monitor with alarms on, will continue to monitor [id number] Note* Perioperative Nursing Note - Sidra Vega RN - 01/29/2024 10:24 AM EDT Pt recieved from ENDOSCOPY to phase 2 via cart with COMSEC MANAGER in attendance, pt has spontaneous respirations,pt place on monitor with alarms on, will continue to monitor [facility] [id number] History and physical note* Don Feldman MD - 01/29/2024 9:14 AM EDT Images from the original note were not included. Endoscopy History and Physical HPI: Nina Wilson is a 58 y.o. male who presents with need for screening, here for colonoscopy. Last scope was 11 years ago and was normal. Denies any changes in bowel habits. No bleeding. Asymptomatic. No family history of colon cancer. PMHx: Past Medical History: Diagnosis Date Cervical disc disease Cervical stenosis of spine Diabetes mellitus (HCC) Hypertension Mixed hyperlipidemia Plantar fasciitis PSHx: Past Surgical History: Procedure Laterality Date COLONOSCOPY 07/13/2014 COLONOSCOPY N/A 01/29/2024 Performed by Don Feldman MD at [facility] ENDOSCOPY HERNIA REPAIR Bilateral LUMBAR FUSION 2014 PFMHx: Family History Problem Relation Name Age of Onset No Known Problems Daughter Heart failure Mother Emphysema Mother No Known Problems Sister No Known Problems Sister ALL: No Known Allergies MEDS: Current Facility-Administered Medications: lactated Ringer's (LR) infusion, 50 mL/hr, IntraVENous, Continuous, Jonathan Gillespie APRN - LAINE, Last Rate: 50 mL/hr at 01/29/24 0849, 50 mL/hr at 01/29/24 0849 SOCIAL Hx: Social History Socioeconomic History Marital status: Spouse name: Not on file Number of children: Not on file Years of education: Not on file Highest education level: Not on file Occupational History Not on file Tobacco Use Smoking status: Every Day Packs/day: .25 Types: Cigarettes Smokeless tobacco: Never Tobacco comments: About a pack every 2 weeks Vaping Use Vaping Use: Never used Substance and Sexual Activity Alcohol use: Yes Comment: occasionally Drug use: Never Sexual activity: Not on file Other Topics Concern Not on file Social History Narrative Not on file Social Determinants of Health Financial Resource Strain: Not on file Food Insecurity: Not on file Transportation Needs: Not on file Physical Activity: Not on file Stress: Not on file Social Connections: Not on file Intimate Partner Violence: Not on file Housing Stability: Not on file Review of Systems: I personally reviewed the patient intake form with the patient. The ROS is negative except for whatis listed in HPI. Physical Examination: BP (!) 162/78 Pulse 84 Temp 36.7 C (98 F) (Temporal) Resp 16 Wt 282 lb (128 kg) SpO2 95% BMI 41.64 kg/m He stands @FLOWAMB(11)@ tall with a weight of @FLOWAMB(14)@ , resulting in a BMI of Body mass indexis 41.64 kg/m .. General: The patient is awake, alert, and oriented, and is in no apparent distress. Normal affect. Head and Neck: Normocephalic and atraumatic. Normal ROM Cardiac: Regular rate and rhythm, patient on monitor Respiratory: No respiratory distress. Equal chest rise. Good inspiratory effort. Abdomen: soft, non-tender, non-distended, no masses or organomegaly Extremities: Ambulatory without assistance. Neurological: Intact sensation in 4 extremities, no focal deficits notes. Skin: No rashes or lesions noted. Warm and dry. Rectal: Not done. Hernia: no hernias found on exam Assessment and Plan Patient Active Problem List Diagnosis Date Noted Type 2 diabetes mellitus without complication, without long-term current use of insulin ([facility]) ([facility]) 09/03/2023 Sprain of medial collateral ligament of left knee 09/03/2023 Hypertension 04/20/2015 Herniated cervical disc 04/20/2015 Hypercholesterolemia 04/20/2015 Plan: 58 y.o. male who presents with need for screening Will perform colonoscopy today Patient counseled on risks, benefits, and alternatives of treatment plan at length. Patient states an understanding and willingness to proceed with plan. [employer] Work Phone: 1([phone]) 203-506403-12-2024 History and physical note* Don Feldman MD - 01/29/2024 9:14 AM EDT Images from the original note were not included. Endoscopy History and Physical HPI: Nina Wilson is a 58 y.o. male who presents with need for screening, here for colonoscopy. Last scope was 11 years ago and was normal. Denies any changes in bowel habits. No bleeding. Asymptomatic. No family history of colon cancer. PMHx: Past Medical History: Diagnosis Date Cervical disc disease Cervical stenosis of spine Diabetes mellitus (HCC) Hypertension Mixed hyperlipidemia Plantar fasciitis PSHx: Past Surgical History: Procedure Laterality Date COLONOSCOPY 07/13/2014 COLONOSCOPY N/A 01/29/2024 Performed by Don Feldman MD at [facility] ENDOSCOPY HERNIA REPAIR Bilateral LUMBAR FUSION 2014 PFMHx: Family History Problem Relation Name Age of Onset No Known Problems Daughter Heart failure Mother Emphysema Mother No Known Problems Sister No Known Problems Sister ALL: No Known Allergies MEDS: Current Facility-Administered Medications: lactated Ringer's (LR) infusion, 50 mL/hr, IntraVENous, Continuous, Jonathan Gillespie, TELEPHONE MECHANIC - COMSEC MANAGER, Last Rate: 50 mL/hr at 01/29/24 0849, 50 mL/hr at 01/29/24 0849 SOCIAL Hx: Social History Socioeconomic History Marital status: Spouse name: Not on file Number of children: Not on file Years of education: Not on file Highest education level: Not on file Occupational History Not on file Tobacco Use Smoking status: Every Day Packs/day: .25 Types: Cigarettes Smokeless tobacco: Never Tobacco comments: About a pack every 2 weeks Vaping Use Vaping Use: Never used Substance and Sexual Activity Alcohol use: Yes Comment: occasionally Drug use: Never Sexual activity: Not on file Other Topics Concern Not on file Social History Narrative Not on file Social Determinants of Health Financial Resource Strain: Not on file Food Insecurity: Not on file Transportation Needs: Not on file Physical Activity: Not on file Stress: Not on file Social Connections: Not on file Intimate Partner Violence: Not on file Housing Stability: Not on file Review of Systems: I personally reviewed the patient intake form with the patient. The ROS is negative except for whatis listed in HPI. Physical Examination: BP (!) 162/78 Pulse 84 Temp 36.7 C (98 F) (Temporal) Resp 16 Wt 282 lb (128 kg) SpO2 95% BMI 41.64 kg/m He stands @FLOWAMB(11)@ tall with a weight of @FLOWAMB(14)@ , resulting in a BMI of Body mass indexis 41.64 kg/m .. General: The patient is awake, alert, and oriented, and is in no apparent distress. Normal affect. Head and Neck: Normocephalic and atraumatic. Normal ROM Cardiac: Regular rate and rhythm, patient on monitor Respiratory: No respiratory distress. Equal chest rise. Good inspiratory effort. Abdomen: soft, non-tender, non-distended, no masses or organomegaly Extremities: Ambulatory without assistance. Neurological: Intact sensation in 4 extremities, no focal deficits notes. Skin: No rashes or lesions noted. Warm and dry. Rectal: Not done. Hernia: no hernias found on exam Assessment and Plan Patient Active Problem List Diagnosis Date Noted Type 2 diabetes mellitus without complication, without long-term current use of insulin ([facility]) (HCC) 09/03/2023 Sprain of medial collateral ligament of left knee 09/03/2023 Hypertension 04/20/2015 Herniated cervical disc 04/20/2015 Hypercholesterolemia 04/20/2015 Plan: 58 y.o. male who presents with need for screening Will perform colonoscopy today Patient counseled on risks, benefits, and alternatives of treatment plan at length. Patient states an understanding and willingness to proceed with plan. documented in this [facility]03-12-2024 Anesthesiology Preoperative evaluation and management note* Anesthesia Preprocedure Evaluation - Parish Cabrera APRN - COMSEC MANAGER - 01/29/2024 9:10 AM EDT Patient: Nina Wilson Procedure Information Date/Time: 01/29/24 0930 Procedure: COLONOSCOPY with possible biopsy / polypectomy/ coagulation/ electrocautery/ endotracheal intubation/ anesthesia - 60 minutes for colon Location: [facility] [facility] / [facility] Gastroenterology Providers: Don Feldman MD Relevant Problems Cardio (+) Hypercholesterolemia (+) Hypertension Endo (+) Type 2 diabetes mellitus without complication, without long-term current use of insulin (CMS/HCC) (HCC) Past Medical History: Past Medical History: No date: Cervical disc disease No date: Cervical stenosis of spine No date: Diabetes mellitus (HCC) No date: Hypertension No date: Mixed hyperlipidemia No date: Plantar fasciitis Past Surgical History: Past Surgical History: 07/13/2014: COLONOSCOPY 01/29/2024: COLONOSCOPY; N/A Comment: Performed by Don Feldman MD at [facility] ENDOSCOPY No date: HERNIA REPAIR; Bilateral 2015: LUMBAR FUSION Social History: TOBACCO: reports that he has been smoking cigarettes. He has been smoking an average of 0.3 packs per day. He has never used smokeless tobacco. ETOH: reports current alcohol use. Social History Substance and Sexual Activity Drug Use Never Family History: Family History Problem Relation Name Age of Onset No Known Problems Daughter Heart failure Mother Emphysema Mother No Known Problems Sister No Known Problems Sister Screening: unknown Clinical information reviewed: Tobacco Allergies Meds Med Hx Surg Hx Fam Hx Soc Hx Physical Exam Airway Mallampati: III TM distance: >3 FB Neck ROM: full Mouth Open: normalendotracheal tube not in place Cardiovascular Dental dentition normal Pulmonary Abdominal Anesthesia Plan patient is NPO appropriate Any family history or previous problems with anesthesia no ASA 3 TIVA Any family history or previous problems with anesthesia no The patient is a current smoker. Patient was previously instructed to abstain from smoking on day of procedure. Patient did not smoke on day of procedure. NICOLE Screening Labs: Lab Results Component Value Date WBC 7.60 10/19/2021 HGB 15.2 10/19/2021 MCV 94.1 10/19/2021 Lab Results Component Value Date NA 138 02/23/2023 K 4.1 02/23/2023 CL 104 02/23/2023 CO2 27 02/23/2023 BUN 11 02/23/2023 CREATININE 0.68 02/23/2023 GLUCOSE 167 (H) 02/23/2023 CALCIUM 9.0 02/23/2023 PROT 6.9 08/16/2022 AST 28 08/16/2022 EGFR >90.0 02/23/2023 No echocardiogram results found for the past 14 days No results found for this or any previous visit. [id number] Note* Op Note - Don Feldman MD - 01/29/2024 7:36 AM EDT [facility] Name: Nina Wilson Procedure Date: 01/29/2024 7:36 AM Gender: Male Date of : 1965 Age: 58 Admit Type: Outpatient Note Status: Finalized Endoscopist: Don Feldman MD, Procedure: Colonoscopy Indications: Screening for colorectal malignant neoplasm Findings: A 25 mm polyp was found in the cecum. The polyp was sessile. Area was successfully injected with 5 mL Eleview for a lift polypectomy. The polyp was removed with a hot snare. Resection and retrieval were complete but this was done in a Piecemeal fashion. To prevent bleeding after the polypectomy, three hemostatic clips were successfully placed. There was no bleeding at the end of the procedure. The terminal ileum appeared normal. A 15 mm polyp was found in the hepatic flexure. The polyp was sessile. The polyp was removed with a hot snare. Resection and retrieval were complete. Verification of patient identification for the specimen was done. Estimated blood loss was minimal. A less than 5 mm polyp was found in the cecum. The polyp was sessile. The polyp was removed with a cold biopsy forceps. Resection and retrieval were complete. Verification of patient identification for the specimen was done. Estimated blood loss was minimal. These small polyps were directly adjacent to the large cecal polyp. Multiple medium-mouthed diverticula were found in the sigmoid colon. The exam was otherwise without abnormality on direct and retroflexion views. Recommendation: - Patient has a contact number available for emergencies. The signs and symptoms of potential delayed complications were discussed with the patient. Return to normal activities tomorrow. Written discharge instructions were provided to the patient. - Resume previous diet. - Continue present medications. - Repeat colonoscopy in 6 months for surveillance based on pathology results. Referring MD: Jason Morocho MD Medicines: Monitored Anesthesia Care Procedure: Pre-Anesthesia Assessment: - Prior to the procedure, a History and Physical was performed, and patient medications and allergies were reviewed. The patient's tolerance of previous anesthesia was also reviewed. The risks and benefits of the procedure and the sedation options and risks were discussed with the patient. All questions were answered, and informed consent was obtained. Prior Anticoagulants: The patient has taken no anticoagulant or antiplatelet agents. ASA Grade Assessment: II - A patient with mild systemic disease. After reviewing the risks and benefits, the patient was deemed in satisfactory condition to undergo the procedure. - The anesthesia plan was to use monitored anesthesia care (MAC). After I obtained informed consent, the scope was passed under direct vision. Throughout the procedure, the patient's blood pressure, pulse, and oxygen saturations were monitored continuously. The Colonoscope was introduced through the anus and advanced to the cecum, identified by appendiceal orifice and ileocecal valve. The colonoscopy was performed without difficulty. The patient tolerated the procedure well. The quality of the bowel preparation was good. The terminal ileum, ileocecal valve, appendiceal orifice, and rectum were photographed. Complications: No immediate complications. Procedure Code(s): --- Professional --- 18570, Colonoscopy, flexible; with removal of tumor(s), polyp(s), or other lesion(s) by snare technique 97226, 59, Colonoscopy, flexible; with biopsy, single or multiple 17025, Colonoscopy, flexible; with directed submucosal injection(s), any substance --- Technical --- 20422, Colonoscopy, flexible; with removal of tumor(s), polyp(s), or other lesion(s) by snare technique 76462, 59, Colonoscopy, flexible; with biopsy, single or multiple 42223, Colonoscopy, flexible; with directed submucosal injection(s), any substance Diagnosis Code(s): --- Professional --- Z12.11, Encounter for screening for malignant neoplasm of colon --- Technical --- Z12.11, Encounter for screening for malignant neoplasm of colon CPT copyright 2021 [employer]. All rights reserved. The codes documented in this report are preliminary and upon senior games technician review may be revised to meet current compliance requirements. Attending Participation: I personally performed the entire procedure. Don Feldman MD 01/29/2024 10:34:58 AM Number of Addenda: 0 Note Initiated On: 01/29/2024 7:36 AM [facility] [id number] Note* Op Note - Don Feldman MD - 01/29/2024 7:36 AM EDT [facility] Patient Name: Nina Wilson Procedure Date: 01/29/2024 7:36 AM Gender: Male Date of : 1965 Age: 58 Admit Type: Outpatient Note Status: Finalized Endoscopist: Don Feldman MD, Procedure: Colonoscopy Indications: Screening for colorectal malignant neoplasm Findings: A 25 mm polyp was found in the cecum. The polyp was sessile. Area was successfully injected with 5 mL Eleview for a lift polypectomy. The polyp was removed with a hot snare. Resection and retrieval were complete but this was done in a Piecemeal fashion. To prevent bleeding after the polypectomy, three hemostatic clips were successfully placed. There was no bleeding at the end of the procedure. The terminal ileum appeared normal. A 15 mm polyp was found in the hepatic flexure. The polyp was sessile. The polyp was removed with a hot snare. Resection and retrieval were complete. Verification of patient identification for the specimen was done. Estimated blood loss was minimal. A less than 5 mm polyp was found in the cecum. The polyp was sessile. The polyp was removed with a cold biopsy forceps. Resection and retrieval were complete. Verification of patient identification for the specimen was done. Estimated blood loss was minimal. These small polyps were directly adjacent to the large cecal polyp. Multiple medium-mouthed diverticula were found in the sigmoid colon. The exam was otherwise without abnormality on direct and retroflexion views. Recommendation: - Patient has a contact number available for emergencies. The signs and symptoms of potential delayed complications were discussed with the patient. Return to normal activities tomorrow. Written discharge instructions were provided to the patient. - Resume previous diet. - Continue present medications. - Repeat colonoscopy in 6 months for surveillance based on pathology results. Referring MD: Jason Morocho MD Medicines: Monitored Anesthesia Care Procedure: Pre-Anesthesia Assessment: - Prior to the procedure, a History and Physical was performed, and patient medications and allergies were reviewed. The patient's tolerance of previous anesthesia was also reviewed. The risks and benefits of the procedure and the sedation options and risks were discussed with the patient. All questions were answered, and informed consent was obtained. Prior Anticoagulants: The patient has taken no anticoagulant or antiplatelet agents. ASA Grade Assessment: II - A patient with mild systemic disease. After reviewing the risks and benefits, the patient was deemed in satisfactory condition to undergo the procedure. - The anesthesia plan was to use monitored anesthesia care (MAC). After I obtained informed consent, the scope was passed under direct vision. Throughout the procedure, the patient's blood pressure, pulse, and oxygen saturations were monitored continuously. The Colonoscope was introduced through the anus and advanced to the cecum, identified by appendiceal orifice and ileocecal valve. The colonoscopy was performed without difficulty. The patient tolerated the procedure well. The quality of the bowel preparation was good. The terminal ileum, ileocecal valve, appendiceal orifice, and rectum were photographed. Complications: No immediate complications. Procedure Code(s): --- Professional --- 02913, Colonoscopy, flexible; with removal of tumor(s), polyp(s), or other lesion(s) by snare technique 31068, 59, Colonoscopy, flexible; with biopsy, single or multiple 22109, Colonoscopy, flexible; with directed submucosal injection(s), any substance --- Technical --- 28091, Colonoscopy, flexible; with removal of tumor(s), polyp(s), or other lesion(s) by snare technique 72716, 59, Colonoscopy, flexible; with biopsy, single or multiple 47120, Colonoscopy, flexible; with directed submucosal injection(s), any substance Diagnosis Code(s): --- Professional --- Z12.11, Encounter for screening for malignant neoplasm of colon --- Technical --- Z12.11, Encounter for screening for malignant neoplasm of colon CPT copyright 2021 [employer]. All rights reserved. The codes documented in this report are preliminary and upon senior games technician review may be revised to meet current compliance requirements. Attending Participation: I personally performed the entire procedure. Don Feldman MD 01/29/2024 10:34:58 AM Number of Addenda: 0 Note Initiated On: 01/29/2024 7:36 AM [facility] [id number] Telephone encounter Note* Telephone Encounter - Latoya Ross - 01/15/2024 1:26 PM EST Colonoscopy Screening Program Called patient to confirm upcoming colonoscopy Spoke with patient and advised of all appointment details for procedure and answered any questions Patient confirmed appointment. [facility] HospitalVudvne36-75-1458 Miscellaneous Notes* Telephone Encounter - Latoya Arizagoon - 01/15/2024 1:26 PM EST Colonoscopy Screening Program Called patient to confirm upcoming colonoscopy Spoke with patient and advised of all appointment details for procedure and answered any questions Patient confirmed appointment. * Telephone Encounter - Cayla Durbin CMA - 12/18/2023 10:42 AM EST Authorization not required- reference #: [id number] * Telephone Encounter - Max Sanchez APRN - [facility] - 12/13/2023 10:23 AM EST Pt is scheduled for a screening colonoscopy on Sunday at 9:30 AM (Arrival time 8:30 AM) w/Dr. Feldman. Location [facility] schedule updated Order submitted via new epic surgery case-Case#[id number] Endo packet mailed (see letters tab in [employer] for prep info) Referral updated (if available) Pt is a part of the screening program. Screening questionnaire reviewed. Ok to schedule in program.On Ozempic & Metformin Allergies: NKA Insurance: [employer] Routed to Cayla leblanc [place] review Screening Questionnaire Do you have a Congestive Heart Failure ? No Do you have a pacemaker or defibrillator? No Have you had a Heart Attack in last 6 months? No Have you had any cardiac stents in last 12 months? No Have you had chest pain (angina)? No Are you using any blood thinner medication? No Have you been told you have abnormal EKG or abnormal echocardiogram or heart rhythm? No Are you using Oxygen at home? If yes, how many liters of oxygen? No Do you have COPD (Chronic Obstructive Pulmonary Disease)? No Do you have Asthma? If yes, is it mild? No Do you have Sleep Apnea? Do you use a cpap? No Have you been told you have malignant hyperthermia or had any other reaction to anesthesia? No What is your height and weight? 5'9 281 lbs BMI-41.5 Do you have Diabetes? If yes, what medications do you take and what is your latest A1C level? Yes Takes Ozempic & Metformin A1C-8.3 Instructed to hold Ozempic 7 days before procedure and Metformin 48 hours before Are you Immunocompromised (have a medical condition that puts you at increased risk of infection)? No Do you have myopathies (muscle diseases) ? No Do you have liver cirrhosis? No Are you ? N/A Do you receive dialysis? No Do you have any cognitive impairment like dementia; traumatic brain injury, or from stroke? No Additional questions to determine diagnostic or screening, Have you done a home stool test like the FIT or Cologuard that had a positive result? No Do you have abdominal pain? No Have you had any unexplained weight loss more than 20 lbs? No Have you had Blood in your stool? No Have you been told you have Crohn's Disease or ulcerative colitis (inflammatory bowel disease)? No 6. Do you have anemia (low blood count)? No 7. Have you had a colonoscopy that found colon polyps? If yes, when was your last colonoscopy? No Had colonoscopy 11 years ago. No colon polyps * Telephone Encounter - LEXII Canales - 09/13/2023 11:44 AM EDT Screening Colonoscopy (surveillance program) Called pt today to schedule colonoscopy Talked with pt and he does want to schedule but wants to make sure his insurance covers [employer] before scheduling and will call back when he is ready to schedule documented in this [facility]02-09-2024 Note* Addendum Note - Renetta Thapa MA - 12/28/2023 11:49 AM ESTAddended by: RENETTA THAPA on: 12/28/2023 11:49 AM Modules accepted: Orders [facility] [id number] Note* Addendum Note - Renetta Thapa MA - 12/28/2023 11:49 AM ESTAddended by: RENETTA THAPA on: 12/28/2023 11:49 AM Modules accepted: Orders [facility] [id number] Miscellaneous Notes* Addendum Note - Renetta Thapa MA - 12/28/2023 11:49 AM ESTAddended by: RENETTA THAPA on: 12/28/2023 11:49 AM Modules accepted: Orders * Telephone Encounter - Jaci Iraheta - 12/28/2023 11:41 AM EST Pt called back to state the [facility] [place] has [facility]. 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 * Telephone Encounter - Jason Morocho MD - 12/28/2023 11:25 AM EST If his pharmacy can get it he will probably have to go a week without it until they can get their supply, we could try sending it to another pharmacy if he would like. * Telephone Encounter - Jaci Iraheta - 12/28/2023 11:07 AM EST Name of caller: Nina Contact phone number: [phone] Relationship to Patient: patient Provider: Dr. Morocho Practice: [facility] Chief Complaint/Reason for Call: Pt is suppose to take his weekly dose of semaglutide (Ozempic, 0.25 or 0.5 MG/DOSE,) 2 MG/3ML solution pen-injector today (12/28/23) but his pharmacy ([facility]) states they do not have enough stock. Pt would like to be advised on what he should do Please advise. Best time of day caller can be reached: Any Patient advised that office/PCP has 24-48 business hours to return their call: Yes documented in this encounterSTuscarawas HospitalBwlzyt05-85-1909 Telephone encounter Note* Telephone Encounter - Jaci Iraheta - 12/28/2023 11:41 AM EST Pt called back to state the [facility] in [place] has his medication. 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 [facility] HospitalKfozae37-54-1202 Telephone encounter Note* Telephone Encounter - Jason Morocho MD - 12/28/2023 11:25 AM EST If his pharmacy can get it he will probably have to go a week without it until they can get their supply, we could try sending it to another pharmacy if he would like. [facility] HospitalVhubfi61-62-8573 Telephone encounter Note* Telephone Encounter - Jaci Iraheta - 12/28/2023 11:07 AM EST Name of caller: Nina Contact phone number: [phone] Relationship to Patient: patient Provider: Dr. Morocho Practice: [facility] Chief Complaint/Reason for Call: Pt is suppose to take his weekly dose of semaglutide (Ozempic, 0.25 or 0.5 MG/DOSE,) 2 MG/3ML solution pen-injector today (12/28/23) but his pharmacy ([facility]) states they do not have enough stock. Pt would like to be advised on what he should do Please advise. Best time of day caller can be reached: Any Patient advised that office/PCP has 24-48 business hours to return their call: Yes [facility]02-07-2024 Telephone encounter Note* Telephone Encounter - Ashia Spangler MA - 12/26/2023 3:50 PM EST Prescription Request: Last medication check: 09/03/23 Last physical exam: none Next scheduled appointment: none Last date of refill on this medication 08/20/23 120 tablets 1 refill [facility] HospitalIqgpxt96-50-7758 Miscellaneous Notes* Telephone Encounter - Ashia Spangler MA - 12/26/2023 3:50 PM EST Prescription Request: Last medication check: 09/03/23 Last physical exam: none Next scheduled appointment: none Last date of refill on this medication 08/20/23 120 tablets 1 refill documented in this encounterSTuscarawas HospitalVvgmos40-74-8610 Telephone encounter Note* Telephone Encounter - Cayla Durbin CMA - 12/18/2023 10:42 AM EST Authorization not required- reference #: [id number] [id number] Miscellaneous Notes* Telephone Encounter - Cayla Durbin CMA - 12/18/2023 10:42 AM EST Authorization not required- reference #: [id number] * Telephone Encounter - Max SanchezLEXII - [employer] - 12/13/2023 10:23 AM EST Pt is scheduled for a screening colonoscopy on Sunday at 9:30 AM (Arrival time 8:30 AM) w/Dr. Feldman. Location [facility] schedule updated Order submitted via new [employer] surgery case-Case#[id number] Endo packet mailed (see letters tab in [employer] for prep info) Referral updated (if available) Pt is a part of the screening program. Screening questionnaire reviewed. Ok to schedule in program.On Ozempic & Metformin Allergies: NKA Insurance: [employer] Routed to Cayla Hogan for PA review Screening Questionnaire Do you have a Congestive Heart Failure ? No Do you have a pacemaker or defibrillator? No Have you had a Heart Attack in last 6 months? No Have you had any cardiac stents in last 12 months? No Have you had chest pain (angina)? No Are you using any blood thinner medication? No Have you been told you have abnormal EKG or abnormal echocardiogram or heart rhythm? No Are you using Oxygen at home? If yes, how many liters of oxygen? No Do you have COPD (Chronic Obstructive Pulmonary Disease)? No Do you have Asthma? If yes, is it mild? No Do you have Sleep Apnea? Do you use a cpap? No Have you been told you have malignant hyperthermia or had any other reaction to anesthesia? No What is your height and weight? 5'9 281 lbs BMI-41.5 Do you have Diabetes? If yes, what medications do you take and what is your latest A1C level? Yes Takes Ozempic & Metformin A1C-8.3 Instructed to hold Ozempic 7 days before procedure and Metformin 48 hours before Are you Immunocompromised (have a medical condition that puts you at increased risk of infection)? No Do you have myopathies (muscle diseases) ? No Do you have liver cirrhosis? No Are you ? N/A Do you receive dialysis? No Do you have any cognitive impairment like dementia; traumatic brain injury, or from stroke? No Additional questions to determine diagnostic or screening, Have you done a home stool test like the FIT or Cologuard that had a positive result? No Do you have abdominal pain? No Have you had any unexplained weight loss more than 20 lbs? No Have you had Blood in your stool? No Have you been told you have Crohn's Disease or ulcerative colitis (inflammatory bowel disease)? No 6. Do you have anemia (low blood count)? No 7. Have you had a colonoscopy that found colon polyps? If yes, when was your last colonoscopy? No Had colonoscopy 11 years ago. No colon polyps * Telephone Encounter - LEXII Canales - 09/13/2023 11:44 AM EDT Screening Colonoscopy (surveillance program) Called pt today to schedule colonoscopy Talked with pt and he does want to schedule but wants to make sure his insurance covers [employer] before scheduling and will call back when he is ready to schedule documented in this [facility]01-25-2024 Telephone encounter Note* Telephone Encounter - LEXII Canales - 12/13/2023 10:23 AM EST Pt is scheduled for a screening colonoscopy on Sunday at 9:30 AM (Arrival time 8:30 AM) w/Dr. Feldman. Location [facility] schedule updated Order submitted via new epic surgery case-Case#[id number] Endo packet mailed (see letters tab in [employer] for prep info) Referral updated (if available) Pt is a part of the screening program. Screening questionnaire reviewed. Ok to schedule in program.On Ozempic & Metformin Allergies: NKA Insurance: [employer] Routed to Cayla BUNDY review Screening Questionnaire Do you have a Congestive Heart Failure ? No Do you have a pacemaker or defibrillator? No Have you had a Heart Attack in last 6 months? No Have you had any cardiac stents in last 12 months? No Have you had chest pain (angina)? No Are you using any blood thinner medication? No Have you been told you have abnormal EKG or abnormal echocardiogram or heart rhythm? No Are you using Oxygen at home? If yes, how many liters of oxygen? No Do you have COPD (Chronic Obstructive Pulmonary Disease)? No Do you have Asthma? If yes, is it mild? No Do you have Sleep Apnea? Do you use a cpap? No Have you been told you have malignant hyperthermia or had any other reaction to anesthesia? No What is your height and weight? 5'9 281 lbs BMI-41.5 Do you have Diabetes? If yes, what medications do you take and what is your latest A1C level? Yes Takes Ozempic & Metformin A1C-8.3 Instructed to hold Ozempic 7 days before procedure and Metformin 48 hours before Are you Immunocompromised (have a medical condition that puts you at increased risk of infection)? No Do you have myopathies (muscle diseases) ? No Do you have liver cirrhosis? No Are you ? N/A Do you receive dialysis? No Do you have any cognitive impairment like dementia; traumatic brain injury, or from stroke? No Additional questions to determine diagnostic or screening, Have you done a home stool test like the FIT or Cologuard that had a positive result? No Do you have abdominal pain? No Have you had any unexplained weight loss more than 20 lbs? No Have you had Blood in your stool? No Have you been told you have Crohn's Disease or ulcerative colitis (inflammatory bowel disease)? No 6. Do you have anemia (low blood count)? No 7. Have you had a colonoscopy that found colon polyps? If yes, when was your last colonoscopy? No Had colonoscopy 11 years ago. No colon polyps [facility] Phone: [phone] Telephone encounter Note* Telephone Encounter - LEXII Coates CNP - 10/17/2023 7:17 AM EST Reviewed chart. Refill appropriate. RX sent. [facility] [id number] Miscellaneous Notes* Telephone Encounter - LEXII Coates CNP - 10/17/2023 7:17 AM EST Reviewed chart. Refill appropriate. RX sent. * Telephone Encounter - Damian Panchal LPN - 10/17/2023 7:10 AM EST Prescription Request: Last medication check: 10/31/22 Last physical exam: not found Next scheduled appointment: 12/05/23 Last date of refill on this medication 09/13/23 3 ml No refills documented in this encounterSTuscarawas [id number] Telephone encounter Note* Telephone Encounter - Damian Panchal LPN - 10/17/2023 7:10 AM EST Prescription Request: Last medication check: 10/31/22 Last physical exam: not found Next scheduled appointment: 12/05/23 Last date of refill on this medication 09/13/23 3 ml No refills [facility]Vdrrzb62-03-6154 Telephone encounter Note* Telephone Encounter - Nakia Carrillo - 10/08/2023 11:14 AM EST Message released to patient as written. Patient's further questions if applicable: Were all questions from office addressed or relayed to the patient from encounter: Yes Message Released: Please let patient know that I have ordered semaglutide (Ozempic) for the treatment of diabetes- this should be covered by insurance. He will start with injecting 0.25 mg once weekly x 4 weeks, if hetolerates the medication then we will increase the dose at that time. [facility] [id number] Miscellaneous Notes* Telephone Encounter - Nakia Carrillo - 10/08/2023 11:14 AM EST Message released to patient as written. Patient's further questions if applicable: Were all questions from office addressed or relayed to the patient from encounter: Yes Message Released: Please let patient know that I have ordered semaglutide (Ozempic) for the treatment of diabetes- this should be covered by insurance. He will start with injecting 0.25 mg once weekly x 4 weeks, if hetolerates the medication then we will increase the dose at that time. documented in this encounterSTuscarawas HospitalFdyyrc10-67-9660 Telephone encounter Note* Telephone Encounter - LEXII Canales - 09/13/2023 11:44 AM EDT Screening Colonoscopy (surveillance program) Called pt today to schedule colonoscopy Talked with pt and he does want to schedule but wants to make sure his insurance covers [facility] before scheduling and will call back when he is ready to schedule [facility] [id number] Telephone encounter Note* Telephone Encounter - Umm Rose - 09/12/2023 2:34 PM EDT Message released to patient as written. Patient's further questions if applicable: Were all questions from office addressed or relayed to the patient from encounter: The patient called to check on the status of Wegovy. I relayed the message that it was denied. He said he will call his insurance company. [facility] [id number] Miscellaneous Notes* Telephone Encounter - Umm Rose - 09/12/2023 2:34 PM EDT Message released to patient as written. Patient's further questions if applicable: Were all questions from office addressed or relayed to the patient from encounter: The patient called to check on the status of Wegovy. I relayed the message that it was denied. He said he will call his insurance company. * Telephone Encounter - Renetta Thapa MA - 09/11/2023 4:38 PM EDT Received faxed denial. * Telephone Encounter - Renetta Thapa MA - 09/10/2023 8:49 AM EDT PA is waiting for payer response. * Telephone Encounter - Renetta Thapa MA - 09/06/2023 8:34 AM EDT Patient notified. PA requested for Wegovy, received faxed prior auth request from pharmacy. * Telephone Encounter - Jason Morocho MD - 09/05/2023 3:47 PM EDT Rx sent for Wegovy, he will have to stop the Trulicity because they are the same class of medication he cannot take both of them * Telephone Encounter - Evelia Billy - 09/05/2023 1:50 PM EDT Name of caller: Nina Contact phone number: [phone] Relationship to Patient: Patient Provider: Dr. Morocho Practice: [facility] Chief Complaint/Reason for Call: Patient called stating that he discussed at his recent OV with , about being put on Wegovy. Patient is interested in that and is requesting to be prescribedWegovy. Patient's Preferred [facility] is [facility] in [place]. Please advise. Best time of day caller can be reached: Any Patient advised that office/PCP has 24-48 business hours to return their call: No documented in this [facility]10-24-2023 Telephone encounter Note* Telephone Encounter - Renetta Thapa MA - 09/11/2023 4:38 PM EDT Received faxed denial. [place] [id number] Telephone encounter Note* Telephone Encounter - Renetta Thapa MA - 09/10/2023 8:49 AM EDT PA is waiting for payer response. [place] [id number] Telephone encounter Note* Telephone Encounter - Renetta Thapa MA - 09/06/2023 1:43 PM EDT Prescription Request: Last medication check: 10/31/22 Last physical exam: not found Last completed appointment: 09/03/23 Next scheduled appointment: 12/05/2023 Last date of refill on this medication: 03/09/23 [place] [id number] Miscellaneous Notes* Telephone Encounter - Renetta Thapa MA - 09/06/2023 1:43 PM EDT Prescription Request: Last medication check: 10/31/22 Last physical exam: not found Last completed appointment: 09/03/23 Next scheduled appointment: 12/05/2023 Last date of refill on this medication: 03/09/23 documented in this [place] [id number] Telephone encounter Note* Telephone Encounter - Renetta Thapa MA - 09/06/2023 8:34 AM EDT Patient notified. PA requested for Wegovy, received faxed prior auth request from pharmacy. [facility] HospitalPhhaur19-94-1611 Telephone encounter Note* Telephone Encounter - Jason Morocho MD - 09/05/2023 3:47 PM EDT Rx sent for Wegovy, he will have to stop the Trulicity because they are the same class of medication he cannot take both of them [facility] HospitalTtsyvl75-23-0004 Telephone encounter Note* Telephone Encounter - Evelia Billy - 09/05/2023 1:50 PM EDT Name of caller: Nina Contact phone number: [phone] Relationship to Patient: Patient Provider: Dr. Morocho Practice: [place] Chief Complaint/Reason for Call: Patient called stating that he discussed at his recent OV with , about being put on Wegovy. Patient is interested in that and is requesting to be prescribedWegovy. Patient's Preferred [facility] is [facility] in [place]. Please advise. Best time of day caller can be reached: Any Patient advised that office/PCP has 24-48 business hours to return their call: No [facility] [id number] Evaluation + Plan note* Assessment & Plan Note - Jason Morocho MD - 09/03/2023 11:14 AM EDTAssociated Problem(s): Hypercholesterolemia Controlled, continue lovastatin 80 mg nightly [facility] HospitalQhakxb67-44-0778 Miscellaneous Notes* Assessment & Plan Note - Jason Morocho MD - 09/03/2023 11:14 AM EDTAssociated Problem(s): Hypercholesterolemia Controlled, continue lovastatin 80 mg nightly * Assessment & Plan Note - Jason Morocho MD - 09/03/2023 11:13 AM EDT Associated Problem(s): Type 2 diabetes mellitus without complication, without long-term current useof insulin (CMS/HCC) ([facility]) Uncontrolled, continue metformin 1000 mg twice a day and Trulicity 0.75 mg weekly, check blood sugar twice a day and drop off numbers in 2 weeks. * Assessment & Plan Note - Jason Morocho MD - 09/03/2023 11:12 AM EDT Associated Problem(s): Sprain of medial collateral ligament of left knee Continue meloxicam and heat for now. * Assessment & Plan Note - Jason Morocho MD - 09/03/2023 11:12 AM EDT Associated Problem(s): Hypertension Controlled, continue lisinopril 10 mg daily and atenolol 50 mg daily documented in this [facility]10-16-2023 Evaluation + Plan note* Assessment & Plan Note - Jason Morocho MD - 09/03/2023 11:13 AM EDT Associated Problem(s): Type 2 diabetes mellitus without complication, without long-term current useof insulin (CMS/HCC) ([facility]) Uncontrolled, continue metformin 1000 mg twice a day and Trulicity 0.75 mg weekly, check blood sugar twice a day and drop off numbers in 2 weeks. [facility] [id number] Evaluation + Plan note* Assessment & Plan Note - Jason Morocho MD - 09/03/2023 11:12 AM EDTAssociated Problem(s): Sprain of medial collateral ligament of left knee Continue meloxicam and heat for now. [place] [id number] Evaluation + Plan note* Assessment & Plan Note - Jason Morocho MD - 09/03/2023 11:12 AM EDTAssociated Problem(s): Hypertension Controlled, continue lisinopril 10 mg daily and atenolol 50 mg daily [facility] HospitalBduwup28-99-3101 History of Present illness Narrative* Ashia Spangler MA - 09/03/2023 10:30 AM EDT Patient verified by last name and date of . * Jason Morocho MD - 09/03/2023 10:30 AM EDT Images from the original note were not included. 09/03/2023 Nina Wilson (: 1965) is a 58 y.o. male , Established patient, here for evaluation of the following chief complaint(s): Knee Pain (left), Results (Discuss lab results from other doctor ), Health Maintenance (Colonoscopy- pt will check to see who his ins plan covers then let us know for referral /Mmr vaccine- done as child/Pcv vaccine- refuse/Covid vaccine- not done/Flu vaccine- refuse), and new to provider ASSESSMENT/PLAN: 1. Primary hypertension Assessment & Plan: Controlled, continue lisinopril 10 mg daily and atenolol 50 mg daily 2. Type 2 diabetes mellitus without complication, without long-term current use of insulin ([facility]) ([facility]) Assessment & Plan: Uncontrolled, continue metformin 1000 mg twice a day and Trulicity 0.75 mg weekly, check blood sugar twice a day and drop off numbers in 2 weeks. 3. Hypercholesterolemia Assessment & Plan: Controlled, continue lovastatin 80 mg nightly 4. Sprain of medial collateral ligament of left knee, initial encounter Assessment & Plan: Continue meloxicam and heat for now. 5. Screening for colon cancer - [facility] Follow up if symptoms worsen or fail to improve. SUBJECTIVE/OBJECTIVE: SHERIDAN IrahetaNina comes in today to establish with our practice, he says he is diabetic but he did not bring any blood sugar numbers he says he is on metformin and Trulicity and he said initially his A1c was 12 at the last time it was checked was down to 8.3. He has hypercholesterolemia and he is on lovastatin 80 mg daily and he is on lisinopril and atenolol for hypertension. He says he has no energy, he has been gaining weight, he has some lack of motivation but does not feel like he is depressed. He says he is having some left knee pain but this is along the medial aspect below the joint line and he is not remember any specific injury. He says his last colonoscopy was at age 48. Review of Systems Constitutional: Negative for activity change, appetite change, chills, fever and unexpected weight change. HENT: Negative for ear pain and sore throat. Respiratory: Negative for shortness of breath. Cardiovascular: Negative for chest pain and palpitations. Gastrointestinal: Negative for abdominal pain, blood in stool, constipation and diarrhea. Genitourinary: Negative for dysuria, frequency, hematuria and urgency. Musculoskeletal: Negative for arthralgias and back pain. Skin: Negative. Neurological: Negative for weakness and numbness. Psychiatric/Behavioral: Negative for dysphoric mood. The patient is not nervous/anxious. Vitals: 09/03/23 1016 BP: 132/84 Pulse: 79 SpO2: 93% Weight: 281 lb 6.4 oz (128 kg) Height: 5' 9" (1.753 m) Physical Exam Vitals and nursing note reviewed. Constitutional: General: He is not in acute distress. Appearance: Normal appearance. HENT: Right Ear: Tympanic membrane, ear canal and external ear normal. Left Ear: Tympanic membrane, ear canal and external ear normal. Mouth/Throat: Mouth: Mucous membranes are moist. Pharynx: Oropharynx is clear. Eyes: Extraocular Movements: Extraocular movements intact. Pupils: Pupils are equal, round, and reactive to light. Neck: Vascular: No carotid bruit. Cardiovascular: Rate and Rhythm: Normal rate and regular rhythm. Heart sounds: Normal heart sounds. No murmur heard. Pulmonary: Effort: Pulmonary effort is normal. Breath sounds: Normal breath sounds. Abdominal: General: Bowel sounds are normal. Palpations: Abdomen is soft. Tenderness: There is no abdominal tenderness. Musculoskeletal: General: Normal range of motion. Cervical back: Neck supple. Lymphadenopathy: Cervical: No cervical adenopathy. Skin: General: Skin is warm and dry. Neurological: General: No focal deficit present. Mental Status: He is alert and oriented to person, place, and time. Psychiatric: Mood and Affect: Mood normal. An electronic signature was used to authenticate this note. Jason Morocho MD 09/03/2023 11:15 AM documented in this [facility]10-02-2023 Note* Addendum Note - Sourav Ochoa MA - 08/20/2023 1:53 PM EDTAddended by: SOURAV OCHOA on: 08/20/2023 01:53 PM Modules accepted: Orders [facility] HospitalWabxix12-08-5654 Note* Addendum Note - Sourav Ochoa MA - 08/20/2023 1:53 PM EDTAddended by: SOURAV OCHOA on: 08/20/2023 01:53 PM Modules accepted: Orders [facility] [id number] Note* Addendum Note - Sourav Ochoa MA - 08/20/2023 1:53 PM EDTAddended by: SOURAV OCHOA on: 08/20/2023 01:53 PM Modules accepted: Orders [place] [id number] Note* Addendum Note - Sourav Ochoa MA - 08/20/2023 1:53 PM EDTAddended by: SOURAV OCHOA on: 08/20/2023 01:53 PM Modules accepted: Orders [facility] HospitalDxbfdw06-30-2560 Note* Addendum Note - Sourav Ochoa MA - 08/20/2023 1:53 PM EDTAddended by: SOURAV OCHOA on: 08/20/2023 01:53 PM Modules accepted: Orders [place] [id number] Miscellaneous Notes* Addendum Note - Sourav Ochoa MA - 08/20/2023 1:53 PM EDTAddended by: SOURAV OCHOA on: 08/20/2023 01:53 PM Modules accepted: Orders * Telephone Encounter - Rosemary Owen - 08/20/2023 1:34 PM EDT Pt stated has been out of medication since Sunday08/17/23 Medication name: metFORMIN (Glucophage) Medication dosage: 1000 mg (Miligrams Monthly quantity needed: 120 How many day supply requestin days Medication route: oral (PO) Medication administration time(s): 2 times a day (BID) If taking medication PRN, reason for taking medication: N/A If this is a controlled substance do you receive this or any other controlled medication from any other doctor or facility: N/A Ordering provider: Lisandra Date of last office visit: 10.31.22 Date of next office visit: 08.24.23 Date of last refill: (see medication tab): 10.24.22 Updated/Validated preferred pharmacy: Yes Patient instructed to contact the pharmacy prior to picking up the medication: Yes documented in this [facility]10-02-2023 Telephone encounter Note* Telephone Encounter - Rosemary Owen - 08/20/2023 1:34 PM EDT Pt stated has been out of medication since Sunday08/17/23 Medication name: metFORMIN (Glucophage) Medication dosage: 1000 mg (Miligrams Monthly quantity needed: 120 How many day supply requestin days Medication route: oral (PO) Medication administration time(s): 2 times a day (BID) If taking medication PRN, reason for taking medication: N/A If this is a controlled substance do you receive this or any other controlled medication from any other doctor or facility: N/A Ordering provider: Lisandra Date of last office visit: 10.31.22 Date of next office visit: 08.24.23 Date of last refill: (see medication tab): 10.24.22 Updated/Validated preferred pharmacy: Yes Patient instructed to contact the pharmacy prior to picking up the medication: Yes [facility] HospitalSmvmgs97-49-2283 Telephone encounter Note* Telephone Encounter - Sourav Ochoa MA - 08/09/2023 4:48 PM EDT All results entered and hard copy gave to Dr Fox. [facility] [id number] Miscellaneous Notes* Telephone Encounter - Sourav Ochoa MA - 08/09/2023 4:48 PM EDT All results entered and hard copy gave to Dr Fox. * Telephone Encounter - Sourav Ochoa MA - 08/09/2023 3:30 PM EDT Called [facility]. Awaiting fax * Telephone Encounter - Ellen Cortes - 08/09/2023 2:11 PM EDT Name of caller: Nina Contact phone number: [phone] Relationship to Patient: patient Provider: Dr Fox Practice: [facility] Chief Complaint/Reason for Call: Patient states he called [facility] to get his lab work results faxed over but they advised him they do not accept fax numbers or Office numbers that they need a letterhead. Please Advise. Also refer to Signed TE from today Best time of day caller can be reached: any Patient advised that office/PCP has 24-48 business hours to return their call: No documented in this encounterSTuscarawas HospitalJwqnre32-83-1294 Telephone encounter Note* Telephone Encounter - Sourav Ochoa MA - 08/09/2023 3:30 PM EDT Called [facility]. Awaiting fax [facility] HospitalOvbbhv63-88-5468 Telephone encounter Note* Telephone Encounter - Ellen Cortes - 08/09/2023 2:11 PM EDT Name of caller: Nina [place] phone number: [phone] Relationship to Patient: patient Provider: Dr Fox Practice: [facility] Chief Complaint/Reason for Call: Patient states he called [facility] to get his lab work results faxed over but they advised him they do not accept fax numbers or Office numbers that they need a letterhead. Please Advise. Also refer to Signed TE from today Best time of day caller can be reached: any Patient advised that office/PCP has 24-48 business hours to return their call: No [place] [id number] Telephone encounter Note* Telephone Encounter - Sourav Ochoa MA - 08/09/2023 1:54 PM EDT Spoke with patient to let him know we have not received his labs from [facility]. He is going to callthe and have them fax it to us. [address]Tfhpbb82-29-5064 Miscellaneous Notes* Telephone Encounter - Sourav Ochoa MA - 08/09/2023 1:54 PM EDT Spoke with patient to let him know we have not received his labs from [facility]. He is going to callthem and have them fax it to us. * Telephone Encounter - Kusum Gonzalez - 08/09/2023 11:56 AM EDT Name of caller: Nina Contact phone number: [phone] Relationship to Patient: patient Provider: Dr. Fox Practice: [facility] Chief Complaint/Reason for Call: Pt called again wanting to know if lab work was back. Please advise Best time of day caller can be reached: any Patient advised that office/PCP has 24-48 business hours to return their call: No * Telephone Encounter - Blanca Helton MA - 08/07/2023 1:30 PM EDT noted * Telephone Encounter - Kavita Haskins - 08/07/2023 1:08 PM EDT Name of caller: Nina Wilson Contact phone number: [phone] Relationship to Patient: patient Provider: Dr Cecelia Fox Practice: [facility] Chief Complaint/Reason for Call: FYI only: Pt called requesting lab results. Pt advised that lab results have not come in from [facility]. Best time of day caller can be reached: any Patient advised that office/PCP has 24-48 business hours to return their call: No documented in this encounterSTuscarawas HospitalAbjqtf49-34-8847 Telephone encounter Note* Telephone Encounter - Kusum Gonzalez - 08/09/2023 11:56 AM EDT Name of caller: Nina Contact phone number: [phone] Relationship to Patient: patient Provider: Dr. Fox Practice: [facility] Chief Complaint/Reason for Call: Pt called again wanting to know if lab work was back. Please advise Best time of day caller can be reached: any Patient advised that office/PCP has 24-48 business hours to return their call: No [facility] HospitalFuxweb28-64-3308 Telephone encounter Note* Telephone Encounter - Blanca Helton MA - 08/07/2023 1:30 PM EDT noted [facility] HospitalVedxpo65-47-0924 Telephone encounter Note* Telephone Encounter - Kavita Haskins - 08/07/2023 1:08 PM EDT Name of caller: iNna Wilson Contact phone number: [phone] Relationship to Patient: patient Provider: Dr Cecelia Fox Practice: [facility] Chief Complaint/Reason for Call: FYI only: Pt called requesting lab results. Pt advised that lab results have not come in from [facility]. Best time of day caller can be reached: any Patient advised that office/PCP has 24-48 business hours to return their call: No [facility] HospitalOxotvj04-06-9724 Telephone encounter Note* Telephone Encounter - Sourav Ochoa MA - 07/30/2023 11:37 AM EDT Patient viewed in My Chart [facility] HospitalSimmvn13-34-5671 Miscellaneous Notes* Telephone Encounter - Sourav Ochoa MA - 07/30/2023 11:37 AM EDT Patient viewed in My Chart * Telephone Encounter - Sourav Ochoa MA - 07/27/2023 11:07 AM EDT Sent My Chart * Telephone Encounter - Cecelia Fox DO - 07/27/2023 11:03 AM EDT Labs ordered * Telephone Encounter - Cecelia Kan MA - 07/26/2023 9:15 AM EDT LO 10/31/22 NO 08/24/23 * Telephone Encounter - Sue Del Cid RN - 07/26/2023 8:50 AM EDT S: Patient spoke with [facility] nurse regarding fatigue B: Onset of symptoms/concern week A: Pt has been feeling fatigued the past week. He is diabetic. Blood sugar was 251 on Sunday. Has not checked since Sunday. Pt takes once a week trulicity and metformin 1000 mg daily. Blood sugars usually run around 150. Has not missed any doses of medications. Gets sob with extended walking but states not new and he is overweight. Denies fever, blurred vision, dizziness, chest pain, n/v, diarrhea, blood in stools or bleeding. Has not had any medication changes. Has been drinking water. Work has not been impeded but feels more tired than normal. Pt asking to get some blood work done. Offered to schedule an appointment and pt states he would prefer to get blood work done first. He goes to [place] to get the blood work at no charge, has to pay to get it done at [facility]. R: Please contact pt at [phone] when order is placed or for further intervention. Keep well hydrated. Patient understands care advice. Instructed to call back with any further questions or concerns. Reason for Disposition Patient wants to be seen Protocols used: Weakness (Generalized) and [id number] documented in this encounterSTuscarawas HospitalQvtzba40-05-5181 Telephone encounter Note* Telephone Encounter - Sourav Ochoa MA - 07/27/2023 11:07 AM EDT Sent My Chart [facility] HospitalXijchp51-18-1431 Telephone encounter Note* Telephone Encounter - Cecelia Fox DO - 07/27/2023 11:03 AM EDT Labs ordered [facility] [id number] Telephone encounter Note* Telephone Encounter - Cecelia Kan MA - 07/26/2023 9:15 AM EDT LO 10/31/22 NO 08/24/23 [facility] HospitalOzddag23-75-2871 Telephone encounter Note* Telephone Encounter - Sue Del Cid RN - 07/26/2023 8:50 AM EDT S: Patient spoke with [facility] nurse regarding fatigue B: Onset of symptoms/concern week A: Pt has been feeling fatigued the past week. He is diabetic. Blood sugar was 251 on Sunday. Has not checked since Sunday. Pt takes once a week trulicity and metformin 1000 mg daily. Blood sugars usually run around 150. Has not missed any doses of medications. Gets sob with extended walking but states not new and he is overweight. Denies fever, blurred vision, dizziness, chest pain, n/v, diarrhea, blood in stools or bleeding. Has not had any medication changes. Has been drinking water. Work has not been impeded but feels more tired than normal. Pt asking to get some blood work done. Offered to schedule an appointment and pt states he would prefer to get blood work done first. He goes to [place] to get the blood work at no charge, has to pay to get it done at [facility]. R: Please contact pt at [phone] when order is placed or for further intervention. Keep well hydrated. Patient understands care advice. Instructed to call back with any further questions or concerns. Reason for Disposition Patient wants to be seen Protocols used: Weakness (Generalized) and [id number] [facility] HospitalWkphuw73-55-3785 Miscellaneous Notes* Telephone Encounter - Sourav Ochoa MA - 04/23/2023 5:23 PM EDT 10/31/2022 [place] None documented in this encounterSTuscarawas HospitalVluoau61-59-4190 Telephone encounter Note* Telephone Encounter - Sourav Ochoa MA - 04/23/2023 5:23 PM EDT 10/31/2022 [place] None [facility] HospitalUtcsbd92-65-4737 Telephone encounter Note* Telephone Encounter - Renu Ledbetter MD - 03/01/2023 10:55 AM EDT Ok please pend lisinopril [place] [id number] Miscellaneous Notes* Telephone Encounter - Renu Ledbetter MD - 03/01/2023 10:55 AM EDT Ok please pend lisinopril * Telephone Encounter - Cecelia Fox DO - 02/26/2023 11:02 AM EDT A1c is much improved but still a bit high at 8.4. LDL looks great. He does have quite a bit of microalbumin in his urine. I'd recommend starting lisinopril 10 mg daily to protect kidneys. documented in this [place] [id number] Telephone encounter Note* Telephone Encounter - Yumiko Nunes MA - 02/26/2023 4:03 PM EDT Last 11.01.22 Next n/a [id number] Miscellaneous Notes* Telephone Encounter - Yumiko Nunes MA - 02/26/2023 4:03 PM EDT Last 11.01.22 Next n/a documented in this [address]10-2023 Telephone encounter Note* Telephone Encounter - Cecelia Fox DO - 02/26/2023 11:02 AM EDT A1c is much improved but still a bit high at 8.4. LDL looks great. He does have quite a bit of microalbumin in his urine. I'd recommend starting lisinopril 10 mg daily to protect kidneys. [id number] Telephone encounter Note* Telephone Encounter - Yumiko Nunes MA - 02/13/2023 9:32 AM EDT 10.31.22 [id number] Miscellaneous Notes* Telephone Encounter - Yumiko Nunes MA - 02/13/2023 9:32 AM EDT 12.22 documented in this [facility]03-23-2023 Telephone encounter Note* Telephone Encounter - Yumiko Nunes MA - 02/08/2023 11:25 AM EDT VAL[place] 13.22 [id number] Miscellaneous Notes* Telephone Encounter - Yumiko Nunes MA - 02/08/2023 11:25 AM EDT [place] 10.31.22 documented in this [facility]03-13-2023 Telephone encounter Note* Telephone Encounter - Blanca Helton MA - 01/29/2023 2:34 PM EDT Last seen:10/31/22 Scheduled:n/a [id number] Miscellaneous Notes* Telephone Encounter - Blanca Helton MA - 01/29/2023 2:34 PM EDT Last seen:10/31/22 Scheduled:n/a documented in this [facility]02-08-2023 Telephone encounter Note* Telephone Encounter - Blanca Helton - 12/27/2022 7:44 AM EST Last seen:10/31/22 Scheduled:n/a [id number] Miscellaneous Notes* Telephone Encounter - Blanca Helton - 12/27/2022 7:44 AM EST Last seen:10/31/22 Scheduled:n/a documented in this [facility]01-11-2023 Telephone encounter Note* Telephone Encounter - Blanca Helton - 11/29/2022 8:06 AM EST Last seen:10/31/22 Scheduled:n/a [facility] [id number] Miscellaneous Notes* Telephone Encounter - Blanca Helton - 11/29/2022 8:06 AM EST Last seen:10/31/22 Scheduled:n/a [facility] No data available for this section [facility] aluation + Plan note Future Appointments Appointment Date:01/01/2025 03:30:00 PM Scheduled [place] [id number] Location:[facility] Appointment Type:PT [facility] Appointment Date:01/05/2025 03:30:00 PM Scheduled Provider: Location:[facility] Appointment Type:PT [facility] Appointment Date:01/08/2025 03:30:00 PM Scheduled Provider:[place] [id number] Location:[facility] Appointment Type:PT [facility]* Diagnosis Type 2 diabetes mellitus with hyperglycemia (CMS/HCC) (HCC)- Primary documented in this encounter [facility] note* Diagnosis Other fatigue- Primary Type 2 diabetes mellitus without complication, without long-term current use of insulin (CMS/HCC) (HCC) documented in this encounter [facility] note* Diagnosis Primary hypertension- Primary Unspecified essential hypertension Type 2 diabetes mellitus without complication, without long-term current use of insulin (CMS/HCC) (HCC) Hypercholesterolemia Pure hypercholesterolemia Sprain of medial collateral ligament of left knee, initial encounter Screening for colon cancer Special screening for malignant neoplasms, colon documented in this encounter [facility] note* Diagnosis Type 2 diabetes mellitus without complication, without long-term current use of insulin (CMS/HCC) (HCC) documented in this encounter [facility] note* Diagnosis Type 2 diabetes mellitus without complication, without long-term current use of insulin (CMS/HCC) (HCC) Screening for malignant neoplasm of colon [facility] Diagnosis Screening for malignant neoplasm of colon documented in this encounter [facility] note* Diagnosis Annual physical exam- Primary Routine general medical examination at a health care facility Type 2 diabetes mellitus without complication, without long-term current use of insulin (CMS/HCC) (HCC) Primary hypertension Unspecified essential hypertension Hypercholesterolemia Pure hypercholesterolemia Screening for prostate cancer Special screening for malignant neoplasm of prostate documented in this encounter [facility]* Diagnosis Annual physical exam- Primary Routine general medical examination at a health care facility Type 2 diabetes mellitus without complication, without long-term current use of insulin (CMS/HCC) (HCC) Primary hypertension Unspecified essential hypertension Hypercholesterolemia Pure hypercholesterolemia Screening for prostate cancer Special screening for malignant neoplasm of prostate documented in this encounter [facility]* Diagnosis Type 2 diabetes mellitus without complication, without long-term current use of insulin (CMS/HCC) (HCC) [facility] Diagnosis Type 2 diabetes mellitus without complication, without long-term current use of insulin (CMS/HCC) (HCC) [facility]* Diagnosis Type 2 diabetes mellitus without complication, without long-term current use of insulin (CMS/HCC) (HCC)- Primary Hypercholesterolemia Pure hypercholesterolemia Primary hypertension Unspecified essential hypertension documented in this encounter [facility]* Diagnosis Hx of colonic polyp- Primary [facility]* Diagnosis Type 2 diabetes mellitus without complication, without long-term current use of insulin (CMS/HCC) (HCC) documented in this encounter [facility]* Diagnosis Hx of colonic polyp- Primary Hx of colonic polyp- Primary Hx of colonic polyp [facility]* Diagnosis Hx of colonic polyp- Primary Type 2 diabetes mellitus without complication, without long-term current use of insulin (CMS/HCC) (HCC) Hx of colonic polyp documented in this encounter [facility]* Diagnosis Hx of colonic polyp- Primary [facility]* Diagnosis Primary hypertension- Primary Unspecified essential hypertension Type 2 diabetes mellitus without complication, without long-term current use of insulin (CMS/HCC) (HCC) Hypercholesterolemia Pure hypercholesterolemia Sprain of medial collateral ligament of left knee, initial encounter Screening for colon cancer Special screening for malignant neoplasms, colon Annual physical exam- Primary Routine general medical examination at a health care facility Type 2 diabetes mellitus without complication, without long-term current use of insulin (CMS/HCC) (HCC) Primary hypertension Unspecified essential hypertension Hypercholesterolemia Pure hypercholesterolemia Screening for prostate cancer Special screening for malignant neoplasm of prostate Type 2 diabetes mellitus without complication, without long-term current use of insulin (CMS/HCC) (HCC)- Primary Hypercholesterolemia Pure hypercholesterolemia Primary hypertension Unspecified essential hypertension Type 2 diabetes mellitus without complication, without long-term current use of insulin (CMS/HCC) (HCC) [facility]* Diagnosis Primary hypertension- Primary Unspecified essential hypertension Type 2 diabetes mellitus without complication, without long-term current use of insulin (CMS/HCC) (HCC) Hypercholesterolemia Pure hypercholesterolemia Sprain of medial collateral ligament of left knee, initial encounter Screening for colon cancer Special screening for malignant neoplasms, colon Annual physical exam- Primary Routine general medical examination at a health care facility Type 2 diabetes mellitus without complication, without long-term current use of insulin (CMS/HCC) (HCC) Primary hypertension Unspecified essential hypertension Hypercholesterolemia Pure hypercholesterolemia Screening for prostate cancer Special screening for malignant neoplasm of prostate Type 2 diabetes mellitus without complication, without long-term current use of insulin (CMS/HCC) (HCC)- Primary Hypercholesterolemia Pure hypercholesterolemia Primary hypertension Unspecified essential hypertension Type 2 diabetes mellitus without complication, without long-term current use of insulin (CMS/HCC) (HCC)- Primary Hypercholesterolemia Pure hypercholesterolemia Primary hypertension Unspecified essential hypertension Acute right-sided low back pain without sciatica Nontraumatic complete tear of right rotator cuff Adhesive capsulitis of right shoulder [facility]* Diagnosis Primary hypertension- Primary Unspecified essential hypertension Type 2 diabetes mellitus without complication, without long-term current use of insulin (CMS/HCC) (HCC) Hypercholesterolemia Pure hypercholesterolemia Sprain of medial collateral ligament of left knee, initial encounter Screening for colon cancer Special screening for malignant neoplasms, colon Annual physical exam- Primary Routine general medical examination at a health care facility Type 2 diabetes mellitus without complication, without long-term current use of insulin (CMS/HCC) (HCC) Primary hypertension Unspecified essential hypertension Hypercholesterolemia Pure hypercholesterolemia Screening for prostate cancer Special screening for malignant neoplasm of prostate Type 2 diabetes mellitus without complication, without long-term current use of insulin (CMS/HCC) (HCC)- Primary Hypercholesterolemia Pure hypercholesterolemia Primary hypertension Unspecified essential hypertension Type 2 diabetes mellitus without complication, without long-term current use of insulin (CMS/HCC) (HCC)- Primary Hypercholesterolemia Pure hypercholesterolemia Primary hypertension Unspecified essential hypertension Acute right-sided low back pain without sciatica Nontraumatic complete tear of right rotator cuff 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- Primary Numbness of right anterior thigh Numbness of right hand [facility]* Diagnosis Primary hypertension- Primary Unspecified essential hypertension Type 2 diabetes mellitus without complication, without long-term current use of insulin (CMS/HCC) (HCC) Hypercholesterolemia Pure hypercholesterolemia Sprain of medial collateral ligament of left knee, initial encounter Screening for colon cancer Special screening for malignant neoplasms, colon Annual physical exam- Primary Routine general medical examination at a health care facility Type 2 diabetes mellitus without complication, without long-term current use of insulin (CMS/HCC) (HCC) Primary hypertension Unspecified essential hypertension Hypercholesterolemia Pure hypercholesterolemia Screening for prostate cancer Special screening for malignant neoplasm of prostate Type 2 diabetes mellitus without complication, without long-term current use of insulin (CMS/HCC) (HCC)- Primary Hypercholesterolemia Pure hypercholesterolemia Primary hypertension Unspecified essential hypertension Type 2 diabetes mellitus without complication, without long-term current use of insulin (CMS/HCC) (HCC)- Primary Hypercholesterolemia Pure hypercholesterolemia Primary hypertension Unspecified essential hypertension Acute right-sided low back pain without sciatica Nontraumatic complete tear of right rotator cuff 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- Primary Numbness of right anterior thigh Numbness of right hand [facility]* Diagnosis Primary hypertension- Primary Unspecified essential hypertension Type 2 diabetes mellitus without complication, without long-term current use of insulin (HCC) Hypercholesterolemia Pure hypercholesterolemia Sprain of medial collateral ligament of left knee, initial encounter Screening for colon cancer Special screening for malignant neoplasms, colon Annual physical exam- Primary Routine general medical examination at a health care facility Type 2 diabetes mellitus without complication, without long-term current use of insulin (HCC) Primary hypertension Unspecified essential hypertension Hypercholesterolemia Pure hypercholesterolemia Screening for prostate cancer Special screening for malignant neoplasm of prostate Type 2 diabetes mellitus without complication, without long-term current use of insulin (HCC)- Primary Hypercholesterolemia Pure hypercholesterolemia Primary hypertension Unspecified essential hypertension Type 2 diabetes mellitus without complication, without long-term current use of insulin (HCC)- Primary Hypercholesterolemia Pure hypercholesterolemia Primary hypertension Unspecified essential hypertension Acute right-sided low back pain without sciatica Nontraumatic complete tear of right rotator cuff 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- Primary Numbness of right anterior thigh Numbness of right hand Annual physical exam- Primary Routine general medical examination at a health care facility Pre-op examination Herniated cervical disc Displacement of cervical intervertebral disc without myelopathy Cervical spinal stenosis Spinal stenosis in cervical region Primary hypertension Unspecified essential hypertension Hypercholesterolemia Pure hypercholesterolemia Type 2 diabetes mellitus without complication, without long-term current use of insulin (HCC) Screening for prostate cancer Special screening for malignant neoplasm of prostate [facility]* Diagnosis Primary hypertension- Primary Unspecified essential hypertension Type 2 diabetes mellitus without complication, without long-term current use of insulin (HCC) Hypercholesterolemia Pure hypercholesterolemia Sprain of medial collateral ligament of left knee, initial encounter Screening for colon cancer Special screening for malignant neoplasms, colon Annual physical exam- Primary Routine general medical examination at a health care facility Type 2 diabetes mellitus without complication, without long-term current use of insulin (HCC) Primary hypertension Unspecified essential hypertension Hypercholesterolemia Pure hypercholesterolemia Screening for prostate cancer Special screening for malignant neoplasm of prostate Type 2 diabetes mellitus without complication, without long-term current use of insulin (HCC)- Primary Hypercholesterolemia Pure hypercholesterolemia Primary hypertension Unspecified essential hypertension Type 2 diabetes mellitus without complication, without long-term current use of insulin (HCC)- Primary Hypercholesterolemia Pure hypercholesterolemia Primary hypertension Unspecified essential hypertension Acute right-sided low back pain without sciatica Nontraumatic complete tear of right rotator cuff 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- Primary Numbness of right anterior thigh Numbness of right hand Annual physical exam- Primary Routine general medical examination at a health care facility Pre-op examination Herniated cervical disc Displacement of cervical intervertebral disc without myelopathy Cervical spinal stenosis Spinal stenosis in cervical region Primary hypertension Unspecified essential hypertension Hypercholesterolemia Pure hypercholesterolemia Type 2 diabetes mellitus without complication, without long-term current use of insulin (HCC) Screening for prostate cancer Special screening for malignant neoplasm of prostate Type 2 diabetes mellitus without complication, without long-term current use of insulin (HCC) documented in this encounter [facility] Discharge instructions* Attachments The following attachments cannot be sent through Care Everywhere. * Colonoscopy Discharge Instructions (Khmer) documented in this [facility] Discharge instructions* Attachments The following attachments cannot be sent through Care Everywhere. * Moderate Sedation in Adults Discharge Instructions (Khmer) * Colon Polypectomy Discharge Instructions (Khmer) documented in this [facility] Discharge instructions No data available for this section [facility] Progress note No data available for this section [facility] Reason for referral (narrative)* Consultation (Routine) - Pending Review Specialty Diagnoses / Procedures Referred By Maria Antonia t Referred To Contact Gastroenterology Diagnoses Screening for colon cancer Procedures [place] OFFICE/OUTPATIENT NEW HIGH MDM 60-74 MINUTES Jason Morocho MD [address] [place] [address], [facility] [place] [address] [facility] [address] [place] [address] Referral ID Status Reason Start Date Expiration Date Visits Requested Visits Authorized [id number] Pending Review Specialty Services Required 09/02/2024 1 1 [facility] Summary Purpose Family History No Family History Records FoundNo Family History Records FoundNo Family History Records FoundNo Family History Records Found No data available for this section No data available for this section No Family History Records FoundNo Family History Records FoundNo Family History Records Found Advance Directives No Advanced Directives Records Found Date Activated Date Inactivated Comments 08/05/2024 6:38 AM 08/05/2024 10:45 AM Date Activated Date Inactivated Comments 08/05/2024 6:38 AM 08/05/2024 10:45 AM Reason for Referral Specialty Diagnoses / Procedures Referred By Maria Antonia flores Referred To Contact Jason Morocho MD [address] [place] [address], [facility] [place] [address] Referral ID Status Reason Start Date Expiration Date Visits Re quested Visits Authorized [id number] Closed 1 1 Chief Complaint and Reason for Visit Chief Complaint Admit Date RIGHT SHOULDER February 03, 2025 3:2 4pm Room 2 February 03, 2025 3:3 8pm CERVICAL SPINE February 26, 2025 3:0 5pm Room 3 February 26, 2025 3:1 7pm CERVICAL MYELOPATHY April 14, 2025 3:47p m CERVICAL SPINE April 23, 2025 3:13p m Reason for Visit Admit Date Right shoulder pain February 03, 2025 3:2 4pm Cervical myelopathy February 26, 2025 3:0 5pm Chief Complaint Admit Date RIGHT SHOULDER February 03, 2025 3:2 4pm Room 2 February 03, 2025 3:3 8pm CERVICAL SPINE February 26, 2025 3:0 5pm Room 3 February 26, 2025 3:1 7pm CERVICAL MYELOPATHY April 14, 2025 3:47p m Chief Complaint Admit Date RIGHT SHOULDER February 03, 2025 3:2 4pm Room 2 February 03, 2025 3:3 8pm CERVICAL SPINE February 26, 2025 3:0 5pm Room 3 February 26, 2025 3:1 7pm CERVICAL MYELOPATHY April 14, 2025 3:47p m CERVICAL SPINE April 23, 2025 3:13p m cervical spine May 29, 2025 7:58 am Reason for Visit Admit Date Right shoulder pain February 03, 2025 3:2 4pm Cervical myelopathy February 26, 2025 3:0 5pm Cervical myelopathy April 23, 2025 3:13p m Additional Source Comments (unrecognized sect ion and content) No Status Records FoundNo Status Records FoundNo Status Records FoundNo Status Records FoundNo Status Records FoundNo Status Records FoundNo Status Records Found INFORMATION SOURCE (unrecogn ized section and content) DATE CREATED AUTHOR 05/15/2018 [facility] DATE CREATED AUTHOR AUTHOR'S ORGANIZ ATION 05/15/2018 [facility] DATE CREATED AUTHOR AUTHOR'S ORGANIZ ATION 05/15/2018 [facility] DATE CREATED AUTHOR AUTHOR'S ORGANIZ ATION 02/12/2024 [facility] DATE CREATED AUTHOR AUTHOR'S ORGANIZ ATION 01/02/2025 [facility] DATE CREATED AUTHOR AUTHOR'S ORGANIZ ATION 06/08/2025 [facility] DATE CREATED AUTHOR AUTHOR'S ORGANIZ ATION 06/09/2025 [facility] Reason for Visit (unrecogniz ed section and content) Reason Onset Date Comments Med Refill 01/27/2023 Reason Onset Date Comments Med Refill 02/13/2023 Reason Onset Date Comments Med Refill 02/26/2023 Reason Onset Date Comments Results 02/26/2023 Reason Onset Date Comments Med Refill 04/21/2023 Reason Onset Date Comments Fatigue 07/26/2023 Reason Onset Date Comments Results 08/07/2023 Labs Reason Onset Date Comments Other 08/09/2023 Message to Cydney maria del rosario- Lab results Reason Onset Date Comments Med Refill 08/20/2023 Reason Comments Knee Pain left Results Discuss lab results from other doctor Health Maintenance Colonoscopy- pt will check to see who his ins plan covers then let us know for referral Mmr vaccine- done as childPcv vaccine- refuseCovid vaccine- not doneFlu vaccine- refuse new to provider Reason Comments Med Refill Reason Onset Date Comments other 09/05/2023 Requesting [employer] y Rx Reason Onset Date Comments Release of Information 10/08/2023 semagluti de (Ozempic) 2 MG/3ML solution pen-injector Reason Onset Date Comments Colon Cancer Screening 09/13/2023 Colonoscopy 09/13/2023 Surveillance pro gram Reason Onset Date Comments Med Refill 12/26/2023 Reason Onset Date Comments Medication Problem 12/28/2023 Specialty Diagnoses / Procedures Referred By Maria Antonia t Referred To Contact Diagnoses Screening for malignant neoplasm of colon screening Procedures [place] COLONOSCOPY FLX DX W/COLLJ SPEC WHEN PFRMD COLONOSCOPY with possible biopsy / polypectomy/ coagulation/ electrocautery/ endotracheal intubation/ anesthesia Don Feldman MD [address] [facility] [facility] [address] [place] [address] Referral ID Status Reason Start Date Expiration Date Visits Re quested Visits Authorized [id number] 12/13/2023 1 1 Reason Comments Annual Exam Pt is having a hard time getting Ozempic and wonders what he should do Blood Work Health Maintenance Mmr vaccine- done as a childHiv and hep c screening- refusedPcv 20, tdap, shingles, rsv, flu covid vaccines- all refusedDental exam- done a month ago at [facility] will send for record Reason Onset Date Comments Med Refill 03/28/2024 Reason Onset Date Comments Med Refill 04/07/2024 Reason Onset Date Comments Med Refill 05/13/2024 Reason Comments Diabetes Follow-up 3 month Health Maintenance Eye exam- not done p t will sched Reason Onset Date Comments Med Refill 06/14/2024 Reason Onset Date Comments Cough 06/25/2024 Reason Onset Date Comments Med Refill 07/11/2024 Reason Onset Date Comments Med Refill 08/03/2024 Specialty Diagnoses / Procedures Referred By Maria Antonia flores Referred To Contact Diagnoses Hx of colonic polyp Hx of colonic polyp Procedures [place] COLONOSCOPY FLX DX W/COLLJ SPEC WHEN PFRMD COLONOSCOPY Don Feldman MD [address] [place] [address] [place] [address] Referral ID Status Reason Start Date Expiration Date Visits Re quested Visits Authorized [id number] 06/12/2024 1 1 Reason Onset Date Comments Med Refill 08/05/2024 Reason Onset Date Comments Med Refill 08/18/2024 Reason Onset Date Comments Med Refill 09/04/2024 Reason Onset Date Comments Med Refill 09/30/2024 Reason Onset Date Comments Med Refill 10/09/2024 Reason Onset Date Comments Med Refill 11/28/2022 Reason Onset Date Comments Med Refill 12/26/2022 Reason Onset Date Comments Flank Pain 11/27/2024 Reason Comments Diabetes Follow-up 6 month Health Maintenance Pcv 20 vaccine- refu seFlu vaccine- refuseCovid vaccine- not doneDental exam- done at [facility] 06/2024 Pain Starts in back and a round to front right side Reason Comments Shoulder Pain Spinal Stenosis Numbness Right leg Tingling Right leg Hand Problem Reason Onset Date Comments Med Refill 04/29/2025 Reason Comments Forms/questionnaires Patient is schedule d to undergo surgery on 06/17/25, patient needs surgery clearance forms completed prior Reason Onset Date Comments Med Refill 05/28/2025 Care Teams (unrecognized sec tion and content) Pharmaceutical Sales Specialist Relationship Specialty Start Date End Date Cecelia Fox, [address] [place] [address] PCP - General 11/05/20 Pharmaceutical Sales Specialist Relationship Specialty Start Date End Date Cecelia Fox DO [address] [place] [address] PCP - General 11/05/20 Pharmaceutical Sales Specialist Relationship Specialty Start Date End Date Cecelia Fox DO [address] [place] [id number] PCP - General 11/05/20 Pharmaceutical Sales Specialist Relationship Specialty Start Date End Date Cecelia Fox DO [address] [place] [id number] PCP - General 11/05/20 Pharmaceutical Sales Specialist Relationship Specialty Start Date End Date Cecelia Fox DO [address] [place] [id number] PCP - General 11/05/20 Pharmaceutical Sales Specialist Relationship Specialty Start Date End Date Cecelia Fox DO [address] [place] [id number] PCP - General 11/05/20 Pharmaceutical Sales Specialist Relationship Specialty Start Date End Date Cecelia Fox DO [address] [place] [phone] PCP - General 11/05/20 Pharmaceutical Sales Specialist Relationship Specialty Start Date End Date Cecelia Fox DO [address] [place] [id number] PCP - General 11/05/20 Pharmaceutical Sales Specialist Relationship Specialty Start Date End Date Jason Morocho MD [address] [place] [address] [address] [place], [place] [id number] PCP - General Family Medicine 09/05/23 Pharmaceutical Sales Specialist Relationship Specialty Start Date End Date Jason Morocho MD [address] [place] [id number] PCP - General Family Medicine 09/05/23 Pharmaceutical Sales Specialist Relationship Specialty Start Date End Date Jason Morocho MD [address] [facility] [place] [address] PCP - General Family Medicine 09/05/23 Pharmaceutical Sales Specialist Relationship Specialty Start Date End Date Jason Morocho MD [address] [facility] [place] [address] PCP - General Family Medicine 09/05/23 Pharmaceutical Sales Specialist Relationship Specialty Start Date End Date Jason Morocho MD [address] [facility] [place] [address] PCP - General Family Medicine 09/05/23 Pharmaceutical Sales Specialist Relationship Specialty Start Date End Date Jason Morocho MD [address] [facility] [place] [address] PCP - General Family Medicine 09/05/23 Pharmaceutical Sales Specialist Relationship Specialty Start Date End Date Jason Morocho MD [address] [facility] [place] [address] PCP - General Family Medicine 09/05/23 Pharmaceutical Sales Specialist Relationship Specialty Start Date End Date Jason Morocho MD [address] [facility] [place] [address] PCP - General Family Medicine 09/05/23 Pharmaceutical Sales Specialist Relationship Specialty Start Date End Date Jason Morocho MD [address] [facility] [place] [address] PCP - General Family Medicine 09/05/23 Pharmaceutical Sales Specialist Relationship Specialty Start Date End Date Jason Mor[facility]o MD [facility] [place] [address] PCP - General Family Medicine 09/05/23 Pharmaceutical Sales Specialist Relationship Specialty Start Date End Date Jason Morocho MD [address] [facility] [place] [address] PCP - General Family Medicine 09/05/23 Pharmaceutical Sales Specialist Relationship Specialty Start Date End Date Jason Morocho MD [address] [facility] [place] [address] PCP - General Family Medicine 09/05/23 Pharmaceutical Sales Specialist Relationship Specialty Start Date End Date Jason Morocho MD [address] [facility] [place] [address] PCP - General Family Medicine 09/05/23 Pharmaceutical Sales Specialist Relationship Specialty Start Date End Date Jason Morocho MD [address] [facility] [place] [address] PCP - General Family Medicine 09/05/23 Pharmaceutical Sales Specialist Relationship Specialty Start Date End Date Jason Morocho MD [address] [facility] [place] [address] PCP - General Family Medicine 09/05/23 Pharmaceutical Sales Specialist Relationship Specialty Start Date End Date Jason Morocho MD [address] [facility] [place] [address] PCP - General Family Medicine 09/05/23 Pharmaceutical Sales Specialist Relationship Specialty Start Date End Date Jason Morocho MD [address] [facility] [place] [address] PCP - General Family Medicine 09/05/23 Pharmaceutical Sales Specialist Relationship Specialty Start Date End Date Jason Morocho MD [address] [facility] [place] [address] PCP - General Family Medicine 09/05/23 Pharmaceutical Sales Specialist Relationship Specialty Start Date End Date Jason Morocho MD [address] [facility] [place] [address] PCP - General Family Medicine 09/05/23 Pharmaceutical Sales Specialist Relationship Specialty Start Date End Date Jason Morocho MD [address] [facility] [place] [address] PCP - General Family Medicine 09/05/23 Pharmaceutical Sales Specialist Relationship Specialty Start Date End Date Jason Morocho MD [address] [facility] [place] [address] PCP - General Family Medicine 09/05/23 Pharmaceutical Sales Specialist Relationship Specialty Start Date End Date Jason Morocho MD [address] [facility] [place] [address] PCP - General Family Medicine 09/05/23 Pharmaceutical Sales Specialist Relationship Specialty Start Date End Date Jason Morocho MD [address] [facility] [place] [address] PCP - General Family Medicine 09/05/23 Pharmaceutical Sales Specialist Relationship Specialty Start Date End Date Jason Mroocho MD [address] [place] [address] PCP - General Family Medicine 09/05/23 Pharmaceutical Sales Specialist Relationship Specialty Start Date End Date Cecelia Fox, DO [address] [place] [address] PCP - General 11/05/20 Pharmaceutical Sales Specialist Relationship Specialty Start Date End Date Jason Morocho MD [address] [place] [address] PCP - General Family Medicine 09/05/23 Pharmaceutical Sales Specialist Relationship Specialty Start Date End Date Jason Morocho MD [address] [place] [address] PCP - General Family Medicine 09/05/23 Pharmaceutical Sales Specialist Relationship Specialty Start Date End Date Jason Morocho MD [address] [place] [address] PCP - General Family Medicine 09/05/23 Pharmaceutical Sales Specialist Relationship Specialty Start Date End Date Jason Morocho MD [address] [place] [address] PCP - General Family Medicine 09/05/23 Pharmaceutical Sales Specialist Relationship Specialty Start Date End Date Jason Morocho MD [address] [place] [address] PCP - General Family Medicine 09/05/23 Team Status: Active Member Role Status Dates Dr. Jason Morocho MD Primary Care Provider Active Team Status: Inactive Member Role Status Dates Roby Gore MD Attending Provider Active St art: February 03, 2025 End: February 03, 2025 Team Status: Inactive Member Role Status Dates Dr. Saleem Christine MD Attending Provider Active S tart: February 03, 2025 End: February 03, 2025 Team Status: Inactive Member Role Status Dates Dr. Baron Buenrostro MD Attending Provider Active Start: February 26, 2025 End: February 26, 2025 Dr. Jason Morocho MD Primary Care Provider Active Start: February 26, 2025 End: February 26, 2025 Dr. Jason Morocho MD Referring Provider Active Start: February 26, 2025 End: February 26, 2025 Team Status: Inactive Member Role Status Dates Dr. Jason Morocho MD Primary Care Provider Active Start: February 26, 2025 End: February 26, 2025 Dr. Saleem Christine MD Attending Provider Active S tart: February 26, 2025 End: February 26, 2025 Team Status: Inactive Member Role Status Dates Dr. Jason Morocho MD Primary Care Provider Active Start: April 14, 2025 End: April 14, 2025 Dr. Baron Buenrostro MD Attending Provider Active Start: April 14, 2025 End: April 14, 2025 Dr. Baron Buenrostro MD Referring Provider Active Start: April 14, 2025 End: April 14, 2025 Team Status: Inactive Member Role Status Dates Dr. Jason Morocho MD Primary Care Provider Active Start: April 23, 2025 End: April 23, 2025 Dr. Jason Morocho MD Referring Provider Active Start: April 23, 2025 End: April 23, 2025 GREGOR Bland Attending Provider Active Star t: April 23, 2025 End: April 23, 2025 Pharmaceutical Sales Specialist Relationship Specialty Start Date End Date Jason Morocho MD [address] [place] [id number] PCP - General Family Medicine 09/05/23 Pharmaceutical Sales Specialist Relationship Specialty Start Date End Date Jason Morocho MD [address] [place], [place] [address] [address] PCP - General Family Medicine 09/05/23 Team Status: Active Member Role/Relationship Status Dates Dr. Jason Morocho MD Primary Care Provider Active Team Status: Inactive Member Role/Relationship Status Dates Roby Gore MD Attending Provider Active St art: February 03, 2025 End: February 03, 2025 Team Status: Inactive Member Role/Relationship Status Dates Dr. Saleem Christine MD Attending Provider Active S tart: February 03, 2025 End: February 03, 2025 Team Status: Inactive Member Role/Relationship Status Dates Dr. Baron Buenrostro MD Attending Provider Active Start: February 26, 2025 End: February 26, 2025 Dr. Jason Morocho MD Primary Care Provider Active Start: February 26, 2025 End: February 26, 2025 Dr. Jason Morocho MD Referring Provider Active Start: February 26, 2025 End: February 26, 2025 Team Status: Inactive Member Role/Relationship Status Dates Dr. Jason Morocho MD Primary Care Provider Active Start: February 26, 2025 End: February 26, 2025 Dr. Saleem Christine MD Attending Provider Active S tart: February 26, 2025 End: February 26, 2025 Team Status: Inactive Member Role/Relationship Status Dates Dr. Jason Morocho MD Primary Care Provider Active Start: April 14, 2025 End: April 14, 2025 Dr. Baron Buenrostro MD Attending Provider Active Start: April 14, 2025 End: April 14, 2025 Dr. Baron Buenrostro MD Referring Provider Active Start: April 14, 2025 End: April 14, 2025 Team Status: Inactive Member Role/Relationship Status Dates Dr. Jason Morocho MD Primary Care Provider Active Start: April 23, 2025 End: April 23, 2025 Dr. Jason Morocho MD Referring Provider Active Start: April 23, 2025 End: April 23, 2025 GREGOR Bland Attending Provider Active Star t: April 23, 2025 End: April 23, 2025 Team Status: Inactive Member Role/Relationship Status Dates Dr. Jason Morocho MD Primary Care Provider Active Start: May 29, 2025 End: May 29, 2025 Dr. Jason Morocho MD Referring Provider Active Start: May 29, 2025 End: May 29, 2025 Dr. Baron Buenrostro MD Attending Provider Active Start: May 29, 2025 End: May 29, 2025 Pharmaceutical Sales Specialist Relationship Specialty Start Date End Date Jason Morocho MD [address] [facility], [place] [address] PCP - General Family Medicine 09/05/23 Continuous Active and Recently Administ ered Medications (unrecognized section and content) Medication Order 01/27/2024 01/28/2024 01/29/2024 lactated Ringer's (LR) infusion 50 mL/hr, IntraVENous, Continuous, Starting on Sun01/29/24 at 0900, Preprocedure, Upon admission to sameday - please start iv if patient does not have iv access. 0849 (New Bag - Prov ider: Bushra Manrique RN)0917 (Continued by Anesthesia - Provider: LEXII Brownlee CRNA)1020 (Anesthesia Volume Adjustment - Provider: LEXII Brownlee CRNA) Scheduled Medication Order 08/03/2024 08/04/2024 08/05/2024 sodium chloride 0.9% (NS) flush 10 mL 10 mL, IntraVENous, Every 12 hours scheduled (2 times per day), First dose on Sun08/05/24 at 0900, Preprocedure 0900 (Canceled Entry - Provider: Automatic Discharge Provider - Comment: Automatically canceled at discontinue of medication order) Continuous Medication Order 08/03/2024 08/04/2024 08/05/2024 lactated Ringer's (LR) infusion 50 mL/hr, IntraVENous, Continuous, Starting on Sun08/05/24 at 0645, Preprocedure, Upon admission to day - please start iv if patient does not have iv access. 0653 (New Bag - Prov ider: Bushra Manrique RN)0728 (Continued by Anesthesia - Provider: LEXII Fuller CRNA)0806 (Stopped - Provider: LEXII Fuller CRNA) PRN Medication Order 08/03/2024 08/04/2024 08/05/2024 ondansetron (Zofran) injection 4 mg 4 mg, IntraVENous, Once PRN, nausea, vomiting, Starting on Sun08/05/24 at 0638, For 1 dose, Preprocedure simethicone (Mylicon) drops (COMPLETED) Intraluminal, As needed, Starting on Sun08/05/24 at 0741, Intraprocedure 0741 (Given - Provid er: Don Feldman MD - Comment: THROUGH COLONOSCOPE) sodium chloride 0.9 % infusion 5-250 mL/hr, IntraVENous, PRN, if patient receiving piggyback infusions and maintenance fluids are not ordered OR KVO fluids to protect IV site / prevent frequent line interruptions/ long duration, Starting on Sun08/05/24 at 0638, Preprocedure, For piggyback infusion, administer at same rate as piggyback for a total of 25 mL. Enter 25 mL into dose field and piggyback rate into rate field of order. If piggyback is infusing at a rate less than 100 mL/hr, enter 25 mL into dose field and 100 mL/hr into rate field of order. For KVO fluids, enter rate of 20 mL/hr or less into rate field of order. sodium chloride 0.9% (NS) flush 10 mL 10 mL, IntraVENous, PRN, line care, Starting on Sun08/05/24 at 0638, Preprocedure, After every IV line use Goals (unrecognized section and content) Goals may be documented in a n alternate section FOR RECORDS PERTAINING TO PATIENTS WHO ARE OR HAVE BEEN ENROLLED IN A CHEMICAL DEPENDENCY/SUBSTANCEABUSE PROGRAM, SOME INFORMATION MAY BE OMITTED. This clinical summary was aggregated from multiple sources. Caution should be exercised in using it in the provision of clinical care. This summary normalizes information from multiple sources, and as a consequence, information in this document may materially change the coding, format and clinical context of patient data. In addition, data may be omitted in some cases. CLINICAL DECISIONS SHOULD BE BASED ON THE PRIMARY CLINICAL RECORDS. [employer] provides no warranty or guarantee of the accuracy or completeness of information in this document.
[2025-06-09] MEDS: Senna/Docusate Sodium 1 Tablet 2 TABLET PO (22:41)
[2025-06-09] MEDS: 0.9% Saline Lock 10 ML Syringe IV (22:42)
[2025-06-10] MEDS: Cefazolin 2 GM in 0.9% Normal Saline (100mL Bag) 100 ML IV (00:06)
[2025-06-10 00:13] VITALS: BP 163/91; PULSE 67; RESP 16; TEMP 36.6; O2SAT 97
[2025-06-10] MEDS: HYDROcodone Bitartrate/Apap 5/325 Tablet PO ×2 (00:39→08:28)
[2025-06-10 04:25] VITALS: BP 170/87; PULSE 70; RESP 16; TEMP 36.6; O2SAT 96
[2025-06-10 05:51] LABS: Hematocrit 43.3 % (40-54); Hemoglobin 14.7 g/dL (13.0-16.5); Immature Granulocytes Count 0.030 X10^3/uL (0.0-0.0); Mean Corp Hgb Conc 33.9 g/dL (32-36); Mean Corpuscular Volume 92.7 fL (80-94); Mean Platelet Vol. 10.1 fl (6.2-12.0); NRBC Flagged by Analyzer 0 % (0-5); Platelet Count 240 K/mm3 (150-450); RBC Distribution Width CV 12.3 % (11.6-14.6); RBC Distribution Width SD 41.8 fl (35.1-43.9); Red Blood Count 4.67 M/mm3 (4.6-6.2); White Blood Count 12.6 K/mm3 (4.4-11.0)
[2025-06-10 06:11] LABS: Anion Gap 12 (5-15); BUN 11 mg/dL (4-19); BUN/Creat Ratio 15.8 RATIO (10-20); Calcium,Total 9.3 mg/dL (7.6-11.0); Carbon Dioxide 21.4 mmol/L (21.0-32.0); Chloride 102 mmol/L (98-108); Estimated Creatinine Clearance 130.82 ml/min (50-250); Glucose 168 mg/dL (70-99); Potassium 4.2 mmol/L (3.3-5.1)
--- NOTE | 2025-06-10 07:36 | DCINST_ITS ---
Discharge Instructions DC O2, CPAP, BIPAP needs Home O2 Discharge instructions: No Follow Up Care Test Results: Test results from this visit will be discussed in further detail at your follow- up appointment, if applicable. Discharge Plan Admission Admit Date/Time: 06/09/25 15:25 Attending Provider: Baron Buenrostro Primary Care Provider: Jason Burciaga Consulting Providers: Abdelrahman Currie; Disha Grier; Shani Jules; Marvel Quintero; Marvel Zhou; Jose Angel Camacho; Nay Barnett; Roscoe Massey; Camila Pavon; Edison Omalley; Mikala Patel; Young Sanchez; Garcia Ramirez; Harrison Merchant; Jessica Michele; Arnold Johnson; Davonte Quiñonez PA Instructions Patient Instructions: Cervical Fusion Dc Additional Instructions / Restrictions: Keep Tegaderm and gauze clean and dry. After 5 days remove the Tegaderm and gauze and cover incision with a Band-Aid. Replace Band-Aid daily thereafter. Wear cervical collar full-time for the first 2 weeks. Eat soft solid foods as needed for dysphagia. Sleep in a recliner to help with swelling. No bending, lifting, twisting. Follow-up in clinic in 2 weeks. Discharge Orders/Prescriptions Prescriptions: New hydrocodone-acetaminophen 5-325 mg Tablet 1 tab PO Q6H PRN (Reason: pain) 7 Days Qty: 28 0RF meloxicam 15 mg Tablet 15 mg PO DAILY Qty: 30 0RF Rx Instructions: take once a day methocarbamol 500 mg Tablet 500 - 750 mg PO TID PRN (Reason: pain/spasms) Qty: 60 0RF sennosides-docusate sodium [Stimulant Laxative Plus] 8.6-50 mg Tablet 2 tab PO BID PRN (Reason: constipation) Qty: 14 0RF Continued atenolol 50 mg tablet 50 mg PO QDAY lovastatin 40 mg tablet 80 mg PO QHS lisinopril 10 mg tablet 10 mg PO QDAY Ozempic 0.25 mg or 0.5 mg (2 mg/3 mL) pen injector 0.5 mg subcut QWEEK Patient Comments: LAST DOSE TO BE 05/29/25 FOR SURGERY ON 07/22/25 metformin 500 mg tablet 500 mg PO DAILY Discontinued meloxicam 15 mg tablet 15 mg PO QDAY methocarbamol 500 mg tablet 500 mg PO TID PRN (Reason: pain/spasms) Qty: 30 0RF Referrals / Follow Up: Jason Burciaga MD [Primary Care Provider] - Disposition Disposition (needs filled in before D/C Order can be placed): Home, Self Care
[2025-06-10 07:41] VITALS: BP 146/78
[2025-06-10] MEDS: Senna/Docusate Sodium 1 Tablet 2 TABLET PO (08:28)
[2025-06-10] MEDS: 0.9% Saline Lock 10 ML Syringe IV (08:28)
[2025-06-10 08:34] VITALS: BP 176/97; PULSE 64; RESP 17; TEMP 36.4; O2SAT 100
--- NOTE | 2025-06-10 08:55 | RAD_ITS ---
PROCEDURE: CERV SPINE 2 OR 3 VIEWS 06/10/2025 REASON FOR EXAM: S/P CERVICAL FUSION TECHNIQUE: CERV SPINE 2 OR 3 VIEWS COMPARISON: Cervical spine radiographs dated 02/26/2025 FINDINGS: See below. RAD/Cerv Spine 2 or 3 Views IMPRESSION: C7 vertebral body is poorly visualized on the lateral view. Interval postopera tive changes from anterior cervical discectomy and fusion at C4-C6. There is no evidence of hardware fracture. There is minimal a ir gap between the hardware and vertebral bodies measuring 1-2 mm. Increased prominence of the prevertebral soft tissues, likel y postoperative. Visualized lung apices are clear. Reading Location: [facility]
--- NOTE | 2025-06-10 08:56 | PN.HOSP_ITS ---
Subjective Subjective Doing well, had a little bit of pain this morning so took some morphine as well but out of it he feels like but otherwise thinks that he could be able to go home today. No nausea or vomiting. Objective Data Objective Data Vital Signs: Vital Signs Temp Pulse Resp BP Pulse Ox O2 Del Method O2 Flow Rate 97.6 F L 64 17 176/97 H 100 Room Air 4 06/10/25 08:34 06/10/25 08:34 06/10/25 08:34 06/10/25 08:34 06/10/25 08:34 06/10/25 08:34 06/09/25 16:29 FiO2 36 06/09/25 16:29 Oxygen Flow Rate (L/min) 4 Oxygen Delivery Method Room Air Weight: 238 lb 12.17 oz Body Mass Index (BMI) 35.2 Intake & Output: Intake and Output for Last 24 Hours 06/09/25 06/10/25 06/11/25 03:59 03:59 03:59 Intake Total 720 / 720 529 / 529 Output Total Balance 695 / 695 529 / 529 Lab / Micro Data 06/10/25 04:48 06/10/25 04:48 Labs: Laboratory Results - last 24 hr 06/08/25 15:12: Hepatitis A Ab Total Negative 06/09/25 10:18: POC Glucose 139 H 06/09/25 15:16: POC Glucose 159 H 06/09/25 22:50: POC Glucose 222 H 06/10/25 00:18: POC Glucose 208 H 06/10/25 04:48: WBC 12.6 H, RBC 4.67, Hgb 14.7, Hct 43.3, MCV 92.7, MCH 31.5, MCHC 33.9, RDW Std Deviation 41.8, RDW Coeff of Raphael 12.3, Plt Count 240, MPV 10.1, Immature Gran % (Auto) 0.200, Neut % (Auto) 89.6 H, Lymph % (Auto) 8.3 L, [place] % (Auto) 1.8, Eos % (Auto) 0.0, Baso % (Auto) 0.1, Absolute Neuts (auto) 11.3 H, Absolute Lymphs (auto) 1.05, Nucleated RBC % 0, Sodium 136, Potassium 4.2, Chloride 102, Carbon Dioxide 21.4, Anion Gap 12, BUN 11, Creatinine 0.71, Estim Creat Clear Calc 130.82, Est GFR (MDRD) Non-Af 104, BUN/Creatinine Ratio 15.8, Glucose 168 H, Calcium 9.3 06/10/25 06:37: POC Glucose 180 H Micro: Microbiology 06/08/25 15:12 Swab (Method) Nasal Screen MRSA/MSSA - Final Physical Exam Narrative General: Alert, Oriented x3, Cooperative, No apparent distress HEENT: Atraumatic, PERRLA, EOMI, Normocephalic Oral: Moist Mucosa Neck: Supple, No JVD, c-collar in place and dressing is CDI Lungs: Diminished, Normal air movement, No rhonchi, No wheeze, No rales Cardiovascular: Regular rate, Regular Rhythm, Normal S1, Normal S2, No murmurs Abdomen: Soft, Non Tender, Non-Distended, No Hepato-splenomegaly Extremities: No edema, Capillary Refill Less than 3 Seconds Skin: No rashes, No breakdown Musculoskeletal: No Tenderness to Palpation of Joints or Extremities Neurological: No focal neurological deficits, Motor Exam 5/5 strength throughout, Sensory exam intact to light touch and pain Psych/Mental Status: Normal Affect, Appropriate Assessment & Plan Assessment/Plan (1) Type 2 diabetes mellitus: PLAN: Plan 1. 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 Type 2 diabetes mellitus -Glucose checks and sliding scale insulin -Can resume home metformin on discharge – Will monitor and make adjustments as necessary 3. Essential hypertension - Continue home antihypertensives – Blood pressure is stable if a little bit elevated – Monitor make adjustments as necessary DVT: Per primary Will sign off Charges/Coding Visit Charges Office Visits / Consults: [id number] OV L3 Est 20min
[2025-06-10 11:57] VITALS: BP 152/87; PULSE 62; RESP 17; TEMP 36.6
--- NOTE | 2025-06-10 13:53 | PCM.PN.ORT ---
Subjective Subjective Post op day 1 C4-6 fusion. Patient is doing well post operatively with his pain well managed. He has been up and walking and has been cleared for home discharge. Denies any significant dysphagia. Reports that his blood pressure has been elevated, highest blood pressure reading is 176/97. Patient's dressing was changed once. Seen with Dr. Buenrostro. Objective Data Objective Data Vital Signs: Vital Signs Temp Pulse Resp BP Pulse Ox O2 Del Method O2 Flow Rate 97.8 F 62 17 152/87 H 100 Room Air 4 06/10/25 11:57 06/10/25 11:57 06/10/25 11:57 06/10/25 11:57 06/10/25 08:34 06/10/25 11:57 06/09/25 16:29 FiO2 36 06/09/25 16:29 Oxygen Flow Rate (L/min) 4 Oxygen Delivery Method Room Air Weight: 238 lb 12.17 oz Body Mass Index (BMI) 35.2 Intake & Output: Intake and Output for Last 24 Hours 06/08/25 06/09/25 06/10/25 23:59 23:59 23:59 Intake Total 610 / 610 639 / 639 Output Total Balance 585 / 585 639 / 639 Lab / Micro Data 06/10/25 04:48 06/10/25 04:48 Labs: Laboratory Results - last 24 hr 06/08/25 15:12: Hepatitis A Ab Total Negative 06/09/25 15:16: POC Glucose 159 H 06/09/25 22:50: POC Glucose 222 H 06/10/25 00:18: POC Glucose 208 H 06/10/25 04:48: WBC 12.6 H, RBC 4.67, Hgb 14.7, Hct 43.3, MCV 92.7, MCH 31.5, MCHC 33.9, RDW Std Deviation 41.8, RDW Coeff of Raphael 12.3, Plt Count 240, MPV 10.1, Immature Gran % (Auto) 0.200, Neut % (Auto) 89.6 H, Lymph % (Auto) 8.3 L, [place] % (Auto) 1.8, Eos % (Auto) 0.0, Baso % (Auto) 0.1, Absolute Neuts (auto) 11.3 H, Absolute Lymphs (auto) 1.05, Nucleated RBC % 0, Sodium 136, Potassium 4.2, Chloride 102, Carbon Dioxide 21.4, Anion Gap 12, BUN 11, Creatinine 0.71, Estim Creat Clear Calc 130.82, Est GFR (MDRD) Non-Af 104, BUN/Creatinine Ratio 15.8, Glucose 168 H, Calcium 9.3 06/10/25 06:37: POC Glucose 180 H Micro: Microbiology 06/08/25 15:12 Swab (Method) Nasal Screen MRSA/MSSA - Final Physical Exam Narrative Neurological examination of the upper extremity shows 4 - strength bilateral biceps similar to before surgery. All other muscle groups show 5 power. Normal sensation across all dermatomes. Drain removed. Tegaderm and gauze applied over incision. Cervical collar was removed to remove the drain and then reapplied after. Const alert, oriented x3 and no apparent distress Assessment & Plan Assessment/Plan (1) Status post cervical spinal fusion: PLAN: Plan Postop day 1 C4-6 fusion. Patient doing well postoperatively and has walked ready for home discharge. PT/OT attempted to see patient, patient refused, patient independent walking in hallways. Obtained and reviewed x-rays today which show hardware and bone graft in good position. Reviewed restrictions of no bending, lifting, twisting. Reviewed and educated on the proper wear of the cervical collar and how to adjust the collar to an appropriate fit. Reviewed and educated on the use of the incentive spirometer. Home-going meds include [place], meloxicam, methocarbamol, senna. Patient wishes for his medications to be sent to the hospital pharmacy. He will follow-up in the clinic in 2 weeks. Patient is in agreement.
--- NOTE | 2025-06-10 14:20 | CASEMGMT ---
ERICA HATCH note: Discharge order is in. PT eval reviewed. Pt has been up independently and denies having any needs for therapy. DAWNA CM to room. Pt states is ready to go home. He states he spoke w/GREGOR Foster, who stated would give him a disability placard. ERICA HATCH contacted [employer]. Script for 3 month temporary disability placard received from Kristin and provided to pt along with Application for Disability Placard & instructed on use. He voices appreciation. He denies having other discharge needs or concerns. Maddi NELSON RN, CM
--- NOTE | 2025-06-10 14:32 | PHA.DC_ITS ---
Pharmacy [facility] Counsel[facility] has performed discharge medication reconciliation and counseling for this patient. 1. HYDROCODONE/ACETAMINOPHEN 5/325MG PO Q6H PRN PAIN 2. MELOXICAM 15MG PO DAILY 3. METHOCARBAMOL 500-750MG PO TID PRN MUSCLE SPASMS 4. SENNA/DOCUSATE 2T PO BID PRN CONSTIPATION The patient's discharge medication list was reviewed for discrepancies and discrepancies were resolved. The patient was counseled on the following discharge medications and changes in medications for homegoing were reviewed. The Reason for Use, instructions for use, and potential side effects were reviewed for all new medications. The patient's questions regarding all of their medications were answered. The patient was able to verbally demonstrate an understanding of their discharge medications. Medications at Discharge Home Medications atenolol 50 mg tablet 50 mg PO QDAY 02/03/25 lisinopril 10 mg tablet 10 mg PO QDAY 02/03/25 lovastatin 40 mg tablet 80 mg PO QHS 02/03/25 semaglutide 0.25 mg or 0.5 mg (2 mg/3 mL) subcutaneous pen injector (Ozempic) 0.5 mg subcut QWEEK 02/03/25 metformin 500 mg tablet 500 mg PO DAILY 06/09/25 hydrocodone-acetaminophen 5-325mg 5mg-325mg 1 tab PO Q6H PRN pain 7 days #28 tabs 06/10/25 meloxicam 15 mg tablet 15 mg PO DAILY #30 tabs 06/10/25 methocarbamol 500 mg tablet 500 - 750 mg (1 - 1.5 x 500 mg) PO TID PRN pain/spasms #60 tabs 06/10/25 sennosides 8.6 mg-docusate sodium 50 mg tablet (Stimulant Laxative Plus) 2 tab PO BID PRN constipation #14 tabs 06/10/25
--- NOTE | 2025-06-10 20:05 | POSTOPAN2_ITS ---
Anesthesia Postop Eval I Sum Postop Eval Completion status Anesthesia document: Postop Eval 1 completed: Yes Anesthesia Postop Eval I Summary Anesthesia Postop Eval I Summary: Anesthesia Postop Eval I: Assessment Summary Airway patent Yes 06/09/25 15:28 [email or web address] Spontaneous unlabored Yes 06/09/25 15:28 FISCAL [email or web address] respirations Mental status Awake,Calm 06/09/25 15:28 FISCAL [email or web address] nausea No 06/09/25 15:28 FISCAL [email or web address] Vomiting No 06/09/25 15:28 FISCAL [email or web address] Anesthesia Postop Eval I: Fluid Summary Crystalloid volume administer 1,000 06/09/25 15:28 FISCAL [email or web address] (ml) Colloids volume administered ( ml) Blood Product volume administered (ml) Total IV fluid infused 1,000 06/09/25 15:28 FISCAL [email or web address] Anesthesia Postop Eval I: Summary Notes Anesthesia Complication No 06/09/25 15:28 FISCAL [email or web address] Anesthesia Complication Comment: Post-operative progress note Anesthesia: Postop Eval II Evaluation Mental status: Awake and Calm Pain Level: 2 nausea: No Vomiting: No Complications Anesthesia Complication: No
--- NOTE | 2025-06-10 20:05 | PCM.POSTANE2 ---
Anesthesia Postop Eval I Sum Postop Eval Completion status Anesthesia document: Postop Eval 1 completed: Yes Anesthesia Postop Eval I Summary Anesthesia Postop Eval I Summary: Anesthesia Postop Eval I: Assessment Summary Airway patent Yes 06/09/25 15:28 EXTRUSION [email or web address] [email or web address] Spontaneous unlabored Yes 06/09/25 15:28 EXTRUSION UTILITY [email or web address].ABAR respirations Mental status Awake,Calm 06/09/25 15:28 EXTRUSION UTILITY [email or web address].ABAR nausea No 06/09/25 15:28 EXTRUSION UTILITY [email or web address].ABAR Vomiting No 06/09/25 15:28 EXTRUSION UTILITY [email or web address].ABAR Anesthesia Postop Eval I: Fluid Summary Crystalloid volume administer 1,000 06/09/25 15:28 EXTRUSION [email or web address] [email or web address].ABAR (ml) Colloids volume administered ( ml) Blood Product volume administered (ml) Total IV fluid infused 1,000 06/09/25 15:28 EXTRUSION UTILITY [email or web address].ABAR Anesthesia Postop Eval I: Summary Notes Anesthesia Complication No 06/09/25 15:28 EXTRUSION [email or web address] [email or web address].ABAR Anesthesia Complication Comment: Post-operative progress note Anesthesia: Postop Eval II Evaluation Mental status: Awake and Calm Pain Level: 2 nausea: No Vomiting: No Complications Anesthesia Complication: No
== END 2025-06-10 14:55 | disposition home or self-care (01) ==
LOC: MS3 15:35
PROVIDERS: Anesthesiology; Student in an Organized Health Care Education/Training Program; Admitting Provider Orthopaedic Surgery Orthopaedic Surgery of the Spine; PCP Family Medicine; Referring Provider Orthopaedic Surgery Orthopaedic Surgery of the Spine; Visit Provider Orthopaedic Surgery Orthopaedic Surgery of the Spine
PROC: (CPT 22551; principal; 2025-06-09 11:30)
DX: M50.021 Cervical disc disorder at C4-C5 level with myelopathy (principal); G95.29 Other cord compression; E11.9 Type 2 diabetes mellitus without complications; M50.022 Cervical disc disorder at C5-C6 level with myelopathy; M48.02 Spinal stenosis, cervical region; M43.12 Spondylolisthesis, cervical region; I10 Essential (primary) hypertension; E78.00 Pure hypercholesterolemia, unspecified; F17.210 Nicotine dependence, cigarettes, uncomplicated; Z79.84 Long term (current) use of oral hypoglycemic drugs; Z79.85 Long-term (current) use of injectable non-insulin antidiabetic drugs; Z79.899 Other long term (current) drug therapy
CPT/HCPCS: 22551; 22845; 22552; 20931 ×2; 00670; 36415; 72040; 76000; 80048; 82962; 83735; 85025; 86703; 86706; 86708; 86803; 86850; 86900; 86901; 87081; 94668; 96365; 96366; 96375; 96376; 99221; 99406; A4648; C1713; A4216; G0378; J2405; J3475